=== PATIENT | female | born 1940 | race Caucasian/White ===

== ENCOUNTER 2018-03-14 10:37 | Inpatient (IN) ==
--- NOTE | 2018-03-14 13:48 | P.HPCC ---
History of Present Illness Service: Critical care medicine Primary Care Physician: UNKNOWN Chief Complaint: Severe sepsis, pneumonia, respiratory failure History of Present Illness: This 77-year-old woman was transferred from [facility] to [facility] for treatment of respiratory failure with septic shock and peripheral abscesses including recent diagnosis of epidural abscess in the lumbar region. Her respiratory status is quite compromised with diffuse infiltrates throughout both lung welsh and she is ventilator dependent. On initial presentation to the hospital impair she had complaints of back pain radiating to her left knee. Her hemoglobin was 4 source of bleeding was clear was unclear at first and Dr. Vasquez had previously performed upper and lower endoscopy without location of a source. She has had a metastatic series and MRI on March 04 which developed multilevel central canal and foraminal stenoses she has had a transesophageal echo which revealed severe mitral regurgitation her hospital course has been complicated by atrial fibrillation and hemodynamic instability. Cardioversion was unsuccessful. She has continued recent fever course in excess of 103 degrees and has been treated with broad-spectrum antibiotic coverage including meropenem and vancomycin. She is continued to deteriorate and on about March 11 required endotracheal intubation and mechanical ventilation. Recent ICU white blood cell count is 40,000 blood cultures from March 09 revealed Streptococcus species and a subsequent blood culture grew a staph organism according to the report from the referring physician. The woman is required amiodarone therapy and diltiazem with additional cardioversion to sinus rhythm on the chest x-ray continues to worsen. CT of the abdomen reveals fluid collection on the left psoas muscle, possibly abscess. The contralateral psoas muscle has a similar collection. Recent MRI demonstrates old spine hardware L3-S1 and an irregular soft tissue density around the thecal sac at L1-L2 extending to T12-L1 she is required vasopressor support for hypotension and obvious sepsis overnight. The one constant throughout her early hospital course was severe lower back pain radiating down her legs. Inpatient Certification: I certify that the inpatient services were ordered in accordance with Medicare regulations governing the order. This includes certification that hospital inpatient services are reasonable and necessary and in the case of services not specified as inpatient-only under 42 CFR 419.22(n), that they are appropriately provided as inpatient services in accordance to with the 2-midnight benchmark under 43 CFR 412.3(e) [facility] - Medical History Medical History: Medical History (Last Reviewed 03/14/18 @ 18:43 by Gisella Murillo MD) Anemia Atrial fibrillation Fusion of lumbar spine Metal bone fixation hardware in place Pneumonia Sepsis associated hypotension Tricuspid regurgitation - Family History Family History: Family History (Last Updated 03/14/18 @ 18:44 by Gisella Murillo MD) Other Family history unobtainable Medications and Allergies Allergies Allergy/AdvReac Type Severity Reaction Status Date / Time Penicillins Allergy Swelling Verified 03/14/18 13:53 of Lip/Tongue/Throat Sulfa (Sulfonamide Allergy Diarrhea Verified 03/14/18 13:53 Antibiotics) shellfish AdvReac Swelling Uncoded 03/14/18 13:53 of Lip/Tongue/Throat Results - Labs CBC & Chem 7: 03/17/18 04:30 03/17/18 04:30 Exam Vital signs: Vital Signs 03/14/18 12:00 03/14/18 12:05 Temperature 98.5 F Pulse Rate 94 H Respiratory Rate 25 H 26 H Blood Pressure 135/60 Pulse Oximetry 97 Intake & Output 03/13/18 03/14/18 03/14/18 18:59 06:59 18:59 Other: Date of Last Bowel Movement 03/14/18 Narrative: Physical exam: General: Ill-appearing, elderly woman on mechanical ventilation Head: Atraumatic, normal. Oral tracheal intubation. Neck: Stiff consistent with age but otherwise supple. Lungs: Bilateral sonorous rhonchi with mobile secretions. Good bilateral air entry Heart: Irregular rate and rhythm, 2/6 systolic murmur Abdomen: Moderately distended, bowel sounds few, no guarding Extremities: Warm, well-perfused Neurologic: Heavily sedated on arrival with Ativan. Breathes spontaneously over ventilator rate. Pupils reactive. Caprini VTE Risk Assessment Caprini VTE Risk Assessment: Moderate/High Risk (score >= 2) Caprini Risk Assessment Model: Point Value = 1 Point Value = 2 Point Value = 3 Point Value = 5 Age 41-60 Minor surgery BMI > 25 kg/m2 Swollen legs Varicose veins or History of unexplained or recurrent spontaneous Oral contraceptives or hormone replacement Sepsis (< 1 month) Serious lung disease, including pneumonia (< 1 month) Abnormal pulmonary function Acute myocardial infarction Congestive heart failure (< 1 month) History of inflammatory bowel disease Medical patient at bed rest Age 61-74 Arthroscopic surgery Major open surgery (> 45 min) Laparoscopic surgery (> 45 min) Malignancy Confined to bed (> 72 hours) Immobilizing plaster cast Central venous access Age >= 75 History of VTE Family history of VTE Factor V Leiden Prothrombin [id number] Lupus anticoagulant Anticardiolipin antibodies Elevated serum homocysteine Heparin-induced thrombocytopenia Other congenital or acquired thrombophilia Stroke (< 1 month) Elective arthroplasty Hip, pelvis, or leg fracture Acute spinal cord injury (< 1 month) Prophylaxis Regimen: Total Risk Factor Score Risk Level Prophylaxis Regimen 0-1 Low Early ambulation 2 Moderate Order ONE of the following: *Sequential Compression Device (SCD) *Heparin 5000 units SQ BID 3-4 Higher Order ONE of the following medications: *Heparin 5000 units SQ TID *Enoxaparin/Lovenox 40 mg SQ daily (WT < 150 kg, CrCl > 30 mL/min) *Enoxaparin/Lovenox 30 mg SQ daily (WT < 150 kg, CrCl > 10-29 mL/min) *Enoxaparin/Lovenox 30 mg SQ BID (WT < 150 kg, CrCl > 30 mL/min) AND/OR *Sequential Compression Device (SCD) 5 or more Highest Order ONE of the following medications: *Heparin 5000 units SQ TID (Preferred with Epidurals) *Enoxaparin/Lovenox 40 mg SQ daily (WT < 150 kg, CrCl > 30 mL/min) *Enoxaparin/Lovenox 30 mg SQ daily (WT < 150 kg, CrCl > 10-29 mL/min) *Enoxaparin/Lovenox 30 mg SQ BID (WT < 150 kg, CrCl > 30 mL/min) AND *Sequential Compression Device (SCD) Assessment and Plan - Assessment and Plan Plan: Assessment: 1. Septic shock 2. Bacteremia staph and strep organisms 3. Acute hypoxemic respiratory failure 4. Bilateral pneumonia 5. Chronic anemia 6. Ileus 7. Paroxysmal atrial fibrillation 8. Metabolic acidosis 9. Acute kidney injury 10. Psoas abscess 11. Possible epidural abscess 12. Heart failure with severe mitral regurgitation Plan: Neuro -sedation with propofol and fentanyl -Neurosurgery evaluation for lumbar problem Cardiovascular -Khalif-Synephrine for supportive arterial blood pressure -Amiodarone drip for conversion of atrial fibrillation -Electrolyte replacement protocol Respiratory -PRBC ventilatory mode -Blood gas now and in a.m. -Sputum culture -PEEP 10 GI -Nasogastric tube to low intermittent suction -Start tube feedings -History of antral ulcers -Olivas to closed bag drainage -Urinalysis Hematology -Serial white cell count -Follow anemia with hemoglobin -Hold bone marrow biopsy for now ID -Continue outpatient antibiotics, meropenem and vancomycin pending local ID consult -Organisms cultured at outside hospital are streptococcal and staph species -Hold Flagyl for now Prophylaxis -Hold chemical DVT prophylaxis due to high risk of bleeding, and recurrent anemia -SCDs -Continue aspirin Overall impression: This woman is critically ill and hemodynamically unstable with septic shock and supra ventricular tachyarrhythmia. Both lungs are obvious nidus of infection but the unexplained fluid collections in the lumbar region and by both psoas muscles may well be infected as well. An MRI from an outside hospital is interpreted as compression of the cord at the L1-2 region. We have asked neurosurgery to advise us as to best treatment. Right now the patient is way too unstable to tolerate a operative procedure of any kind. Critical care time 90 minutes aside from invasive procedures.
[2018-03-14] MEDS ORDERED: Bisacodyl 10 MG Supp RECTAL PRN (13:53)
[2018-03-14] MEDS ORDERED: Acetaminophen 325 MG Tablet PO PRN (13:53)
[2018-03-14] MEDS ORDERED: Morphine Inj 4 MG/ML Vial IV.PUSH PRN (14:05)
[2018-03-14] MEDS ORDERED: Vancomycin Consult Pharmacy OTHER PRN (14:39)
[2018-03-14] MEDS: Heparin - SQ 10,000 UNITS/ML Vial SQ SCH ×2 (15:00→22:47)
--- NOTE | 2018-03-14 15:11 | XR ---
EXAM DATE: 03/14/2018 12:00 AM EDT AGE/SEX: 77 years / Female INDICATIONS: Pneumonia. CLINICAL DATA: This is the patient's initial encounter. Patient reports that signs and symptoms have been present for 1 day and indicates a pain score of Nonresponsive. MEDICAL/SURGICAL HISTORY: Non-responsive. Non-responsive. COMPARISON: No prior exams available for comparison. FINDINGS: ETT at the level the clavicles. NGT in the proximal stomach. Right-sided PICC line with tip in the mi d SVC. Diffuse patchy airspace disease throughout the left lung and in the right mid to lower lung zo uziel. Cardiac silhouette is within normal limits. There is prominence of the AP window. Bony thorax is intact. CONCLUSION: 1. Tubes and lines, as above. 2. Diffuse airspace disease throughout the left lung and in the right mid to lower lung zones consis tent with atypical/multilobar pneumonia versus developing ARDS. 3. Prominence of the AP window may reflect adenopathy. Electronically signed by: Paxton Coats MD 03/14/2018 3:10 PM EDT
[2018-03-14] MEDS: Propofol 1000 mg/100 ml Inj 1,000 MG/100 ML BOTTLE IV.CONT PRN (15:27)
[2018-03-14] MEDS: Phenylephrine Inj 80 MG in Sodium Chlor 0.9% Inj 492 ML IV.CONT PRN (15:48)
[2018-03-14 16:03] LABS: Hematocrit 24.8 % (35.0-46.0); Mean Corpuscular HGB Conc 32.1 % (32.0-36.0); Mean Corpuscular Hemoglobin 30.2 pg (27.0-34.0); Mean Corpuscular Volume 93.9 fL (80.0-100.0); Mean Platelet Volume 11.5 fL (7.0-11.0); Platelet Count 270 th/mm3 (150-450); Red Blood Count 2.64 mil/mm3 (4.00-5.30); Red Cell Distribution Width 21.5 % (11.6-17.2); White Blood Count 21.7 th/mm3 (4.0-11.0)
[2018-03-14 16:27] LABS: Calcium 7.9 mg/dL (8.5-10.1); Carbon Dioxide 27.3 meq/L (21.0-32.0); Potassium 3.1 meq/L (3.5-5.1)
[2018-03-14 16:34] LABS: Lymphocytes 2 % (9-44); Metamyelocytes 2 % (0-1); Monocytes 4 % (0-8); Myelocytes 2 % (0-0)
[2018-03-14 16:35] LABS: Platelet Estimate Normal (Normal)
[2018-03-14] MEDS: Oral Hygiene Kit OROPHARYNG SCH (16:36)
[2018-03-14 17:21] LABS: ABG Base Excess 0.4 mmol/L (-2-2); ABG PCO2 40 mmHg (38-42); ABG PO2 79 mmHg (61-120)
--- NOTE | 2018-03-14 17:53 | P.CONNS ---
History of Present Illness Service: Neurosurgery Consult date: 03/14/18 Requesting Physician: Ervin Montenegro (Eeg Tech) Reason for Consult: Possible thoracolumbar spinal epidural abscess Primary Care Provider: UNKNOWN Chief Complaint: Severe sepsis, pneumonia, respiratory failure History of Present Illness: 77-year-old female transferred from [facility] to [facility] for treatment of respiratory failure with septic shock and peripheral abscesses with concern for epidural abscess in the upper lumbar region. She also has staph bacteremia and her respiratory status is quite compromised with diffuse infiltrates throughout both lung welsh and she is ventilator dependent. She complained of back pain with radiation into the legs during her initial presentation and was also severely anemic with a hemoglobin around 4. She had atrial fibrillation with the hemodynamic instability and severe mitral regurgitation on transesophageal echocardiogram. She had septic shock and respiratory failure and required intubation with ventilator support for the past 3 days. She also underwent cardioversion for atrial fibrillation which was not successful. CT of the abdomen revealed bilateral psoas fluid collection consistent with abscess and she also has a history of L3-S1 fusion with pedicle screw fixation by neurosurgeon in [place] Dr. Tran several years ago. MRI scan of the thoracic and lumbar spine was obtained and suggested the possibility of a T12-L1 dorsal epidural fluid possibly abscess although no contrast was administered to see if this enhances. There is a moderate compression of the thecal sac. She also has L2-3 spinal stenosis from facet hypertrophy and degenerative changes with L3-S1 instrumentation. She is transferred to [facility] for critical care management and is currently on vasopressor support and ventilator dependent. Review of Systems unobtainable due to endotracheal tube PMFSH - Medical History Medical History: Medical History (Last Updated 03/14/18 @ 17:52 by Fernando Taylor MD) Anemia Atrial fibrillation Fusion of lumbar spine Metal bone fixation hardware in place Pneumonia Sepsis associated hypotension Tricuspid regurgitation - Tobacco History Smoking Status: Unknown if ever smoked - Alcohol History How Often Do You Have a Drink Containing Alcohol: Unable to Obtain Medications and Allergies Active Medications: Active Medications Acetaminophen (Tylenol) 650 mg PO Q6H PRN PRN Reason: PAIN 1-10 AND/OR FEVER >101F Al Hydroxide/Mg Hydroxide (Milk Of Magnesia Liq) 30 ml PO Q12H PRN PRN Reason: Mild Constipation Albuterol (Duoneb Neb (Prn)) 1 ampul NEB Q2HR NEB PRN PRN Reason: WHEEZING Bisacodyl (Dulcolax Supp) 10 mg RECTAL DAILY PRN PRN Reason: SEVERE CONSITIPATION Chlorhexidine Gluconate (Peridex 0.12% Oral Kit) 15 ml OROPHARYNG BID@0800, 2000 [facility] Chlorhexidine Gluconate (Chlorhexidine 2% Cloth) 3 pack TOPICAL DAILY@0400 [facility] Stop: 03/20/18 03:59 Chlorhexidine Gluconate (Chlorhexidine 2% Cloth) 3 pack TOPICAL DAILY@0400 PRN PRN Reason: Extra cloth needed Stop: 03/20/18 03:59 Famotidine (Pepcid Pf Inj) 20 mg IV.PUSH Q12HR [facility] Fentanyl (Duragesic 100 Mcg Patch.72hr) 1 patch T-DERMAL Q3D [facility] Last Admin: 03/14/18 15:00 Dose: 1 patch Heparin Sodium (Porcine) (Heparin Inj) 5,000 units SQ Q8H [facility] Last Admin: 03/14/18 15:00 Dose: 5,000 units Amiodarone HCl 450 mg/ (Dextrose) 250 mls @ 33.33 mls/hr IV.CONT TITRATE PRN; Protocol PRN Reason: Per Protocol Last Admin: 03/14/18 15:19 Dose: 1 mg/min, 33.33 mls/hr Meropenem 1,000 mg/ Sodium (Chloride) 100 mls @ 200 mls/hr IV.SIG Q8H [facility] Last Infusion: 03/14/18 16:18 Dose: Infused Fentanyl (Fentanyl 10 Mcg/Ml Premix Drip) 2,500 mcg in 250 mls @ 5 mls/hr IV.SIG TITRATE PRN; Protocol PRN Reason: Per Protocol Propofol (Diprivan 1000 Mg/100 Ml Inj) 1,000 mg in 100 mls @ 2.292 mls/hr IV.CONT TITRATE PRN; Protocol PRN Reason: Per Protocol Last Titration: 03/14/18 16:00 Dose: 25 mcg/kg/min, 11.46 mls/hr Phenylephrine HCl 80 mg/ (Sodium Chloride) 500 mls @ 15 mls/hr IV.CONT TITRATE PRN; Protocol PRN Reason: See protocol Last Titration: 03/14/18 16:00 Dose: 0 mcg/min, 0 mls/hr Lactulose (Lactulose Liq) 30 ml PO DAILY PRN PRN Reason: SEVERE CONSITIPATION Levothyroxine Sodium (Synthroid) 112 mcg PO DAILY@0600 [facility] Miscellaneous Medication () 1 each OROPHARYNG 0000,0400,1200,1600 [facility] Last Admin: 03/14/18 16:36 Dose: 1 each Morphine Sulfate (Morphine Inj) 4 mg IV.PUSH Q2H PRN PRN Reason: any pain Ondansetron HCl (Zofran Inj) 4 mg IV.PUSH Q6H PRN PRN Reason: NAUSEA OR VOMITING Patch Removal (Remove Old Patch) 1 each T-DERMAL Q3D [facility] Pharmacy Profile Note (Vancomycin Consult Pharmacy) 1 each OTHER UNSCH PRN PRN Reason: Pharmacy to dose Senna/Docusate Sodium (Mimi-Colace) 1 tab PO BID [facility] Sennosides (Senokot) 17.2 mg PO Q12H PRN PRN Reason: Moderate Constipation Sodium Chloride (Ns Flush) 2 ml IV.FLUSH BID [facility] Sodium Chloride (Ns Flush) 2 ml IV.FLUSH UNSCH PRN PRN Reason: FLUSH AFTER USING IV ACCESS Terbutaline Sulfate (Brethine Inj) 1 mg SQ UNSCH PRN PRN Reason: For Extravasation Allergies Allergy/AdvReac Type Severity Reaction Status Date / Time Penicillins Allergy Swelling Verified 03/14/18 13:53 of Lip/Tongue/Throat Sulfa (Sulfonamide Allergy Diarrhea Verified 03/14/18 13:53 Antibiotics) shellfish AdvReac Swelling Uncoded 03/14/18 13:53 of Lip/Tongue/Throat Exam Vital signs: Vital Signs 03/14/18 12:00 03/14/18 12:05 03/14/18 14:00 Temperature 98.5 F 98.8 F Pulse Rate 94 H 94 H Respiratory Rate 25 H 26 H 28 H Blood Pressure 135/60 126/59 L Pulse Oximetry 97 98 03/14/18 15:59 03/14/18 16:00 Temperature 99.2 F Pulse Rate 160 H Respiratory Rate 29 H 29 H Blood Pressure 96/55 L Pulse Oximetry 96 98 Intake & Output 03/13/18 03/14/18 03/14/18 18:59 06:59 18:59 Intake Total 100 / 100 Balance 100 / 100 Weight 76.4 kg Intake: IV 100 / 100 Merrem Inj 1,000 MG In NS Inj 100 / 100 100 ML @ 200 mls/hr IV.SIG Q8H [facility] Rx#:[id number] Other: Date of Last Bowel Movement 03/14/18 Weight On Admission 76.4 kg - Constitutional obese - Routine HEENT Exam Head: Present: normocephalic, atraumatic Eye: Present: PERRL ENT: Present: mucous membranes moist, nares patent, external ear normal - Routine Neck Exam Present: supple, full ROM - Routine Respiratory Exam Present: patient mechanically ventilated, rhonchi, crackles - Routine Cardiovascular Exam Present: murmur, irregular rhythm - Routine Abdominal Exam Present: soft, normoactive bowel sounds - Routine Extremities Exam Present: edema - Routine Skin Exam Present: intact - Detailed Neurological Exam: Coma Scale Eye Opening: None Verbal Response: None Motor Response: Localizing (She was on Ativan drip which was held and currently on propofol drip which limits her neurologic examination; she does withdraw upper and lower extremities to stimulation) [place] Coma Scale Total: 7 Results - Laboratory Findings CBC and BMP: 03/14/18 15:36 03/14/18 15:36 Abnormal lab findings: Abnormal Labs 03/14/18 03/14/18 03/14/18 15:36 15:36 15:38 WBC 21.7 H RBC 2.64 L Hgb 8.0 L Hct 24.8 L RDW 21.5 H MPV 11.5 H Band Neuts % (Manual) 21 H Lymphocytes % (Manual) 2 L Metamyelocytes % (Man) 2 H Myelocytes % (Man) 2 H Abs Neuts (Manual) 20.4 H Platelet Morphology Enlarged H Hemoglobin 10.1 L Potassium 3.1 L BUN 50 H Creatinine 1.10 H Estimated GFR 48 L Random Glucose 259 H Calcium 7.9 L - Diagnostic Findings Additional findings: Impressions Chest X-Ray 03/14/18 00:00 CONCLUSION: 1. Tubes and lines, as above. 2. Diffuse airspace disease throughout the left lung and in the right mid to lower lung zones consistent with atypical/multilobar pneumonia versus developing ARDS. 3. Prominence of the AP window may reflect adenopathy. Assessment and Plan - Assessment (1) Spinal stenosis of thoracolumbar region Code(s): M48.05 - Spinal stenosis, thoracolumbar region Status: Acute (2) Sepsis Code(s): A41.9 - Sepsis, unspecified organism Status: Acute (3) Respiratory failure Code(s): J96.90 - Respiratory failure, unspecified, unspecified whether with hypoxia or hypercapnia Status: Acute (4) Fusion of lumbar spine Code(s): M43.26 - Fusion of spine, lumbar region Status: Chronic - Plan 77-year-old lady optic shock with pneumonia and respiratory failure with the staph aureus bacteremia. Noncontrast MRI of the thoracic and lumbar spine suggest a possible dorsal T12-L1 area epidural collection along with L2-3 degenerative spinal stenosis with history of L3-S1 pedicle screw fixation with fusion by a neurosurgeon in [place] several years ago. Recommend MRI of the complete spine with contrast to evaluate for epidural abscess/enhancement once she is medically stable. Her condition is critical with a guarded prognosis. (2) Sepsis Qualifiers: Sepsis type: methicillin susceptible Staphylococcus aureus Qualified Code(s) : A41.01 - Sepsis due to Methicillin susceptible Staphylococcus aureus (3) Respiratory failure Qualifiers: Chronicity: acute
[2018-03-14] MEDS ORDERED: Magnesium Sulfate Inj 2 GM in Sodium Chlor 0.9% Inj 96 ML IV.SIG PRN (18:12)
[2018-03-14] MEDS ORDERED: Magnesium Oxide 400 MG Tablet PO PRN (18:12)
[2018-03-14] MEDS ORDERED: Potassium Phosphate Inj 30 MMOL in Sodium Chlor 0.9% Inj 250 ML IV.SIG PRN (18:12)
[2018-03-14] MEDS ORDERED: Potassium Chlor 40 mEq Premix 40 MEQ/100 ML PIGGYBACK IV.SIG PRN ×2 (18:12)
[2018-03-14] MEDS ORDERED: Magnesium Sulfate Inj 4 GM in Sodium Chlor 0.9% Inj 92 ML IV.SIG PRN (18:12)
[2018-03-14] MEDS ORDERED: Potassium Chloride 25 MEQ Effervescent Tablet PO PRN (18:12)
[2018-03-14] MEDS ORDERED: Potassium Phosphate 500 MG Soluble Tablet PO PRN ×2 (18:12)
[2018-03-14] MEDS ORDERED: Potassium Chlor 20 mEq Premix 20 MEQ/100 ML PIGGYBACK IV.SIG PRN ×2 (18:12)
[2018-03-14] MEDS ORDERED: Sodium Phosphate Inj 30 MMOL in Sodium Chlor 0.9% Inj 250 ML IV.SIG PRN (18:12)
--- NOTE | 2018-03-14 18:54 | P.CONID ---
History of Present Illness Service: ID Consult date: 03/14/18 Requesting Physician: Ervin Montenegro Reason for Consult: Transfer from outside hospital with Staph and Strep blood culture results, Primary Care Provider: UNKNOWN Chief Complaint: Severe sepsis, pneumonia, respiratory failure History of Present Illness: [facility] outside facility Unable to provide history History from chart 77-year-old female treatment of respiratory failure with septic shock She initially complained of back pain with radiation into the legs during her initial presentation and was also severely anemic with a hemoglobin around 4. Non contrassted MRI done at [facility] with concern for T12-L1 epidural abscess in the upper lumbar region. CT of the abdomen with bilateral psoas fluid collection consistent with abscess Pt has a history of L3-S1 fusion with pedicle screw fixation by neurosurgeon in [place] Dr. Tran several years ago. She also has L2-3 spinal stenosis from facet hypertrophy and degenerative changes with L3-S1 instrumentation. She also has staph and strep bacteremia She also presnetd with severe PNA that developped in the other facility resulted into acute VDRF she remains on the vent No prtessors yet, but BP is trending down On Meropenem, vancomycin She had atrial fibrillation with the hemodynamic instability and severe mitral regurgitation on transesophageal echocardiogram. She had septic shock and respiratory failure and required intubation with ventilator support for the past 3 days. She also underwent cardioversion for atrial fibrillation which failed Review of Systems unobtainable due to endotracheal tube, unobtainable due to mental status ( sedated) [facility] - Medical History Medical History: Medical History (Last Reviewed 03/14/18 @ 18:43 by Gisella Murillo MD) Anemia Atrial fibrillation Fusion of lumbar spine Metal bone fixation hardware in place Pneumonia Sepsis associated hypotension Tricuspid regurgitation - Family History Family History: Family History (Last Updated 03/14/18 @ 18:44 by Gisella Murillo MD) Other Family history unobtainable - Social History I have reviewed the patient's Social History: Yes - Tobacco History Smoking Status: Unknown if ever smoked - Alcohol History How Often Do You Have a Drink Containing Alcohol: Unable to Obtain Medications and Allergies Active Medications: Active Medications Acetaminophen (Tylenol) 650 mg PO Q6H PRN PRN Reason: PAIN 1-10 AND/OR FEVER >101F Al Hydroxide/Mg Hydroxide (Milk Of Colby Nicolas) 30 ml PO Q12H PRN PRN Reason: Mild Constipation Albuterol (Duoneb Neb (Prn)) 1 ampul NEB Q2HR NEB PRN PRN Reason: WHEEZING Bisacodyl (Dulcolax Supp) 10 mg RECTAL DAILY PRN PRN Reason: SEVERE CONSITIPATION Chlorhexidine Gluconate (Peridex 0.12% Oral Kit) 15 ml OROPHARYNG BID@0800, 2000 [facility] Chlorhexidine Gluconate (Chlorhexidine 2% Cloth) 3 pack TOPICAL DAILY@0400 [facility] Stop: 03/20/18 03:59 Chlorhexidine Gluconate (Chlorhexidine 2% Cloth) 3 pack TOPICAL DAILY@0400 PRN PRN Reason: Extra cloth needed Stop: 03/20/18 03:59 Famotidine (Pepcid Pf Inj) 20 mg IV.PUSH Q12HR [facility] Fentanyl (Duragesic 100 Mcg Patch.72hr) 1 patch T-DERMAL Q3D [facility] Last Admin: 03/14/18 15:00 Dose: 1 patch Heparin Sodium (Porcine) (Heparin Inj) 5,000 units SQ Q8H [facility] Last Admin: 03/14/18 15:00 Dose: 5,000 units Amiodarone HCl 450 mg/ (Dextrose) 250 mls @ 33.33 mls/hr IV.CONT TITRATE PRN; Protocol PRN Reason: Per Protocol Last Admin: 03/14/18 15:19 Dose: 1 mg/min, 33.33 mls/hr Meropenem 1,000 mg/ Sodium (Chloride) 100 mls @ 200 mls/hr IV.SIG Q8H [facility] Last Infusion: 03/14/18 16:18 Dose: Infused Fentanyl (Fentanyl 10 Mcg/Ml Premix Drip) 2,500 mcg in 250 mls @ 5 mls/hr IV.SIG TITRATE PRN; Protocol PRN Reason: Per Protocol Propofol (Diprivan 1000 Mg/100 Ml Inj) 1,000 mg in 100 mls @ 2.292 mls/hr IV.CONT TITRATE PRN; Protocol PRN Reason: Per Protocol Last Titration: 03/14/18 16:00 Dose: 25 mcg/kg/min, 11.46 mls/hr Phenylephrine HCl 80 mg/ (Sodium Chloride) 500 mls @ 15 mls/hr IV.CONT TITRATE PRN; Protocol PRN Reason: See protocol Last Titration: 03/14/18 16:00 Dose: 0 mcg/min, 0 mls/hr Magnesium Sulfate 4 gm/ Sodium (Chloride) 100 mls @ 50 mls/hr IV.SIG UNSCH PRN PRN Reason: For Magnesium 0.9 - 1.1 mg/dL Potassium Chloride (Kcl 40 Meq Premix Inj) 40 meq in 100 mls @ 25 mls/hr IV.SIG Q4H PRN PRN Reason: For Potassium 2.8 - 3.2 mEq/L Potassium Chloride (Kcl 20 Meq Premix Inj) 20 meq in 100 mls @ 50 mls/hr IV.SIG Q2H PRN PRN Reason: For Potassium 3.3 - 3.5 mEq/L Potassium Chloride (Kcl 40 Meq Premix Inj) 40 meq in 100 mls @ 25 mls/hr IV.SIG UNSCH PRN PRN Reason: For Potassium 3.3 - 3.5 mEq/L Last Admin: 03/14/18 18:32 Dose: 25 mls/hr Potassium Chloride (Kcl 20 Meq Premix Inj) 20 meq in 100 mls @ 50 mls/hr IV.SIG Q2H PRN PRN Reason: For Potassium 2.8 - 3.2 mEq/L Potassium Phosphate 30 mmol/ (Sodium Chloride) 260 mls @ 42 mls/hr IV.SIG UNSCH PRN PRN Reason: SEE LABEL COMMENTS Sodium Phosphate 30 mmol/ (Sodium Chloride) 260 mls @ 42 mls/hr IV.SIG UNSCH PRN PRN Reason: For Phosphorus < 2.5 mg/dL Magnesium Sulfate 2 gm/ Sodium (Chloride) 100 mls @ 50 mls/hr IV.SIG UNSCH PRN PRN Reason: For Magnesium 1.2 - 1.6 mg/dL Lactulose (Lactulose Liq) 30 ml PO DAILY PRN PRN Reason: SEVERE CONSITIPATION Levothyroxine Sodium (Synthroid) 112 mcg PO DAILY@0600 [facility] Magnesium Oxide (Mag-Ox) 800 mg PO UNSCH PRN PRN Reason: For Magnesium 1.2 - 1.6 mg/dL Miscellaneous Medication () 1 each OROPHARYNG 0000,0400,1200,1600 [facility] Last Admin: 03/14/18 16:36 Dose: 1 each Morphine Sulfate (Morphine Inj) 4 mg IV.PUSH Q2H PRN PRN Reason: any pain Ondansetron HCl (Zofran Inj) 4 mg IV.PUSH Q6H PRN PRN Reason: NAUSEA OR VOMITING Patch Removal (Remove Old Patch) 1 each T-DERMAL Q3D [facility] Pharmacy Profile Note (Vancomycin Consult Pharmacy) 1 each OTHER UNSCH PRN PRN Reason: Pharmacy to dose Potassium Bicarb/Potassium Chloride (K-Lyte Cl Eff) 50 meq PO UNSCH PRN PRN Reason: For Potassium 3.3 - 3.5 mEq/L Last Admin: 03/14/18 18:32 Dose: 50 meq Potassium Phosphate (K-Phos Original) 2,000 mg PO Q4H PRN PRN Reason: Phosphorus Less Than 2.5 mg/dL Potassium Phosphate (K-Phos Original) 2,000 mg PO UNSCH PRN PRN Reason: SEE LABEL COMMENTS Senna/Docusate Sodium (Mimi-Colace) 1 tab PO BID [facility] Sennosides (Senokot) 17.2 mg PO Q12H PRN PRN Reason: Moderate Constipation Sodium Chloride (Ns Flush) 2 ml IV.FLUSH BID [facility] Sodium Chloride (Ns Flush) 2 ml IV.FLUSH UNSCH PRN PRN Reason: FLUSH AFTER USING IV ACCESS Terbutaline Sulfate (Brethine Inj) 1 mg SQ UNSCH PRN PRN Reason: For Extravasation Allergies Allergy/AdvReac Type Severity Reaction Status Date / Time Penicillins Allergy Swelling Verified 03/14/18 13:53 of Lip/Tongue/Throat Sulfa (Sulfonamide Allergy Diarrhea Verified 03/14/18 13:53 Antibiotics) shellfish AdvReac Swelling Uncoded 03/14/18 13:53 of Lip/Tongue/Throat Exam Vital signs: Vital Signs 03/14/18 12:00 03/14/18 12:05 03/14/18 14:00 Temperature 98.5 F 98.8 F Pulse Rate 94 H 94 H Respiratory Rate 25 H 26 H 28 H Blood Pressure 135/60 126/59 L Pulse Oximetry 97 98 03/14/18 15:59 03/14/18 16:00 03/14/18 18:00 Temperature 99.2 F 100 F H Pulse Rate 160 H 93 H Respiratory Rate 29 H 29 H 21 Blood Pressure 96/55 L 100/50 L Pulse Oximetry 96 98 99 Intake & Output 03/13/18 03/14/18 03/14/18 18:59 06:59 18:59 Intake Total 100 / 100 Balance 100 / 100 Weight 76.4 kg Intake: IV 100 / 100 Merrem Inj 1,000 MG In NS Inj 100 / 100 100 ML @ 200 mls/hr IV.SIG Q8H [facility] Rx#:[id number] Other: Date of Last Bowel Movement 03/14/18 Weight On Admission 76.4 kg - Constitutional obese Comments: sedated int'd on vent - Routine HEENT Exam Head: Present: normocephalic, atraumatic Eye: Present: EOMI, PERRL ENT: Present: mucous membranes moist, oropharynx clear Comments: orally int'd - Routine Neck Exam Present: supple. Absent: JVD - Routine Respiratory Exam Present: patient mechanically ventilated, CTA bilaterally. Absent: accessory muscle use - Routine Cardiovascular Exam Present: RRR, S1, S2. Absent: murmur, gallop, rubs - Routine Abdominal Exam Present: soft. Absent: tenderness, distended, organomegaly, mass - Routine Extremities Exam Present: edema (trace ). Absent: cyanosis, clubbing - Routine Skin Exam Present: dry, warm. Absent: rash - Routine Neurological Exam pt is heavily sedated with propofol - Routine Psychiatric Exam Present: unable to assess Results - Labs CBC & Chem 7: 03/14/18 15:36 03/14/18 15:36 Labs: Laboratory Results - last 24 hr 03/14/18 03/14/18 03/14/18 13:38 15:36 15:36 WBC 21.7 H RBC 2.64 L Hgb 8.0 L Hct 24.8 L MCV 93.9 MCH 30.2 MCHC 32.1 RDW 21.5 H Plt Count 270 MPV 11.5 H Prelim Diff (Auto) Slide review pending WBC Differential Manual diff final Seg Neuts % (Manual) 69 Band Neuts % (Manual) 21 H Lymphocytes % (Manual) 2 L Monocytes % (Manual) 4 Metamyelocytes % (Man) 2 H Myelocytes % (Man) 2 H Abs Neuts (Manual) 20.4 H Differential Comment . Platelet Estimate Normal Platelet Morphology Enlarged H Puncture Site Patient Temperature O2 Saturation ABG pH ABG pCO2 ABG pO2 ABG HCO3 ABG O2 Content ABG Base Excess ABG Methemoglobin Faizan Test Hemoglobin Carboxyhemoglobin O2 Delivery Device Vent Setting Inspired O2 Critical Value Sodium 142 Potassium 3.1 L Chloride 105 Carbon Dioxide 27.3 Anion Gap 10 BUN 50 H Creatinine 1.10 H Estimated GFR 48 L Random Glucose 259 H Calcium 7.9 L Nasal Screen MRSA (PCR) Not detected 03/14/18 15:38 WBC RBC Hgb Hct MCV MCH MCHC RDW Plt Count MPV Prelim Diff (Auto) WBC Differential Seg Neuts % (Manual) Band Neuts % (Manual) Lymphocytes % (Manual) Monocytes % (Manual) Metamyelocytes % (Man) Myelocytes % (Man) Abs Neuts (Manual) Differential Comment Platelet Estimate Platelet Morphology Puncture Site Left radial Patient Temperature 98.6 O2 Saturation 95 ABG pH 7.40 ABG pCO2 40 ABG pO2 79 ABG HCO3 25 ABG O2 Content 13.5 ABG Base Excess 0.4 ABG Methemoglobin 1.3 Faizan Test Present Hemoglobin 10.1 L Carboxyhemoglobin 1.2 O2 Delivery Device Ventilator Vent Setting Inspired O2 85 Critical Value No Sodium Potassium Chloride Carbon Dioxide Anion Gap BUN Creatinine Estimated GFR Random Glucose Calcium Nasal Screen MRSA (PCR) - Imaging Impressions Chest X-Ray 03/14/18 00:00 CONCLUSION: 1. Tubes and lines, as above. 2. Diffuse airspace disease throughout the left lung and in the right mid to lower lung zones consistent with atypical/multilobar pneumonia versus developing ARDS. 3. Prominence of the AP window may reflect adenopathy. Assessment and Plan - Plan Critical and unstable pt PNA, HCAP /aspiration Lower T / L spine epidiratl abscess - pt was seen by Dr Monster Taylor who is planning to repeat MR w/wo c when stable enough Sepsis Acute VDRF ARF agree with curretn abx choice fu blood clx fu sputum clx will follow MR results jesenia ba RN @ b/s
[2018-03-14] MEDS: Chlorhexidine 0.12% Oral Kit 15 ML UDC OROPHARYNG SCH (20:50)
[2018-03-14] MEDS: Famotidine PF Inj 20 MG/2 ML Vial IV.PUSH SCH (20:50)
[2018-03-14] MEDS: Senna/Docusate Sodium 8.6/50 MG Tablet PO SCH (20:51)
[2018-03-15] MEDS: Propofol 1000 mg/100 ml Inj 1,000 MG/100 ML BOTTLE IV.CONT PRN ×3 (00:33→17:13)
[2018-03-15] MEDS: Oral Hygiene Kit OROPHARYNG SCH ×5 (00:34→23:40)
[2018-03-15] MEDS ORDERED: Chlorhexidine Gluconate 2% 1 Pack (2 Cloths) TOPICAL SCH (04:00)
[2018-03-15] MEDS ORDERED: Chlorhexidine Gluconate 2% 1 Pack (2 Cloths) TOPICAL PRN ×2 (04:00)
[2018-03-15] MEDS: Chlorhexidine Gluconate 2% 1 Pack (2 Cloths) TOPICAL SCH (04:17)
[2018-03-15 05:06] LABS: Hematocrit 24.7 % (35.0-46.0); Hemoglobin 8.3 gm/dL (11.6-15.3); Mean Corpuscular HGB Conc 33.6 % (32.0-36.0); Mean Corpuscular Hemoglobin 31.4 pg (27.0-34.0); Mean Corpuscular Volume 93.4 fL (80.0-100.0); Mean Platelet Volume 11.7 fL (7.0-11.0); Platelet Count 281 th/mm3 (150-450); Red Blood Count 2.64 mil/mm3 (4.00-5.30); Red Cell Distribution Width 21.3 % (11.6-17.2)
[2018-03-15 05:08] LABS: INR 1.5 Ratio; Prothrombin Time 14.9 sec (9.8-11.6)
[2018-03-15] MEDS: Levothyroxine 112 MCG Tablet PO SCH (05:42)
[2018-03-15 05:43] LABS: Alanine Aminotransferase 19 U/L (10-53); Albumin 1.4 g/dL (3.4-5.0); Alkaline Phosphatase 169 U/L (45-117); Anion Gap 7 meq/L (5-15); Aspartate Aminotransferase 43 U/L (15-37); Blood Urea Nitrogen 53 mg/dL (7-18); Carbon Dioxide 28.5 meq/L (21.0-32.0); Chloride 110 meq/L (98-107); Glomerular Filtration Rate 53 mL/min (>89); Glucose,Random 129 mg/dL (74-106); Potassium 3.8 meq/L (3.5-5.1); Sodium 145 meq/L (136-145); Total Protein 5.9 g/dL (6.4-8.2)
[2018-03-15 08:08] LABS: Metamyelocytes 2 % (0-1); Tallied Nucleated RBC 3 (0-0)
[2018-03-15 08:10] LABS: Lymphocytes 3 % (9-44); Monocytes 11 % (0-8); Myelocytes 9 % (0-0); Platelet Estimate Normal (Normal); Platelet Morphology Clumped (Normal); Promyelocyte 13 % (0-0)
[2018-03-15] MEDS: Heparin - SQ 10,000 UNITS/ML Vial SQ SCH ×3 (09:08→23:39)
[2018-03-15] MEDS: Famotidine PF Inj 20 MG/2 ML Vial IV.PUSH SCH ×2 (09:10→20:17)
[2018-03-15] MEDS: Chlorhexidine 0.12% Oral Kit 15 ML UDC OROPHARYNG SCH ×2 (09:10→20:19)
[2018-03-15] MEDS: Senna/Docusate Sodium 8.6/50 MG Tablet PO SCH ×2 (09:12→20:18)
[2018-03-15] MEDS: Vancomycin Inj 1,250 MG in Sodium Chlor 0.9% Inj 250 ML IV.SIG SCH (10:11)
--- NOTE | 2018-03-15 10:29 | P.PNCC ---
Subjective Subjective Remarks/Hospital Course: This 77-year-old woman was transferred from [facility] to [facility] for treatment of respiratory failure with septic shock and peripheral abscesses including recent diagnosis of epidural abscess in the lumbar region. Her respiratory status is quite compromised with diffuse infiltrates throughout both lung welsh and she is ventilator dependent. On initial presentation to the hospital impair she had complaints of back pain radiating to her left knee. Her hemoglobin was 4 source of bleeding was clear was unclear at first and Dr. Vasquez had previously performed upper and lower endoscopy without location of a source. She has had a metastatic series and MRI on March 04 which developed multilevel central canal and foraminal stenoses she has had a transesophageal echo which revealed severe mitral regurgitation her hospital course has been complicated by atrial fibrillation and hemodynamic instability. Cardioversion was unsuccessful. She has continued recent fever course in excess of 103 degrees and has been treated with broad-spectrum antibiotic coverage including meropenem and vancomycin. She is continued to deteriorate and on about March 11 required endotracheal intubation and mechanical ventilation. Recent ICU white blood cell count is 40,000 blood cultures from March 09 revealed Streptococcus species and a subsequent blood culture grew a staph organism according to the report from the referring physician. The woman is required amiodarone therapy and diltiazem with additional cardioversion to sinus rhythm on the chest x-ray continues to worsen. CT of the abdomen reveals fluid collection on the left psoas muscle, possibly abscess. The contralateral psoas muscle has a similar collection. Recent MRI demonstrates old spine hardware L3-S1 and an irregular soft tissue density around the thecal sac at L1-L2 extending to T12-L1 she is required vasopressor support for hypotension and obvious sepsis overnight. The one constant throughout her early hospital course was severe lower back pain radiating down her legs. 03/15: Temperature max 101. Leukocytosis persists to 30,000. Back in normal sinus rhythm now with pulse rate controlled. Her respiratory status is unstable and she still requiring elevated ventilator pressures and elevated oxygen concentration. We will attempt to get an MRI of the entire spine with and without contrast today pending her hemodynamic suitability. At present her pulmonary status makes operative procedure a prohibitive risk. Objective Vital Signs / I&O: Vital Signs 03/14/18 12:00 03/14/18 12:05 03/14/18 14:00 Temperature 98.5 F 98.8 F Pulse Rate 94 H 94 H Respiratory Rate 25 H 26 H 28 H Blood Pressure 135/60 126/59 L Pulse Oximetry 97 98 03/14/18 15:59 03/14/18 16:00 03/14/18 18:00 Temperature 99.2 F 100 F H Pulse Rate 160 H 93 H Respiratory Rate 29 H 29 H 21 Blood Pressure 96/55 L 100/50 L Pulse Oximetry 96 98 99 03/14/18 20:00 03/14/18 20:22 03/15/18 00:00 Temperature 98.6 F 100.0 F H Pulse Rate 90 86 Respiratory Rate 28 H 26 H 20 Blood Pressure 110/57 L 116/53 L Pulse Oximetry 100 100 03/15/18 00:48 03/15/18 03:44 03/15/18 08:00 Temperature Pulse Rate Respiratory Rate 21 26 H 22 Blood Pressure Pulse Oximetry 100 98 99 Intake & Output 03/14/18 03/15/18 03/15/18 18:59 06:59 18:59 Intake Total 100 / 100 650 / 650 100 / 100 Balance 100 / 100 650 / 650 100 / 100 Weight 76.4 kg Intake: IV 100 / 100 650 / 650 100 / 100 Cordarone Inj 450 MG In D5W Inj 250 / 250 241 ML @ 1 MG/MIN 33.33 mls/hr IV.CONT TITRATE PRN Rx#: [id number] Diprivan 1000 mg/100 ml Inj 1, 100 / 100 0 / 0 000 mg In 100 ml @ 5 MCG/KG/MIN 2.292 mls/hr IV.CONT TITRATE PRN Rx#:[id number] Merrem Inj 1,000 MG In NS Inj 100 / 100 100 / 100 100 ML @ 200 mls/hr IV.SIG Q8H [facility] Rx#:[id number] KCl 40 mEq Premix Inj 40 meq In 100 / 100 100 ml @ 25 mls/hr IV.SIG UNSCH PRN Rx#:[id number] Flagyl 500 MG Inj 100 ML @ 100 200 / 200 mls/hr IV.SIG Q6H [facility] Rx#: [id number] Other: Date of Last Bowel Movement 03/14/18 03/14/18 Weight On Admission 76.4 kg Result Diagrams: 03/15/18 04:30 03/15/18 04:30 Objective Remarks: Narrative: Physical exam: General: Ill-appearing, elderly woman on mechanical ventilation Head: Atraumatic, normal. Oral tracheal intubation. Neck: Stiff consistent with age but otherwise supple. Lungs: Bilateral sonorous rhonchi with mobile secretions. Good bilateral air entry Heart: Regular rate and rhythm at 80/min, 2/6 systolic murmur, no JVD Abdomen: Moderately distended, bowel sounds few, no guarding Extremities: Warm, well-perfused. Trace edema at ankles. Neurologic: Converted to propofol and fentanyl for pain relief and vent synchrony. Breathes spontaneously over ventilator rate. Pupils reactive. Assessment and Plan - Assessment and Plan Plan: Assessment: 1. Septic shock 2. Bacteremia staph and strep organisms 3. Acute hypoxemic respiratory failure 4. Bilateral pneumonia 5. Chronic anemia 6. Ileus 7. Paroxysmal atrial fibrillation 8. Metabolic acidosis 9. Acute kidney injury 10. Psoas abscess 11. Possible epidural abscess 12. Heart failure with severe mitral regurgitation Plan: Neuro -sedation with propofol and fentanyl -Neurosurgery evaluation for lumbar problem -MRI of the entire spine with and without contrast Cardiovascular -Khalif-Synephrine for supportive arterial blood pressure -Amiodarone drip for conversion of atrial fibrillation -Electrolyte replacement protocol -Convert to p.o. amiodarone after 24-hour bolus Respiratory -PRBC ventilatory mode -Blood gas now and in a.m. -Sputum culture -PEEP 10 GI -Nasogastric tube to low intermittent suction -Start tube feedings, Glucerna 1.5 -History of antral ulcers -Olivas to closed bag drainage -Urinalysis Hematology -Serial white cell count -Follow anemia with hemoglobin -Hold bone marrow biopsy for now ID -Continue outpatient antibiotics, meropenem and vancomycin as per ID consult -Organisms cultured at outside hospital are streptococcal and staph species -Hold Flagyl for now -started last night for suspected C. difficile will defer to ID service for adjustment Prophylaxis -Hold chemical DVT prophylaxis due to high risk of bleeding, and recurrent anemia -SCDs -Continue aspirin Overall impression: This woman is critically ill and hemodynamically unstable with septic shock and paroxysmal supra ventricular tachyarrhythmia. Both lungs are obvious nidus of infection but the unexplained fluid collections in the lumbar region and by both psoas muscles may well be infected as well. An MRI from an outside hospital is interpreted as compression of the cord at the L1-2 region. We will repeat the MRI today with and without contrast if we can get the patient stable enough for transport. Right now the patient is way too unstable to tolerate a operative procedure of any kind. Critical care time 45 minutes aside from invasive procedures.
--- NOTE | 2018-03-15 10:38 | P.PNNS ---
Subjective Interval history: Pt sedated on Diprivan. Pupils 3mm bilaterally. Coarse bs with labored breathing. Pt on amiodarone drip. Mild tachycardia low 100s. <Michael Beard - Last Filed: 03/15/18 10:27> Physical Exam Vital signs: Vital Signs 03/14/18 12:00 03/14/18 12:05 03/14/18 14:00 Temperature 98.5 F 98.8 F Pulse Rate 94 H 94 H Respiratory Rate 25 H 26 H 28 H Blood Pressure 135/60 126/59 L Pulse Oximetry 97 98 03/14/18 15:59 03/14/18 16:00 03/14/18 18:00 Temperature 99.2 F 100 F H Pulse Rate 160 H 93 H Respiratory Rate 29 H 29 H 21 Blood Pressure 96/55 L 100/50 L Pulse Oximetry 96 98 99 03/14/18 20:00 03/14/18 20:22 03/15/18 00:00 Temperature 98.6 F 100.0 F H Pulse Rate 90 86 Respiratory Rate 28 H 26 H 20 Blood Pressure 110/57 L 116/53 L Pulse Oximetry 100 100 03/15/18 00:48 03/15/18 03:44 03/15/18 08:00 Temperature Pulse Rate Respiratory Rate 21 26 H 22 Blood Pressure Pulse Oximetry 100 98 99 Intake & Output 03/14/18 03/15/18 03/15/18 18:59 06:59 18:59 Intake Total 100 / 100 650 / 650 100 / 100 Balance 100 / 100 650 / 650 100 / 100 Weight 76.4 kg Intake: IV 100 / 100 650 / 650 100 / 100 Cordarone Inj 450 MG In D5W Inj 250 / 250 241 ML @ 1 MG/MIN 33.33 mls/hr IV.CONT TITRATE PRN Rx#: [id number] Diprivan 1000 mg/100 ml Inj 1, 100 / 100 0 / 0 000 mg In 100 ml @ 5 MCG/KG/MIN 2.292 mls/hr IV.CONT TITRATE PRN Rx#:[id number] Merrem Inj 1,000 MG In NS Inj 100 / 100 100 / 100 100 ML @ 200 mls/hr IV.SIG Q8H LIZETTE Rx#:[id number] KCl 40 mEq Premix Inj 40 meq In 100 / 100 100 ml @ 25 mls/hr IV.SIG UNSCH PRN Rx#:[id number] Flagyl 500 MG Inj 100 ML @ 100 200 / 200 mls/hr IV.SIG Q6H LIZETTE Rx#: [id number] Other: Date of Last Bowel Movement 03/14/18 03/14/18 Weight On Admission 76.4 kg - Constitutional Comments: Pt sedated on Diprivan for vent and control RR. - Routine HEENT Exam Head: Present: normocephalic, atraumatic Eye: Present: PERRL (Pupils 3mm bilaterally. Reactive bilaterally.). Absent: conjunctival icterus ENT: Present: oropharynx clear (ET intubated.) - Routine Neck Exam Present: trachea midline - Routine Respiratory Exam Present: patient mechanically ventilated (PRVC A/C rate 18. FiO2 60%. Peep 8.) . Absent: CTA bilaterally (Coarse bs. Labored breathing.) - Routine Cardiovascular Exam Present: S1, S2, tachycardia (Mild tachycardia. HR in low 100s.). Absent: murmur - Routine Abdominal Exam Present: soft, normoactive bowel sounds. Absent: tenderness - Routine Skin Exam Absent: cyanosis, erythema Comments: SCDs in place. - Routine Neurological Exam Present: moving all extremities (Withdraws LEs more than UEs.). Absent: alert ( Sedated on Diprivan drip.) - Routine Psychiatric Exam Present: unable to assess <Michael Beard - Last Filed: 03/15/18 10:27> Vital signs: Vital Signs 03/14/18 15:59 03/14/18 16:00 03/14/18 18:00 Temperature 99.2 F 100 F H Pulse Rate 160 H 93 H Respiratory Rate 29 H 29 H 21 Blood Pressure 96/55 L 100/50 L Pulse Oximetry 96 98 99 03/14/18 20:00 03/14/18 20:22 03/15/18 00:00 Temperature 98.6 F 100.0 F H Pulse Rate 90 86 Respiratory Rate 28 H 26 H 20 Blood Pressure 110/57 L 116/53 L Pulse Oximetry 100 100 03/15/18 00:48 03/15/18 03:44 03/15/18 08:00 Temperature Pulse Rate 88 Respiratory Rate 21 26 H 22 Blood Pressure Pulse Oximetry 100 98 97 03/15/18 08:50 03/15/18 11:07 03/15/18 14:18 Temperature Pulse Rate 92 H Respiratory Rate 21 21 19 Blood Pressure Pulse Oximetry 100 99 Intake & Output 03/14/18 03/15/18 03/15/18 18:59 06:59 18:59 Intake Total 100 / 100 650 / 650 562.5 / 562.5 Output Total 100 / 100 Balance 100 / 100 650 / 650 462.5 / 462.5 Weight 76.4 kg Intake: IV 100 / 100 650 / 650 562.5 / 562.5 Cordarone Inj 450 MG In D5W Inj 250 / 250 241 ML @ 1 MG/MIN 33.33 mls/hr IV.CONT TITRATE PRN Rx#: [id number] Diprivan 1000 mg/100 ml Inj 1, 100 / 100 0 / 0 000 mg In 100 ml @ 5 MCG/KG/MIN 2.292 mls/hr IV.CONT TITRATE PRN Rx#:[id number] Merrem Inj 1,000 MG In NS Inj 100 / 100 100 / 100 100 / 100 100 ML @ 200 mls/hr IV.SIG Q8H LIZETTE Rx#:[id number] KCl 40 mEq Premix Inj 40 meq In 100 / 100 100 ml @ 25 mls/hr IV.SIG UNSCH PRN Rx#:[id number] Vancomycin Inj 1,250 MG In NS 262.5 / 262.5 Inj 250 ML @ 250 mls/hr IV.SIG Q24H LIZETTE Rx#:[id number] Flagyl 500 MG Inj 100 ML @ 100 200 / 200 100 / 100 mls/hr IV.SIG Q6H LIZETTE Rx#: [id number] Output: Urine Amount (Catheter) 100 / 100 Indwelling 100 / 100 Other: Date of Last Bowel Movement 03/14/18 03/14/18 03/14/18 # Bowel Movements 1 Weight On Admission 76.4 kg <Fernando Taylor - Last Filed: 03/15/18 15:18> Assessment and Plan - Plan 77-year-old lady optic shock with pneumonia and respiratory failure with the staph aureus bacteremia. Noncontrast MRI of the thoracic and lumbar spine suggest a possible dorsal T12-L1 area epidural collection along with L2-3 degenerative spinal stenosis with history of L3-S1 pedicle screw fixation with fusion by a neurosurgeon in [place] several years ago. MRI of the complete spine with contrast to evaluate for epidural abscess/ enhancement once she is medically stable. Her condition is critical with a guarded prognosis. Continue with current care/critical care Continue with antibiotics. Continue with Neuro checks. DVT prophylaxis Continue with GI prophylaxis. Discussed with RN. <Michael Beard - Last Filed: 03/15/18 10:27> - Assessment (1) Spinal stenosis of thoracolumbar region Code(s): M48.05 - Spinal stenosis, thoracolumbar region Status: Acute (2) Sepsis Code(s): A41.9 - Sepsis, unspecified organism Status: Acute Qualifiers: Sepsis type: methicillin susceptible Staphylococcus aureus Qualified Code(s ): A41.01 - Sepsis due to Methicillin susceptible Staphylococcus aureus (3) Respiratory failure Code(s): J96.90 - Respiratory failure, unspecified, unspecified whether with hypoxia or hypercapnia Status: Acute Qualifiers: Chronicity: acute (4) Fusion of lumbar spine Code(s): M43.26 - Fusion of spine, lumbar region Status: Chronic - Attending Attestation The exam, history, and the medical decision-making described in the above note were completed with the assistance of the mid-level provider. I reviewed and agree with the findings presented. I attest that I had a [id number] encounter with the patient on the same day, and personally performed and documented my assessment and findings in the medical record. <Fernando Taylor - Last Filed: 03/15/18 15:18>
[2018-03-15] MEDS: Beneprotein Powder Packet G-TUBE SCH ×2 (13:27→19:03)
--- NOTE | 2018-03-15 13:34 | P.DIET ---
Nutritional Evaluation Type of nutrition evaluation: initial Nutrition consult regarding: Tube Feeding Objective - Diagnosis Septic Shock - Objective Body Mass Index: 28.0 % IBW: 134 (IBW =125) Body Weight Used for Calculations: Upper end of IBW (62.5 kg) Energy Needs - Lower Range (kCal/kg): 25 Energy Needs - Upper Range (kCal/kg): 30 Lower Limit kCal/kg (kCals): 1,563 Upper Limit kCal/kg (kCals): 1,875 Lower Limit Protein Factor (Grams per Kg): 1.0 Upper Limit Protein Factor (Grams per Kg): 1.5 Lower Protein Needs (Protein): 63 Upper Protein Needs (Protein): 94 Dietitian Reviewed in Medical Record: Curent medications, Intake & Output, Labs , Medical history, Tube feeding Diet Order: NPO Objective Comments: glu 259, 129 Meds include synthroid Assessment Assessment: Pt is at high nutrition risk 2' to dx and the need for TFing. Current order is for Glucerna 1.5 with a goal rate of 50 mls/hr. TF will run for 22 hours d/t synthroid: TF must be held one hour before and after this med is given. Glucerna 1.5 @ 50 mls/hr x 22 hours provides 1650 kcals, 91 gms protein and 835 mls of free water. Some additional kcals will be provided by propofol (1.1 kcal/ ml). Recommendations: Glucerna 1.5 @ 50 mls/hr x 22 hours Dietitian to Monitor: Lab values, Intake & Output, Tube feeding tolerance, Weight change, Medical course
--- NOTE | 2018-03-15 13:35 | P.PNID ---
Subjective Remarks: + low grade fever up to 100 F pt developped diarrhea - C.diff + / tox neg remains on vent, FiO2 60% PEEP 10 MRI w/wo contrastr is ordered Antibiotics: meropenem vanco started on flagyl iv Allergies/Adverse Reactions: Allergies Penicillins Allergy (Verified 03/14/18 13:53) Swelling of Lip/Tongue/Throat Sulfa (Sulfonamide Antibiotics) Allergy (Verified 03/14/18 13:53) Diarrhea shellfish Adverse Reaction (Uncoded 03/14/18 13:53) Swelling of Lip/Tongue/Throat Objective Vital Signs 03/14/18 14:00 03/14/18 15:59 03/14/18 16:00 Temperature 98.8 F 99.2 F Pulse Rate 94 H 160 H Respiratory Rate 28 H 29 H 29 H Blood Pressure 126/59 L 96/55 L Pulse Oximetry 98 96 98 03/14/18 18:00 03/14/18 20:00 03/14/18 20:22 Temperature 100 F H 98.6 F Pulse Rate 93 H 90 Respiratory Rate 21 28 H 26 H Blood Pressure 100/50 L 110/57 L Pulse Oximetry 99 100 03/15/18 00:00 03/15/18 00:48 03/15/18 03:44 Temperature 100.0 F H Pulse Rate 86 Respiratory Rate 20 21 26 H Blood Pressure 116/53 L Pulse Oximetry 100 100 98 03/15/18 08:00 03/15/18 08:50 03/15/18 11:07 Temperature Pulse Rate 88 92 H Respiratory Rate 22 21 21 Blood Pressure Pulse Oximetry 97 100 Intake & Output 03/14/18 03/15/18 03/15/18 18:59 06:59 18:59 Intake Total 100 / 100 650 / 650 362.5 / 362.5 Output Total 100 / 100 Balance 100 / 100 650 / 650 262.5 / 262.5 Weight 76.4 kg Intake: IV 100 / 100 650 / 650 362.5 / 362.5 Cordarone Inj 450 MG In D5W Inj 250 / 250 241 ML @ 1 MG/MIN 33.33 mls/hr IV.CONT TITRATE PRN Rx#: [id number] Diprivan 1000 mg/100 ml Inj 1, 100 / 100 0 / 0 000 mg In 100 ml @ 5 MCG/KG/MIN 2.292 mls/hr IV.CONT TITRATE PRN Rx#:[id number] Merrem Inj 1,000 MG In NS Inj 100 / 100 100 / 100 100 ML @ 200 mls/hr IV.SIG Q8H LIZETTE Rx#:[id number] KCl 40 mEq Premix Inj 40 meq In 100 / 100 100 ml @ 25 mls/hr IV.SIG UNSCH PRN Rx#:[id number] Vancomycin Inj 1,250 MG In NS 262.5 / 262.5 Inj 250 ML @ 250 mls/hr IV.SIG Q24H LIZETTE Rx#:[id number] Flagyl 500 MG Inj 100 ML @ 100 200 / 200 mls/hr IV.SIG Q6H LIZETTE Rx#: [id number] Output: Urine Amount (Catheter) 100 / 100 Indwelling 100 / 100 Other: Date of Last Bowel Movement 03/14/18 03/14/18 03/14/18 # Bowel Movements 1 Weight On Admission 76.4 kg 03/14/18 15:38 Catheterized Urine Urine Culture - Preliminary No growth in 24 hours 03/14/18 16:20 Stool Clostridium difficile GDH Antigen - Final Positive - C. difficile Antigen detected. 03/14/18 16:20 Stool Clostridium difficile Toxin Assay - Final Negative - No C. difficile Toxin A or B detected. 03/14/18 15:42 Sputum - Endotracheal Gram Stain - Final 03/14/18 15:42 Sputum - Endotracheal Sputum Culture - Pending Lab - Hematology Results 03/14/18 03/15/18 15:36 04:30 WBC 21.7 H 31.0 H RBC 2.64 L 2.64 L Hgb 8.0 L 8.3 L Hct 24.8 L 24.7 L MCV 93.9 93.4 MCH 30.2 31.4 MCHC 32.1 33.6 RDW 21.5 H 21.3 H Plt Count 270 281 MPV 11.5 H 11.7 H Prelim Diff (Auto) Slide review pending Manual diff required WBC Differential Manual diff final Manual diff final Seg Neuts % (Manual) 69 49 Band Neuts % (Manual) 21 H 13 H Lymphocytes % (Manual) 2 L 3 L Monocytes % (Manual) 4 11 H Metamyelocytes % (Man) 2 H 2 H Myelocytes % (Man) 2 H 9 H Promyelocytes % (Man) 13 H Abs Neuts (Manual) 20.4 H 26.7 H Nucleated RBCs/100 WBC 3 H Differential Comment . . Platelet Estimate Normal Normal Platelet Morphology Enlarged H Clumped H Lab - Chemistry Results 03/14/18 03/15/18 03/15/18 15:36 04:30 04:30 Sodium 142 145 Potassium 3.1 L 3.8 Chloride 105 110 H Carbon Dioxide 27.3 28.5 Anion Gap 10 7 BUN 50 H 53 H Creatinine 1.10 H 1.01 H Estimated GFR 48 L 53 L Random Glucose 259 H 129 H D Lactic Acid 1.4 Calcium 7.9 L 8.0 L Total Bilirubin 0.9 AST 43 H ALT 19 Alkaline Phosphatase 169 H Total Protein 5.9 L Albumin 1.4 L Imaging: ITS Impressions Chest X-Ray 03/14/18 00:00 CONCLUSION: 1. Tubes and lines, as above. 2. Diffuse airspace disease throughout the left lung and in the right mid to lower lung zones consistent with atypical/multilobar pneumonia versus developing ARDS. 3. Prominence of the AP window may reflect adenopathy. Physical Exam: GENERAL: NAD sedated, on vent SKIN: Warm and dry. No rash HEAD: Atraumatic. Normocephalic. EYES: Pupils equal and round. No scleral icterus. No injection or drainage. ENT: No nasal bleeding or discharge. Mucous membranes pink and moist. NECK: Trachea midline. No JVD. CARDIOVASCULAR: Regular rate and rhythm. RESPIRATORY: No accessory muscle use. Clear to auscultation. Breath sounds equal bilaterally. GASTROINTESTINAL: Abdomen soft, no reaction to palpation, + moderately distended. Hepatic and splenic margins not palpable. MUSCULOSKELETAL: Extremities without clubbing, cyanosis, 1-2+ edema. No obvious deformities. NEUROLOGICAL: sedated; not following commands PSYCHIATRIC: unable to assess Assessment and Plan - Plan Critical and unstable pt PNA, HCAP /aspiration Lower T / L spine epidural abscess - pt was seen by Dr Monster Taylor who is planning to repeat MR w/wo c when stable enough Sepsis Acute VDRF ARF C.diff: diarrhea, WBC 30K and + PCR even with neg toxin likely c.diff cont iv flagyl add po vancomycin cont iv vanco cont meropnem fu blood clx fu sputum clx will follow MR results records reviewed jesenia Fiore from [facility] jesenia ba RN @ b/s
[2018-03-15] MEDS ORDERED: Gadobutrol PF 7.5 MMOL/7.5 ML Vial (for RAD) IV.SIG ONE (18:41)
--- NOTE | 2018-03-15 20:43 | MR ---
EXAM DATE: 03/15/2018 5:03 PM EDT AGE/SEX: 77 years / Female INDICATIONS: . Epidural abscess. CLINICAL DATA: This is the patient's initial encounter. Patient reports that signs and symptoms have been present for 1 day and indicates a pain score of 0/10. MEDICAL/SURGICAL HISTORY: Carcinoma, lung. Atrial fibrillation. Fusion, lumbar. Bilateral hip replacement. COMPARISON: No prior exams available for comparison. TECHNIQUE: Multiplanar, multisequence MRI examination of the cervical spine was performed without an d with 7.5 ml Gadavist (gadobutrol) contrast as a cumulative dose for multiple exams. FINDINGS: There is mild anterolisthesis of C4 with respect to C5. Marked narrowing of the interspaces at C5-T1 with prominent anterior posterior osteophytes and signal change at the endplates characteristic of ad vanced degenerative changes. There are no abnormal areas of enhancement within the marrow cervical ve rtebral bodies, dura, or within the cervical cord. The visualized posterior fossa structures are deyvi sly intact.. There is thickening of the prespinal soft tissues from the nasopharynx down to the C5 level with thic kening characterized by T2 prolongation and T1 prolongation suggesting fluid related to oral tubes. C2-C3: The thecal sac has a normal configuration. There is no evidence of disc herniation or spinal canal stenosis. The neural foramina are patent bilaterally. C3-C4: Minimal bulging of the disc flattens the ventral margin of the thecal sac. Moderate right-giselle ed bony neural foraminal stenosis due to uncovertebral joint hypertrophy. C4-C5: Loss of CSF about the cervical cord without evidence of cord compression. The narrowing is du e to a combination of broad-based protrusion of the disc and anterolisthesis. Mild bilateral bony canelo ral foraminal stenosis. C5-C6: No evidence of disc bulge. Severe right-sided bony neural foraminal stenosis and moderate lef t-sided neural foraminal stenosis. C6-C7: Broad-based protrusion of the disc causes loss of CSF about the cervical cord. No lateral ext ension. There is moderate severity bilateral bony neural foraminal stenosis. C7-T1: No epidural impressions seen. CONCLUSION: 1. No abnormal areas of enhancement in the dural space or vertebral bodies. 2. Spinal stenosis due to disc bulging at multiple levels and anterolisthesis at C4-5. There is also multilevel bony neural foraminal stenosis. Electronically signed by: Mayur Jensen MD 03/15/2018 8:42 PM EDT
--- NOTE | 2018-03-15 21:05 | MR ---
EXAM DATE: 03/15/2018 5:04 PM EDT AGE/SEX: 77 years / Female INDICATIONS: . Epidural abscess. CLINICAL DATA: This is the patient's initial encounter. Patient reports that signs and symptoms have been present for 1 day and indicates a pain score of 0/10. MEDICAL/SURGICAL HISTORY: Carcinoma, lung. Atrial fibrillation. Fusion, lumbar. Bilateral hip replacement. COMPARISON: No prior exams available for comparison. TECHNIQUE: Multiplanar, multisequence MRI examination of the lumbar spine was performed without and with 7.5 ml Gadavist (gadobutrol) contrast as a cumulative dose for multiple exams. FINDINGS: 4 level posterior spinal instrumentation from L3 to S1. There is anterolisthesis at L4-5 and L5-S1, v ertebral body height is maintained. There is narrowing of the interspaces L3-L4. On the postcontrast images, there is enhancement in the posterior soft tissues from the L1-L3 level extending into the po sterior epidural space posterior to L1 and L2 causing flattening of the posterior margin of the theca l sac. The thecal sac is narrowed at the L1 and L2 levels.. T12-L1: The thecal sac has a normal diameter. No evidence of disc bulge or protrusion. The neural foramina are patent bilaterally. L1-L2: Broad-based bulging of the disc without significant deformity of the thecal sac. Disc bulge extends into the neural foramina bilaterally without evidence of neural impingement. L2-L3: The thecal sac has a normal diameter. No evidence of disc bulge or protrusion. The neural foramina are patent bilaterally. L3-L4: The thecal sac has a normal diameter. No evidence of disc bulge or protrusion. The neural foramina are patent bilaterally. L4-L5: Broad-based bulging of the disc flattens the ventral margin of thecal sac and extends into t he neural foramen bilaterally. No evidence of neural impingement. L5-S1: The thecal sac has a normal diameter. No evidence of disc bulge or protrusion. The neural foramina are patent bilaterally. CONCLUSION: 1. Enhancing soft tissue extending from the subcutaneous region down to the thecal sac at the L1 and L2 level characteristic of postsurgical findings with a rounded area of fluid with some minimal juliet pheral enhancement dorsal to the thecal sac flattening the posterior margin at L1 and L2. Since there is some minimal peripheral enhancement, and epidural abscess is a differential possibility. Electronically signed by: Mayur Jensen MD 03/15/2018 9:03 PM EDT
--- NOTE | 2018-03-15 21:07 | MR ---
EXAM DATE: 03/15/2018 5:03 PM EDT AGE/SEX: 77 years / Female INDICATIONS: . Epidural abscess. CLINICAL DATA: This is the patient's initial encounter. Patient reports that signs and symptoms have been present for 1 day and indicates a pain score of 0/10. MEDICAL/SURGICAL HISTORY: Carcinoma, lung. Atrial fibrillation. Fusion, lumbar. Bilateral hip replacement. COMPARISON: No prior exams available for comparison. TECHNIQUE: Multiplanar, multisequence MRI of the thoracic spine was performed without and with 7.5 m l Gadavist (gadobutrol) contrast as a cumulative dose for multiple exams. FINDINGS: Vertebrae: Normal vertebral body height. Homogeneous marrow signal. Posterior osteophytes are prese nt in all levels in the thoracic spine causing mild impression upon the thecal sac. Alignment: Normal. Cord: Normal position and configuration. Post Contrast: No abnormal areas of enhancement are seen in the cord, dural or paraspinal regions. Other: Moderate size left pleural effusion. T1-T2: The thecal sac has a normal diameter. No evidence of disc bulge or protrusion. T2-T3: The thecal sac has a normal diameter. No evidence of disc bulge or protrusion. T3-T4: The thecal sac has a normal diameter. No evidence of disc bulge or protrusion. T4-T5: The thecal sac has a normal diameter. No evidence of disc bulge or protrusion. T5-T6: The thecal sac has a normal diameter. No evidence of disc bulge or protrusion. T6-T7: The thecal sac has a normal diameter. No evidence of disc bulge or protrusion. T7-T8: The thecal sac has a normal diameter. No evidence of disc bulge or protrusion. T8-T9: The thecal sac has a normal diameter. No evidence of disc bulge or protrusion. T9-T10: The thecal sac has a normal diameter. No evidence of disc bulge or protrusion. T10-T11: The thecal sac has a normal diameter. No evidence of disc bulge or protrusion. T11-T12: The thecal sac has a normal diameter. No evidence of disc bulge or protrusion. T12-L1: The thecal sac has a normal diameter. No evidence of disc bulge or protrusion. CONCLUSION: 1. No abnormal areas of enhancement in the vertebral bodies or epidural space in the thoracic region . 2. Posterior osteophytes at all levels in the thoracic spine causing mild impression upon the thecal sac. No evidence of disc protrusions over. 3. Moderate size left pleural effusion. Electronically signed by: Mayur Jensen MD 03/15/2018 9:05 PM EDT
[2018-03-16] MEDS: Propofol 1000 mg/100 ml Inj 1,000 MG/100 ML BOTTLE IV.CONT PRN ×3 (00:40→18:38)
[2018-03-16] MEDS: Oral Hygiene Kit OROPHARYNG SCH ×4 (03:28→23:24)
[2018-03-16] MEDS: Chlorhexidine Gluconate 2% 1 Pack (2 Cloths) TOPICAL SCH (03:28)
[2018-03-16 03:34] LABS: Hematocrit 24.1 % (35.0-46.0); Hemoglobin 7.9 gm/dL (11.6-15.3); Mean Corpuscular HGB Conc 32.7 % (32.0-36.0); Mean Corpuscular Volume 94.7 fL (80.0-100.0); Mean Platelet Volume 11.8 fL (7.0-11.0); Platelet Count 257 th/mm3 (150-450); Red Blood Count 2.54 mil/mm3 (4.00-5.30); Red Cell Distribution Width 20.9 % (11.6-17.2)
[2018-03-16 03:55] LABS: Alanine Aminotransferase 14 U/L (10-53); Albumin 1.3 g/dL (3.4-5.0); Anion Gap 6 meq/L (5-15); Aspartate Aminotransferase 39 U/L (15-37); Blood Urea Nitrogen 46 mg/dL (7-18); Calcium 7.6 mg/dL (8.5-10.1); Carbon Dioxide 28.3 meq/L (21.0-32.0); Chloride 114 meq/L (98-107); Glomerular Filtration Rate 58 mL/min (>89); Glucose,Random 141 mg/dL (74-106); Sodium 148 meq/L (136-145)
[2018-03-16 03:57] LABS: Alkaline Phosphatase 166 U/L (45-117); Total Protein 5.7 g/dL (6.4-8.2)
[2018-03-16] MEDS: Levothyroxine 112 MCG Tablet PO SCH (05:00)
[2018-03-16 05:15] LABS: Blast Cells 1 % (0-0); Eosinophils 2 % (0-4); Lymphocytes 4 % (9-44); Metamyelocytes 4 % (0-1); Monocytes 7 % (0-8); Myelocytes 17 % (0-0); Promyelocyte 12 % (0-0)
[2018-03-16 05:23] LABS: Platelet Estimate Normal (Normal)
[2018-03-16 05:25] LABS: Spherocytes Occ
[2018-03-16 05:27] LABS: Dohle Bodies Present
[2018-03-16] MEDS: Heparin - SQ 10,000 UNITS/ML Vial SQ SCH ×3 (06:06→22:35)
--- NOTE | 2018-03-16 06:27 | P.PNCC ---
Subjective Subjective Remarks/Hospital Course: This 77-year-old woman was transferred from [facility] to [facility] for treatment of respiratory failure with septic shock and peripheral abscesses including recent diagnosis of epidural abscess in the lumbar region. Her respiratory status is quite compromised with diffuse infiltrates throughout both lung welsh and she is ventilator dependent. On initial presentation to the hospital impair she had complaints of back pain radiating to her left knee. Her hemoglobin was 4 source of bleeding was clear was unclear at first and Dr. Vasquez had previously performed upper and lower endoscopy without location of a source. She has had a metastatic series and MRI on March 04 which developed multilevel central canal and foraminal stenoses she has had a transesophageal echo which revealed severe mitral regurgitation her hospital course has been complicated by atrial fibrillation and hemodynamic instability. Cardioversion was unsuccessful. She has continued recent fever course in excess of 103 degrees and has been treated with broad-spectrum antibiotic coverage including meropenem and vancomycin. She is continued to deteriorate and on about March 11 required endotracheal intubation and mechanical ventilation. Recent ICU white blood cell count is 40,000 blood cultures from March 09 revealed Streptococcus species and a subsequent blood culture grew a staph organism according to the report from the referring physician. The woman is required amiodarone therapy and diltiazem with additional cardioversion to sinus rhythm on the chest x-ray continues to worsen. CT of the abdomen reveals fluid collection on the left psoas muscle, possibly abscess. The contralateral psoas muscle has a similar collection. Recent MRI demonstrates old spine hardware L3-S1 and an irregular soft tissue density around the thecal sac at L1-L2 extending to T12-L1 she is required vasopressor support for hypotension and obvious sepsis overnight. The one constant throughout her early hospital course was severe lower back pain radiating down her legs. 03/15: Temperature max 101. Leukocytosis persists to 30,000. Back in normal sinus rhythm now with pulse rate controlled. Her respiratory status is unstable and she still requiring elevated ventilator pressures and elevated oxygen concentration. We will attempt to get an MRI of the entire spine with and without contrast today pending her hemodynamic suitability. At present her pulmonary status makes operative procedure a prohibitive risk. 03/16: T-max 100. Leukocytosis to 30,000 persists. Remains in sinus rhythm. MRI of the spine reviewed. Patient remains clinically critically ill. Azotemia slightly improved. Continue hydration. Start trickle tube feeding with added protein. Objective Vital Signs / I&O: Vital Signs 03/15/18 08:00 03/15/18 08:50 03/15/18 11:07 Temperature Pulse Rate 88 92 H Respiratory Rate 22 21 21 Blood Pressure Pulse Oximetry 97 100 03/15/18 12:00 03/15/18 14:18 03/15/18 16:28 Temperature 99.3 F Pulse Rate 88 Respiratory Rate 18 19 20 Blood Pressure 114/55 L Pulse Oximetry 97 99 95 03/15/18 19:07 03/15/18 20:00 03/15/18 20:26 Temperature 99.7 F H Pulse Rate 85 Respiratory Rate 20 19 Blood Pressure 85/49 L Pulse Oximetry 100 96 100 03/15/18 23:34 03/16/18 00:00 03/16/18 03:23 Temperature 98.8 F Pulse Rate 82 Respiratory Rate 18 28 H 23 Blood Pressure 155/67 H Pulse Oximetry 98 03/16/18 04:00 Temperature 99.1 F Pulse Rate 89 Respiratory Rate 22 Blood Pressure 128/58 L Pulse Oximetry Intake & Output 03/15/18 03/15/18 03/16/18 06:59 18:59 06:59 Intake Total 650 / 650 1562.5 / 1562.5 400 / 400 Output Total 600 / 600 630 / 630 Balance 650 / 650 962.5 / 962.5 -230 / -230 Weight 75.7 kg Intake: IV 650 / 650 1112.5 / 1112.5 400 / 400 Cordarone Inj 450 MG In D5W Inj 250 / 250 250 / 250 241 ML @ 1 MG/MIN 33.33 mls/hr IV.CONT TITRATE PRN Rx#: [id number] Diprivan 1000 mg/100 ml Inj 1, 100 / 100 100 / 100 100 / 100 000 mg In 100 ml @ 5 MCG/KG/MIN 2.292 mls/hr IV.CONT TITRATE PRN Rx#:[id number] Merrem Inj 1,000 MG In NS Inj 100 / 100 200 / 200 100 / 100 100 ML @ 200 mls/hr IV.SIG Q8H [facility] Rx#:[id number] KCl 40 mEq Premix Inj 40 meq In 100 / 100 100 ml @ 25 mls/hr IV.SIG UNSCH PRN Rx#:[id number] Vancomycin Inj 1,250 MG In NS 262.5 / 262.5 Inj 250 ML @ 250 mls/hr IV.SIG Q24H [facility] Rx#:[id number] Flagyl 500 MG Inj 100 ML @ 100 200 / 200 200 / 200 200 / 200 mls/hr IV.SIG Q6H [facility] Rx#: [id number] Oral 450 / 450 Output: Stool 30 / 30 Urine Amount (Catheter) 600 / 600 600 / 600 Indwelling 600 / 600 600 / 600 Other: Date of Last Bowel Movement 03/14/18 03/15/18 # Bowel Movements 1 Result Diagrams: 03/16/18 03:20 03/16/18 03:20 Objective Remarks: Narrative: Physical exam: General: Ill-appearing, elderly woman on mechanical ventilation Head: Atraumatic, normal. Oral tracheal intubation. Neck: Stiff consistent with age but otherwise supple. Lungs: Bilateral sonorous rhonchi with mobile secretions. Good bilateral air entry Heart: Regular rate and rhythm at 80/min, 2/6 systolic murmur, no JVD Abdomen: Moderately distended, bowel sounds few, no guarding Extremities: Warm, well-perfused. Trace edema at ankles. Neurologic: Converted to propofol and fentanyl for pain relief and vent synchrony. Breathes spontaneously over ventilator rate. Pupils reactive. Assessment and Plan - Assessment and Plan Plan: Assessment: 1. Septic shock 2. Bacteremia staph and strep organisms 3. Acute hypoxemic respiratory failure 4. Bilateral pneumonia 5. Chronic anemia 6. Ileus 7. Paroxysmal atrial fibrillation 8. Metabolic acidosis 9. Acute kidney injury 10. Psoas abscess 11. Possible epidural abscess 12. Heart failure with severe mitral regurgitation Plan: Neuro -sedation with propofol and fentanyl -Neurosurgery evaluation for lumbar problem -MRI of the entire spine with and without contrast -> done Cardiovascular -Khalif-Synephrine for supportive arterial blood pressure -Amiodarone drip for conversion of atrial fibrillation -Electrolyte replacement protocol -Converted to p.o. amiodarone after 24-hour bolus Respiratory -PRBC ventilatory mode -Blood gas now and in a.m. -Sputum culture -PEEP 10 GI -Nasogastric tube to low intermittent suction -Start tube feedings, Glucerna 1.5 -History of antral ulcers -Olivas to closed bag drainage -Urinalysis Hematology -Serial white cell count -Follow anemia with hemoglobin -Hold bone marrow biopsy for now ID -Continue outpatient antibiotics, meropenem and vancomycin as per ID consult -Organisms cultured at outside hospital are streptococcal and staph species -Hold Flagyl for now -started last night for suspected C. difficile will defer to ID service for adjustment Prophylaxis -Hold chemical DVT prophylaxis due to high risk of bleeding, and recurrent anemia -SCDs -Continue aspirin Overall impression: This woman remains critically ill and hemodynamically unstable with septic shock and paroxysmal supra ventricular tachyarrhythmia. Both lungs are obvious nidus of infection but the unexplained fluid collections in the lumbar region and by both psoas muscles requires further investigation. Right now the patient is unstable and clearly septic was severely compromised pulmonary function. Critical care time 42 minutes aside from invasive procedures.
[2018-03-16] MEDS: Chlorhexidine 0.12% Oral Kit 15 ML UDC OROPHARYNG SCH ×2 (08:19→20:38)
[2018-03-16] MEDS: Famotidine PF Inj 20 MG/2 ML Vial IV.PUSH SCH ×2 (08:19→20:38)
[2018-03-16] MEDS: Senna/Docusate Sodium 8.6/50 MG Tablet PO SCH ×2 (08:20→20:39)
[2018-03-16] MEDS: Beneprotein Powder Packet G-TUBE SCH ×3 (08:22→17:31)
[2018-03-16] MEDS ORDERED: Pharmacy Ordered Lab Info OTHER ONE (08:45)
[2018-03-16] MEDS: Vancomycin Inj 1,250 MG in Sodium Chlor 0.9% Inj 250 ML IV.SIG SCH (09:11)
--- NOTE | 2018-03-16 13:18 | P.PNCC ---
Subjective Subjective Remarks/Hospital Course: This 77-year-old woman was transferred from [facility] to [facility] for treatment of respiratory failure with septic shock and peripheral abscesses including recent diagnosis of epidural abscess in the lumbar region. Her respiratory status is quite compromised with diffuse infiltrates throughout both lung welsh and she is ventilator dependent. On initial presentation to the hospital impair she had complaints of back pain radiating to her left knee. Her hemoglobin was 4 source of bleeding was clear was unclear at first and Dr. Vasquez had previously performed upper and lower endoscopy without location of a source. She has had a metastatic series and MRI on March 04 which developed multilevel central canal and foraminal stenoses she has had a transesophageal echo which revealed severe mitral regurgitation her hospital course has been complicated by atrial fibrillation and hemodynamic instability. Cardioversion was unsuccessful. She has continued recent fever course in excess of 103 degrees and has been treated with broad-spectrum antibiotic coverage including meropenem and vancomycin. She is continued to deteriorate and on about March 11 required endotracheal intubation and mechanical ventilation. Recent ICU white blood cell count is 40,000 blood cultures from March 09 revealed Streptococcus species and a subsequent blood culture grew a staph organism according to the report from the referring physician. The woman is required amiodarone therapy and diltiazem with additional cardioversion to sinus rhythm on the chest x-ray continues to worsen. CT of the abdomen reveals fluid collection on the left psoas muscle, possibly abscess. The contralateral psoas muscle has a similar collection. Recent MRI demonstrates old spine hardware L3-S1 and an irregular soft tissue density around the thecal sac at L1-L2 extending to T12-L1 she is required vasopressor support for hypotension and obvious sepsis overnight. The one constant throughout her early hospital course was severe lower back pain radiating down her legs. 03/15: Temperature max 101. Leukocytosis persists to 30,000. Back in normal sinus rhythm now with pulse rate controlled. Her respiratory status is unstable and she still requiring elevated ventilator pressures and elevated oxygen concentration. We will attempt to get an MRI of the entire spine with and without contrast today pending her hemodynamic suitability. At present her pulmonary status makes operative procedure a prohibitive risk. 03/16: T-max 100. Leukocytosis to 30,000 persists. Remains in sinus rhythm. MRI of the spine reviewed. Patient remains clinically critically ill. Azotemia slightly improved. Continue hydration. Start trickle tube feeding with added protein. 03/16: Continued septic course with low-grade fever and white count 33,000. Chest x-ray appearance alone could explain sepsis. Doing need to culture the fluid collections in the back to rule out another possible nidus? Objective Vital Signs / I&O: Vital Signs 03/15/18 14:18 03/15/18 16:28 03/15/18 19:07 Temperature Pulse Rate Respiratory Rate 19 20 Blood Pressure Pulse Oximetry 99 95 100 03/15/18 20:00 03/15/18 20:26 03/15/18 23:34 Temperature 99.7 F H Pulse Rate 85 Respiratory Rate 20 19 18 Blood Pressure 85/49 L Pulse Oximetry 96 100 03/16/18 00:00 03/16/18 03:23 03/16/18 04:00 Temperature 98.8 F 99.1 F Pulse Rate 82 89 Respiratory Rate 28 H 23 22 Blood Pressure 155/67 H 128/58 L Pulse Oximetry 98 03/16/18 07:50 03/16/18 08:00 03/16/18 12:00 Temperature 100.0 F H 99.7 F H Pulse Rate 86 91 H Respiratory Rate 22 18 20 Blood Pressure 106/53 L 160/72 H Pulse Oximetry 99 98 03/16/18 12:35 Temperature Pulse Rate Respiratory Rate 26 H Blood Pressure Pulse Oximetry 92 L Intake & Output 03/15/18 03/16/18 03/16/18 18:59 06:59 18:59 Intake Total 1562.5 / 1562.5 400 / 400 1812.5 / 1812.5 Output Total 600 / 600 630 / 630 Balance 962.5 / 962.5 -230 / -230 1812.5 / 1812.5 Weight 75.7 kg Intake: IV 1112.5 / 1112.5 400 / 400 1812.5 / 1812.5 Cordarone Inj 450 MG In D5W Inj 250 / 250 250 / 250 241 ML @ 1 MG/MIN 33.33 mls/hr IV.CONT TITRATE PRN Rx#: [id number] NS + KCl 20 mEq Inj 1,000 ML @ 1000 / 1000 45 mls/hr IV.CONT .[id number] [facility] Rx#:[id number] Diprivan 1000 mg/100 ml Inj 1, 100 / 100 100 / 100 100 / 100 000 mg In 100 ml @ 5 MCG/KG/MIN 2.292 mls/hr IV.CONT TITRATE PRN Rx#:[id number] Merrem Inj 1,000 MG In NS Inj 200 / 200 100 / 100 100 / 100 100 ML @ 200 mls/hr IV.SIG Q8H [facility] Rx#:[id number] KCl 40 mEq Premix Inj 40 meq In 100 / 100 100 ml @ 25 mls/hr IV.SIG UNSCH PRN Rx#:[id number] Vancomycin Inj 1,250 MG In NS 262.5 / 262.5 262.5 / 262.5 Inj 250 ML @ 250 mls/hr IV.SIG Q24H [facility] Rx#:[id number] Flagyl 500 MG Inj 100 ML @ 100 200 / 200 200 / 200 100 / 100 mls/hr IV.SIG Q6H [facility] Rx#: [id number] Oral 450 / 450 Output: Stool 30 / 30 Urine Amount (Catheter) 600 / 600 600 / 600 Indwelling 600 / 600 600 / 600 Other: Date of Last Bowel Movement 03/15/18 # Bowel Movements 1 Result Diagrams: 03/16/18 03:20 03/16/18 03:20 Objective Remarks: Narrative: Physical exam: General: Ill-appearing, elderly woman on mechanical ventilation Head: Atraumatic, normal. Oral tracheal intubation. Neck: Stiff consistent with age but otherwise supple. Lungs: Bilateral sonorous rhonchi with mobile secretions. Good bilateral air entry Heart: Regular rate and rhythm at 80/min, 2/6 systolic murmur, no JVD Abdomen: Moderately distended, bowel sounds few, no guarding. No peritoneal irritation. Extremities: Warm, well-perfused. Trace edema at ankles. Neurologic: Converted to propofol and fentanyl for pain relief and vent synchrony. Breathes spontaneously over ventilator rate. Pupils reactive. Assessment and Plan - Assessment and Plan Plan: Assessment: 1. Septic shock 2. Bacteremia staph and strep organisms 3. Acute hypoxemic respiratory failure 4. Bilateral pneumonia 5. Chronic anemia 6. Ileus 7. Paroxysmal atrial fibrillation 8. Metabolic acidosis 9. Acute kidney injury 10. Psoas abscess 11. Possible epidural abscess 12. Heart failure with severe mitral regurgitation Plan: Neuro -sedation with propofol and fentanyl -Neurosurgery evaluation for lumbar problem -MRI of the entire spine with and without contrast -> done Cardiovascular -Khalif-Synephrine for supportive arterial blood pressure -Amiodarone drip for conversion of atrial fibrillation -Electrolyte replacement protocol -Converted to p.o. amiodarone after 24-hour bolus Respiratory -PRBC ventilatory mode -Blood gas now and in a.m. -Sputum culture -PEEP 10 GI -Nasogastric tube to low intermittent suction -Start tube feedings, Glucerna 1.5 -History of antral ulcers -Olivas to closed bag drainage -Urinalysis Hematology -Serial white cell count -Follow anemia with hemoglobin -Hold bone marrow biopsy for now ID -Continue outpatient antibiotics, meropenem and vancomycin as per ID consult -Organisms cultured at outside hospital are streptococcal and staph species -Hold Flagyl for now -started last night for suspected C. difficile will defer to ID service for adjustment Prophylaxis -Hold chemical DVT prophylaxis due to high risk of bleeding, and recurrent anemia -SCDs -Continue aspirin Overall impression: This woman remains critically ill and hemodynamically unstable with septic shock and paroxysmal supra ventricular tachyarrhythmia. Both lungs are obvious nidus of infection but the unexplained fluid collections in the lumbar region and by both psoas muscles requires further investigation. Right now the patient is unstable and clearly septic with severely compromised pulmonary function. We may have to needle culture the fluid collections in the back muscles. Critical care time 45 minutes aside from invasive procedures.
--- NOTE | 2018-03-16 13:58 | P.PNNS ---
Subjective Interval history: Pt sedated on Diprivan. Pupils 3mm bilaterally reactive bilaterally. She is intubated. Not following commands. W/D LEs. No reaction to pain in UEs. <Michael Beard - Last Filed: 03/16/18 13:34> Physical Exam Vital signs: Vital Signs 03/15/18 14:18 03/15/18 16:28 03/15/18 19:07 Temperature Pulse Rate Respiratory Rate 19 20 Blood Pressure Pulse Oximetry 99 95 100 03/15/18 20:00 03/15/18 20:26 03/15/18 23:34 Temperature 99.7 F H Pulse Rate 85 Respiratory Rate 20 19 18 Blood Pressure 85/49 L Pulse Oximetry 96 100 03/16/18 00:00 03/16/18 03:23 03/16/18 04:00 Temperature 98.8 F 99.1 F Pulse Rate 82 89 Respiratory Rate 28 H 23 22 Blood Pressure 155/67 H 128/58 L Pulse Oximetry 98 03/16/18 07:50 03/16/18 08:00 03/16/18 12:00 Temperature 100.0 F H 99.7 F H Pulse Rate 86 91 H Respiratory Rate 22 18 20 Blood Pressure 106/53 L 160/72 H Pulse Oximetry 99 98 03/16/18 12:35 Temperature Pulse Rate Respiratory Rate 26 H Blood Pressure Pulse Oximetry 92 L Intake & Output 03/15/18 03/16/18 03/16/18 18:59 06:59 18:59 Intake Total 1562.5 / 1562.5 400 / 400 1812.5 / 1812.5 Output Total 600 / 600 630 / 630 Balance 962.5 / 962.5 -230 / -230 1812.5 / 1812.5 Weight 75.7 kg Intake: IV 1112.5 / 1112.5 400 / 400 1812.5 / 1812.5 Cordarone Inj 450 MG In D5W Inj 250 / 250 250 / 250 241 ML @ 1 MG/MIN 33.33 mls/hr IV.CONT TITRATE PRN Rx#: [id number] NS + KCl 20 mEq Inj 1,000 ML @ 1000 / 1000 45 mls/hr IV.CONT .[id number] [facility] Rx#:[id number] Diprivan 1000 mg/100 ml Inj 1, 100 / 100 100 / 100 100 / 100 000 mg In 100 ml @ 5 MCG/KG/MIN 2.292 mls/hr IV.CONT TITRATE PRN Rx#:[id number] Merrem Inj 1,000 MG In NS Inj 200 / 200 100 / 100 100 / 100 100 ML @ 200 mls/hr IV.SIG Q8H [facility] Rx#:[id number] KCl 40 mEq Premix Inj 40 meq In 100 / 100 100 ml @ 25 mls/hr IV.SIG UNSCH PRN Rx#:[id number] Vancomycin Inj 1,250 MG In NS 262.5 / 262.5 262.5 / 262.5 Inj 250 ML @ 250 mls/hr IV.SIG Q24H [facility] Rx#:[id number] Flagyl 500 MG Inj 100 ML @ 100 200 / 200 200 / 200 100 / 100 mls/hr IV.SIG Q6H [facility] Rx#: [id number] Oral 450 / 450 Output: Stool 30 / 30 Urine Amount (Catheter) 600 / 600 600 / 600 Indwelling 600 / 600 600 / 600 Other: Date of Last Bowel Movement 03/15/18 # Bowel Movements 1 - Constitutional Comments: Pt sedated and intubated and remains ill. - Routine HEENT Exam Head: Present: normocephalic, atraumatic Eye: Present: PERRL. Absent: conjunctival icterus ENT: Absent: oropharynx clear (ET intubated.) - Routine Neck Exam Present: trachea midline - Routine Respiratory Exam Present: patient mechanically ventilated (PRVC A/C rate 18. Peep 10. FiO2 60%) , rhonchi (coarse bs bilaterally.). Absent: CTA bilaterally, respiratory distress, wheezes - Routine Cardiovascular Exam Present: RRR (Pt on amiodarone drip.), S1, S2. Absent: murmur - Routine Abdominal Exam Present: soft, normoactive bowel sounds - Routine Skin Exam Absent: cyanosis, erythema - Routine Neurological Exam Absent: alert, moving all extremities (withdraws LEs to pain more than UEs. Pt requiring sedation and vent given her pulmonary condition.) - Routine Psychiatric Exam Present: unable to assess - Urinary Catheter Management Indwelling Cath placed during this visit: no <Michael Beard - Last Filed: 03/16/18 13:34> Vital signs: Vital Signs 03/15/18 16:28 03/15/18 19:07 03/15/18 20:00 Temperature 99.7 F H Pulse Rate 85 Respiratory Rate 20 20 Blood Pressure 85/49 L Pulse Oximetry 95 100 96 03/15/18 20:26 03/15/18 23:34 03/16/18 00:00 Temperature 98.8 F Pulse Rate 82 Respiratory Rate 19 18 28 H Blood Pressure 155/67 H Pulse Oximetry 100 03/16/18 03:23 03/16/18 04:00 03/16/18 07:50 Temperature 99.1 F Pulse Rate 89 Respiratory Rate 23 22 22 Blood Pressure 128/58 L Pulse Oximetry 98 99 03/16/18 08:00 03/16/18 12:00 03/16/18 12:35 Temperature 100.0 F H 99.7 F H Pulse Rate 86 91 H Respiratory Rate 18 20 26 H Blood Pressure 106/53 L 160/72 H Pulse Oximetry 98 92 L Intake & Output 03/15/18 03/16/18 03/16/18 18:59 06:59 18:59 Intake Total 1562.5 / 1562.5 400 / 400 1812.5 / 1812.5 Output Total 600 / 600 630 / 630 Balance 962.5 / 962.5 -230 / -230 1812.5 / 1812.5 Weight 75.7 kg Intake: IV 1112.5 / 1112.5 400 / 400 1812.5 / 1812.5 Cordarone Inj 450 MG In D5W Inj 250 / 250 250 / 250 241 ML @ 1 MG/MIN 33.33 mls/hr IV.CONT TITRATE PRN Rx#: [id number] NS + KCl 20 mEq Inj 1,000 ML @ 1000 / 1000 45 mls/hr IV.CONT .[id number] [facility] Rx#:[id number] Diprivan 1000 mg/100 ml Inj 1, 100 / 100 100 / 100 100 / 100 000 mg In 100 ml @ 5 MCG/KG/MIN 2.292 mls/hr IV.CONT TITRATE PRN Rx#:[id number] Merrem Inj 1,000 MG In NS Inj 200 / 200 100 / 100 100 / 100 100 ML @ 200 mls/hr IV.SIG Q8H [facility] Rx#:[id number] KCl 40 mEq Premix Inj 40 meq In 100 / 100 100 ml @ 25 mls/hr IV.SIG UNSCH PRN Rx#:[id number] Vancomycin Inj 1,250 MG In NS 262.5 / 262.5 262.5 / 262.5 Inj 250 ML @ 250 mls/hr IV.SIG Q24H [facility] Rx#:[id number] Flagyl 500 MG Inj 100 ML @ 100 200 / 200 200 / 200 100 / 100 mls/hr IV.SIG Q6H [facility] Rx#: [id number] Oral 450 / 450 Output: Stool 30 / 30 Urine Amount (Catheter) 600 / 600 600 / 600 Indwelling 600 / 600 600 / 600 Other: Date of Last Bowel Movement 03/15/18 # Bowel Movements 1 - Urinary Catheter Management Indwelling Cath placed during this visit: no <Fernando Taylor - Last Filed: 03/16/18 15:20> Assessment and Plan - Assessment (1) Spinal stenosis of thoracolumbar region Code(s): M48.05 - Spinal stenosis, thoracolumbar region Status: Acute (2) Sepsis Code(s): A41.9 - Sepsis, unspecified organism Status: Acute Qualifiers: Sepsis type: methicillin susceptible Staphylococcus aureus Qualified Code(s ): A41.01 - Sepsis due to Methicillin susceptible Staphylococcus aureus (3) Respiratory failure Code(s): J96.90 - Respiratory failure, unspecified, unspecified whether with hypoxia or hypercapnia Status: Acute Qualifiers: Chronicity: acute (4) Fusion of lumbar spine Code(s): M43.26 - Fusion of spine, lumbar region Status: Chronic - Plan 77-year-old lady optic shock with pneumonia and respiratory failure with the staph aureus bacteremia. Noncontrast MRI of the thoracic and lumbar spine suggest a possible dorsal T12-L1 area epidural collection along with L2-3 degenerative spinal stenosis with history of L3-S1 pedicle screw fixation with fusion by a neurosurgeon in [place] several years ago. P: Continue with current care/critical care Continue with antibiotics. Continue with Neuro checks. DVT prophylaxis Continue with GI prophylaxis. Discussed with RN. <Michael Beard - Last Filed: 03/16/18 13:34> - Assessment (1) Spinal stenosis of thoracolumbar region Code(s): M48.05 - Spinal stenosis, thoracolumbar region Status: Acute (2) Sepsis Code(s): A41.9 - Sepsis, unspecified organism Status: Acute Qualifiers: Sepsis type: methicillin susceptible Staphylococcus aureus Qualified Code(s ): A41.01 - Sepsis due to Methicillin susceptible Staphylococcus aureus (3) Respiratory failure Code(s): J96.90 - Respiratory failure, unspecified, unspecified whether with hypoxia or hypercapnia Status: Acute Qualifiers: Chronicity: acute (4) Fusion of lumbar spine Code(s): M43.26 - Fusion of spine, lumbar region Status: Chronic - Attending Attestation The exam, history, and the medical decision-making described in the above note were completed with the assistance of the mid-level provider. I reviewed and agree with the findings presented. I attest that I had a [id number] encounter with the patient on the same day, and personally performed and documented my assessment and findings in the medical record. MRI scan of the complete spine reviewed and she has spinal stenosis chronic related degenerative changes. There is possible small dorsal thoracolumbar area epidural abscess not significant enough to recommend surgical intervention and she is also not stable for any surgical intervention per the poultry tender. Consider CT-guided aspiration of the psoas abscesses. <Fernando Taylor - Last Filed: 03/16/18 15:20>
--- NOTE | 2018-03-16 17:30 | P.PNID ---
Subjective Remarks: + low grade fever up to 100 F pt cont to have diarrhea - C.diff + / tox neg, toleartes tube feeds @ 30 cc/hr off pressors remains on vent, FiO2 60% PEEP 10 MRI w/wo showed epidural abscess Antibiotics: meropenem vanco po vanco flagyl iv Allergies/Adverse Reactions: Allergies Penicillins Allergy (Verified 03/14/18 13:53) Swelling of Lip/Tongue/Throat Sulfa (Sulfonamide Antibiotics) Allergy (Verified 03/14/18 13:53) Diarrhea shellfish Adverse Reaction (Uncoded 03/14/18 13:53) Swelling of Lip/Tongue/Throat Objective Vital Signs 03/15/18 19:07 03/15/18 20:00 03/15/18 20:26 Temperature 99.7 F H Pulse Rate 85 Respiratory Rate 20 19 Blood Pressure 85/49 L Pulse Oximetry 100 96 100 03/15/18 23:34 03/16/18 00:00 03/16/18 03:23 Temperature 98.8 F Pulse Rate 82 Respiratory Rate 18 28 H 23 Blood Pressure 155/67 H Pulse Oximetry 98 03/16/18 04:00 03/16/18 07:50 03/16/18 08:00 Temperature 99.1 F 100.0 F H Pulse Rate 89 86 Respiratory Rate 22 22 18 Blood Pressure 128/58 L 106/53 L Pulse Oximetry 99 98 03/16/18 12:00 03/16/18 12:35 03/16/18 16:00 Temperature 99.7 F H 99.0 F Pulse Rate 91 H 93 H Respiratory Rate 20 26 H 22 Blood Pressure 160/72 H 149/65 H Pulse Oximetry 92 L 03/16/18 16:43 Temperature Pulse Rate Respiratory Rate 22 Blood Pressure Pulse Oximetry 92 L Intake & Output 03/15/18 03/16/18 03/16/18 18:59 06:59 18:59 Intake Total 1562.5 / 1562.5 400 / 400 Output Total 600 / 600 630 / 630 Balance 962.5 / 962.5 -230 / -230 Weight 75.7 kg Intake: IV 1112.5 / 1112.5 400 / 400 Cordarone Inj 450 MG In D5W Inj 250 / 250 250 / 250 241 ML @ 1 MG/MIN 33.33 mls/hr IV.CONT TITRATE PRN Rx#: [id number] NS + KCl 20 mEq Inj 1,000 ML @ 1000 / 1000 45 mls/hr IV.CONT .[id number] [facility] Rx#:[id number] Diprivan 1000 mg/100 ml Inj 1, 100 / 100 100 / 100 100 / 100 000 mg In 100 ml @ 5 MCG/KG/MIN 2.292 mls/hr IV.CONT TITRATE PRN Rx#:[id number] Merrem Inj 1,000 MG In NS Inj 200 / 200 100 / 100 200 / 200 100 ML @ 200 mls/hr IV.SIG Q8H [facility] Rx#:[id number] KCl 40 mEq Premix Inj 40 meq In 100 / 100 100 ml @ 25 mls/hr IV.SIG U[facility]CH PRN Rx#:[id number] Vancomycin Inj 1,250 MG In NS 262.5 / 262.5 262.5 / 262.5 Inj 250 ML @ 250 mls/hr IV.SIG Q24H [facility] Rx#:[id number] Flagyl 500 MG Inj 100 ML @ 100 200 / 200 200 / 200 200 / 200 mls/hr IV.SIG Q6H [facility] Rx#: [id number] Oral 450 / 450 Output: Stool 30 / 30 Urine Amount (Catheter) 600 / 600 600 / 600 Indwelling 600 / 600 600 / 600 Other: Date of Last Bowel Movement 03/15/18 # Bowel Movements 1 03/14/18 15:42 Sputum - Endotracheal Gram Stain - Final 03/14/18 15:42 Sputum - Endotracheal Sputum Culture - Final Rare growth normal respiratory shonda 03/14/18 15:38 Catheterized Urine Urine Culture - Final No growth in 48 hours 03/14/18 16:20 Stool Clostridium difficile GDH Antigen - Final Positive - C. difficile Antigen detected. 03/14/18 16:20 Stool Clostridium difficile Toxin Assay - Final Negative - No C. difficile Toxin A or B detected. Lab - Hematology Results 03/15/18 03/16/18 04:30 03:20 WBC 31.0 H 33.0 H RBC 2.64 L 2.54 L Hgb 8.3 L 7.9 L Hct 24.7 L 24.1 L MCV 93.4 94.7 MCH 31.4 31.0 MCHC 33.6 32.7 RDW 21.3 H 20.9 H Plt Count 281 257 MPV 11.7 H 11.8 H Prelim Diff (Auto) Manual diff required Manual diff required WBC Differential Manual diff final Manual diff final Seg Neuts % (Manual) 49 45 Band Neuts % (Manual) 13 H 8 H Lymphocytes % (Manual) 3 L 4 L Monocytes % (Manual) 11 H 7 Eosinophils % (Manual) 2 Metamyelocytes % (Man) 2 H 4 H Myelocytes % (Man) 9 H 17 H Promyelocytes % (Man) 13 H 12 H Blast Cells % (Manual) 1 H Abs Neuts (Manual) 26.7 H 28.4 H Nucleated RBCs/100 WBC 3 H Differential Comment . . Dohle Bodies Present H Platelet Estimate Normal Normal Platelet Morphology Clumped H Enlarged H Spherocytes Occ H Keratocytes Occ H Lab - Chemistry Results 03/15/18 03/15/18 03/16/18 04:30 04:30 03:20 Sodium 145 148 H Potassium 3.8 4.0 Chloride 110 H 114 H Carbon Dioxide 28.5 28.3 Anion Gap 7 6 BUN 53 H 46 H Creatinine 1.01 H 0.93 Estimated GFR 53 L 58 L Random Glucose 129 H D 141 H Lactic Acid 1.4 Calcium 8.0 L 7.6 L Total Bilirubin 0.9 0.8 AST 43 H 39 H ALT 19 14 Alkaline Phosphatase 169 H 166 H Total Protein 5.9 L 5.7 L Albumin 1.4 L 1.3 L Imaging: ITS Impressions Chest X-Ray 03/14/18 00:00 CONCLUSION: 1. Tubes and lines, as above. 2. Diffuse airspace disease throughout the left lung and in the right mid to lower lung zones consistent with atypical/multilobar pneumonia versus developing ARDS. 3. Prominence of the AP window may reflect adenopathy. Cervical Spine MRI 03/15/18 00:00 CONCLUSION: 1. No abnormal areas of enhancement in the dural space or vertebral bodies. 2. Spinal stenosis due to disc bulging at multiple levels and anterolisthesis at C4-5. There is also multilevel bony neural foraminal stenosis. Lumbar Spine MRI 03/15/18 00:00 CONCLUSION: 1. Enhancing soft tissue extending from the subcutaneous region down to the thecal sac at the L1 and L2 level characteristic of postsurgical findings with a rounded area of fluid with some minimal peripheral enhancement dorsal to the thecal sac flattening the posterior margin at L1 and L2. Since there is some minimal peripheral enhancement, and epidural abscess is a differential possibility. Thoracic Spine MRI 03/15/18 00:00 CONCLUSION: 1. No abnormal areas of enhancement in the vertebral bodies or epidural space in the thoracic region. 2. Posterior osteophytes at all levels in the thoracic spine causing mild impression upon the thecal sac. No evidence of disc protrusions over. 3. Moderate size left pleural effusion. Physical Exam: GENERAL: NAD sedated, on vent SKIN: Warm and dry. No rash HEAD: Atraumatic. Normocephalic. EYES: Pupils equal and round. No scleral icterus. No injection or drainage. ENT: No nasal bleeding or discharge. Mucous membranes pink and moist. NECK: Trachea midline. No JVD. CARDIOVASCULAR: Regular rate and rhythm. RESPIRATORY: No accessory muscle use. Clear to auscultation. Breath sounds equal bilaterally. GASTROINTESTINAL: Abdomen soft, no reaction to palpation, + moderately distended. Hepatic and splenic margins not palpable. MUSCULOSKELETAL: Extremities without clubbing, cyanosis, 1-2+ edema. No obvious deformities. NEUROLOGICAL: sedated; not following commands PSYCHIATRIC: unable to assess Assessment and Plan - Plan Critical, stable PNA, HCAP /aspiration vs ARDS - NGTD from sputum Lower T / L spine epidural abscess - pt was seen by Dr Monster Taylor who is planning to repeat MR w/wo c when stable enough Sepsis Acute VDRF - improving ARF C.diff: diarrhea, WBC 30Ks and + PCR even with neg toxin likely c.diff cont iv flagyl cont po vancomycin cont iv vanco cont meropenem for now, will dc if blood clx remain negative fu blood clx fu sputum clx untill final IR aspiration for culture: dw Dr Montenegro
--- NOTE | 2018-03-17 04:03 | XR ---
EXAM DATE: 03/17/2018 4:00 AM EDT AGE/SEX: 77 years / Female INDICATIONS: ARDS. Hypoxemia. CLINICAL DATA: This is the patient's subsequent encounter. Patient reports that signs and symptoms h ave been present for 3 days and indicates a pain score of Nonresponsive. MEDICAL/SURGICAL HISTORY: . Carcinoma, lung. Atrial fibrillation. . Fusion, lumbar. Bilateral hip replacement. COMPARISON: [facility], CHEST 1V SINGLE AP, 03/14/2018. . FINDINGS: The ET tube and NG tube are well placed. There is a right-sided PICC line in place with the tip overl troy the SVC region. The heart size is normal. There is diffuse consolidation seen throughout the lef t lung and in the right mid and lower lung. There is sparing of the right upper lung. There is linear density seen at the medial right lung region. This could be related to lung latrice in the appropria te clinical history. There is prominence of the AP window region. CONCLUSION: Diffuse consolidation seen throughout the left lung and to a lesser degree the right mid and lower rose mary ng. This appears unchanged. This could be inflammatory or related to ARDS. Tubes and lines in good position. Electronically signed by: Michael oDss MD 03/17/2018 4:02 AM EDT
[2018-03-17] MEDS: Chlorhexidine Gluconate 2% 1 Pack (2 Cloths) TOPICAL SCH (04:08)
[2018-03-17] MEDS: Propofol 1000 mg/100 ml Inj 1,000 MG/100 ML BOTTLE IV.CONT PRN ×3 (04:09→21:10)
[2018-03-17] MEDS: Oral Hygiene Kit OROPHARYNG SCH ×4 (04:11→23:44)
[2018-03-17 05:04] LABS: Hematocrit 21.4 % (35.0-46.0); Mean Corpuscular HGB Conc 31.9 % (32.0-36.0); Mean Corpuscular Hemoglobin 30.4 pg (27.0-34.0); Mean Corpuscular Volume 95.4 fL (80.0-100.0); Mean Platelet Volume 11.6 fL (7.0-11.0); Platelet Count 206 th/mm3 (150-450); Red Blood Count 2.24 mil/mm3 (4.00-5.30); Red Cell Distribution Width 21.2 % (11.6-17.2); White Blood Count 34.6 th/mm3 (4.0-11.0)
[2018-03-17 05:14] LABS: Hemoglobin 6.8 gm/dL (11.6-15.3)
[2018-03-17 05:15] LABS: Albumin 1.1 g/dL (3.4-5.0); Calcium 6.9 mg/dL (8.5-10.1); Carbon Dioxide 30.4 meq/L (21.0-32.0); Potassium 4.1 meq/L (3.5-5.1); Total Protein 5.2 g/dL (6.4-8.2)
[2018-03-17] MEDS ORDERED: Sodium Chlor 0.9% Inj 250 ML IV.SIG SCH (06:00)
[2018-03-17] MEDS: Heparin - SQ 10,000 UNITS/ML Vial SQ SCH ×3 (06:19→23:44)
[2018-03-17] MEDS: Levothyroxine 112 MCG Tablet PO SCH (06:20)
[2018-03-17 08:07] LABS: Eosinophils 3 % (0-4); Lymphocytes 1 % (9-44); Metamyelocytes 11 % (0-1); Monocytes 12 % (0-8); Myelocytes 20 % (0-0); Promyelocyte 7 % (0-0)
[2018-03-17 08:09] LABS: Platelet Estimate Normal (Normal)
[2018-03-17] MEDS: Senna/Docusate Sodium 8.6/50 MG Tablet PO SCH ×2 (08:15→21:09)
[2018-03-17] MEDS: Chlorhexidine 0.12% Oral Kit 15 ML UDC OROPHARYNG SCH ×2 (08:15→21:08)
[2018-03-17] MEDS: Beneprotein Powder Packet G-TUBE SCH ×3 (09:00→20:11)
--- NOTE | 2018-03-17 09:01 | P.PNCC ---
Subjective Subjective Remarks/Hospital Course: This 77-year-old woman was transferred from [facility] to [facility] for treatment of respiratory failure with septic shock and peripheral abscesses including recent diagnosis of epidural abscess in the lumbar region. Her respiratory status is quite compromised with diffuse infiltrates throughout both lung welsh and she is ventilator dependent. On initial presentation to the hospital impair she had complaints of back pain radiating to her left knee. Her hemoglobin was 4 source of bleeding was clear was unclear at first and Dr. Vasquez had previously performed upper and lower endoscopy without location of a source. She has had a metastatic series and MRI on March 04 which developed multilevel central canal and foraminal stenoses she has had a transesophageal echo which revealed severe mitral regurgitation her hospital course has been complicated by atrial fibrillation and hemodynamic instability. Cardioversion was unsuccessful. She has continued recent fever course in excess of 103 degrees and has been treated with broad-spectrum antibiotic coverage including meropenem and vancomycin. She is continued to deteriorate and on about March 11 required endotracheal intubation and mechanical ventilation. Recent ICU white blood cell count is 40,000 blood cultures from March 09 revealed Streptococcus species and a subsequent blood culture grew a staph organism according to the report from the referring physician. The woman is required amiodarone therapy and diltiazem with additional cardioversion to sinus rhythm on the chest x-ray continues to worsen. CT of the abdomen reveals fluid collection on the left psoas muscle, possibly abscess. The contralateral psoas muscle has a similar collection. Recent MRI demonstrates old spine hardware L3-S1 and an irregular soft tissue density around the thecal sac at L1-L2 extending to T12-L1 she is required vasopressor support for hypotension and obvious sepsis overnight. The one constant throughout her early hospital course was severe lower back pain radiating down her legs. 03/15: Temperature max 101. Leukocytosis persists to 30,000. Back in normal sinus rhythm now with pulse rate controlled. Her respiratory status is unstable and she still requiring elevated ventilator pressures and elevated oxygen concentration. We will attempt to get an MRI of the entire spine with and without contrast today pending her hemodynamic suitability. At present her pulmonary status makes operative procedure a prohibitive risk. 03/16: T-max 100. Leukocytosis to 30,000 persists. Remains in sinus rhythm. MRI of the spine reviewed. Patient remains clinically critically ill. Azotemia slightly improved. Continue hydration. Start trickle tube feeding with added protein. 03/16: Continued septic course with low-grade fever and white count 33,000. Chest x-ray appearance alone could explain sepsis. Doing need to culture the fluid collections in the back to rule out another possible nidus? 03/17: Worsening respiratory function requiring us to convert to airway pressure release ventilation mode. Way too ill to allow us to transfer and mobilize for psoas muscle fluid aspiration. Elevated white count persists. Renal function slightly improved. Still requiring aggressive fluid resuscitation. White blood cell count 34,000 tomorrow, consistent with colitis. Objective Vital Signs / I&O: Vital Signs 03/16/18 12:00 03/16/18 12:35 03/16/18 16:00 Temperature 99.7 F H 99.0 F Pulse Rate 91 H 93 H Respiratory Rate 20 26 H 22 Blood Pressure 160/72 H 149/65 H Pulse Oximetry 92 L 03/16/18 16:43 03/16/18 20:00 03/16/18 20:29 Temperature 98.1 F Pulse Rate 84 Respiratory Rate 22 20 22 Blood Pressure 119/58 L Pulse Oximetry 92 L 97 96 03/17/18 00:00 03/17/18 00:55 03/17/18 04:00 Temperature 99.0 F 99.5 F Pulse Rate 85 73 Respiratory Rate 19 21 18 Blood Pressure 138/67 108/55 L Pulse Oximetry 94 L 03/17/18 04:22 03/17/18 08:10 Temperature Pulse Rate Respiratory Rate 18 31 H Blood Pressure Pulse Oximetry 95 97 Intake & Output 03/16/18 03/17/18 03/17/18 18:59 06:59 18:59 Intake Total 2112.5 / 2112.5 1448 / 1448 Output Total 610 / 610 800 / 800 Balance 1502.5 / 1502.5 648 / 648 Weight 78.9 kg Intake: IV 2112.5 / 2112.5 650 / 650 Cordarone Inj 450 MG In D5W Inj 250 / 250 250 / 250 241 ML @ 1 MG/MIN 33.33 mls/hr IV.CONT TITRATE PRN Rx#: [id number] NS + KCl 20 mEq Inj 1,000 ML @ 1000 / 1000 45 mls/hr IV.CONT .[id number] [facility] Rx#:[id number] Diprivan 1000 mg/100 ml Inj 1, 200 / 200 100 / 100 000 mg In 100 ml @ 5 MCG/KG/MIN 2.292 mls/hr IV.CONT TITRATE PRN Rx#:[id number] Merrem Inj 1,000 MG In NS Inj 200 / 200 100 / 100 100 ML @ 200 mls/hr IV.SIG Q8H [facility] Rx#:[id number] Vancomycin Inj 1,250 MG In NS 262.5 / 262.5 Inj 250 ML @ 250 mls/hr IV.SIG Q24H [facility] Rx#:[id number] Flagyl 500 MG Inj 100 ML @ 100 200 / 200 200 / 200 mls/hr IV.SIG Q6H [facility] Rx#: [id number] Tube Feeding 798 / 798 Output: Stool 10 / 10 Urine Amount (Catheter) 600 / 600 800 / 800 Indwelling 600 / 600 800 / 800 Other: Date of Last Bowel Movement 03/16/18 03/17/18 Result Diagrams: 03/17/18 04:30 03/17/18 04:30 Objective Remarks: Narrative: Physical exam: General: Ill-appearing, elderly woman on mechanical ventilation Head: Atraumatic, normal. Oral tracheal intubation. Neck: Stiff consistent with age but otherwise supple. Lungs: Bilateral sonorous rhonchi with mobile secretions. Good bilateral air entry Heart: Regular rate and rhythm at 74/min, 2/6 systolic murmur, no JVD Abdomen: Moderately distended, bowel sounds few, no guarding. No peritoneal irritation. Extremities: Warm, well-perfused. Trace edema at ankles. Neurologic: Converted to propofol and fentanyl for pain relief and vent synchrony. Breathes spontaneously over ventilator rate. Pupils reactive. Assessment and Plan - Assessment and Plan Plan: Assessment: 1. Septic shock 2. Bacteremia staph and strep organisms 3. Acute hypoxemic respiratory failure 4. Bilateral pneumonia 5. Chronic anemia 6. Ileus 7. Paroxysmal atrial fibrillation 8. Metabolic acidosis 9. Acute kidney injury 10. Psoas abscess 11. Possible epidural abscess 12. Heart failure with severe mitral regurgitation Plan: Neuro -sedation with propofol and fentanyl -Neurosurgery evaluation for lumbar problem -MRI of the entire spine with and without contrast -> done Cardiovascular -Khalif-Synephrine for supportive arterial blood pressure -Amiodarone drip for conversion of atrial fibrillation -Electrolyte replacement protocol -Converted to p.o. amiodarone after 24-hour bolus -Discontinue IV amiodarone. -Start low-dose beta-hemalatha if blood pressure will tolerate, presently will not. Respiratory -PRBC ventilatory mode -Blood gas now and in a.m. -Sputum culture -PEEP 10 -Converted to airway pressure release ventilation 03/17 GI -Nasogastric tube to low intermittent suction -Start tube feedings, Glucerna 1.5 -History of antral ulcers -Olivas to closed bag drainage -Urinalysis Hematology -Serial white cell count -Follow anemia with hemoglobin -Hold bone marrow biopsy for now -Dilutional anemia during aggressive resuscitation with fluid, no evidence of bleeding. ID -Continue outpatient antibiotics, meropenem and vancomycin as per ID consult -Organisms cultured at outside hospital are streptococcal and staph species -Infectious disease service has restarted Flagyl for suspected C. difficile, felt false-negative toxin resolved. Prophylaxis -Hold chemical DVT prophylaxis due to high risk of bleeding, and recurrent anemia -SCDs -Continue aspirin Overall impression: This woman remains critically ill and hemodynamically unstable with septic shock and paroxysmal supra ventricular tachyarrhythmia. Both lungs are obvious nidus of infection but the unexplained fluid collections in the lumbar region and by both psoas muscles requires further investigation. Right now the patient is unstable and clearly septic with severely compromised pulmonary function. We may have to needle culture the fluid collections in the back muscles but at present she is far too unstable for transport and torso manipulation. Respiratory status remains unstable and critical. Critical care time 60 minutes aside from invasive procedures.
[2018-03-17] MEDS: Famotidine PF Inj 20 MG/2 ML Vial IV.PUSH SCH ×2 (09:30→21:09)
[2018-03-17 10:24] LABS: ABG PCO2 50 mmHg (38-42); ABG PO2 100 mmHg (61-120)
[2018-03-17] MEDS: Vancomycin Inj 1,250 MG in Sodium Chlor 0.9% Inj 250 ML IV.SIG SCH (10:32)
--- NOTE | 2018-03-17 13:48 | P.PNID ---
Subjective Remarks: overall worse Resp distress more prominent cont to have large volume liquid diarrea 34 K WBC Antibiotics: meropenem vanco po vanco flagyl iv Allergies/Adverse Reactions: Allergies Penicillins Allergy (Verified 03/14/18 13:53) Swelling of Lip/Tongue/Throat Sulfa (Sulfonamide Antibiotics) Allergy (Verified 03/14/18 13:53) Diarrhea shellfish Adverse Reaction (Uncoded 03/14/18 13:53) Swelling of Lip/Tongue/Throat Objective Vital Signs 03/16/18 16:00 03/16/18 16:43 03/16/18 20:00 Temperature 99.0 F 98.1 F Pulse Rate 93 H 84 Respiratory Rate 22 22 20 Blood Pressure 149/65 H 119/58 L Pulse Oximetry 92 L 97 03/16/18 20:29 03/17/18 00:00 03/17/18 00:55 Temperature 99.0 F Pulse Rate 85 Respiratory Rate 22 19 21 Blood Pressure 138/67 Pulse Oximetry 96 94 L 03/17/18 04:00 03/17/18 04:22 03/17/18 08:00 Temperature 99.5 F 99.1 F Pulse Rate 73 76 Respiratory Rate 18 18 23 Blood Pressure 108/55 L 98/53 L Pulse Oximetry 95 95 03/17/18 08:10 03/17/18 10:00 03/17/18 12:00 Temperature 99 F Pulse Rate 76 63 Respiratory Rate 31 H 34 H Blood Pressure 144/65 H Pulse Oximetry 97 99 03/17/18 12:59 Temperature Pulse Rate Respiratory Rate 30 H Blood Pressure Pulse Oximetry 93 L Intake & Output 03/16/18 03/17/18 03/17/18 18:59 06:59 18:59 Intake Total 2112.5 / 2112.5 1448 / 1448 562.5 / 562.5 Output Total 610 / 610 800 / 800 Balance 1502.5 / 1502.5 648 / 648 562.5 / 562.5 Weight 78.9 kg Intake: IV 2112.5 / 2112.5 650 / 650 562.5 / 562.5 Cordarone Inj 450 MG In D5W Inj 250 / 250 250 / 250 241 ML @ 1 MG/MIN 33.33 mls/hr IV.CONT TITRATE PRN Rx#: [id number] NS + KCl 20 mEq Inj 1,000 ML @ 1000 / 1000 45 mls/hr IV.CONT .[id number] [facility] Rx#:[id number] Diprivan 1000 mg/100 ml Inj 1, 200 / 200 100 / 100 100 / 100 000 mg In 100 ml @ 5 MCG/KG/MIN 2.292 mls/hr IV.CONT TITRATE PRN Rx#:[id number] Merrem Inj 1,000 MG In NS Inj 200 / 200 100 / 100 100 / 100 100 ML @ 200 mls/hr IV.SIG Q8H [facility] Rx#:[id number] Vancomycin Inj 1,250 MG In NS 262.5 / 262.5 262.5 / 262.5 Inj 250 ML @ 250 mls/hr IV.SIG Q24H [facility] Rx#:[id number] Flagyl 500 MG Inj 100 ML @ 100 200 / 200 200 / 200 100 / 100 mls/hr IV.SIG Q6H [facility] Rx#: [id number] Tube Feeding 798 / 798 Output: Stool 10 / 10 Urine Amount (Catheter) 600 / 600 800 / 800 Indwelling 600 / 600 800 / 800 Other: Date of Last Bowel Movement 03/16/18 03/17/18 03/17/18 03/14/18 15:42 Sputum - Endotracheal Gram Stain - Final 03/14/18 15:42 Sputum - Endotracheal Sputum Culture - Final Rare growth normal respiratory shonda 03/14/18 15:38 Catheterized Urine Urine Culture - Final No growth in 48 hours 03/14/18 16:20 Stool Clostridium difficile GDH Antigen - Final Positive - C. difficile Antigen detected. 03/14/18 16:20 Stool Clostridium difficile Toxin Assay - Final Negative - No C. difficile Toxin A or B detected. Lab - Hematology Results 03/16/18 03/17/18 03:20 04:30 WBC 33.0 H 34.6 H RBC 2.54 L 2.24 L Hgb 7.9 L 6.8 L* Hct 24.1 L 21.4 L MCV 94.7 95.4 MCH 31.0 30.4 MCHC 32.7 31.9 L RDW 20.9 H 21.2 H Plt Count 257 206 MPV 11.8 H 11.6 H Prelim Diff (Auto) Manual diff required Manual diff required WBC Differential Manual diff final Manual diff final Seg Neuts % (Manual) 45 37 Band Neuts % (Manual) 8 H 9 H Lymphocytes % (Manual) 4 L 1 L Monocytes % (Manual) 7 12 H Eosinophils % (Manual) 2 3 Metamyelocytes % (Man) 4 H 11 H Myelocytes % (Man) 17 H 20 H Promyelocytes % (Man) 12 H 7 H Blast Cells % (Manual) 1 H Abs Neuts (Manual) 28.4 H 29.1 H Differential Comment . . Dohle Bodies Present H Platelet Estimate Normal Normal Platelet Morphology Enlarged H Enlarged H Spherocytes Occ H Keratocytes Occ H Lab - Chemistry Results 03/16/18 03/17/18 03:20 04:30 Sodium 148 H 151 H Potassium 4.0 4.1 Chloride 114 H 116 H Carbon Dioxide 28.3 30.4 Anion Gap 6 5 BUN 46 H 44 H Creatinine 0.93 0.74 Estimated GFR 58 L 76 L Random Glucose 141 H 148 H Calcium 7.6 L 6.9 L* Prot Corrected Calcium 7.9 L Total Bilirubin 0.8 0.5 AST 39 H 36 ALT 14 17 Alkaline Phosphatase 166 H 136 H Total Protein 5.7 L 5.2 L Albumin 1.3 L 1.1 L Imaging: ITS Impressions Cervical Spine MRI 03/15/18 00:00 CONCLUSION: 1. No abnormal areas of enhancement in the dural space or vertebral bodies. 2. Spinal stenosis due to disc bulging at multiple levels and anterolisthesis at C4-5. There is also multilevel bony neural foraminal stenosis. Lumbar Spine MRI 03/15/18 00:00 CONCLUSION: 1. Enhancing soft tissue extending from the subcutaneous region down to the thecal sac at the L1 and L2 level characteristic of postsurgical findings with a rounded area of fluid with some minimal peripheral enhancement dorsal to the thecal sac flattening the posterior margin at L1 and L2. Since there is some minimal peripheral enhancement, and epidural abscess is a differential possibility. Thoracic Spine MRI 03/15/18 00:00 CONCLUSION: 1. No abnormal areas of enhancement in the vertebral bodies or epidural space in the thoracic region. 2. Posterior osteophytes at all levels in the thoracic spine causing mild impression upon the thecal sac. No evidence of disc protrusions over. 3. Moderate size left pleural effusion. Chest X-Ray 03/17/18 04:00 CONCLUSION: Diffuse consolidation seen throughout the left lung and to a lesser degree the right mid and lower lung. This appears unchanged. This could be inflammatory or related to ARDS. Tubes and lines in good position. Physical Exam: GENERAL: NAD sedated, on vent SKIN: Warm and dry. No rash HEAD: Atraumatic. Normocephalic. EYES: Pupils equal and round. No scleral icterus. No injection or drainage. ENT: No nasal bleeding or discharge. Mucous membranes pink and moist. NECK: Trachea midline. No JVD. CARDIOVASCULAR: Regular rate and rhythm. RESPIRATORY: No accessory muscle use. b/l rhonchi to auscultation. Breath sounds equal bilaterally. GASTROINTESTINAL: Abdomen soft, no reaction to palpation, + moderately distended. Hepatic and splenic margins not palpable. MUSCULOSKELETAL: Extremities without clubbing, cyanosis, 2+- edema. No obvious deformities. NEUROLOGICAL: sedated; not following commands PSYCHIATRIC: unable to assess Assessment and Plan - Plan Critical, stable PNA, HCAP /aspiration vs ARDS - NGTD from sputum Lower T / L spine epidural abscess - pt was seen by Dr Monster Taylor who is planning to repeat MR w/wo c when stable enough Sepsis Acute VDRF - improving ARF C.diff: diarrhea, WBC 30Ks and + PCR even with neg toxin likely c.diff cont iv flagyl cont po vancomycin cont iv vanco cont meropenem for now repeat blood clx repeat sputum clx CT A/P/C wo contrast IR aspiration for culture when feasible from resp standpoint dw radiologist jesenia Long
[2018-03-17 15:56] LABS: Amorphous Sediment,Urine Rare /hpf; Bacteria,Urine Occasional /hpf; Bilirubin,Urine Negative (Negative); Clarity,Urine Turbid (Clear); Color,Urine Yellow (Yellw/Straw); Glucose,Urine (UA) Negative (Negative); Leukocyte Esterase,Urine Trace (Negative); Mucus,Urine Few /lpf (Occasional); Nitrite,Urine Negative (Negative); Specific Gravity,Urine 1.016 (1.002-1.035); Squamous Epithelial Cell,Urine <1 /hpf (0-5)
--- NOTE | 2018-03-17 16:27 | P.PNNS ---
Subjective Interval history: Initiated on pressors this AM. Physical Exam Vital signs: Vital Signs 03/16/18 16:43 03/16/18 20:00 03/16/18 20:29 Temperature 98.1 F Pulse Rate 84 Respiratory Rate 22 20 22 Blood Pressure 119/58 L Pulse Oximetry 92 L 97 96 03/17/18 00:00 03/17/18 00:55 03/17/18 04:00 Temperature 99.0 F 99.5 F Pulse Rate 85 73 Respiratory Rate 19 21 18 Blood Pressure 138/67 108/55 L Pulse Oximetry 94 L 03/17/18 04:22 03/17/18 08:00 03/17/18 08:10 Temperature 99.1 F Pulse Rate 76 Respiratory Rate 18 23 31 H Blood Pressure 98/53 L Pulse Oximetry 95 95 97 03/17/18 10:00 03/17/18 12:00 03/17/18 12:59 Temperature 99 F Pulse Rate 76 63 Respiratory Rate 34 H 30 H Blood Pressure 144/65 H Pulse Oximetry 99 93 L 03/17/18 15:40 Temperature Pulse Rate Respiratory Rate Blood Pressure Pulse Oximetry 95 Intake & Output 03/16/18 03/17/18 03/17/18 18:59 06:59 18:59 Intake Total 2112.5 / 2112.5 1448 / 1448 562.5 / 562.5 Output Total 610 / 610 800 / 800 Balance 1502.5 / 1502.5 648 / 648 562.5 / 562.5 Weight 78.9 kg Intake: IV 2112.5 / 2112.5 650 / 650 562.5 / 562.5 Cordarone Inj 450 MG In D5W Inj 250 / 250 250 / 250 241 ML @ 1 MG/MIN 33.33 mls/hr IV.CONT TITRATE PRN Rx#: [id number] NS + KCl 20 mEq Inj 1,000 ML @ 1000 / 1000 45 mls/hr IV.CONT .[id number] [facility] Rx#:[id number] Diprivan 1000 mg/100 ml Inj 1, 200 / 200 100 / 100 100 / 100 000 mg In 100 ml @ 5 MCG/KG/MIN 2.292 mls/hr IV.CONT TITRATE PRN Rx#:[id number] Merrem Inj 1,000 MG In NS Inj 200 / 200 100 / 100 100 / 100 100 ML @ 200 mls/hr IV.SIG Q8H [facility] Rx#:[id number] Vancomycin Inj 1,250 MG In NS 262.5 / 262.5 262.5 / 262.5 Inj 250 ML @ 250 mls/hr IV.SIG Q24H [facility] Rx#:[id number] Flagyl 500 MG Inj 100 ML @ 100 200 / 200 200 / 200 100 / 100 mls/hr IV.SIG Q6H [facility] Rx#: [id number] Tube Feeding 798 / 798 Output: Stool 10 / 10 Urine Amount (Catheter) 600 / 600 800 / 800 Indwelling 600 / 600 800 / 800 Other: Date of Last Bowel Movement 03/16/18 03/17/18 03/17/18 Narrative: On sedation due to hemodynamic instability Does not open eyes PERRL Trace movement bilateral upper extremities Withdraws bilateral lower extremities weakly - Urinary Catheter Management Indwelling Cath placed during this visit: no Assessment and Plan - Assessment (1) Spinal stenosis of thoracolumbar region Code(s): M48.05 - Spinal stenosis, thoracolumbar region Status: Acute (2) Sepsis Code(s): A41.9 - Sepsis, unspecified organism Status: Acute Qualifiers: Sepsis type: methicillin susceptible Staphylococcus aureus Qualified Code(s ): A41.01 - Sepsis due to Methicillin susceptible Staphylococcus aureus (3) Respiratory failure Code(s): J96.90 - Respiratory failure, unspecified, unspecified whether with hypoxia or hypercapnia Status: Acute Qualifiers: Chronicity: acute (4) Fusion of lumbar spine Code(s): M43.26 - Fusion of spine, lumbar region Status: Chronic - Plan 77-year-old lady optic shock with pneumonia and respiratory failure with the staph aureus bacteremia. MRI of the thoracolumbar spine with evidence of T12/ L1 epidural abscess with moderate stenosis at this level. History of L3-S1 instrumentation by outside surgeon in [place] several years ago. Plan: Neurologically stable from yesterday. Reportedly too unstable from respiratory perspective to pause sedation. Continue with current care/critical care Continue with antibiotics. Continue with Neuro checks. DVT prophylaxis
--- NOTE | 2018-03-17 17:07 | CT ---
EXAM DATE: 03/17/2018 3:36 PM EDT AGE/SEX: 77 years / Female INDICATIONS: Short of breath. CLINICAL DATA: This is the patient's initial encounter. Patient reports that signs and symptoms have been present for 1 day and indicates a pain score of Nonresponsive. MEDICAL/SURGICAL HISTORY: . Sepsis. Pneumonia. . Lumbar fusion. Spinal stenosis. Bilateral hip re placements. RADIATION DOSE: 5.71 CTDI (mGy) ; Combined studies COMPARISON: No prior exams available for comparison. TECHNIQUE: Multiple contiguous axial images were obtained through the chest without contrast. Image s were obtained in suspended respiration using multiple row detector helical technique. Using automa deejay exposure control and adjustment of the mA and/or kV according to patient size, radiation dose was kept as low as reasonably achievable to obtain optimal diagnostic quality images. DICOM format imag e data is available electronically for review and comparison. FINDINGS: Imaging through the pulmonary parenchyma demonstrates diffuse interstitial infiltrate. There is some degree of sparing of the right upper lobe. This would suggest possible ARDS or asymmetric edema. There is minimal effusion on the left. There is a tiny effusion on the right. No mass lesion is seen within the pulmonary parenchyma. The heart is normal in size. No pericardial effusion is present. No hilar or mediastinal adenopathy i s identified. No axillary adenopathy is seen. Note is made of a right subclavian central line in satisfactory position. The ET tube and NG tube are in satisfactory position. Note is made of diffuse anasarca. CONCLUSION: 1. Extensive interstitial prominence with some sparing of the right upper lobe suggesting ARDS. 2. Minimal effusion on the left with a tiny effusion on the right. 3. Degenerative changes in the thoracic spine. Electronically signed by: Rafael Cardoza MD 03/17/2018 3:54 PM EDT
--- NOTE | 2018-03-17 17:07 | CT ---
EXAM DATE: 03/17/2018 3:36 PM EDT AGE/SEX: 77 years / Female INDICATIONS: Colitis. Abdominal discomfort. CLINICAL DATA: This is the patient's initial encounter. Patient reports that signs and symptoms have been present for 1 day and indicates a pain score of Nonresponsive. MEDICAL/SURGICAL HISTORY: . Pneumonia. Sepsis. . Lumbar fusion. Bilateral hip replacements. RADIATION DOSE: 5.71 CTDI (mGy) ; Combined studies COMPARISON: . TECHNIQUE: Multiple contiguous axial images were obtained through the abdomen. Images were obtained using multiple row detector helical technique. Using automated exposure control and adjustment of the mA and/or kV according to patient size, radiation dose was kept as low as reasonably achievable to o btain optimal diagnostic quality images. DICOM format image data is available electronically for rev iew and comparison. FINDINGS: The exam demonstrates diffuse interstitial infiltrate in the lung bases with a small left basilar eff usion. The appearance of the liver, spleen, pancreas, adrenal glands and right kidney is within normal limit s. Note is made of a 2.8 cm simple cyst arising from the left kidney. There is no free intraperitoneal air. There is minimal free fluid the upper abdomen. There is minimal thickening of the colonic wall. There is free fluid within the pelvis. The loops of small large bowel within the pelvis are unremarka ble. No free air is seen. No iliac or inguinal adenopathy is seen. Note is made of anasarca. There are degenerative and postsurgical changes within the spine. CONCLUSION: 1. Diffuse interstitial infiltrate in the lung bases and anasarca suggesting edema. 2. Minimal thickening of the colon. 3. Minimal left basilar effusion. 4. Small amount of free fluid within the abdomen and pelvis. 5. No free air identified. No findings to indicate a bowel obstruction. Electronically signed by: Rafael Cardoza MD 03/17/2018 3:52 PM EDT
[2018-03-18] MEDS: Chlorhexidine Gluconate 2% 1 Pack (2 Cloths) TOPICAL SCH (04:20)
[2018-03-18] MEDS: Oral Hygiene Kit OROPHARYNG SCH ×3 (04:20→16:55)
[2018-03-18] MEDS: Propofol 1000 mg/100 ml Inj 1,000 MG/100 ML BOTTLE IV.CONT PRN ×4 (04:24→23:16)
[2018-03-18] MEDS: Phenylephrine Inj 80 MG in Sodium Chlor 0.9% Inj 492 ML IV.CONT PRN ×2 (05:34→21:45)
[2018-03-18] MEDS: Levothyroxine 112 MCG Tablet PO SCH (05:43)
[2018-03-18] MEDS: Heparin - SQ 10,000 UNITS/ML Vial SQ SCH ×3 (07:38→23:35)
--- NOTE | 2018-03-18 08:35 | P.PNCC ---
Subjective Subjective Remarks/Hospital Course: This 77-year-old woman was transferred from [facility] to [facility] for treatment of respiratory failure with septic shock and peripheral abscesses including recent diagnosis of epidural abscess in the lumbar region. Her respiratory status is quite compromised with diffuse infiltrates throughout both lung welsh and she is ventilator dependent. On initial presentation to the hospital impair she had complaints of back pain radiating to her left knee. Her hemoglobin was 4 source of bleeding was clear was unclear at first and Dr. Vasquez had previously performed upper and lower endoscopy without location of a source. She has had a metastatic series and MRI on March 04 which developed multilevel central canal and foraminal stenoses she has had a transesophageal echo which revealed severe mitral regurgitation her hospital course has been complicated by atrial fibrillation and hemodynamic instability. Cardioversion was unsuccessful. She has continued recent fever course in excess of 103 degrees and has been treated with broad-spectrum antibiotic coverage including meropenem and vancomycin. She is continued to deteriorate and on about March 11 required endotracheal intubation and mechanical ventilation. Recent ICU white blood cell count is 40,000 blood cultures from March 09 revealed Streptococcus species and a subsequent blood culture grew a staph organism according to the report from the referring physician. The woman is required amiodarone therapy and diltiazem with additional cardioversion to sinus rhythm on the chest x-ray continues to worsen. CT of the abdomen reveals fluid collection on the left psoas muscle, possibly abscess. The contralateral psoas muscle has a similar collection. Recent MRI demonstrates old spine hardware L3-S1 and an irregular soft tissue density around the thecal sac at L1-L2 extending to T12-L1 she is required vasopressor support for hypotension and obvious sepsis overnight. The one constant throughout her early hospital course was severe lower back pain radiating down her legs. 03/15: Temperature max 101. Leukocytosis persists to 30,000. Back in normal sinus rhythm now with pulse rate controlled. Her respiratory status is unstable and she still requiring elevated ventilator pressures and elevated oxygen concentration. We will attempt to get an MRI of the entire spine with and without contrast today pending her hemodynamic suitability. At present her pulmonary status makes operative procedure a prohibitive risk. 03/16: T-max 100. Leukocytosis to 30,000 persists. Remains in sinus rhythm. MRI of the spine reviewed. Patient remains clinically critically ill. Azotemia slightly improved. Continue hydration. Start trickle tube feeding with added protein. 03/16: Continued septic course with low-grade fever and white count 33,000. Chest x-ray appearance alone could explain sepsis. Doing need to culture the fluid collections in the back to rule out another possible nidus? 03/17: Worsening respiratory function requiring us to convert to airway pressure release ventilation mode. Way too ill to allow us to transfer and mobilize for psoas muscle fluid aspiration. Elevated white count persists. Renal function slightly improved. Still requiring aggressive fluid resuscitation. White blood cell count 34,000 tomorrow, consistent with colitis. 03/18: Patient remains quite unstable requiring elevated inspiratory fraction of oxygen and markedly elevated mean airway pressures. CAT scan yesterday confirms dense fibrotic pattern left lung consistent with fibroproliferative phase of ARDS. Right lung has a more spotty architectural pattern due to large areas of emphysema. Due to unique antibodies transfusion has been delayed but should proceed today. Elevated white count to 45,000 with a preponderance of immature forms including myelocytes raises concerns for a bone marrow disorder. Objective Vital Signs / I&O: Vital Signs 03/17/18 10:00 03/17/18 12:00 03/17/18 12:59 Temperature 99 F Pulse Rate 76 63 Respiratory Rate 34 H 30 H Blood Pressure 144/65 H Pulse Oximetry 99 93 L 03/17/18 14:00 03/17/18 15:40 03/17/18 16:00 Temperature 98.1 F Pulse Rate 63 82 Respiratory Rate 29 H Blood Pressure 149/62 H Pulse Oximetry 95 91 L 03/17/18 18:00 03/17/18 18:19 03/17/18 20:00 Temperature 98.6 F Pulse Rate 69 77 Respiratory Rate 23 30 H Blood Pressure 106/54 L Pulse Oximetry 96 93 L 03/17/18 20:09 03/17/18 20:10 03/17/18 20:14 Temperature Pulse Rate 67 Respiratory Rate 27 H Blood Pressure Pulse Oximetry 93 L 98 03/17/18 23:32 03/18/18 00:00 03/18/18 03:45 Temperature 99.1 F Pulse Rate 72 Respiratory Rate 27 H 21 31 H Blood Pressure 103/54 L Pulse Oximetry 93 L 92 L 93 L 03/18/18 04:00 Temperature 98.1 F Pulse Rate 68 Respiratory Rate 18 Blood Pressure 112/56 L Pulse Oximetry 94 L Intake & Output 03/17/18 03/18/18 03/18/18 18:59 06:59 18:59 Intake Total 1447.5 / 1447.5 2473 / 2473 100 / 100 Output Total 1635 / 1635 750 / 750 Balance -187.5 / -187.5 1723 / 1723 100 / 100 Weight 80.2 kg Intake: IV 762.5 / 762.5 1915 / 1915 100 / 100 Neosynephrine Inj 80 MG In NS 500 / 500 Inj 492 ML @ 40 MCG/MIN 15 mls/ hr IV.CONT TITRATE PRN Rx#: [id number] KCl Inj 30 MEQ In LR 1000 mL 1015 / 1015 Inj 1,000 ML @ 84 mls/hr IV. CONT .Q12H5M [facility] Rx#:[id number] Diprivan 1000 mg/100 ml Inj 1, 100 / 100 200 / 200 000 mg In 100 ml @ 5 MCG/KG/MIN 2.292 mls/hr IV.CONT TITRATE PRN Rx#:[id number] Merrem Inj 1,000 MG In NS Inj 200 / 200 100 / 100 100 ML @ 200 mls/hr IV.SIG Q8H [facility] Rx#:[id number] Vancomycin Inj 1,250 MG In NS 262.5 / 262.5 Inj 250 ML @ 250 mls/hr IV.SIG Q24H [facility] Rx#:[id number] Flagyl 500 MG Inj 100 ML @ 100 200 / 200 100 / 100 100 / 100 mls/hr IV.SIG Q6H [facility] Rx#: [id number] Tube Feeding 505 / 505 558 / 558 Water Bolus Amount 180 / 180 Output: Stool 800 / 800 Urine Amount (Catheter) 775 / 775 750 / 750 Indwelling 775 / 775 750 / 750 Gastric Drainage 60 / 60 Orogastric Tube 60 / 60 Other: Date of Last Bowel Movement 03/17/18 03/18/18 Result Diagrams: 03/18/18 09:25 03/18/18 09:25 Objective Remarks: Narrative: Physical exam: General: Ill-appearing, elderly woman on mechanical ventilation Head: Atraumatic, normal. Oral tracheal intubation. Neck: Stiff consistent with age but otherwise supple. Lungs: Bilateral sonorous rhonchi with mobile secretions. Good bilateral air entry Heart: Regular rate and rhythm at 74/min, 2/6 systolic murmur, no JVD Abdomen: Moderately distended, bowel sounds few, no guarding. No peritoneal irritation. Extremities: Warm, well-perfused. Trace edema at ankles. Neurologic: Converted to propofol and fentanyl for pain relief and vent synchrony. Breathes spontaneously over ventilator rate. Pupils reactive. Assessment and Plan - Assessment and Plan Plan: Assessment: 1. Septic shock 2. Bacteremia staph and strep organisms 3. Acute hypoxemic respiratory failure 4. Bilateral pneumonia 5. Chronic anemia 6. Ileus 7. Paroxysmal atrial fibrillation 8. Metabolic acidosis 9. Acute kidney injury 10. Psoas abscess 11. Possible epidural abscess 12. Heart failure with severe mitral regurgitation Plan: Neuro -sedation with propofol and fentanyl -Neurosurgery evaluation for lumbar problem Cardiovascular -Khalif-Synephrine for supportive arterial blood pressure -Amiodarone drip for conversion of atrial fibrillation -Electrolyte replacement protocol Respiratory -PRBC ventilatory mode -Blood gas now -Sputum culture no growth -Airway pressure release ventilatory mode now GI -Nasogastric tube to low intermittent suction -Start tube feedings -History of antral ulcers -Olivas to closed bag drainage -Urinalysis Hematology -Serial white cell count -Follow anemia with hemoglobin -Hold bone marrow biopsy for now ID -Continue outpatient antibiotics, meropenem and vancomycin, adjust per ID consult -Organisms cultured at outside hospital are streptococcal and staph species -Continue Flagyl for now Prophylaxis -Hold chemical DVT prophylaxis due to high risk of bleeding, and recurrent anemia -SCDs -Continue aspirin Overall impression: This woman is critically ill and hemodynamically unstable with septic shock and supra ventricular tachyarrhythmia. Both lungs are obvious nidus of infection but the unexplained fluid collections in the lumbar region and by both psoas muscles may well be infected as well. An MRI from an outside hospital is interpreted as compression of the cord at the L1-2 region. We have asked neurosurgery to advise us as to best treatment. White blood cell pattern is particularly worrisome. She was scheduled for a bone marrow biopsy in [place] before this illness ensued and I suspect they were concerned about leukemia. I have discussed her case in detail each day with several family members. Today for family members were here, 3 of which are daughters, and I have explained in detail that she is not responding to our therapy appropriately. They understand that she remains critically ill and has a high likelihood of dying from this disease process. Critical care 42 minutes aside from procedures
[2018-03-18] MEDS ORDERED: Pharmacy Ordered Lab Info OTHER ONE (08:45)
[2018-03-18] MEDS: Vancomycin Inj 1,250 MG in Sodium Chlor 0.9% Inj 250 ML IV.SIG SCH (09:04)
[2018-03-18] MEDS: Famotidine PF Inj 20 MG/2 ML Vial IV.PUSH SCH ×2 (09:04→23:33)
[2018-03-18 09:48] LABS: Hematocrit 21.9 % (35.0-46.0); Hemoglobin 7.2 gm/dL (11.6-15.3); Mean Corpuscular HGB Conc 32.7 % (32.0-36.0); Mean Corpuscular Hemoglobin 31.4 pg (27.0-34.0); Platelet Count 224 th/mm3 (150-450); Red Blood Count 2.28 mil/mm3 (4.00-5.30); Red Cell Distribution Width 21.5 % (11.6-17.2); White Blood Count 45.2 th/mm3 (4.0-11.0)
[2018-03-18 10:16] LABS: Anion Gap 5 meq/L (5-15); Blood Urea Nitrogen 46 mg/dL (7-18); Calcium 7.5 mg/dL (8.5-10.1); Carbon Dioxide 29.5 meq/L (21.0-32.0); Chloride 119 meq/L (98-107); Glomerular Filtration Rate 66 mL/min (>89); Glucose,Random 140 mg/dL (74-106); Potassium 5.1 meq/L (3.5-5.1); Sodium 153 meq/L (136-145)
[2018-03-18 10:37] LABS: Eosinophils 2 % (0-4); Lymphocytes 2 % (9-44); Metamyelocytes 13 % (0-1); Monocytes 9 % (0-8); Myelocytes 38 % (0-0); Promyelocyte 6 % (0-0)
[2018-03-18 10:38] LABS: Platelet Estimate Normal (Normal)
[2018-03-18 10:39] LABS: Dimorphic RBC Present
[2018-03-18 10:40] LABS: Alanine Aminotransferase 12 U/L (10-53); Aspartate Aminotransferase 36 U/L (15-37)
[2018-03-18 10:43] LABS: Alkaline Phosphatase 140 U/L (45-117); Total Protein 5.7 g/dL (6.4-8.2)
--- NOTE | 2018-03-18 11:00 | P.PNNS ---
Subjective Interval history: No acute events overnight. Physical Exam Vital signs: Vital Signs 03/17/18 12:00 03/17/18 12:59 03/17/18 14:00 Temperature 99 F Pulse Rate 63 63 Respiratory Rate 34 H 30 H Blood Pressure 144/65 H Pulse Oximetry 99 93 L 03/17/18 15:40 03/17/18 16:00 03/17/18 18:00 Temperature 98.1 F Pulse Rate 82 69 Respiratory Rate 29 H Blood Pressure 149/62 H Pulse Oximetry 95 91 L 03/17/18 18:19 03/17/18 20:00 03/17/18 20:09 Temperature 98.6 F Pulse Rate 77 67 Respiratory Rate 23 30 H Blood Pressure 106/54 L Pulse Oximetry 96 93 L 03/17/18 20:10 03/17/18 20:14 03/17/18 23:32 Temperature Pulse Rate Respiratory Rate 27 H 27 H Blood Pressure Pulse Oximetry 93 L 98 93 L 03/18/18 00:00 03/18/18 03:45 03/18/18 04:00 Temperature 99.1 F 98.1 F Pulse Rate 72 68 Respiratory Rate 21 31 H 18 Blood Pressure 103/54 L 112/56 L Pulse Oximetry 92 L 93 L 94 L 03/18/18 08:35 03/18/18 09:06 Temperature 98.3 F Pulse Rate 71 Respiratory Rate 32 H 20 Blood Pressure 115/56 L Pulse Oximetry 97 95 Intake & Output 03/17/18 03/18/18 03/18/18 18:59 06:59 18:59 Intake Total 1447.5 / 1447.5 2473 / 2473 200 / 200 Output Total 1635 / 1635 750 / 750 Balance -187.5 / -187.5 1723 / 1723 200 / 200 Weight 80.2 kg Intake: IV 762.5 / 762.5 1915 / 1915 200 / 200 Neosynephrine Inj 80 MG In NS 500 / 500 Inj 492 ML @ 40 MCG/MIN 15 mls/ hr IV.CONT TITRATE PRN Rx#: [id number] KCl Inj 30 MEQ In LR 1000 mL 1015 / 1015 Inj 1,000 ML @ 84 mls/hr IV. CONT .Q12H5M [facility] Rx#:[id number] Diprivan 1000 mg/100 ml Inj 1, 100 / 100 200 / 200 100 / 100 000 mg In 100 ml @ 5 MCG/KG/MIN 2.292 mls/hr IV.CONT TITRATE PRN Rx#:[id number] Merrem Inj 1,000 MG In NS Inj 200 / 200 100 / 100 100 ML @ 200 mls/hr IV.SIG Q8H [facility] Rx#:[id number] Vancomycin Inj 1,250 MG In NS 262.5 / 262.5 Inj 250 ML @ 250 mls/hr IV.SIG Q24H [facility] Rx#:[id number] Flagyl 500 MG Inj 100 ML @ 100 200 / 200 100 / 100 100 / 100 mls/hr IV.SIG Q6H [facility] Rx#: [id number] Tube Feeding 505 / 505 558 / 558 Water Bolus Amount 180 / 180 Intake (Blood Product) Amt 0 / 0 Rbc As-3 Leukoreduced Unit 0 / 0 [id number] Output: Stool 800 / 800 Urine Amount (Catheter) 775 / 775 750 / 750 Indwelling 775 / 775 750 / 750 Gastric Drainage 60 / 60 Orogastric Tube 60 / 60 Other: Date of Last Bowel Movement 03/17/18 03/18/18 Narrative: On sedation due to respiratory instability Does not open eyes PERRL Trace movement bilateral upper extremities Withdraws bilateral lower extremities weakly - Urinary Catheter Management Indwelling Cath placed during this visit: no Assessment and Plan - Assessment (1) Spinal stenosis of thoracolumbar region Code(s): M48.05 - Spinal stenosis, thoracolumbar region Status: Acute (2) Sepsis Code(s): A41.9 - Sepsis, unspecified organism Status: Acute Qualifiers: Sepsis type: methicillin susceptible Staphylococcus aureus Qualified Code(s ): A41.01 - Sepsis due to Methicillin susceptible Staphylococcus aureus (3) Respiratory failure Code(s): J96.90 - Respiratory failure, unspecified, unspecified whether with hypoxia or hypercapnia Status: Acute Qualifiers: Chronicity: acute (4) Fusion of lumbar spine Code(s): M43.26 - Fusion of spine, lumbar region Status: Chronic - Plan 77-year-old lady optic shock with pneumonia and respiratory failure with the staph aureus bacteremia. MRI of the thoracolumbar spine with evidence of T12/ L1 epidural abscess with moderate stenosis at this level. History of L3-S1 instrumentation by outside surgeon in [place] several years ago. Plan: Neurologically stable from yesterday. Too unstable from respiratory perspective to pause sedation. Continue with current care/critical care Continue with antibiotics. Continue with Neuro checks. DVT prophylaxis
[2018-03-18] MEDS: Chlorhexidine 0.12% Oral Kit 15 ML UDC OROPHARYNG SCH ×2 (11:08→23:12)
[2018-03-18] MEDS: Beneprotein Powder Packet G-TUBE SCH ×3 (11:08→18:39)
[2018-03-18] MEDS: Senna/Docusate Sodium 8.6/50 MG Tablet PO SCH ×2 (11:08→22:49)
--- NOTE | 2018-03-18 14:16 | P.PNID ---
Subjective Remarks: ID weekend coverage Patient is sedated and on the ventilator. Discussed with RN. No distress. Has diarrhea. White blood cell count remain elevated. Antibiotics: meropenem vanco po vanco flagyl iv Allergies/Adverse Reactions: Allergies Penicillins Allergy (Verified 03/14/18 13:53) Swelling of Lip/Tongue/Throat Sulfa (Sulfonamide Antibiotics) Allergy (Verified 03/14/18 13:53) Diarrhea shellfish Adverse Reaction (Uncoded 03/14/18 13:53) Swelling of Lip/Tongue/Throat Objective Vital Signs 03/17/18 15:40 03/17/18 16:00 03/17/18 18:00 Temperature 98.1 F Pulse Rate 82 69 Respiratory Rate 29 H Blood Pressure 149/62 H Pulse Oximetry 95 91 L 03/17/18 18:19 03/17/18 20:00 03/17/18 20:09 Temperature 98.6 F Pulse Rate 77 67 Respiratory Rate 23 30 H Blood Pressure 106/54 L Pulse Oximetry 96 93 L 03/17/18 20:10 03/17/18 20:14 03/17/18 23:32 Temperature Pulse Rate Respiratory Rate 27 H 27 H Blood Pressure Pulse Oximetry 93 L 98 93 L 03/18/18 00:00 03/18/18 03:45 03/18/18 04:00 Temperature 99.1 F 98.1 F Pulse Rate 72 68 Respiratory Rate 21 31 H 18 Blood Pressure 103/54 L 112/56 L Pulse Oximetry 92 L 93 L 94 L 03/18/18 08:00 03/18/18 08:35 03/18/18 09:06 Temperature 98.3 F 98.3 F Pulse Rate 74 71 Respiratory Rate 27 H 32 H 20 Blood Pressure 117/57 L 115/56 L Pulse Oximetry 95 97 95 03/18/18 11:19 03/18/18 12:00 Temperature 99.1 F Pulse Rate 74 73 Respiratory Rate 31 H 20 Blood Pressure 112/56 L 124/59 L Pulse Oximetry 98 96 Intake & Output 03/17/18 03/18/18 03/18/18 18:59 06:59 18:59 Intake Total 1447.5 / 1447.5 2473 / 2473 2077.5 / 2077.5 Output Total 1635 / 1635 750 / 750 Balance -187.5 / -187.5 1723 / 1723 2077.5 / 2077.5 Weight 80.2 kg Intake: IV 762.5 / 762.5 1915 / 1915 1577.5 / 1577.5 Neosynephrine Inj 80 MG In NS 500 / 500 Inj 492 ML @ 40 MCG/MIN 15 mls/ hr IV.CONT TITRATE PRN Rx#: [id number] KCl Inj 30 MEQ In LR 1000 mL 1015 / 1015 1015 / 1015 Inj 1,000 ML @ 84 mls/hr IV. CONT .Q12H5M [facility] Rx#:[id number] Diprivan 1000 mg/100 ml Inj 1, 100 / 100 200 / 200 100 / 100 000 mg In 100 ml @ 5 MCG/KG/MIN 2.292 mls/hr IV.CONT TITRATE PRN Rx#:[id number] Merrem Inj 1,000 MG In NS Inj 200 / 200 100 / 100 100 ML @ 200 mls/hr IV.SIG Q8H [facility] Rx#:[id number] Vancomycin Inj 1,250 MG In NS 262.5 / 262.5 262.5 / 262.5 Inj 250 ML @ 250 mls/hr IV.SIG Q24H [facility] Rx#:[id number] Flagyl 500 MG Inj 100 ML @ 100 200 / 200 100 / 100 200 / 200 mls/hr IV.SIG Q6H [facility] Rx#: [id number] Tube Feeding 505 / 505 558 / 558 Water Bolus Amount 180 / 180 Other 100 / 100 Rbc As-3 Leukoreduced Unit 50 / 50 [id number] Rbc As-3 Leukoreduced Unit 50 / 50 [id number] Intake (Blood Product) Amt 400 / 400 Rbc As-3 Leukoreduced Unit 400 / 400 [id number] Rbc As-3 Leukoreduced Unit 0 / 0 [id number] Output: Stool 800 / 800 Urine Amount (Catheter) 775 / 775 750 / 750 Indwelling 775 / 775 750 / 750 Gastric Drainage 60 / 60 Orogastric Tube 60 / 60 Other: Date of Last Bowel Movement 03/17/18 03/18/18 03/18/18 03/17/18 14:59 Sputum - Endotracheal Gram Stain - Final 03/17/18 14:59 Sputum - Endotracheal Sputum Culture - Preliminary No growth in 24 hours 03/17/18 15:00 Catheterized Urine Urine Culture - Preliminary No growth in 24 hours 03/14/18 15:42 Sputum - Endotracheal Gram Stain - Final 03/14/18 15:42 Sputum - Endotracheal Sputum Culture - Final Rare growth normal respiratory shonda 03/14/18 15:38 Catheterized Urine Urine Culture - Final No growth in 48 hours 03/14/18 16:20 Stool Clostridium difficile GDH Antigen - Final Positive - C. difficile Antigen detected. 03/14/18 16:20 Stool Clostridium difficile Toxin Assay - Final Negative - No C. difficile Toxin A or B detected. Lab - Hematology Results 03/17/18 03/18/18 03/18/18 04:30 04:30 09:25 WBC 34.6 H 45.2 H RBC 2.24 L 2.28 L Hgb 6.8 L* 7.2 L Hct 21.4 L 21.9 L MCV 95.4 96.0 MCH 30.4 31.4 MCHC 31.9 L 32.7 RDW 21.2 H 21.5 H Plt Count 206 224 MPV 11.6 H 12.0 H Prelim Diff (Auto) Manual diff required Manual diff required Neut % (Auto) Lymph % (Auto) [place] % (Auto) Eos % (Auto) Baso % (Auto) Neut # (Auto) Lymph # (Auto) [place] # (Auto) Eos # (Auto) Baso # (Auto) WBC Differential Manual diff final . Manual diff final Diff Scan De Icer Seg Neuts % (Manual) 37 24 Band Neuts % (Manual) 9 H 6 Lymphocytes % (Manual) 1 L 2 L Monocytes % (Manual) 12 H 9 H Eosinophils % (Manual) 3 2 Metamyelocytes % (Man) 11 H 13 H Myelocytes % (Man) 20 H 38 H Promyelocytes % (Man) 7 H 6 H Abs Neuts (Manual) 29.1 H 39.3 H Differential Comment . . . Platelet Estimate Normal Normal Platelet Morphology Enlarged H Enlarged H Dimorphic RBCs Present H Lab - Chemistry Results 03/17/18 03/17/18 03/18/18 04:30 14:45 04:30 Sodium 151 H Potassium 4.1 Chloride 116 H Carbon Dioxide 30.4 Anion Gap 5 BUN 44 H Creatinine 0.74 Estimated GFR 76 L Random Glucose 148 H Lactic Acid 2.2 H Calcium 6.9 L* Prot Corrected Calcium 7.9 L Total Bilirubin 0.5 AST 36 ALT 17 Alkaline Phosphatase 136 H Total Protein 5.2 L Albumin 1.1 L Prealbumin 03/18/18 03/18/18 04:30 09:25 Sodium 153 H Potassium 5.1 D Chloride 119 H Carbon Dioxide 29.5 Anion Gap 5 BUN 46 H Creatinine 0.83 Estimated GFR 66 L Random Glucose 140 H Lactic Acid Calcium 7.5 L Prot Corrected Calcium Total Bilirubin 0.3 AST 36 ALT 12 Alkaline Phosphatase 140 H Total Protein 5.7 L Albumin 1.0 L Prealbumin 14 L Imaging: ITS Impressions Cervical Spine MRI 03/15/18 00:00 CONCLUSION: 1. No abnormal areas of enhancement in the dural space or vertebral bodies. 2. Spinal stenosis due to disc bulging at multiple levels and anterolisthesis at C4-5. There is also multilevel bony neural foraminal stenosis. Lumbar Spine MRI 03/15/18 00:00 CONCLUSION: 1. Enhancing soft tissue extending from the subcutaneous region down to the thecal sac at the L1 and L2 level characteristic of postsurgical findings with a rounded area of fluid with some minimal peripheral enhancement dorsal to the thecal sac flattening the posterior margin at L1 and L2. Since there is some minimal peripheral enhancement, and epidural abscess is a differential possibility. Thoracic Spine MRI 03/15/18 00:00 CONCLUSION: 1. No abnormal areas of enhancement in the vertebral bodies or epidural space in the thoracic region. 2. Posterior osteophytes at all levels in the thoracic spine causing mild impression upon the thecal sac. No evidence of disc protrusions over. 3. Moderate size left pleural effusion. Abdomen/Pelvis CT 03/17/18 00:00 CONCLUSION: 1. Diffuse interstitial infiltrate in the lung bases and anasarca suggesting edema. 2. Minimal thickening of the colon. 3. Minimal left basilar effusion. 4. Small amount of free fluid within the abdomen and pelvis. 5. No free air identified. No findings to indicate a bowel obstruction. Chest X-Ray 03/17/18 04:00 CONCLUSION: Diffuse consolidation seen throughout the left lung and to a lesser degree the right mid and lower lung. This appears unchanged. This could be inflammatory or related to ARDS. Tubes and lines in good position. Chest CT 03/17/18 13:48 CONCLUSION: 1. Extensive interstitial prominence with some sparing of the right upper lobe suggesting ARDS. 2. Minimal effusion on the left with a tiny effusion on the right. 3. Degenerative changes in the thoracic spine. Physical Exam: GENERAL: Patient is unresponsive on the ventilator. HEENT: Unable to fully assess. No icterus. NECK: No adenopathy. No swelling. LUNGS: Clear to auscultation. HEART: Regular S1 and S2. ABDOMEN: Decreased bowel sounds. Soft. No grimacing on palpation. EXTREMITIES: Trace edema. SKIN: No rash. NEUROLOGIC: Unable to assess. PSYCH: Unable to assess. Assessment and Plan - Plan Critical, stable PNA, HCAP /aspiration vs ARDS - NGTD from sputum Lower T / L spine epidural abscess - pt was seen by Dr Monster Taylor who is planning to repeat MR w/wo c when stable enough Sepsis Acute VDRF - improving ARF C.diff: diarrhea. cont iv flagyl cont po vancomycin cont iv vanco cont meropenem for now Follow urine culture repeat sputum clx IR aspiration for culture when feasible from resp standpoint
[2018-03-18] MEDS: Dextrose 5%/NaCl 0.45% Inj 1,000 ML IV.CONT SCH (23:17)
[2018-03-19] MEDS: Oral Hygiene Kit OROPHARYNG SCH ×4 (01:05→17:46)
[2018-03-19] MEDS: Chlorhexidine Gluconate 2% 1 Pack (2 Cloths) TOPICAL SCH (04:00)
[2018-03-19] MEDS: Propofol 1000 mg/100 ml Inj 1,000 MG/100 ML BOTTLE IV.CONT PRN ×4 (04:02→20:30)
[2018-03-19 04:59] LABS: Hematocrit 28.8 % (35.0-46.0); Hemoglobin 9.2 gm/dL (11.6-15.3); Mean Corpuscular HGB Conc 31.9 % (32.0-36.0); Mean Corpuscular Hemoglobin 28.6 pg (27.0-34.0); Mean Corpuscular Volume 89.9 fL (80.0-100.0); Platelet Count 196 th/mm3 (150-450); Red Blood Count 3.21 mil/mm3 (4.00-5.30); Red Cell Distribution Width 27.1 % (11.6-17.2); White Blood Count 38.3 th/mm3 (4.0-11.0)
[2018-03-19 05:30] LABS: Albumin 1.2 g/dL (3.4-5.0); Anion Gap 6 meq/L (5-15); Aspartate Aminotransferase 34 U/L (15-37); Blood Urea Nitrogen 47 mg/dL (7-18); Calcium 7.5 mg/dL (8.5-10.1); Carbon Dioxide 30.3 meq/L (21.0-32.0); Chloride 119 meq/L (98-107); Glomerular Filtration Rate 61 mL/min (>89); Glucose,Random 143 mg/dL (74-106); Potassium 5.1 meq/L (3.5-5.1); Sodium 155 meq/L (136-145)
[2018-03-19 05:34] LABS: Alanine Aminotransferase 12 U/L (10-53); Alkaline Phosphatase 147 U/L (45-117); Total Protein 5.9 g/dL (6.4-8.2)
[2018-03-19] MEDS: Levothyroxine 112 MCG Tablet PO SCH (05:58)
[2018-03-19] MEDS: Heparin - SQ 10,000 UNITS/ML Vial SQ SCH ×3 (06:03→22:21)
[2018-03-19 06:46] LABS: Eosinophils 1 % (0-4); Lymphocytes 6 % (9-44); Metamyelocytes 4 % (0-1); Monocytes 10 % (0-8); Myelocytes 36 % (0-0)
[2018-03-19 06:47] LABS: Platelet Estimate Normal (Normal)
[2018-03-19 06:48] LABS: Dimorphic RBC Present
[2018-03-19] MEDS: Chlorhexidine 0.12% Oral Kit 15 ML UDC OROPHARYNG SCH ×2 (08:45→20:58)
[2018-03-19] MEDS: Famotidine PF Inj 20 MG/2 ML Vial IV.PUSH SCH ×2 (08:45→20:45)
[2018-03-19] MEDS: Senna/Docusate Sodium 8.6/50 MG Tablet PO SCH ×2 (08:45→21:08)
--- NOTE | 2018-03-19 10:47 | P.PNNS ---
Subjective Interval history: No major changes Physical Exam Vital signs: Vital Signs 03/18/18 11:19 03/18/18 12:00 03/18/18 16:00 Temperature 99.1 F 99.3 F Pulse Rate 74 73 74 Respiratory Rate 31 H 20 28 H Blood Pressure 112/56 L 124/59 L 150/70 H Pulse Oximetry 98 96 95 03/18/18 17:21 03/18/18 19:53 03/18/18 20:00 Temperature 99.8 F H Pulse Rate 74 Respiratory Rate 28 H 12 22 Blood Pressure 104/56 L Pulse Oximetry 96 92 L 92 L 03/18/18 23:13 03/19/18 00:00 03/19/18 04:00 Temperature 100.1 F H 99.0 F Pulse Rate 94 H Respiratory Rate 12 23 12 Blood Pressure 161/73 H 121/60 Pulse Oximetry 96 95 96 03/19/18 07:23 03/19/18 08:00 Temperature 98.3 F Pulse Rate 75 Respiratory Rate 12 13 Blood Pressure 118/56 L Pulse Oximetry 97 96 Intake & Output 03/18/18 03/19/18 03/19/18 18:59 06:59 18:59 Intake Total 2861.5 / 2861.5 2426 / 2426 100 / 100 Output Total 1600 / 1600 1325 / 1325 Balance 1261.5 / 1261.5 1101 / 1101 100 / 100 Weight 80.1 kg Intake: IV 1777.5 / 1777.5 1940 / 1940 100 / 100 Neosynephrine Inj 80 MG In NS 500 / 500 Inj 492 ML @ 40 MCG/MIN 15 mls/ hr IV.CONT TITRATE PRN Rx#: [id number] KCl Inj 30 MEQ In LR 1000 mL 1015 / 1015 950 / 950 Inj 1,000 ML @ 84 mls/hr IV. CONT .Q12H5M [facility] Rx#:[id number] Diprivan 1000 mg/100 ml Inj 1, 200 / 200 190 / 190 100 / 100 000 mg In 100 ml @ 5 MCG/KG/MIN 2.292 mls/hr IV.CONT TITRATE PRN Rx#:[id number] Merrem Inj 1,000 MG In NS Inj 100 / 100 100 ML @ 200 mls/hr IV.SIG Q12H [facility] Rx#:[id number] Vancomycin Inj 1,250 MG In NS 262.5 / 262.5 Inj 250 ML @ 250 mls/hr IV.SIG Q24H [facility] Rx#:[id number] Flagyl 500 MG Inj 100 ML @ 100 300 / 300 200 / 200 mls/hr IV.SIG Q6H [facility] Rx#: [id number] Tube Feeding 584 / 584 426 / 426 Tube Irrigant 60 / 60 Other 100 / 100 Rbc As-3 Leukoreduced Unit 50 / 50 [id number] Rbc As-3 Leukoreduced Unit 50 / 50 [id number] Intake (Blood Product) Amt 400 / 400 Rbc As-3 Leukoreduced Unit 400 / 400 [id number] Rbc As-3 Leukoreduced Unit 0 / 0 [id number] Output: Stool 600 / 600 350 / 350 Urine Amount (Catheter) 1000 / 1000 975 / 975 Indwelling 1000 / 1000 975 / 975 Other: Date of Last Bowel Movement 03/18/18 03/19/18 03/19/18 Narrative: On sedation due to respiratory instability Does not open eyes PERRL Trace movement bilateral upper extremities Withdraws bilateral lower extremities weakly - Urinary Catheter Management Indwelling Cath placed during this visit: no Assessment and Plan - Assessment (1) Spinal stenosis of thoracolumbar region Code(s): M48.05 - Status: Acute (2) Sepsis Code(s): A41.9 - Status: Acute Qualifiers: Sepsis type: methicillin susceptible Staphylococcus aureus Qualified Code(s ): A41.01 - Sepsis due to Methicillin susceptible Staphylococcus aureus (3) Respiratory failure Code(s): J96.90 - Status: Acute Qualifiers: Chronicity: acute (4) Fusion of lumbar spine Code(s): M43.26 - Status: Chronic - Plan 77-year-old lady optic shock with pneumonia and respiratory failure with the staph aureus bacteremia. MRI of the thoracolumbar spine with evidence of T12/ L1 epidural abscess with moderate stenosis at this level. History of L3-S1 instrumentation by outside surgeon in [place] several years ago. Plan: Neurologically stable from yesterday. Too unstable from respiratory perspective to pause sedation. Continue with current care/critical care Continue with antibiotics. Continue with Neuro checks. DVT prophylaxis
--- NOTE | 2018-03-19 11:23 | P.PNCC ---
Subjective Subjective Remarks/Hospital Course: This 77-year-old woman was transferred from [facility] to [facility] for treatment of respiratory failure with septic shock and peripheral abscesses including recent diagnosis of epidural abscess in the lumbar region. Her respiratory status is quite compromised with diffuse infiltrates throughout both lung welsh and she is ventilator dependent. On initial presentation to the hospital impair she had complaints of back pain radiating to her left knee. Her hemoglobin was 4 source of bleeding was clear was unclear at first and Dr. Vasquez had previously performed upper and lower endoscopy without location of a source. She has had a metastatic series and MRI on March 04 which developed multilevel central canal and foraminal stenoses she has had a transesophageal echo which revealed severe mitral regurgitation her hospital course has been complicated by atrial fibrillation and hemodynamic instability. Cardioversion was unsuccessful. She has continued recent fever course in excess of 103 degrees and has been treated with broad-spectrum antibiotic coverage including meropenem and vancomycin. She is continued to deteriorate and on about March 11 required endotracheal intubation and mechanical ventilation. Recent ICU white blood cell count is 40,000 blood cultures from March 09 revealed Streptococcus species and a subsequent blood culture grew a staph organism according to the report from the referring physician. The woman is required amiodarone therapy and diltiazem with additional cardioversion to sinus rhythm on the chest x-ray continues to worsen. CT of the abdomen reveals fluid collection on the left psoas muscle, possibly abscess. The contralateral psoas muscle has a similar collection. Recent MRI demonstrates old spine hardware L3-S1 and an irregular soft tissue density around the thecal sac at L1-L2 extending to T12-L1 she is required vasopressor support for hypotension and obvious sepsis overnight. The one constant throughout her early hospital course was severe lower back pain radiating down her legs. 03/15: Temperature max 101. Leukocytosis persists to 30,000. Back in normal sinus rhythm now with pulse rate controlled. Her respiratory status is unstable and she still requiring elevated ventilator pressures and elevated oxygen concentration. We will attempt to get an MRI of the entire spine with and without contrast today pending her hemodynamic suitability. At present her pulmonary status makes operative procedure a prohibitive risk. 03/16: T-max 100. Leukocytosis to 30,000 persists. Remains in sinus rhythm. MRI of the spine reviewed. Patient remains clinically critically ill. Azotemia slightly improved. Continue hydration. Start trickle tube feeding with added protein. 03/16: Continued septic course with low-grade fever and white count 33,000. Chest x-ray appearance alone could explain sepsis. Doing need to culture the fluid collections in the back to rule out another possible nidus? 03/17: Worsening respiratory function requiring us to convert to airway pressure release ventilation mode. Way too ill to allow us to transfer and mobilize for psoas muscle fluid aspiration. Elevated white count persists. Renal function slightly improved. Still requiring aggressive fluid resuscitation. White blood cell count 34,000 tomorrow, consistent with colitis. 03/18: Patient remains quite unstable requiring elevated inspiratory fraction of oxygen and markedly elevated mean airway pressures. CAT scan yesterday confirms dense fibrotic pattern left lung consistent with fibroproliferative phase of ARDS. Right lung has a more spotty architectural pattern due to large areas of emphysema. Due to unique antibodies transfusion has been delayed but should proceed today. Elevated white count to 45,000 with a preponderance of immature forms including myelocytes raises concerns for a bone marrow disorder. 03/19: T-max 100.1, pronounced leukocytosis with persistent elevated myelocytes. We appear to have control of the infection despite the lack of clarity involving the various retroperitoneal fluid collections. Hemodynamically she does not act like florid sepsis. CAT scan of the abdomen does not reveal an obvious source of this leukocytosis. CAT scan of the chest reveals a fibroproliferative stage of large but does not necessarily explain the markedly elevated white count. I will ask the hematology service to evaluate. Objective Vital Signs / I&O: Vital Signs 03/18/18 11:19 03/18/18 12:00 03/18/18 16:00 Temperature 99.1 F 99.3 F Pulse Rate 74 73 74 Respiratory Rate 31 H 20 28 H Blood Pressure 112/56 L 124/59 L 150/70 H Pulse Oximetry 98 96 95 03/18/18 17:21 03/18/18 19:53 03/18/18 20:00 Temperature 99.8 F H Pulse Rate 74 Respiratory Rate 28 H 12 22 Blood Pressure 104/56 L Pulse Oximetry 96 92 L 92 L 03/18/18 23:13 03/19/18 00:00 03/19/18 04:00 Temperature 100.1 F H 99.0 F Pulse Rate 94 H Respiratory Rate 12 23 12 Blood Pressure 161/73 H 121/60 Pulse Oximetry 96 95 96 03/19/18 07:23 03/19/18 08:00 03/19/18 11:06 Temperature 98.3 F Pulse Rate 75 Respiratory Rate 12 13 15 Blood Pressure 118/56 L Pulse Oximetry 97 96 95 Intake & Output 03/18/18 03/19/18 03/19/18 18:59 06:59 18:59 Intake Total 2861.5 / 2861.5 2426 / 2426 100 / 100 Output Total 1600 / 1600 1325 / 1325 Balance 1261.5 / 1261.5 1101 / 1101 100 / 100 Weight 80.1 kg Intake: IV 1777.5 / 1777.5 1940 / 1940 100 / 100 Neosynephrine Inj 80 MG In NS 500 / 500 Inj 492 ML @ 40 MCG/MIN 15 mls/ hr IV.CONT TITRATE PRN Rx#: [id number] KCl Inj 30 MEQ In LR 1000 mL 1015 / 1015 950 / 950 Inj 1,000 ML @ 84 mls/hr IV. CONT .Q12H5M [facility] Rx#:[id number] Diprivan 1000 mg/100 ml Inj 1, 200 / 200 190 / 190 100 / 100 000 mg In 100 ml @ 5 MCG/KG/MIN 2.292 mls/hr IV.CONT TITRATE PRN Rx#:[id number] Merrem Inj 1,000 MG In NS Inj 100 / 100 100 ML @ 200 mls/hr IV.SIG Q12H [facility] Rx#:[id number] Vancomycin Inj 1,250 MG In NS 262.5 / 262.5 Inj 250 ML @ 250 mls/hr IV.SIG Q24H [facility] Rx#:[id number] Flagyl 500 MG Inj 100 ML @ 100 300 / 300 200 / 200 mls/hr IV.SIG Q6H [facility] Rx#: [id number] Tube Feeding 584 / 584 426 / 426 Tube Irrigant 60 / 60 Other 100 / 100 Rbc As-3 Leukoreduced Unit 50 / 50 [id number] Rbc As-3 Leukoreduced Unit 50 / 50 [id number] Intake (Blood Product) Amt 400 / 400 Rbc As-3 Leukoreduced Unit 400 / 400 [id number] Rbc As-3 Leukoreduced Unit 0 / 0 [id number] Output: Stool 600 / 600 350 / 350 Urine Amount (Catheter) 1000 / 1000 975 / 975 Indwelling 1000 / 1000 975 / 975 Other: Date of Last Bowel Movement 03/18/18 03/19/18 03/19/18 Result Diagrams: 03/19/18 04:35 03/19/18 04:35 Objective Remarks: Narrative: Physical exam: General: Ill-appearing, pale, elderly woman on mechanical ventilation Head: Atraumatic, normal. Oral tracheal intubation. Neck: Stiff consistent with age but otherwise supple. Lungs: Bilateral sonorous rhonchi with mobile secretions. Good bilateral air entry Heart: Regular rate and rhythm, 2/6 systolic murmur, no JVD Abdomen: Moderately distended, bowel sounds few, no guarding. No peritoneal irritation. Extremities: Warm, well-perfused. Trace edema persists at ankles. Neurologic: Converted to propofol and fentanyl for pain relief and vent synchrony. Breathes spontaneously over ventilator rate. Pupils reactive. Assessment and Plan - Assessment and Plan Plan: Assessment: 1. Septic shock 2. Bacteremia staph and strep organisms 3. Acute hypoxemic respiratory failure 4. Bilateral pneumonia, ARDS 5. Chronic anemia 6. Ileus 7. Paroxysmal atrial fibrillation 8. Metabolic acidosis 9. Acute kidney injury 10. Psoas abscess 11. Possible lumbar region epidural abscess 12. Heart failure with severe mitral regurgitation 13. Leukemia versus severe sepsis Plan: Neuro -sedation with propofol and fentanyl -Neurosurgery evaluation for lumbar problem Cardiovascular -Khalif-Synephrine for supportive arterial blood pressure -Amiodarone drip for conversion of atrial fibrillation -Electrolyte replacement protocol Respiratory -PRBC ventilatory mode -Blood gas now -Sputum culture no growth -Airway pressure release ventilatory mode now GI -Nasogastric tube to low intermittent suction -Start tube feedings -History of antral ulcers -Olivas to closed bag drainage -Urinalysis Hematology -Serial white cell count -Follow anemia with hemoglobin -Hold bone marrow biopsy for now, probably need to pursue at this point -Hematology consult ID -Continue outpatient antibiotics, meropenem and vancomycin, adjust per ID consult -Organisms cultured at outside hospital are streptococcal and staph species -Continue Flagyl for now Prophylaxis -Hold chemical DVT prophylaxis due to high risk of bleeding, and recurrent anemia -SCDs -Continue aspirin Overall impression: This woman is critically ill and hemodynamically unstable with septic shock and supra ventricular tachyarrhythmia. Both lungs are obvious nidus of infection but the unexplained fluid collections in the lumbar region and by both psoas muscles may well be infected as well. An MRI from an outside hospital is interpreted as compression of the cord at the L1-2 region. We have asked neurosurgery to advise us as to best treatment. White blood cell pattern is particularly worrisome. She was scheduled for a bone marrow biopsy in [place] before this illness ensued and I suspect they were concerned about leukemia. We will probably have to pursue that workup now. I have discussed her case in detail each day with several family members. Today for family members were here, 3 of which are daughters, and I have explained in detail that she is not responding to our therapy appropriately. They understand that she remains critically ill and has a high likelihood of dying from this disease process. Critical care 46 minutes aside from procedures
[2018-03-19] MEDS: Beneprotein Powder Packet G-TUBE SCH ×3 (11:41→17:46)
--- NOTE | 2018-03-19 11:59 | US ---
EXAM DATE: 03/19/2018 12:00 AM EDT AGE/SEX: 77 years / Female INDICATIONS: Fluid collection seen on MR. CLINICAL DATA: This is the patient's initial encounter. Patient reports that signs and symptoms have been present for 2 days and indicates a pain score of Nonresponsive. MEDICAL/SURGICAL HISTORY: Anemia. Sepsis. Atrial fibrillation. Tricuspid regurgitation. Pneu monia. Fusion, lumbar. COMPARISON: No prior exams available for comparison. FINDINGS: Small 1 cm x 0.5 similar fluid collection subcutaneous soft tissues surgical site nonspecific. CONCLUSION: 1. Fluid as above. Electronically signed by: Junior Cardoza MD 03/19/2018 11:57 AM EDT
[2018-03-19] MEDS: Dextrose 5%/NaCl 0.45% Inj 1,000 ML IV.CONT SCH ×2 (13:51→23:00)
[2018-03-19] MEDS: Phenylephrine Inj 80 MG in Sodium Chlor 0.9% Inj 492 ML IV.CONT PRN (13:52)
--- NOTE | 2018-03-19 14:32 | P.PNID ---
Subjective Remarks: cont to struggle from resp standpoint no fever WBC 45 K yday, now down slightly to 39 K NO secretions new sputum showed light NRF\ CT chest with interstitial lung changes Non contrasted CT A/P with colitis Antibiotics: meropenem vanco po vanco flagyl iv Allergies/Adverse Reactions: Allergies Penicillins Allergy (Verified 03/14/18 13:53) Swelling of Lip/Tongue/Throat Sulfa (Sulfonamide Antibiotics) Allergy (Verified 03/14/18 13:53) Diarrhea shellfish Adverse Reaction (Uncoded 03/14/18 13:53) Swelling of Lip/Tongue/Throat Objective Vital Signs 03/18/18 16:00 03/18/18 17:21 03/18/18 19:53 Temperature 99.3 F Pulse Rate 74 Respiratory Rate 28 H 28 H 12 Blood Pressure 150/70 H Pulse Oximetry 95 96 92 L 03/18/18 20:00 03/18/18 23:13 03/19/18 00:00 Temperature 99.8 F H 100.1 F H Pulse Rate 74 94 H Respiratory Rate 22 12 23 Blood Pressure 104/56 L 161/73 H Pulse Oximetry 92 L 96 95 03/19/18 04:00 03/19/18 07:23 03/19/18 08:00 Temperature 99.0 F 98.3 F Pulse Rate 75 Respiratory Rate 12 12 13 Blood Pressure 121/60 118/56 L Pulse Oximetry 96 97 96 03/19/18 11:06 03/19/18 12:00 Temperature 99 F Pulse Rate 80 Respiratory Rate 15 19 Blood Pressure 112/58 L Pulse Oximetry 95 95 Intake & Output 03/18/18 03/19/18 03/19/18 18:59 06:59 18:59 Intake Total 2861.5 / 2861.5 2426 / 2426 1800 / 1800 Output Total 1600 / 1600 1325 / 1325 Balance 1261.5 / 1261.5 1101 / 1101 1800 / 1800 Weight 80.1 kg Intake: IV 1777.5 / 1777.5 1940 / 1940 1800 / 1800 D5W/1/2 NS Inj 1,000 ML @ 84 1000 / 1000 mls/hr IV.CONT .Q12W75Q [facility] Rx# :[id number] Neosynephrine Inj 80 MG In NS 500 / 500 500 / 500 Inj 492 ML @ 40 MCG/MIN 15 mls/ hr IV.CONT TITRATE PRN Rx#: [id number] KCl Inj 30 MEQ In LR 1000 mL 1015 / 1015 950 / 950 Inj 1,000 ML @ 84 mls/hr IV. CONT .Q12H5M [facility] Rx#:[id number] Diprivan 1000 mg/100 ml Inj 1, 200 / 200 190 / 190 100 / 100 000 mg In 100 ml @ 5 MCG/KG/MIN 2.292 mls/hr IV.CONT TITRATE PRN Rx#:[id number] Merrem Inj 1,000 MG In NS Inj 100 / 100 100 / 100 100 ML @ 200 mls/hr IV.SIG Q12H [facility] Rx#:[id number] Vancomycin Inj 1,250 MG In NS 262.5 / 262.5 Inj 250 ML @ 250 mls/hr IV.SIG Q24H [facility] Rx#:[id number] Flagyl 500 MG Inj 100 ML @ 100 300 / 300 200 / 200 100 / 100 mls/hr IV.SIG Q6H [facility] Rx#: [id number] Tube Feeding 584 / 584 426 / 426 Tube Irrigant 60 / 60 Other 100 / 100 Rbc As-3 Leukoreduced Unit 50 / 50 [id number] Rbc As-3 Leukoreduced Unit 50 / 50 [id number] Intake (Blood Product) Amt 400 / 400 Rbc As-3 Leukoreduced Unit 400 / 400 [id number] Rbc As-3 Leukoreduced Unit 0 / 0 [id number] Output: Stool 600 / 600 350 / 350 Urine Amount (Catheter) 1000 / 1000 975 / 975 Indwelling 1000 / 1000 975 / 975 Other: Date of Last Bowel Movement 03/18/18 03/19/18 03/19/18 03/17/18 15:03 Stool Clostridium difficile GDH Antigen - Final Positive - C. difficile Antigen detected. 03/17/18 15:03 Stool Clostridium difficile Toxin Assay - Final Negative - No C. difficile Toxin A or B detected. 03/17/18 15:00 Catheterized Urine Urine Culture - Final No growth in 48 hours 03/17/18 14:59 Sputum - Endotracheal Gram Stain - Final 03/17/18 14:59 Sputum - Endotracheal Sputum Culture - Preliminary No growth in 24 hours 03/14/18 15:42 Sputum - Endotracheal Gram Stain - Final 03/14/18 15:42 Sputum - Endotracheal Sputum Culture - Final Rare growth normal respiratory [facility] - Hematology Results 03/18/18 03/18/18 03/19/18 04:30 09:25 04:35 WBC 45.2 H 38.3 H RBC 2.28 L 3.21 L Hgb 7.2 L 9.2 L D Hct 21.9 L 28.8 L MCV 96.0 89.9 D MCH 31.4 28.6 MCHC 32.7 31.9 L RDW 21.5 H 27.1 H D Plt Count 224 196 MPV 12.0 H 11.0 Prelim Diff (Auto) Manual diff required Manual diff required Neut % (Auto) Lymph % (Auto) [place] % (Auto) Eos % (Auto) Baso % (Auto) Neut # (Auto) Lymph # (Auto) [place] # (Auto) Eos # (Auto) Baso # (Auto) WBC Differential . Manual diff final Manual diff final Diff Scan Dehydrogenation Operator Head Seg Neuts % (Manual) 24 35 Band Neuts % (Manual) 6 7 H Lymphocytes % (Manual) 2 L 6 L Monocytes % (Manual) 9 H 10 H Eosinophils % (Manual) 2 1 Basophils % (Manual) 1 Metamyelocytes % (Man) 13 H 4 H Myelocytes % (Man) 38 H 36 H Promyelocytes % (Man) 6 H Abs Neuts (Manual) 39.3 H 31.4 H Differential Comment . . . Platelet Estimate Normal Normal Platelet Morphology Enlarged H Enlarged H Dimorphic RBCs Present H Present H Lab - Chemistry Results 03/17/18 03/18/18 03/18/18 14:45 04:30 04:30 Sodium Potassium Chloride Carbon Dioxide Anion Gap BUN Creatinine Estimated GFR Random Glucose Lactic Acid 2.2 H Calcium Prot Corrected Calcium Total Bilirubin AST ALT Alkaline Phosphatase Total Protein Albumin Prealbumin 14 L 03/18/18 03/19/18 09:25 04:35 Sodium 153 H 155 H Potassium 5.1 D 5.1 Chloride 119 H 119 H Carbon Dioxide 29.5 30.3 Anion Gap 5 6 BUN 46 H 47 H Creatinine 0.83 0.89 Estimated GFR 66 L 61 L Random Glucose 140 H 143 H Lactic Acid Calcium 7.5 L 7.5 L Prot Corrected Calcium Total Bilirubin 0.3 0.4 AST 36 34 ALT 12 12 Alkaline Phosphatase 140 H 147 H Total Protein 5.7 L 5.9 L Albumin 1.0 L 1.2 L Prealbumin Imaging: ITS Impressions Cervical Spine MRI 03/15/18 00:00 CONCLUSION: 1. No abnormal areas of enhancement in the dural space or vertebral bodies. 2. Spinal stenosis due to disc bulging at multiple levels and anterolisthesis at C4-5. There is also multilevel bony neural foraminal stenosis. Lumbar Spine MRI 03/15/18 00:00 CONCLUSION: 1. Enhancing soft tissue extending from the subcutaneous region down to the thecal sac at the L1 and L2 level characteristic of postsurgical findings with a rounded area of fluid with some minimal peripheral enhancement dorsal to the thecal sac flattening the posterior margin at L1 and L2. Since there is some minimal peripheral enhancement, and epidural abscess is a differential possibility. Thoracic Spine MRI 03/15/18 00:00 CONCLUSION: 1. No abnormal areas of enhancement in the vertebral bodies or epidural space in the thoracic region. 2. Posterior osteophytes at all levels in the thoracic spine causing mild impression upon the thecal sac. No evidence of disc protrusions over. 3. Moderate size left pleural effusion. Abdomen/Pelvis CT 03/17/18 00:00 CONCLUSION: 1. Diffuse interstitial infiltrate in the lung bases and anasarca suggesting edema. 2. Minimal thickening of the colon. 3. Minimal left basilar effusion. 4. Small amount of free fluid within the abdomen and pelvis. 5. No free air identified. No findings to indicate a bowel obstruction. Chest X-Ray 03/17/18 04:00 CONCLUSION: Diffuse consolidation seen throughout the left lung and to a lesser degree the right mid and lower lung. This appears unchanged. This could be inflammatory or related to ARDS. Tubes and lines in good position. Chest CT 03/17/18 13:48 CONCLUSION: 1. Extensive interstitial prominence with some sparing of the right upper lobe suggesting ARDS. 2. Minimal effusion on the left with a tiny effusion on the right. 3. Degenerative changes in the thoracic spine. Soft Tissue Ultrasound 03/19/18 00:00 CONCLUSION: 1. Fluid as above. Physical Exam: GENERAL: NAD sedated, on vent SKIN: Warm and dry. No rash HEAD: Atraumatic. Normocephalic. EYES: Pupils equal and round. No scleral icterus. No injection or drainage. ENT: No nasal bleeding or discharge. Mucous membranes pink and moist. NECK: Trachea midline. No JVD. CARDIOVASCULAR: Regular rate and rhythm. RESPIRATORY: No accessory muscle use. b/l rhonchi to auscultation. Breath sounds equal bilaterally. GASTROINTESTINAL: Abdomen soft, no reaction to palpation, + moderately distended. Hepatic and splenic margins not palpable. MUSCULOSKELETAL: Extremities without clubbing, cyanosis, 2+-3+ edema. No obvious deformities. NEUROLOGICAL: sedated; not following commands PSYCHIATRIC: unable to assess Assessment and Plan - Plan Critical, stable PNA, HCAP /aspiration vs ARDS - NGTD from sputum Lower T / L spine epidural abscess - pt was seen by Dr Monster Taylor who is planning to repeat MR w/wo c when stable enough Sepsis: staph reported by other facility provider Acute VDR 2/2 ARDS ARF C.diff colitis. Perssitent cont iv flagyl cont po vancomycin cont iv vanco dc meropenem add dificid Follow urine culture repeat sputum clx IR aspiration for culture when feasible from resp standpoint
--- NOTE | 2018-03-19 16:45 | XR ---
EXAM DATE: 03/19/2018 12:00 AM EDT AGE/SEX: 77 years / Female INDICATIONS: Abdominal distention. CLINICAL DATA: This is the patient's initial encounter. Patient reports that signs and symptoms have been present for 1 day and indicates a pain score of Nonresponsive. MEDICAL/SURGICAL HISTORY: None. None. COMPARISON: No prior exams available for comparison. FINDINGS: The abdominal bowel gas pattern is normal. No abnormal masses, calcifications, or organomegaly is s een. Lower lumbar spine fusion hardware and bilateral total hip arthroplasties are noted. Degenerati ve changes and scoliosis of the thoracolumbar spine are noted. CONCLUSION: 1. No bowel obstruction, ileus or perforation. 2. Degenerative changes and scoliosis of the thoracolumbar spine. Electronically signed by: Jm Kay MD 03/19/2018 4:43 PM EDT
[2018-03-19] MEDS: Vancomycin Inj 1,250 MG in Sodium Chlor 0.9% Inj 250 ML IV.SIG SCH (20:45)
--- NOTE | 2018-03-20 01:29 | MB ---
cc: Quinn Campbell MD DATE: 03/19/2018 REASON FOR CONSULTATION: Consult requested by pond sawyer for evaluation of leukocytosis with immature cells in the peripheral blood and severe anemia. HISTORY OF PRESENT ILLNESS: This is a 77-year-old female. She is on the ventilator. Unable to give any history. History is obtained through review of her records in the EMR. The patient initially presented to [facility] in [place] complaining of severe back pain radiating to her back. Her admission blood test showed severe anemia with a hemoglobin of 4. I do not have her white cells or the platelet count results available at this time. The patient was given blood transfusion. Records indicates that she did have upper endoscopy and colonoscopy recently and was reported to be negative. The patient had a CT scan of the abdomen and pelvis, which showed an epidural abscess and abdominal abscesses. She was treated with antibiotics. Subsequently, the patient developed pneumonia and went into respiratory failure. She was intubated. She was transferred to [facility] on 03/14/2018 for further evaluation. The patient has been managed by pond sawyer. Infectious disease has been consulted. The patient is on multiple antibiotics. She also has C. difficile colitis. The patient's CBC on 03/14/2018 shows white count of 21.7, hemoglobin 8, platelet count 270. The differential count is significant for 21% bands, 2% metamyelocytes, 2% myelocytes. In spite of the antibiotics, her white count continues to rise. Yesterday, the white count was 45.2. Today, the white count 38.3. Hemoglobin was 6.8 two days ago, yesterday 7.2. She had a blood transfusion and hemoglobin improved today to 9.2. The platelet count remains normal. The differential count showed 7% bands, 10% monocytes, 4% metamyelocytes, and 36% myelocytes and few days ago, she had 1% blast. Because of the worsening leukocytosis and peripheral immature cells, I have been asked to see her. REVIEW OF SYSTEMS: Not possible as the patient is on a ventilator and sedated. PAST MEDICAL HISTORY: Per records indicates atrial fibrillation, anemia, pneumonia, tricuspid regurgitation. PAST SURGICAL HISTORY: Back surgery with hardware in place. ALLERGIES: SULFA, SHELLFISH, PENICILLIN. MEDICATIONS: Please see EMR. FAMILY HISTORY: Unable to obtain. SOCIAL HISTORY: Unable to obtain. PHYSICAL EXAMINATION: GENERAL: This is an ill-appearing white female, who is sedated on the ventilator. VITAL SIGNS: Temperature 100.1, heart rate is 88, blood pressure is 103/53. HEENT: PERRLA. EOMI. ET tube noted. NECK: No lymphadenopathy noted. LUNGS: Decreased breath sounds on both sides. HEART: Irregularly irregular. ABDOMEN: Nondistended. EXTREMITIES: No pedal edema. NEUROLOGIC: The patient is sedated on the ventilator. ASSESSMENT: History of severe anemia with a hemoglobin of 4, worsening leukocytosis with peripheral immature cells. The differential is stressed bone marrow from severe sepsis/infection causing leukemoid reaction versus underlying primary bone marrow pathology such as myeloproliferative disorder or leukemia. PLAN: I have reviewed her available records. The patient was reported to have severe anemia with a hemoglobin of 4 at [facility]. I do not have her full CBC report available at the present time. The white count is rising in spite of multiple antibiotics. She now has C. difficile colitis and is on Dificid. My recommendation is to check blood flow cytometry for evaluation of acute leukemia, which I doubt it. Also, will check the JAK2 mutation and BCR-ABL by FISH for evaluation of myeloproliferative disorder including chronic myeloid leukemia. These tests will be drawn tomorrow morning and will be sent out to [facility] lab. If the above test comes back normal, then most likely these changes are due to stress bone marrow from severe sepsis and infection. I have discussed the case with the patient's nurse. Further recommendations based on her hospital stay. Thank you for asking my opinion. MD YG De Oliveira/georgette , 11:36 PM , 11:53 PM SOFIA
[2018-03-20] MEDS: Propofol 1000 mg/100 ml Inj 1,000 MG/100 ML BOTTLE IV.CONT PRN ×4 (02:44→18:18)
[2018-03-20] MEDS: Oral Hygiene Kit OROPHARYNG SCH ×4 (03:27→15:35)
--- NOTE | 2018-03-20 05:37 | XR ---
EXAM DATE: 03/20/2018 4:00 AM EDT AGE/SEX: 77 years / Female INDICATIONS: Hypoxemia, ARDS. CLINICAL DATA: This is the patient's subsequent encounter. Patient reports that signs and symptoms h ave been present for 4 - 6 days and indicates a pain score of Nonresponsive. MEDICAL/SURGICAL HISTORY: Anemia. Atrial fibrillation. Tricuspid regurgitation. Fusion, lumb ar. COMPARISON: [facility], CHEST 1V SINGLE AP, 03/17/2018. . FINDINGS: Stable ETT and NGT. Diffuse interstitial and airspace opacities throughout the left lung with improve d aeration in the right lower lung zone. Cardiomediastinal contours are within normal limits. Bony th orax is intact. CONCLUSION: 1. Persistent diffuse interstitial and airspace consolidation throughout the left lung. 2. Improved aeration in the right mid to lower lung zone. Electronically signed by: Paxton Coats MD 03/20/2018 5:35 AM EDT
[2018-03-20 06:08] LABS: Hematocrit 27.3 % (35.0-46.0); Hemoglobin 8.8 gm/dL (11.6-15.3); Mean Corpuscular HGB Conc 32.1 % (32.0-36.0); Mean Corpuscular Hemoglobin 28.8 pg (27.0-34.0); Mean Corpuscular Volume 89.7 fL (80.0-100.0); Mean Platelet Volume 11.3 fL (7.0-11.0); Platelet Count 174 th/mm3 (150-450); Red Blood Count 3.05 mil/mm3 (4.00-5.30); Red Cell Distribution Width 26.6 % (11.6-17.2); White Blood Count 36.3 th/mm3 (4.0-11.0)
[2018-03-20] MEDS: Heparin - SQ 10,000 UNITS/ML Vial SQ SCH ×3 (06:24→22:07)
[2018-03-20] MEDS: Levothyroxine 112 MCG Tablet PO SCH (06:32)
[2018-03-20 06:34] LABS: Albumin 1.1 g/dL (3.4-5.0); Calcium 6.9 mg/dL (8.5-10.1); Carbon Dioxide 29.8 meq/L (21.0-32.0); Potassium 5.1 meq/L (3.5-5.1); Total Protein 5.9 g/dL (6.4-8.2)
--- NOTE | 2018-03-20 07:18 | P.PNCC ---
Subjective Subjective Remarks/Hospital Course: This 77-year-old woman was transferred from [facility] to [facility] for treatment of respiratory failure with septic shock and peripheral abscesses including recent diagnosis of epidural abscess in the lumbar region. Her respiratory status is quite compromised with diffuse infiltrates throughout both lung welsh and she is ventilator dependent. On initial presentation to the hospital impair she had complaints of back pain radiating to her left knee. Her hemoglobin was 4 source of bleeding was clear was unclear at first and Dr. Vasquez had previously performed upper and lower endoscopy without location of a source. She has had a metastatic series and MRI on March 04 which developed multilevel central canal and foraminal stenoses she has had a transesophageal echo which revealed severe mitral regurgitation her hospital course has been complicated by atrial fibrillation and hemodynamic instability. Cardioversion was unsuccessful. She has continued recent fever course in excess of 103 degrees and has been treated with broad-spectrum antibiotic coverage including meropenem and vancomycin. She is continued to deteriorate and on about March 11 required endotracheal intubation and mechanical ventilation. Recent ICU white blood cell count is 40,000 blood cultures from March 09 revealed Streptococcus species and a subsequent blood culture grew a staph organism according to the report from the referring physician. The woman is required amiodarone therapy and diltiazem with additional cardioversion to sinus rhythm on the chest x-ray continues to worsen. CT of the abdomen reveals fluid collection on the left psoas muscle, possibly abscess. The contralateral psoas muscle has a similar collection. Recent MRI demonstrates old spine hardware L3-S1 and an irregular soft tissue density around the thecal sac at L1-L2 extending to T12-L1 she is required vasopressor support for hypotension and obvious sepsis overnight. The one constant throughout her early hospital course was severe lower back pain radiating down her legs. 03/15: Temperature max 101. Leukocytosis persists to 30,000. Back in normal sinus rhythm now with pulse rate controlled. Her respiratory status is unstable and she still requiring elevated ventilator pressures and elevated oxygen concentration. We will attempt to get an MRI of the entire spine with and without contrast today pending her hemodynamic suitability. At present her pulmonary status makes operative procedure a prohibitive risk. 03/16: T-max 100. Leukocytosis to 30,000 persists. Remains in sinus rhythm. MRI of the spine reviewed. Patient remains clinically critically ill. Azotemia slightly improved. Continue hydration. Start trickle tube feeding with added protein. 03/16: Continued septic course with low-grade fever and white count 33,000. Chest x-ray appearance alone could explain sepsis. Doing need to culture the fluid collections in the back to rule out another possible nidus? 03/17: Worsening respiratory function requiring us to convert to airway pressure release ventilation mode. Way too ill to allow us to transfer and mobilize for psoas muscle fluid aspiration. Elevated white count persists. Renal function slightly improved. Still requiring aggressive fluid resuscitation. White blood cell count 34,000 tomorrow, consistent with colitis. 03/18: Patient remains quite unstable requiring elevated inspiratory fraction of oxygen and markedly elevated mean airway pressures. CAT scan yesterday confirms dense fibrotic pattern left lung consistent with fibroproliferative phase of ARDS. Right lung has a more spotty architectural pattern due to large areas of emphysema. Due to unique antibodies transfusion has been delayed but should proceed today. Elevated white count to 45,000 with a preponderance of immature forms including myelocytes raises concerns for a bone marrow disorder. 03/19: T-max 100.1, pronounced leukocytosis with persistent elevated myelocytes. We appear to have control of the infection despite the lack of clarity involving the various retroperitoneal fluid collections. Hemodynamically she does not act like florid sepsis. CAT scan of the abdomen does not reveal an obvious source of this leukocytosis. CAT scan of the chest reveals a fibroproliferative stage of ARDS but does not necessarily explain the markedly elevated white count. I will ask the hematology service to evaluate. 03/20: I appreciate input from the hematology service. We are treating presumptive C. difficile colitis and antimicrobial coverage for that is adequate. Progress with the improvement of her ARDS is slow and she still requires elevated fractional inspired oxygen concentration and markedly elevated mean airway pressure. Despite progressively lowered tonicity of fluid administered she continues to concentrate sodium. Now at 157 we are forced to resort to simple D5 water. Objective Vital Signs / I&O: Vital Signs 03/19/18 07:23 03/19/18 08:00 03/19/18 11:06 Temperature 98.3 F Pulse Rate 75 Respiratory Rate 12 13 15 Blood Pressure 118/56 L Pulse Oximetry 97 96 95 03/19/18 12:00 03/19/18 15:47 03/19/18 18:00 Temperature 99 F 99.3 F Pulse Rate 80 87 Respiratory Rate 19 19 22 Blood Pressure 112/58 L 149/72 H Pulse Oximetry 95 96 95 03/19/18 20:00 03/19/18 20:11 03/20/18 00:00 Temperature 100.1 F H 98.3 F Pulse Rate 88 78 Respiratory Rate 20 22 24 Blood Pressure 103/53 L 108/59 L Pulse Oximetry 93 L 94 L 96 03/20/18 00:12 03/20/18 04:00 03/20/18 04:18 Temperature 98.7 F Pulse Rate 84 Respiratory Rate 18 21 20 Blood Pressure 132/56 L Pulse Oximetry 100 96 97 Intake & Output 03/19/18 03/20/18 03/20/18 18:59 06:59 18:59 Intake Total 2802 / 2802 1502.5 / 1502.5 Output Total 1700 / 1700 1650 / 1650 Balance 1102 / 1102 -147.5 / -147.5 Weight 82.4 kg Intake: IV 1999 / 1999 862.5 / 862.5 D5W/1/2 NS Inj 1,000 ML @ 84 1000 / 1000 200 / 200 mls/hr IV.CONT .[id number] [facility] Rx# :[id number] Neosynephrine Inj 80 MG In NS 500 / 500 Inj 492 ML @ 40 MCG/MIN 15 mls/ hr IV.CONT TITRATE PRN Rx#: [id number] Diprivan 1000 mg/100 ml Inj 1, 200 / 200 200 / 200 000 mg In 100 ml @ 5 MCG/KG/MIN 2.292 mls/hr IV.CONT TITRATE PRN Rx#:[id number] Merrem Inj 1,000 MG In NS Inj 100 / 100 100 ML @ 200 mls/hr IV.SIG Q12H [facility] Rx#:[id number] Vancomycin Inj 1,250 MG In NS 262.5 / 262.5 Inj 250 ML @ 250 mls/hr IV.SIG Q36H [facility] Rx#:[id number] Flagyl 500 MG Inj 100 ML @ 100 200 / 200 200 / 200 mls/hr IV.SIG Q6H [facility] Rx#: [id number] Tube Feeding 682 / 682 490 / 490 Tube Irrigant 120 / 120 150 / 150 Output: Stool 500 / 500 550 / 550 Urine Amount (Catheter) 1200 / 1200 1100 / 1100 Indwelling 1200 / 1200 1100 / 1100 Other: Date of Last Bowel Movement 03/19/18 03/20/18 Result Diagrams: 03/20/18 05:25 03/20/18 05:23 Objective Remarks: Narrative: Physical exam: General: Ill-appearing, pale, elderly woman on mechanical ventilation, good vent synchrony. Head: Atraumatic, normal. Oral tracheal intubation. Neck: Stiff consistent with age but otherwise supple. Lungs: Continued bilateral scattered sonorous rhonchi. Very few secretions. Good bilateral air entry Heart: Regular rate and rhythm, 2/6 systolic murmur, no JVD Abdomen: Moderately distended, bowel sounds active, no guarding. No peritoneal irritation. Extremities: Warm, well-perfused. Neurologic: Converted to propofol and fentanyl for pain relief and vent synchrony. Breathes spontaneously over ventilator rate. Pupils reactive. Will start to lighten sedation for better neuro exam. Assessment and Plan - Assessment and Plan Plan: Assessment: 1. Septic shock 2. Bacteremia staph and strep organisms 3. Acute hypoxemic respiratory failure 4. Bilateral pneumonia, ARDS 5. Chronic anemia 6. Ileus 7. Paroxysmal atrial fibrillation 8. Metabolic acidosis 9. Acute kidney injury 10. Psoas abscess 11. Possible lumbar region epidural abscess 12. Heart failure with severe mitral regurgitation 13. Leukemia versus severe sepsis Plan: Neuro -sedation with propofol and fentanyl -Neurosurgery evaluation for lumbar problem Cardiovascular -Khalif-Synephrine for supportive arterial blood pressure -Amiodarone drip for conversion of atrial fibrillation -Electrolyte replacement protocol Respiratory -PRBC ventilatory mode -Blood gas now -Sputum culture no growth -Airway pressure release ventilatory mode now GI -Nasogastric tube to low intermittent suction -Start tube feedings -History of antral ulcers -Olivas to closed bag drainage -Urinalysis Hematology -Serial white cell count -Follow anemia with hemoglobin -Hold bone marrow biopsy for now, probably need to pursue at this point -Hematology consult ID -Meropenem and vancomycin, adjust per ID consult -> IV and p.o. vancomycin, IV Flagyl, fidaxomicin added. -Blood organisms cultured at outside hospital are streptococcal and staph species Prophylaxis -Hold chemical DVT prophylaxis due to high risk of bleeding, and recurrent anemia -SCDs -Continue aspirin Overall impression: This woman is critically ill and hemodynamically unstable with septic shock and supra ventricular tachyarrhythmia. Both lungs are obvious nidus of infection but the unexplained fluid collections in the lumbar region and by both psoas muscles may well be infected as well. An MRI from an outside hospital is interpreted as compression of the cord at the L1-2 region. We have asked neurosurgery to advise us as to best treatment. White blood cell pattern is particularly worrisome. She was scheduled for a bone marrow biopsy in [place] before this illness ensued and I suspect they were concerned about leukemia. We have to pursue that workup now and Dr. Huntley from Hematology is evaluating. I have discussed her case in detail each day with several family members. Today for family members were here, 3 of which are daughters, and I have explained in detail that she is not responding to our therapy appropriately. They understand that she remains critically ill and has a high likelihood of dying from this disease process. Critical care 50 minutes aside from procedures
[2018-03-20] MEDS: Dextrose 5% in Water Inj 1,000 ML IV.CONT SCH ×2 (07:24→19:10)
[2018-03-20 08:04] LABS: Dimorphic RBC Present; Eosinophils 3 % (0-4); Lymphocytes 7 % (9-44); Metamyelocytes 4 % (0-1); Monocytes 12 % (0-8); Myelocytes 25 % (0-0); Platelet Estimate Normal (Normal); Platelet Morphology Normal (Normal); Promyelocyte 3 % (0-0); Tallied Nucleated RBC 1 (0-0)
[2018-03-20] MEDS: Famotidine PF Inj 20 MG/2 ML Vial IV.PUSH SCH ×2 (08:34→20:22)
[2018-03-20] MEDS: Beneprotein Powder Packet G-TUBE SCH ×3 (08:35→19:00)
[2018-03-20] MEDS: Phenylephrine Inj 80 MG in Sodium Chlor 0.9% Inj 492 ML IV.CONT PRN (08:35)
[2018-03-20] MEDS: Senna/Docusate Sodium 8.6/50 MG Tablet PO SCH ×2 (08:35→20:21)
[2018-03-20] MEDS: Chlorhexidine 0.12% Oral Kit 15 ML UDC OROPHARYNG SCH ×2 (08:35→20:18)
--- NOTE | 2018-03-20 09:25 | P.PNNS ---
Subjective Interval history: Still critically ill, ventilated Physical Exam Vital signs: Vital Signs 03/19/18 11:06 03/19/18 12:00 03/19/18 15:47 Temperature 99 F Pulse Rate 80 Respiratory Rate 15 19 19 Blood Pressure 112/58 L Pulse Oximetry 95 95 96 03/19/18 18:00 03/19/18 20:00 03/19/18 20:11 Temperature 99.3 F 100.1 F H Pulse Rate 87 88 Respiratory Rate 22 20 22 Blood Pressure 149/72 H 103/53 L Pulse Oximetry 95 93 L 94 L 03/20/18 00:00 03/20/18 00:12 03/20/18 04:00 Temperature 98.3 F 98.7 F Pulse Rate 78 84 Respiratory Rate 24 18 21 Blood Pressure 108/59 L 132/56 L Pulse Oximetry 96 100 96 03/20/18 04:18 03/20/18 07:17 03/20/18 08:00 Temperature 99.2 F Pulse Rate 69 Respiratory Rate 20 12 12 Blood Pressure 101/53 L Pulse Oximetry 97 95 97 Intake & Output 03/19/18 03/20/18 03/20/18 18:59 06:59 18:59 Intake Total 2802 / 2802 1502.5 / 1502.5 600 / 600 Output Total 1700 / 1700 1650 / 1650 Balance 1102 / 1102 -147.5 / -147.5 600 / 600 Weight 82.4 kg Intake: IV 1999 862.5 / 862.5 600 / 600 D5W/1/2 NS Inj 1,000 ML @ 84 1000 / 1000 200 / 200 mls/hr IV.CONT .[id number] [facility] Rx# :[id number] Neosynephrine Inj 80 MG In NS 500 / 500 500 / 500 Inj 492 ML @ 40 MCG/MIN 15 mls/ hr IV.CONT TITRATE PRN Rx#: [id number] Diprivan 1000 mg/100 ml Inj 1, 200 / 200 200 / 200 100 / 100 000 mg In 100 ml @ 5 MCG/KG/MIN 2.292 mls/hr IV.CONT TITRATE PRN Rx#:[id number] Merrem Inj 1,000 MG In NS Inj 100 / 100 100 ML @ 200 mls/hr IV.SIG Q12H [facility] Rx#:[id number] Vancomycin Inj 1,250 MG In NS 262.5 / 262.5 Inj 250 ML @ 250 mls/hr IV.SIG Q36H [facility] Rx#:[id number] Flagyl 500 MG Inj 100 ML @ 100 200 / 200 200 / 200 mls/hr IV.SIG Q6H [facility] Rx#: [id number] Tube Feeding 682 / 682 490 / 490 Tube Irrigant 120 / 120 150 / 150 Output: Stool 500 / 500 550 / 550 Urine Amount (Catheter) 1200 / 1200 1100 / 1100 Indwelling 1200 / 1200 1100 / 1100 Other: Date of Last Bowel Movement 03/19/18 03/20/18 03/20/18 Narrative: On sedation due to respiratory instability Does not open eyes PERRL Trace movement bilateral upper extremities Withdraws bilateral lower extremities weakly - Urinary Catheter Management Indwelling Cath placed during this visit: no Assessment and Plan - Assessment (1) Spinal stenosis of thoracolumbar region Code(s): M48.05 - Spinal stenosis, thoracolumbar region Status: Acute (2) Sepsis Code(s): A41.9 - Sepsis, unspecified organism Status: Acute Qualifiers: Sepsis type: methicillin susceptible Staphylococcus aureus Qualified Code(s ): A41.01 - Sepsis due to Methicillin susceptible Staphylococcus aureus (3) Respiratory failure Code(s): J96.90 - Respiratory failure, unspecified, unspecified whether with hypoxia or hypercapnia Status: Acute Qualifiers: Chronicity: acute (4) Fusion of lumbar spine Code(s): 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 MRI of the thoracolumbar spine with evidence of T12/L1 epidural abscess with moderate stenosis at this level. History of L3-S1 instrumentation by outside surgeon in [place] several years ago. Plan: Neurologically stable from yesterday. Too unstable from respiratory perspective to pause sedation. Continue with current care/critical care Continue with antibiotics. Continue with Neuro checks. DVT prophylaxis
--- NOTE | 2018-03-20 15:32 | P.PNONC ---
Subjective Interval history: Afebrile. Patient remains ventilated and sedated. Objective Vital Signs/Intake & Output: Vital Signs 03/19/18 15:47 03/19/18 18:00 03/19/18 20:00 Temperature 99.3 F 100.1 F H Pulse Rate 87 88 Respiratory Rate 19 22 20 Blood Pressure 149/72 H 103/53 L Pulse Oximetry 96 95 93 L 03/19/18 20:11 03/20/18 00:00 03/20/18 00:12 Temperature 98.3 F Pulse Rate 78 Respiratory Rate 22 24 18 Blood Pressure 108/59 L Pulse Oximetry 94 L 96 100 03/20/18 04:00 03/20/18 04:18 03/20/18 07:17 Temperature 98.7 F Pulse Rate 84 Respiratory Rate 21 20 12 Blood Pressure 132/56 L Pulse Oximetry 96 97 95 03/20/18 08:00 03/20/18 10:00 03/20/18 11:18 Temperature 99.2 F Pulse Rate 69 88 Respiratory Rate 12 30 H Blood Pressure 101/53 L Pulse Oximetry 97 94 L 03/20/18 12:00 03/20/18 15:08 Temperature 98 F Pulse Rate 77 Respiratory Rate 17 27 H Blood Pressure 89/50 L Pulse Oximetry 96 95 Intake & Output 03/19/18 03/20/18 03/20/18 18:59 06:59 18:59 Intake Total 2802 / 2802 1502.5 / 1502.5 1500 / 1500 Output Total 1700 / 1700 1650 / 1650 Balance 1102 / 1102 -147.5 / -147.5 1500 / 1500 Weight 82.4 kg Intake: IV 1999 / 1999 862.5 / 862.5 1500 / 1500 D5W/1/2 NS Inj 1,000 ML @ 84 1000 / 1000 200 / 200 700 / 700 mls/hr IV.CONT .[id number] [facility] Rx# :[id number] Neosynephrine Inj 80 MG In NS 500 / 500 500 / 500 Inj 492 ML @ 40 MCG/MIN 15 mls/ hr IV.CONT TITRATE PRN Rx#: [id number] Diprivan 1000 mg/100 ml Inj 1, 200 / 200 200 / 200 200 / 200 000 mg In 100 ml @ 5 MCG/KG/MIN 2.292 mls/hr IV.CONT TITRATE PRN Rx#:[id number] Merrem Inj 1,000 MG In NS Inj 100 / 100 100 ML @ 200 mls/hr IV.SIG Q12H [facility] Rx#:[id number] Vancomycin Inj 1,250 MG In NS 262.5 / 262.5 Inj 250 ML @ 250 mls/hr IV.SIG Q36H [facility] Rx#:[id number] Flagyl 500 MG Inj 100 ML @ 100 200 / 200 200 / 200 100 / 100 mls/hr IV.SIG Q6H [facility] Rx#: [id number] Tube Feeding 682 / 682 490 / 490 Tube Irrigant 120 / 120 150 / 150 Output: Stool 500 / 500 550 / 550 Urine Amount (Catheter) 1200 / 1200 1100 / 1100 Indwelling 1200 / 1200 1100 / 1100 Other: Date of Last Bowel Movement 03/19/18 03/20/18 03/20/18 Result Diagrams: 03/20/18 05:25 03/20/18 05:23 Laboratory Results: Laboratory Results - last 24 hr 03/17/18 03/20/18 03/20/18 10:30 05:23 05:25 WBC 36.3 H RBC 3.05 L Hgb 8.8 L Hct 27.3 L MCV 89.7 MCH 28.8 MCHC 32.1 RDW 26.6 H Plt Count 174 MPV 11.3 H Prelim Diff (Auto) Manual diff required WBC Differential Manual diff final Seg Neuts % (Manual) 36 Band Neuts % (Manual) 10 H Lymphocytes % (Manual) 7 L Monocytes % (Manual) 12 H Eosinophils % (Manual) 3 Metamyelocytes % (Man) 4 H Myelocytes % (Man) 25 H Promyelocytes % (Man) 3 H Abs Neuts (Manual) 28.3 H Nucleated RBCs/100 WBC 1 H Differential Comment . Platelet Estimate Normal Platelet Morphology Normal Dimorphic RBCs Present H Sodium 157 H* Potassium 5.1 Chloride 120 H Carbon Dioxide 29.8 Anion Gap 7 BUN 44 H Creatinine 0.92 Estimated GFR 59 L Random Glucose 118 H Calcium 6.9 L* Prot Corrected Calcium 7.5 L Total Bilirubin 0.3 AST 30 ALT 12 Alkaline Phosphatase 135 H Total Protein 5.9 L Albumin 1.1 L Nasal Screen MRSA (PCR) Blood Bank Comment Cancelled Reference Lab Result Cancelled 03/20/18 05:30 WBC RBC Hgb Hct MCV MCH MCHC RDW Plt Count MPV Prelim Diff (Auto) WBC Differential Seg Neuts % (Manual) Band Neuts % (Manual) Lymphocytes % (Manual) Monocytes % (Manual) Eosinophils % (Manual) Metamyelocytes % (Man) Myelocytes % (Man) Promyelocytes % (Man) Abs Neuts (Manual) Nucleated RBCs/100 WBC Differential Comment Platelet Estimate Platelet Morphology Dimorphic RBCs Sodium Potassium Chloride Carbon Dioxide Anion Gap BUN Creatinine Estimated GFR Random Glucose Calcium Prot Corrected Calcium Total Bilirubin AST ALT Alkaline Phosphatase Total Protein Albumin Nasal Screen MRSA (PCR) Not detected Blood Bank Comment Reference Lab Result Culture Results: Microbiology 03/17/18 14:59 Gram Stain - Final Sputum - Endotracheal Sputum Culture - Final Light growth normal respiratory shonda 03/17/18 15:03 Clostridium difficile GDH Antigen - Final Stool Positive - C. difficile Antigen detected. Clostridium difficile Toxin Assay - Final Negative - No C. difficile Toxin A or B detected. 03/17/18 15:00 Urine Culture - Final Catheterized Urine No growth in 48 hours Imaging Studies: Impressions Abdomen X-Ray 03/19/18 00:00 CONCLUSION: 1. No bowel obstruction, ileus or perforation. 2. Degenerative changes and scoliosis of the thoracolumbar spine. Chest X-Ray 03/20/18 04:00 CONCLUSION: 1. Persistent diffuse interstitial and airspace consolidation throughout the left lung. 2. Improved aeration in the right mid to lower lung zone. Medications: Active Medications Generic Name Dose Route Start Last Admin Trade Name Freq PRN Reason Stop Dose Admin Acetaminophen 650 mg 03/14/18 13:53 03/15/18 19:17 Tylenol PO 650 mg Q6H PRN Administration PAIN 1-10 AND/OR FEVER >101F Albuterol 1 ampul 03/14/18 13:53 03/15/18 08:44 Duoneb Neb (Prn) NEB 1 ampul Q2HR NEB PRN Administration WHEEZING Chlorhexidine Gluconate 15 ml 03/14/18 20:00 03/20/18 08:35 Peridex 0.12% Oral Kit OROPHARYNG 15 ml BID@0800,2000 [facility] Administration Famotidine 20 mg 03/14/18 21:00 03/20/18 08:34 Pepcid Pf Inj IV.PUSH 20 mg Q12HR [facility] Administration Fentanyl 1 patch 03/14/18 15:00 03/20/18 15:03 Duragesic 100 Mcg Patch.72hr T-DERMAL 1 patch Q3D [facility] Administration Fidaxomicin 200 mg 03/19/18 21:00 03/20/18 08:34 Dificid PO 03/29/18 20:59 200 mg BID [facility] Administration Heparin Sodium (Porcine) 5,000 units 03/14/18 15:00 03/20/18 15:04 Heparin Inj SQ 5,000 units Q8H [facility] Administration Propofol 1,000 mg in 100 mls @ 2.292 mls/hr 03/14/18 15:00 03/20/18 13:06 Diprivan 1000 Mg/100 Ml Inj IV.CONT 40 mcg/kg/min TITRATE PRN 18.34 mls/hr Per Protocol Administration Protocol 5 MCG/KG/MIN Phenylephrine HCl 80 mg/ 500 mls @ 15 mls/hr 03/14/18 16:00 03/20/18 14:05 Sodium Chloride IV.CONT 50 mcg/min TITRATE PRN 18.75 mls/hr See protocol Titration Protocol 40 MCG/MIN Potassium Chloride 40 meq in 100 mls @ 25 mls/hr 03/14/18 18:12 03/15/18 08: 58 Kcl 40 Meq Premix Inj IV.SIG Infused UNSCH PRN Infusion For Potassium 3.3 - 3.5 mEq/L Metronidazole/Sodium Chloride 100 mls @ 100 mls/hr 03/14/18 22:00 03/20/18 10 :48 Flagyl 500 Mg Inj IV.SIG Infused Q6H [facility] Infusion Vancomycin HCl 1,250 mg/ 262.5 mls @ 250 mls/hr 03/19/18 21:00 03/19/18 21:50 Sodium Chloride IV.SIG Infused Q36H [facility] Infusion Dextrose 1,000 mls @ 100 mls/hr 03/20/18 07:15 03/20/18 07:24 D5w Inj IV.CONT 100 mls/hr .Q10H [facility] Administration Levothyroxine Sodium 112 mcg 03/15/18 06:00 03/20/18 06:32 Synthroid PO 112 mcg DAILY@0600 [facility] Administration Miscellaneous Medication 1 each 03/14/18 16:00 03/20/18 12:00 OROPHARYNG 1 each 0000,0400,1200,1600 [facility] Administration Patch Removal 1 each 03/17/18 15:00 03/20/18 15:03 Remove Old Patch T-DERMAL 1 each Q3D [facility] Administration Potassium Bicarb/Potassium Chloride 50 meq 03/14/18 18:12 03/14/18 18:32 K-Lyte Cl Eff PO 50 meq UNSCH PRN Administration For Potassium 3.3 - 3.5 mEq/L Senna/Docusate Sodium 1 tab 03/14/18 21:00 03/20/18 08:35 Mimi-Colace PO Not Given BID [facility] Sodium Chloride 2 ml 03/14/18 21:00 03/20/18 08:35 Ns Flush IV.FLUSH Not Given BID [facility] Vancomycin HCl 500 mg 03/15/18 18:00 03/20/18 13:06 Vancomycin Po PO 500 mg QID [facility] Administration Whey 1 packet 03/15/18 13:00 03/20/18 13:00 Beneprotein Powder G-TUBE 1 packet TID [facility] Administration Objective Remarks: GENERAL: Ill-appearing female patient, ventilated and sedated. SKIN: Warm and dry. HEAD: Normocephalic. EYES: No scleral icterus. No injection or drainage. NECK: Supple, trachea midline. CARDIOVASCULAR: Regular rate and rhythm. RESPIRATORY: Breath sounds equal bilaterally. No accessory muscle use. Ventilated FiO2 55. GASTROINTESTINAL: Abdomen large, distended. Rectal tube draining dark stool. EXTREMITIES: No cyanosis. +anasarca. Scab to left 2nd toe. NEUROLOGICAL: +sedated and ventilated. Assessment/Plan - Plan Ms. Arevalo is a 77 year-old female patient, transferred to [place] on 03/14/2018 from [facility]. According to the records, she was originally seen with severe back pain, CT scan of the abdomen and pelvis showed an epidural abscess and abdominal abscesses. She was treated with antibiotics. She then developed pneumonia and went into respiratory failure. At which time she was intubated. She is currently being treated for C. difficile I will colitis. Hematology was consulted for evaluation of leukocytosis with immature cells in the peripheral blood and severe anemia. Plan: 1. Leukocytosis, likely secondary to severe sepsis and infection, however evaluation for acute leukemia and myeloproliferative disorder are pending. Flow cytometry, Jak2 mutation and BCR-ABL by FISH are pending. 2. Anemia. Hemoglobin today stable at 8.8. We will continue to monitor. 3. Severe sepsis, management per operations intelligence and infectious disease. 4. We will continue to follow. - Attending Statement The exam, history, and the medical decision-making described in the above note were completed with the assistance of the mid-level provider. I reviewed and agree with the findings presented. I attest that I had a [id number] encounter with the patient on the same day, and personally performed and documented my assessment and findings in the medical record. rEMAINS ON VENT sedated. Records from [facility] reviewed Flow, FISH and [place]- 2 pending. get consent from daughter for BM bx. d/w EMRE
--- NOTE | 2018-03-20 16:12 | P.PNID ---
Subjective Remarks: remains on vent + fever low grade up to 100 WBC 36 K today NO secretions large volume liquid diarrhea 1000 cc+ tolerates tube feedings sputum showed light NRF CT chest with interstitial lung changes Non contrasted CT A/P with colitis Antibiotics: dificid vanco po vanco flagyl iv Allergies/Adverse Reactions: Allergies Penicillins Allergy (Verified 03/14/18 13:53) Swelling of Lip/Tongue/Throat Sulfa (Sulfonamide Antibiotics) Allergy (Verified 03/14/18 13:53) Diarrhea shellfish Adverse Reaction (Uncoded 03/14/18 13:53) Swelling of Lip/Tongue/Throat Objective Vital Signs 03/19/18 18:00 03/19/18 20:00 03/19/18 20:11 Temperature 99.3 F 100.1 F H Pulse Rate 87 88 Respiratory Rate 22 20 22 Blood Pressure 149/72 H 103/53 L Pulse Oximetry 95 93 L 94 L 03/20/18 00:00 03/20/18 00:12 03/20/18 04:00 Temperature 98.3 F 98.7 F Pulse Rate 78 84 Respiratory Rate 24 18 21 Blood Pressure 108/59 L 132/56 L Pulse Oximetry 96 100 96 03/20/18 04:18 03/20/18 07:17 03/20/18 08:00 Temperature 99.2 F Pulse Rate 69 Respiratory Rate 20 12 12 Blood Pressure 101/53 L Pulse Oximetry 97 95 97 03/20/18 10:00 03/20/18 11:18 03/20/18 12:00 Temperature 98 F Pulse Rate 88 77 Respiratory Rate 30 H 17 Blood Pressure 89/50 L Pulse Oximetry 94 L 96 03/20/18 15:08 Temperature Pulse Rate Respiratory Rate 27 H Blood Pressure Pulse Oximetry 95 Intake & Output 03/19/18 03/20/18 03/20/18 18:59 06:59 18:59 Intake Total 2802 / 2802 1502.5 / 1502.5 1500 / 1500 Output Total 1700 / 1700 1650 / 1650 Balance 1102 / 1102 -147.5 / -147.5 1500 / 1500 Weight 82.4 kg Intake: IV 1999 / 1999 862.5 / 862.5 1500 / 1500 D5W/1/2 NS Inj 1,000 ML @ 84 1000 / 1000 200 / 200 700 / 700 mls/hr IV.CONT .[id number] [facility] Rx# :[id number] Neosynephrine Inj 80 MG In NS 500 / 500 500 / 500 Inj 492 ML @ 40 MCG/MIN 15 mls/ hr IV.CONT TITRATE PRN Rx#: [id number] Diprivan 1000 mg/100 ml Inj 1, 200 / 200 200 / 200 200 / 200 000 mg In 100 ml @ 5 MCG/KG/MIN 2.292 mls/hr IV.CONT TITRATE PRN Rx#:[id number] Merrem Inj 1,000 MG In NS Inj 100 / 100 100 ML @ 200 mls/hr IV.SIG Q12H [facility] Rx#:[id number] Vancomycin Inj 1,250 MG In NS 262.5 / 262.5 Inj 250 ML @ 250 mls/hr IV.SIG Q36H [facility] Rx#:[id number] Flagyl 500 MG Inj 100 ML @ 100 200 / 200 200 / 200 100 / 100 mls/hr IV.SIG Q6H [facility] Rx#: [id number] Tube Feeding 682 / 682 490 / 490 Tube Irrigant 120 / 120 150 / 150 Output: Stool 500 / 500 550 / 550 Urine Amount (Catheter) 1200 / 1200 1100 / 1100 Indwelling 1200 / 1200 1100 / 1100 Other: Date of Last Bowel Movement 03/19/18 03/20/18 03/20/18 03/17/18 14:59 Sputum - Endotracheal Gram Stain - Final 03/17/18 14:59 Sputum - Endotracheal Sputum Culture - Final Light growth normal respiratory shonda 03/17/18 15:03 Stool Clostridium difficile GDH Antigen - Final Positive - C. difficile Antigen detected. 03/17/18 15:03 Stool Clostridium difficile Toxin Assay - Final Negative - No C. difficile Toxin A or B detected. 03/17/18 15:00 Catheterized Urine Urine Culture - Final No growth in 48 hours Lab - Hematology Results 03/19/18 03/20/18 04:35 05:25 WBC 38.3 H 36.3 H RBC 3.21 L 3.05 L Hgb 9.2 L D 8.8 L Hct 28.8 L 27.3 L MCV 89.9 D 89.7 MCH 28.6 28.8 MCHC 31.9 L 32.1 RDW 27.1 H D 26.6 H Plt Count 196 174 MPV 11.0 11.3 H Prelim Diff (Auto) Manual diff required Manual diff required WBC Differential Manual diff final Manual diff final Seg Neuts % (Manual) 35 36 Band Neuts % (Manual) 7 H 10 H Lymphocytes % (Manual) 6 L 7 L Monocytes % (Manual) 10 H 12 H Eosinophils % (Manual) 1 3 Basophils % (Manual) 1 Metamyelocytes % (Man) 4 H 4 H Myelocytes % (Man) 36 H 25 H Promyelocytes % (Man) 3 H Abs Neuts (Manual) 31.4 H 28.3 H Nucleated RBCs/100 WBC 1 H Differential Comment . . Platelet Estimate Normal Normal Platelet Morphology Enlarged H Normal Dimorphic RBCs Present H Present H Lab - Chemistry Results 03/19/18 03/20/18 04:35 05:23 Sodium 155 H 157 H* Potassium 5.1 5.1 Chloride 119 H 120 H Carbon Dioxide 30.3 29.8 Anion Gap 6 7 BUN 47 H 44 H Creatinine 0.89 0.92 Estimated GFR 61 L 59 L Random Glucose 143 H 118 H Calcium 7.5 L 6.9 L* Prot Corrected Calcium 7.5 L Total Bilirubin 0.4 0.3 AST 34 30 ALT 12 12 Alkaline Phosphatase 147 H 135 H Total Protein 5.9 L 5.9 L Albumin 1.2 L 1.1 L Imaging: ITS Impressions Cervical Spine MRI 03/15/18 00:00 CONCLUSION: 1. No abnormal areas of enhancement in the dural space or vertebral bodies. 2. Spinal stenosis due to disc bulging at multiple levels and anterolisthesis at C4-5. There is also multilevel bony neural foraminal stenosis. Lumbar Spine MRI 03/15/18 00:00 CONCLUSION: 1. Enhancing soft tissue extending from the subcutaneous region down to the thecal sac at the L1 and L2 level characteristic of postsurgical findings with a rounded area of fluid with some minimal peripheral enhancement dorsal to the thecal sac flattening the posterior margin at L1 and L2. Since there is some minimal peripheral enhancement, and epidural abscess is a differential possibility. Thoracic Spine MRI 03/15/18 00:00 CONCLUSION: 1. No abnormal areas of enhancement in the vertebral bodies or epidural space in the thoracic region. 2. Posterior osteophytes at all levels in the thoracic spine causing mild impression upon the thecal sac. No evidence of disc protrusions over. 3. Moderate size left pleural effusion. Abdomen/Pelvis CT 03/17/18 00:00 CONCLUSION: 1. Diffuse interstitial infiltrate in the lung bases and anasarca suggesting edema. 2. Minimal thickening of the colon. 3. Minimal left basilar effusion. 4. Small amount of free fluid within the abdomen and pelvis. 5. No free air identified. No findings to indicate a bowel obstruction. Chest CT 03/17/18 13:48 CONCLUSION: 1. Extensive interstitial prominence with some sparing of the right upper lobe suggesting ARDS. 2. Minimal effusion on the left with a tiny effusion on the right. 3. Degenerative changes in the thoracic spine. Abdomen X-Ray 03/19/18 00:00 CONCLUSION: 1. No bowel obstruction, ileus or perforation. 2. Degenerative changes and scoliosis of the thoracolumbar spine. Soft Tissue Ultrasound 03/19/18 00:00 CONCLUSION: 1. Fluid as above. Chest X-Ray 03/20/18 04:00 CONCLUSION: 1. Persistent diffuse interstitial and airspace consolidation throughout the left lung. 2. Improved aeration in the right mid to lower lung zone. Physical Exam: GENERAL: NAD sedated, on vent SKIN: Warm and dry. No rash HEAD: Atraumatic. Normocephalic. EYES: Pupils equal and round. No scleral icterus. No injection or drainage. ENT: No nasal bleeding or discharge. Mucous membranes pink and moist. NECK: Trachea midline. No JVD. CARDIOVASCULAR: Regular rate and rhythm. RESPIRATORY: No accessory muscle use. b/l rhonchi to auscultation. Breath sounds equal bilaterally. GASTROINTESTINAL: Abdomen soft, no reaction to palpation, + moderately distended. Hepatic and splenic margins not palpable. MUSCULOSKELETAL: Extremities without clubbing, cyanosis, 2+-3+ edema. No obvious deformities. NEUROLOGICAL: sedated; not following commands PSYCHIATRIC: unable to assess Assessment and Plan - Plan Critical, stable PNA, HCAP /aspiration vs ARDS - NGTD from sputum Lower T / L spine epidural abscess - pt was seen by Dr Monster Taylor who is planning to repeat MR w/wo c when stable enough - dw Dr Jasiel Wiley: small amoutn of fluid present Sepsis: staph reported by other facility provider Acute VDR 2/2 ARDS ARF C.diff colitis. Perssitent cont iv flagyl cont po vancomycin cont iv vanco cont dificid Follow urine culture repeat sputum clx IR aspiration for culture when feasible from resp standpoint jesenia Pham (rad), Ethan
[2018-03-21] MEDS: Propofol 1000 mg/100 ml Inj 1,000 MG/100 ML BOTTLE IV.CONT PRN ×5 (00:24→22:50)
[2018-03-21] MEDS: Oral Hygiene Kit OROPHARYNG SCH ×5 (00:25→23:45)
[2018-03-21] MEDS: Dextrose 5% in Water Inj 1,000 ML IV.CONT SCH ×5 (05:00→23:45)
[2018-03-21 05:39] LABS: Hematocrit 23.2 % (35.0-46.0); Hemoglobin 7.6 gm/dL (11.6-15.3); Mean Corpuscular HGB Conc 32.7 % (32.0-36.0); Mean Corpuscular Hemoglobin 29.3 pg (27.0-34.0); Mean Corpuscular Volume 89.6 fL (80.0-100.0); Mean Platelet Volume 12.3 fL (7.0-11.0); Platelet Count 138 th/mm3 (150-450); Red Blood Count 2.59 mil/mm3 (4.00-5.30); Red Cell Distribution Width 25.5 % (11.6-17.2); White Blood Count 23.3 th/mm3 (4.0-11.0)
[2018-03-21 05:58] LABS: Albumin 1.1 g/dL (3.4-5.0); Calcium 7.3 mg/dL (8.5-10.1); Carbon Dioxide 31.5 meq/L (21.0-32.0); Potassium 4.9 meq/L (3.5-5.1); Total Protein 5.6 g/dL (6.4-8.2)
[2018-03-21] MEDS: Levothyroxine 112 MCG Tablet PO SCH (06:07)
[2018-03-21] MEDS: Heparin - SQ 10,000 UNITS/ML Vial SQ SCH ×3 (06:16→23:45)
[2018-03-21] MEDS: Chlorhexidine 0.12% Oral Kit 15 ML UDC OROPHARYNG SCH ×2 (07:47→21:12)
[2018-03-21 07:50] LABS: Blast Cells 1 % (0-0); Eosinophils 2 % (0-4); Lymphocytes 11 % (9-44); Monocytes 5 % (0-8); Myelocytes 12 % (0-0)
[2018-03-21 07:53] LABS: Platelet Estimate Normal (Normal); Platelet Morphology Normal (Normal)
[2018-03-21 07:54] LABS: Dimorphic RBC Present; Stomatocytes 1+
[2018-03-21] MEDS: Vancomycin Inj 1,250 MG in Sodium Chlor 0.9% Inj 250 ML IV.SIG SCH (08:52)
[2018-03-21] MEDS: Senna/Docusate Sodium 8.6/50 MG Tablet PO SCH (08:52)
[2018-03-21] MEDS: Famotidine PF Inj 20 MG/2 ML Vial IV.PUSH SCH (08:52)
[2018-03-21] MEDS: Beneprotein Powder Packet G-TUBE SCH ×3 (08:53→18:02)
--- NOTE | 2018-03-21 11:55 | P.PNNS ---
Subjective Interval history: Pt intubated and sedated on Diprivan and Fentanyl patch. Sedation continued for vent and respiratory condition. Pt being treated for ARDS. She is not following commands. Physical Exam Vital signs: Vital Signs 03/20/18 12:00 03/20/18 14:00 03/20/18 15:08 Temperature 98 F Pulse Rate 77 76 Respiratory Rate 17 27 H Blood Pressure 89/50 L Pulse Oximetry 96 95 03/20/18 16:00 03/20/18 18:00 03/20/18 20:00 Temperature 98.9 F 98.6 F Pulse Rate 87 86 84 Respiratory Rate 27 H 22 Blood Pressure 126/59 L 119/53 L Pulse Oximetry 94 L 97 03/20/18 20:07 03/20/18 22:16 03/21/18 00:00 Temperature 98.2 F Pulse Rate 82 Respiratory Rate 12 27 H 20 Blood Pressure 99/52 L Pulse Oximetry 98 98 97 03/21/18 04:00 03/21/18 05:10 03/21/18 07:52 Temperature 98.5 F Pulse Rate 83 Respiratory Rate 22 21 20 Blood Pressure 100/53 L Pulse Oximetry 95 97 96 03/21/18 08:00 03/21/18 11:35 Temperature 98.6 F Pulse Rate 76 Respiratory Rate 16 26 H Blood Pressure 87/52 L Pulse Oximetry 95 95 Intake & Output 03/20/18 03/21/18 03/21/18 18:59 06:59 18:59 Intake Total 2581 / 2581 3100 / 3100 100 / 100 Output Total 1700 / 1700 1400 / 1400 Balance 881 / 881 1700 / 1700 100 / 100 Weight 84.1 kg Intake: IV 1700 / 1700 2400 / 2400 100 / 100 D5W Inj 1,000 ML @ 100 mls/hr 1999 / 1999 IV.CONT .Q10H [facility] Rx#:[id number] D5W/1/2 NS Inj 1,000 ML @ 84 700 / 700 mls/hr IV.CONT .[id number] [facility] Rx# :[id number] Neosynephrine Inj 80 MG In NS 500 / 500 Inj 492 ML @ 40 MCG/MIN 15 mls/ hr IV.CONT TITRATE PRN Rx#: [id number] Diprivan 1000 mg/100 ml Inj 1, 300 / 300 200 / 200 100 / 100 000 mg In 100 ml @ 5 MCG/KG/MIN 2.292 mls/hr IV.CONT TITRATE PRN Rx#:[id number] Flagyl 500 MG Inj 100 ML @ 100 200 / 200 200 / 200 mls/hr IV.SIG Q6H [facility] Rx#: [id number] Tube Feeding 501 / 501 550 / 550 Water Bolus Amount 380 / 380 150 / 150 Output: Stool 400 / 400 400 / 400 Urine Amount (Catheter) 1300 / 1300 1000 / 1000 Indwelling 1300 / 1300 1000 / 1000 Other: Date of Last Bowel Movement 03/20/18 03/21/18 03/21/18 - Constitutional Comments: Pt sedated and intubated for ARDS. - Routine HEENT Exam Head: Present: normocephalic, atraumatic Eye: Present: PERRL. Absent: conjunctival icterus ENT: Absent: oropharynx clear (ET intubated.) - Routine Neck Exam Present: trachea midline - Routine Respiratory Exam Present: patient mechanically ventilated (APRV/Biphasic. FiO2 60%), rhonchi. Absent: CTA bilaterally (Coarse bs bilaterally.), respiratory distress, wheezes - Routine Cardiovascular Exam Present: RRR, S1, S2. Absent: murmur - Routine Abdominal Exam Present: normoactive bowel sounds, distended (Distended with positive bs.). Absent: soft - Routine Extremities Exam Comments: SCDs LEs. - Routine Skin Exam Absent: cyanosis, erythema - Routine Neurological Exam Present: moving all extremities (Withdraws LEs. NFC for muscle testing. Sedated for vent.). Absent: alert (Sedated on Diprivan drip and Fentanyl patch. ) - Routine Psychiatric Exam Present: unable to assess - Urinary Catheter Management Indwelling Cath placed during this visit: no Assessment and Plan - Assessment (1) Spinal stenosis of thoracolumbar region Code(s): M48.05 - Spinal stenosis, thoracolumbar region Status: Acute (2) Sepsis Code(s): A41.9 - Sepsis, unspecified organism Status: Acute Qualifiers: Sepsis type: methicillin susceptible Staphylococcus aureus Qualified Code(s ): A41.01 - Sepsis due to Methicillin susceptible Staphylococcus aureus (3) Respiratory failure Code(s): J96.90 - Respiratory failure, unspecified, unspecified whether with hypoxia or hypercapnia Status: Acute Qualifiers: Chronicity: acute (4) Fusion of lumbar spine Code(s): 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 MRI of the thoracolumbar spine with evidence of T12/L1 epidural abscess with moderate stenosis at this level. History of L3-S1 instrumentation by outside surgeon in [place] several years ago. Plan: Continue with current care/critical care Continue with antibiotics. Continue with Neuro checks. DVT prophylaxis with SCDs
--- NOTE | 2018-03-21 12:18 | P.PNCC ---
Subjective Subjective Remarks/Hospital Course: This 77-year-old woman was transferred from [facility] to [facility] for treatment of respiratory failure with septic shock and peripheral abscesses including recent diagnosis of epidural abscess in the lumbar region. Her respiratory status is quite compromised with diffuse infiltrates throughout both lung welsh and she is ventilator dependent. On initial presentation to the hospital impair she had complaints of back pain radiating to her left knee. Her hemoglobin was 4 source of bleeding was clear was unclear at first and Dr. Vasquez had previously performed upper and lower endoscopy without location of a source. She has had a metastatic series and MRI on March 04 which developed multilevel central canal and foraminal stenoses she has had a transesophageal echo which revealed severe mitral regurgitation her hospital course has been complicated by atrial fibrillation and hemodynamic instability. Cardioversion was unsuccessful. She has continued recent fever course in excess of 103 degrees and has been treated with broad-spectrum antibiotic coverage including meropenem and vancomycin. She is continued to deteriorate and on about March 11 required endotracheal intubation and mechanical ventilation. Recent ICU white blood cell count is 40,000 blood cultures from March 09 revealed Streptococcus species and a subsequent blood culture grew a staph organism according to the report from the referring physician. The woman is required amiodarone therapy and diltiazem with additional cardioversion to sinus rhythm on the chest x-ray continues to worsen. CT of the abdomen reveals fluid collection on the left psoas muscle, possibly abscess. The contralateral psoas muscle has a similar collection. Recent MRI demonstrates old spine hardware L3-S1 and an irregular soft tissue density around the thecal sac at L1-L2 extending to T12-L1 she is required vasopressor support for hypotension and obvious sepsis overnight. The one constant throughout her early hospital course was severe lower back pain radiating down her legs. 03/15: Temperature max 101. Leukocytosis persists to 30,000. Back in normal sinus rhythm now with pulse rate controlled. Her respiratory status is unstable and she still requiring elevated ventilator pressures and elevated oxygen concentration. We will attempt to get an MRI of the entire spine with and without contrast today pending her hemodynamic suitability. At present her pulmonary status makes operative procedure a prohibitive risk. 03/16: T-max 100. Leukocytosis to 30,000 persists. Remains in sinus rhythm. MRI of the spine reviewed. Patient remains clinically critically ill. Azotemia slightly improved. Continue hydration. Start trickle tube feeding with added protein. 03/16: Continued septic course with low-grade fever and white count 33,000. Chest x-ray appearance alone could explain sepsis. Doing need to culture the fluid collections in the back to rule out another possible nidus? 03/17: Worsening respiratory function requiring us to convert to airway pressure release ventilation mode. Way too ill to allow us to transfer and mobilize for psoas muscle fluid aspiration. Elevated white count persists. Renal function slightly improved. Still requiring aggressive fluid resuscitation. White blood cell count 34,000 tomorrow, consistent with colitis. 03/18: Patient remains quite unstable requiring elevated inspiratory fraction of oxygen and markedly elevated mean airway pressures. CAT scan yesterday confirms dense fibrotic pattern left lung consistent with fibroproliferative phase of ARDS. Right lung has a more spotty architectural pattern due to large areas of emphysema. Due to unique antibodies transfusion has been delayed but should proceed today. Elevated white count to 45,000 with a preponderance of immature forms including myelocytes raises concerns for a bone marrow disorder. 03/19: T-max 100.1, pronounced leukocytosis with persistent elevated myelocytes. We appear to have control of the infection despite the lack of clarity involving the various retroperitoneal fluid collections. Hemodynamically she does not act like florid sepsis. CAT scan of the abdomen does not reveal an obvious source of this leukocytosis. CAT scan of the chest reveals a fibroproliferative stage of ARDS but does not necessarily explain the markedly elevated white count. I will ask the hematology service to evaluate. 03/20: I appreciate input from the hematology service. We are treating presumptive C. difficile colitis and antimicrobial coverage for that is adequate. Progress with the improvement of her ARDS is slow and she still requires elevated fractional inspired oxygen concentration and markedly elevated mean airway pressure. Despite progressively lowered tonicity of fluid administered she continues to concentrate sodium. Now at 157 we are forced to resort to simple D5 water. SUBJECTIVE: 03/21: Afebrile. Remains on APRV ventilation. Sodium currently 152. Not stable for IR at the present time. Will attempt to wean APRV today with drop and stretch and see if she tolerates. 2 feeds currently at goal. Objective Vital Signs / I&O: Vital Signs 03/20/18 14:00 03/20/18 15:08 03/20/18 16:00 Temperature 98.9 F Pulse Rate 76 87 Respiratory Rate 27 H 27 H Blood Pressure 126/59 L Pulse Oximetry 95 94 L 03/20/18 18:00 03/20/18 20:00 03/20/18 20:07 Temperature 98.6 F Pulse Rate 86 84 Respiratory Rate 22 12 Blood Pressure 119/53 L Pulse Oximetry 97 98 03/20/18 22:16 03/21/18 00:00 03/21/18 04:00 Temperature 98.2 F 98.5 F Pulse Rate 82 83 Respiratory Rate 27 H 20 22 Blood Pressure 99/52 L 100/53 L Pulse Oximetry 98 97 95 03/21/18 05:10 03/21/18 07:52 03/21/18 08:00 Temperature 98.6 F Pulse Rate 76 Respiratory Rate 21 20 16 Blood Pressure 87/52 L Pulse Oximetry 97 96 95 03/21/18 11:35 Temperature Pulse Rate Respiratory Rate 26 H Blood Pressure Pulse Oximetry 95 Intake & Output 03/20/18 03/21/18 03/21/18 18:59 06:59 18:59 Intake Total 2581 / 2581 3100 / 3100 100 / 100 Output Total 1700 / 1700 1400 / 1400 Balance 881 / 881 1700 / 1700 100 / 100 Weight 84.1 kg Intake: IV 1700 / 1700 2400 / 2400 100 / 100 D5W Inj 1,000 ML @ 100 mls/hr 1999 / 1999 IV.CONT .Q10H LIZETTE Rx#:[id number] D5W/1/2 NS Inj 1,000 ML @ 84 700 / 700 mls/hr IV.CONT .[id number] LIZETTE Rx# :[id number] Neosynephrine Inj 80 MG In NS 500 / 500 Inj 492 ML @ 40 MCG/MIN 15 mls/ hr IV.CONT TITRATE PRN Rx#: [id number] Diprivan 1000 mg/100 ml Inj 1, 300 / 300 200 / 200 100 / 100 000 mg In 100 ml @ 5 MCG/KG/MIN 2.292 mls/hr IV.CONT TITRATE PRN Rx#:[id number] Flagyl 500 MG Inj 100 ML @ 100 200 / 200 200 / 200 mls/hr IV.SIG Q6H LIZETTE Rx#: [id number] Tube Feeding 501 / 501 550 / 550 Water Bolus Amount 380 / 380 150 / 150 Output: Stool 400 / 400 400 / 400 Urine Amount (Catheter) 1300 / 1300 1000 / 1000 Indwelling 1300 / 1300 1000 / 1000 Other: Date of Last Bowel Movement 03/20/18 03/21/18 03/21/18 Result Diagrams: 03/21/18 05:15 03/21/18 05:15 Other Results: Microbiology 03/17/18 14:59 Sputum - Endotracheal Gram Stain - Final 03/17/18 14:59 Sputum - Endotracheal Sputum Culture - Final Light growth normal respiratory shonda 03/17/18 15:03 Stool Clostridium difficile GDH Antigen - Final Positive - C. difficile Antigen detected. 03/17/18 15:03 Stool Clostridium difficile Toxin Assay - Final Negative - No C. difficile Toxin A or B detected. 03/17/18 15:00 Catheterized Urine Urine Culture - Final No growth in 48 hours 03/14/18 15:42 Sputum - Endotracheal Gram Stain - Final 03/14/18 15:42 Sputum - Endotracheal Sputum Culture - Final Rare growth normal respiratory shonda 03/14/18 15:38 Catheterized Urine Urine Culture - Final No growth in 48 hours 03/14/18 16:20 Stool Clostridium difficile GDH Antigen - Final Positive - C. difficile Antigen detected. 03/14/18 16:20 Stool Clostridium difficile Toxin Assay - Final Negative - No C. difficile Toxin A or B detected. Imaging: Chest X-Ray 03/14/18 00:00 CONCLUSION: 1. Tubes and lines, as above. 2. Diffuse airspace disease throughout the left lung and in the right mid to lower lung zones consistent with atypical/multilobar pneumonia versus developing ARDS. 3. Prominence of the AP window may reflect adenopathy. Cervical Spine MRI 03/15/18 00:00 CONCLUSION: 1. No abnormal areas of enhancement in the dural space or vertebral bodies. 2. Spinal stenosis due to disc bulging at multiple levels and anterolisthesis at C4-5. There is also multilevel bony neural foraminal stenosis. Lumbar Spine MRI 03/15/18 00:00 CONCLUSION: 1. Enhancing soft tissue extending from the subcutaneous region down to the thecal sac at the L1 and L2 level characteristic of postsurgical findings with a rounded area of fluid with some minimal peripheral enhancement dorsal to the thecal sac flattening the posterior margin at L1 and L2. Since there is some minimal peripheral enhancement, and epidural abscess is a differential possibility. Thoracic Spine MRI 03/15/18 00:00 CONCLUSION: 1. No abnormal areas of enhancement in the vertebral bodies or epidural space in the thoracic region. 2. Posterior osteophytes at all levels in the thoracic spine causing mild impression upon the thecal sac. No evidence of disc protrusions over. 3. Moderate size left pleural effusion. Abdomen/Pelvis CT 03/17/18 00:00 CONCLUSION: 1. Diffuse interstitial infiltrate in the lung bases and anasarca suggesting edema. 2. Minimal thickening of the colon. 3. Minimal left basilar effusion. 4. Small amount of free fluid within the abdomen and pelvis. 5. No free air identified. No findings to indicate a bowel obstruction. Chest X-Ray 03/17/18 04:00 CONCLUSION: Diffuse consolidation seen throughout the left lung and to a lesser degree the right mid and lower lung. This appears unchanged. This could be inflammatory or related to ARDS. Tubes and lines in good position. Chest CT 03/17/18 13:48 CONCLUSION: 1. Extensive interstitial prominence with some sparing of the right upper lobe suggesting ARDS. 2. Minimal effusion on the left with a tiny effusion on the right. 3. Degenerative changes in the thoracic spine. Abdomen X-Ray 03/19/18 00:00 CONCLUSION: 1. No bowel obstruction, ileus or perforation. 2. Degenerative changes and scoliosis of the thoracolumbar spine. Soft Tissue Ultrasound 03/19/18 00:00 CONCLUSION: 1. Fluid as above. Chest X-Ray 03/20/18 04:00 CONCLUSION: 1. Persistent diffuse interstitial and airspace consolidation throughout the left lung. 2. Improved aeration in the right mid to lower lung zone. Objective Remarks: Physical exam: General: Ill-appearing, pale, elderly woman on mechanical ventilation with APRV Head: Atraumatic, normal. Oral tracheal intubation. Neck: Stiff consistent with age but otherwise supple. Lungs: Continued bilateral scattered sonorous rhonchi. Very few secretions. Good bilateral air entry Heart: Regular rate and rhythm, S1, S2 no S4. 2/6 systolic murmur, no JVD Abdomen: Moderately distended, bowel sounds active, no guarding. No peritoneal irritation. Extremities: Warm, well-perfused. Neurologic: Propofol drip makes evaluation difficult. Cranial nerves II through XII grossly intact with positive cough and gag frequently flexors withdraws to pain bilateral upper and lower extremities. Assessment and Plan - Assessment and Plan Plan: Neuro/Psych Depression/anxiety Acute metabolic encephalopathy secondary to severe sepsis Currently a propofol drip at 40 mcg/kg/min for sedation while intubated. As needed fentanyl drip ordered. Remove fentanyl patch today. As needed morphine 4 mg IV every 2 hours as needed pain management Goal of RASS -2 Daily sedation vacation when appropriate Bupropion hydrochloride 150 mg daily currently being held. Resume clinically indicated Cardiovascular Severe septic shock History of SVT History of essential hypertension Hyperlipidemia Severe mitral regurgitation/tricuspid regurgitation -Khalif-Synephrine for supportive arterial blood pressure -Amiodarone drip for conversion of atrial fibrillation -Patient is on simvastatin 20 mill grams daily at home Respiratory Bilateral pneumonia with severe ARDS History of COPD/fibroproliferative changes APRV T high 4-second. T low 1 second. Pressure high 30 cm H2O. Pressure low 0 cmH2O. PSV 5. 55% FiO2 Ventilator bundle Albuterol/ipratropium aerosols every 6 hours with albuterol aerosols every 2 hours as needed for dyspnea Methylprednisolone succinate 40 mg IV every 12 hours Follow-up chest x-ray in a.m. 03/22 with ABG GI C. difficile colitis Hypoalbuminemia with acute severe potentially malnutrition History of Crohn's disease Gastroesophageal reflux disease History of recent ileus Started on tube feeding with Glucerna 1.5 goal 50 cc an hour per nutrition recommendations Famotidine for GI prophylaxis. On pantoprazole 40 mg daily at home. Holding docusate sodium/senna 1 tablet twice daily with current C. difficile -History of antral ulcers Renal/FEN/ Hypernatremia Hypocalcemia -Olivas to closed bag drainage -Monitor urine output -Accurate I's and O's Only on D5 water at 100 cc an hour. Free water 200 cc every 6 hours. Downward trend and sodium Hematology Leukocytosis -rule out leukemia Normocytic anemia Thrombocytopenia IgM kappa monoclonal gammopathy unknown significance History of lung cancer diagnosed 2012 -Serial white cell count with flow cytometry,Jak2 mutation and BCR ABL pending -Follow anemia with hemoglobin -Bone marrow biopsy at bedside per hematology -Hematology consult Transfuse 2 PRBCs during this hospitalization. Antibody positive. ID C. difficile Staph/strep bacteremia from outside hospital -Meropenem and vancomycin, adjust per ID consult -> IV and p.o. vancomycin, IV metronidazole, fidaxomicin added. -Blood organisms cultured at outside hospital are streptococcal and staph species. Sputum and UA 03/14 and 9/29 at this facility negative. Endo: Hypothyroidism Sliding scale insulin with aspart insulin medium protocol with Accu-Cheks to maintain euglycemia every 6 hours Continue levothyroxine 112 mcg daily. Check TSH MSK/Rheum: Psoas abscess Likely L1/L2 epidural abscess History of rheumatoid arthritis -Neurosurgery evaluation for lumbar fluid collection appreciated. IR to drain when clinically stable Prophylaxis -GI -famotidine -DVT -SCDs/heparin subcu Critical care time 35 minutes
[2018-03-21] MEDS ORDERED: Dextrose 50% in Water 50 ML Vial IV.PUSH PRN (12:27)
--- NOTE | 2018-03-21 13:29 | P.PCN ---
Date of procedure: 03/21/18 Pre-op diagnosis: Acute hypoxemic respiratory failure Post-op diagnosis: same Procedure: DATE: 03/21/2018 PROCEDURE: Left femoral arterial catheter placement INDICATION: Hemodynamic instability, on APRV. Need for frequent ABGs DETAILS OF PROCEDURE The patient was placed in supine position. The skin was cleansed with Chloraprep. Additional barrier precautions included large sterile drape, sterile gloves, sterile gown, face mask, and hat. 1% lidocaine was used for local anesthesia. Under direct ultrasound guidance and on the initial attempt, the artery was accessed with an introducer needle. The guide wire was advanced. Using Seldinger technique 20 gauge arterial catheter was placed. The guide wire was removed. The catheter was connected to a transducer line and flushed with saline. The video monitor displayed normal arterial wave forms. The catheter was secured with 2-0 silk. A sterile dressing with antibiotic disc was applied. Please note initially attempted left radial artery. Under direct ultrasound guidance and on 2 times, the artery was accessed with an introducer needle. The guidewire was advanced but curled. On both times, pressure was held for 5 minutes. Patient continued to have warm extremities and on ultrasound radial artery without obvious complication ESTIMATED BLOOD LOSS: minimal COMPLICATIONS: None
--- NOTE | 2018-03-21 15:09 | ECHRPT ---
Indication: CVA/TIA CONCLUSIONS The left ventricular systolic function is mildly reduced with an estimated ejection fraction in the range of 45- 50%. Normal left ventricular size. Mild concentric left ventricular hypertrophy. No regional wall motion abnormalities are present. The interatrial septum bowed from right to left, consistent with increased right atrial pressure. Mild thickening of the mitral valve leaflets. [id number] mitral valve regurgitation. Diffuse calcification of the aortic valve. Trace aortic valve regurgitation. There is moderate tricuspid regurgitation. The estimated pulmonary arterial pressure is 70.5 mmHg. BP: / HR: Rhythm: Sinus MEASUREMENTS (Male / Female) Normal Values Technical Quality:Fair 2D ECHO LV Diastolic Diameter PLAX 3.8 cm 4.2 - 5.9 / 3.9 - 5.3 cm LV Systolic Diameter PLAX 3.1 cm IVS Diastolic Thickness 1.4 cm 0.6 - 1.0 / 0.6 - 0.9 cm LVPW Diastolic Thickness 1.4 cm 0.6 - 1.0 / 0.6 - 0.9 cm LV Relative Wall Thickness 0.7 LV Ejection Fraction MOD 4C 44.8 % LV Ejection Fraction 4C AL 43.0 % DOPPLER TR Peak Velocity 389.0 cm/s TR Peak Gradient 60.5 mmHg Right Atrial Pressure 10.0 mmHg Pulmonary Artery Systolic Pressu 70.5 mmHg Right Ventricular Systolic Press 70.5 mmHg FINDINGS LEFT VENTRICLE The left ventricular systolic function is mildly reduced with an estimated ejection fraction in the range of 45- 50%. Normal left ventricular size. Mild concentric left ventricular hypertrophy. No regional wall motion abnormalities are present. RIGHT VENTRICLE Normal right ventricular size and systolic function. LEFT ATRIUM The left atrial size is normal. RIGHT ATRIUM The right atrial size is normal. ATRIAL SEPTUM The interatrial septum bowed from right to left, consistent with increased right atrial pressure. AORTA The aortic root and proximal ascending aorta are normal in size on limited imaging. MITRAL VALVE Mild thickening of the mitral valve leaflets. [id number] mitral valve regurgitation. AORTIC VALVE Trileaflet aortic valve. Diffuse calcification of the aortic valve. Trace aortic valve regurgitation. TRICUSPID VALVE Structurally normal tricuspid valve. There is moderate tricuspid regurgitation. The estimated pulmonary arterial pressure is 70.5 mmHg. PULMONARY VALVE No pulmonary valve regurgitation or stenosis. VESSELS The inferior vena cava is normal in size. PERICARDIUM No pericardial effusion. Igor Murillo MD, FACC, [facility] [place] (Electronically Signed) Final Date:21 March 2018 15:08
[2018-03-21 15:42] LABS: ABG Base Excess 1.6 mmol/L (-2-2); ABG PCO2 52 mmHg (38-42); ABG PO2 117 mmHg (61-120)
--- NOTE | 2018-03-21 15:47 | P.PNONC ---
Subjective Interval history: Afebrile. Remains ventilated and sedated. Objective Vital Signs/Intake & Output: Vital Signs 03/20/18 16:00 03/20/18 18:00 03/20/18 20:00 Temperature 98.9 F 98.6 F Pulse Rate 87 86 84 Respiratory Rate 27 H 22 Blood Pressure 126/59 L 119/53 L Pulse Oximetry 94 L 97 03/20/18 20:07 03/20/18 22:16 03/21/18 00:00 Temperature 98.2 F Pulse Rate 82 Respiratory Rate 12 27 H 20 Blood Pressure 99/52 L Pulse Oximetry 98 98 97 03/21/18 04:00 03/21/18 05:10 03/21/18 07:52 Temperature 98.5 F Pulse Rate 83 Respiratory Rate 22 21 20 Blood Pressure 100/53 L Pulse Oximetry 95 97 96 03/21/18 08:00 03/21/18 10:00 03/21/18 11:35 Temperature 98.6 F Pulse Rate 76 76 Respiratory Rate 16 26 H Blood Pressure 87/52 L Pulse Oximetry 95 95 03/21/18 12:05 03/21/18 14:00 Temperature 99 F Pulse Rate 85 86 Respiratory Rate 22 Blood Pressure 108/55 L Pulse Oximetry 94 L Intake & Output 03/20/18 03/21/18 03/21/18 18:59 06:59 18:59 Intake Total 2581 / 2581 3100 / 3100 462.5 / 462.5 Output Total 1700 / 1700 1400 / 1400 Balance 881 / 881 1700 / 1700 462.5 / 462.5 Weight 84.1 kg Intake: IV 1700 / 1700 2400 / 2400 462.5 / 462.5 D5W Inj 1,000 ML @ 100 mls/hr 1999 / 1999 IV.CONT .Q10H [facility] Rx#:[id number] D5W/1/2 NS Inj 1,000 ML @ 84 700 / 700 mls/hr IV.CONT .[id number] [facility] Rx# :[id number] Neosynephrine Inj 80 MG In NS 500 / 500 Inj 492 ML @ 40 MCG/MIN 15 mls/ hr IV.CONT TITRATE PRN Rx#: [id number] Diprivan 1000 mg/100 ml Inj 1, 300 / 300 200 / 200 100 / 100 000 mg In 100 ml @ 5 MCG/KG/MIN 2.292 mls/hr IV.CONT TITRATE PRN Rx#:[id number] Vancomycin Inj 1,250 MG In NS 262.5 / 262.5 Inj 250 ML @ 250 mls/hr IV.SIG Q36H [facility] Rx#:[id number] Flagyl 500 MG Inj 100 ML @ 100 200 / 200 200 / 200 100 / 100 mls/hr IV.SIG Q6H [facility] Rx#: [id number] Tube Feeding 501 / 501 550 / 550 Water Bolus Amount 380 / 380 150 / 150 Output: Stool 400 / 400 400 / 400 Urine Amount (Catheter) 1300 / 1300 1000 / 1000 Indwelling 1300 / 1300 1000 / 1000 Other: Date of Last Bowel Movement 03/20/18 03/21/18 03/21/18 Result Diagrams: 03/21/18 05:15 03/21/18 05:15 Laboratory Results: Laboratory Results - last 24 hr 03/17/18 03/20/18 03/21/18 05:30 05:25 05:15 WBC RBC Hgb Hct MCV MCH MCHC RDW Plt Count MPV Prelim Diff (Auto) WBC Differential Seg Neuts % (Manual) Band Neuts % (Manual) Lymphocytes % (Manual) Monocytes % (Manual) Eosinophils % (Manual) Myelocytes % (Man) Blast Cells % (Manual) Abs Neuts (Manual) Differential Comment Platelet Estimate Platelet Morphology Dimorphic RBCs Stomatocytes Sodium 152 H Potassium 4.9 Chloride 115 H Carbon Dioxide 31.5 Anion Gap 6 BUN 45 H Creatinine 0.96 Estimated GFR 56 L Random Glucose 126 H Calcium 7.3 L* Prot Corrected Calcium 8.1 L Total Bilirubin 0.3 AST 24 ALT 11 Alkaline Phosphatase 112 Total Protein 5.6 L Albumin 1.1 L TSH Immunophenotypic Anal Rout Panel Path Interp 03/21/18 03/21/18 05:15 05:15 WBC 23.3 H RBC 2.59 L Hgb 7.6 L Hct 23.2 L MCV 89.6 MCH 29.3 MCHC 32.7 RDW 25.5 H Plt Count 138 L MPV 12.3 H Prelim Diff (Auto) Manual diff required WBC Differential Manual diff final Seg Neuts % (Manual) 27 Band Neuts % (Manual) 42 H Lymphocytes % (Manual) 11 Monocytes % (Manual) 5 Eosinophils % (Manual) 2 Myelocytes % (Man) 12 H Blast Cells % (Manual) 1 H Abs Neuts (Manual) 18.9 H Differential Comment . Platelet Estimate Normal Platelet Morphology Normal Dimorphic RBCs Present H Stomatocytes 1+ H Sodium Potassium Chloride Carbon Dioxide Anion Gap BUN Creatinine Estimated GFR Random Glucose Calcium Prot Corrected Calcium Total Bilirubin AST ALT Alkaline Phosphatase Total Protein Albumin TSH 8.240 H Immunophenotypic Anal Rout Panel Path Interp Culture Results: Microbiology 03/17/18 14:59 Gram Stain - Final Sputum - Endotracheal Sputum Culture - Final Light growth normal respiratory shonda 03/17/18 15:03 Clostridium difficile GDH Antigen - Final Stool Positive - C. difficile Antigen detected. Clostridium difficile Toxin Assay - Final Negative - No C. difficile Toxin A or B detected. 03/17/18 15:00 Urine Culture - Final Catheterized Urine No growth in 48 hours Medications: Active Medications Generic Name Dose Route Start Last Admin Trade Name Freq PRN Reason Stop Dose Admin Chlorhexidine Gluconate 15 ml 03/14/18 20:00 03/21/18 07:47 Peridex 0.12% Oral Kit OROPHARYNG 15 ml BID@0800,2000 [facility] Administration Fidaxomicin 200 mg 03/19/18 21:00 03/21/18 08:52 Dificid PO 03/29/18 20:59 200 mg BID [facility] Administration Heparin Sodium (Porcine) 5,000 units 03/14/18 15:00 03/21/18 06:16 Heparin Inj SQ Not Given Q8H [facility] Propofol 1,000 mg in 100 mls @ 2.292 mls/hr 03/14/18 15:00 03/21/18 10:46 Diprivan 1000 Mg/100 Ml Inj IV.CONT 40 mcg/kg/min TITRATE PRN 18.34 mls/hr Per Protocol Administration Protocol 5 MCG/KG/MIN Phenylephrine HCl 80 mg/ 500 mls @ 15 mls/hr 03/14/18 16:00 03/21/18 09:00 Sodium Chloride IV.CONT 0 mcg/min TITRATE PRN 0 mls/hr See protocol Titration Protocol 40 MCG/MIN Potassium Chloride 40 meq in 100 mls @ 25 mls/hr 03/14/18 18:12 03/15/18 08: 58 Kcl 40 Meq Premix Inj IV.SIG Infused UNSCH PRN Infusion For Potassium 3.3 - 3.5 mEq/L Metronidazole/Sodium Chloride 100 mls @ 100 mls/hr 03/14/18 22:00 03/21/18 15 :30 Flagyl 500 Mg Inj IV.SIG 100 mls/hr Q6H [facility] Administration Vancomycin HCl 1,250 mg/ 262.5 mls @ 250 mls/hr 03/19/18 21:00 03/21/18 09:55 Sodium Chloride IV.SIG Infused Q36H [facility] Infusion Dextrose 1,000 mls @ 100 mls/hr 03/20/18 07:15 03/21/18 07:47 D5w Inj IV.CONT 03/23/18 08:00 100 mls/hr .Q10H [facility] Administration Levothyroxine Sodium 112 mcg 03/15/18 06:00 03/21/18 06:07 Synthroid PO 112 mcg DAILY@0600 [facility] Administration Miscellaneous Medication 1 each 03/14/18 16:00 03/21/18 12:00 OROPHARYNG 1 each 0000,0400,1200,1600 [facility] Administration Potassium Bicarb/Potassium Chloride 50 meq 03/14/18 18:12 03/14/18 18:32 K-Lyte Cl Eff PO 50 meq UNSCH PRN Administration For Potassium 3.3 - 3.5 mEq/L Senna/Docusate Sodium 1 tab 03/14/18 21:00 03/21/18 08:52 Mimi-Colace PO Not Given BID [facility] Sodium Chloride 2 ml 03/14/18 21:00 03/21/18 08:53 Ns Flush IV.FLUSH Not Given BID [facility] Vancomycin HCl 500 mg 03/15/18 18:00 03/21/18 13:51 Vancomycin Po PO 500 mg QID [facility] Administration Whey 1 packet 03/15/18 13:00 03/21/18 13:50 Beneprotein Powder G-TUBE 1 packet TID [facility] Administration Objective Remarks: GENERAL: Ill-appearing female patient, ventilated and sedated. SKIN: Warm and dry. HEAD: Normocephalic. EYES: No scleral icterus. No injection or drainage. NECK: Supple, trachea midline. CARDIOVASCULAR: Regular rate and rhythm. RESPIRATORY: Breath sounds equal bilaterally. No accessory muscle use. Ventilated FiO2 55. GASTROINTESTINAL: Abdomen large, distended. Rectal tube draining dark stool. EXTREMITIES: No cyanosis. +anasarca. Scab to left 2nd toe. NEUROLOGICAL: +sedated and ventilated. Assessment/Plan - Plan Ms. Arevalo is a 77 year-old female patient, transferred to [place] on 03/14/2018 from [facility]. According to the records, she was originally seen with severe back pain, CT scan of the abdomen and pelvis showed an epidural abscess and abdominal abscesses. She was treated with antibiotics. She then developed pneumonia and went into respiratory failure. At which time she was intubated. She is currently being treated for C. difficile I will colitis. Hematology was consulted for evaluation of leukocytosis with immature cells in the peripheral blood and severe anemia. Plan: 1. Leukocytosis, in the setting of severe sepsis and infection, acute leukemia and myeloproliferative disorder are differentials as well. 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 Jak2 mutation and BCR-ABL by FISH are pending. Per RN, daughter has consented for bone marrow biopsy. Per gas station manager patient is not stable to go to IR. Bone marrow biopsy will have to be done at the bedside or wait until patient is stable. 2. Anemia. Hemoglobin decreased to 7.6 today, possibly dilutional as all lines have decreased. No evidence of bleeding. Will repeat CBC in a.m. 3. Severe sepsis, management per gas station manager and infectious disease. 4. We will continue to follow. - Attending Statement The exam, history, and the medical decision-making described in the above note were completed with the assistance of the mid-level provider. I reviewed and agree with the findings presented. I attest that I had a [id number] encounter with the patient on the same day, and personally performed and documented my assessment and findings in the medical record. on vent, sedated. 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 BCR -ABL is negative and flow does not show leukemia or lymphoma. consent obtain from daughter (POA) for BM bx. BM bx today. monitor cbc. PROCEDURE NOTE: Performed by: DR Campbell Kineseologist: Marj Alvares (Pt RN) After obtaining consent from daughter, right post iliac BM asp and bx performed under sterile condition.Pt remains sedated on vent. No obvious complications. Hemostasis obtained.Dressing applied. Specimen dropped off at heme lab for - flow cyto - Cytogenetics - Morphology
[2018-03-21] MEDS ORDERED: Lidocaine 1% Inj 50 ML Vial ONE (17:17)
[2018-03-21] MEDS ORDERED: Labetalol HCl Inj 100 MG/20 ML Vial IV.PUSH PRN (17:44)
[2018-03-21] MEDS ORDERED: niCARdipine Inj 25 MG in Sodium Chlor 0.9% Inj 240 ML IV.CONT PRN (17:47)
[2018-03-21] MEDS: Insulin NovoLOG Aspart Correctional Sugar Inj SQ SCH (18:00)
--- NOTE | 2018-03-21 18:48 | P.PNID ---
Subjective Remarks: remains on vent, no weaning , 65 % FiO2 + cont to have fever low grade up to 100 WBC down to 23 K today, bandemia seen by hem/onc: jesenia Campbell - myeloproliferative d/o sp BM today NO secretions cont to have large volume liquid tool close to 1 L /day tolerates tube feedings @ goal sputum showed light NRF CT chest with interstitial lung changes Non contrasted CT A/P with colitis Antibiotics: dificid vanco po vanco flagyl iv Allergies/Adverse Reactions: Allergies Penicillins Allergy (Verified 03/14/18 13:53) Swelling of Lip/Tongue/Throat Sulfa (Sulfonamide Antibiotics) Allergy (Verified 03/14/18 13:53) Diarrhea shellfish Adverse Reaction (Uncoded 03/14/18 13:53) Swelling of Lip/Tongue/Throat Objective Vital Signs 03/20/18 20:00 03/20/18 20:07 03/20/18 22:16 Temperature 98.6 F Pulse Rate 84 Respiratory Rate 22 12 27 H Blood Pressure 119/53 L Pulse Oximetry 97 98 98 03/21/18 00:00 03/21/18 04:00 03/21/18 05:10 Temperature 98.2 F 98.5 F Pulse Rate 82 83 Respiratory Rate 20 22 21 Blood Pressure 99/52 L 100/53 L Pulse Oximetry 97 95 97 03/21/18 07:52 03/21/18 08:00 03/21/18 10:00 Temperature 98.6 F Pulse Rate 76 76 Respiratory Rate 20 16 Blood Pressure 87/52 L Pulse Oximetry 96 95 03/21/18 11:35 03/21/18 12:05 03/21/18 14:00 Temperature 99 F Pulse Rate 85 86 Respiratory Rate 26 H 22 Blood Pressure 108/55 L Pulse Oximetry 95 94 L 03/21/18 15:52 03/21/18 15:55 03/21/18 16:00 Temperature 98 F Pulse Rate 89 91 H Respiratory Rate 32 H 28 H 29 H Blood Pressure 141/65 H Pulse Oximetry 95 93 L 03/21/18 18:00 Temperature Pulse Rate 98 H Respiratory Rate Blood Pressure Pulse Oximetry Intake & Output 03/20/18 03/21/18 03/21/18 18:59 06:59 18:59 Intake Total 2581 / 2581 3100 / 3100 1717.5 / 1717.5 Output Total 1700 / 1700 1400 / 1400 1650 / 1650 Balance 881 / 881 1700 / 1700 67.5 / 67.5 Weight 84.1 kg Intake: IV 1700 / 1700 2400 / 2400 662.5 / 662.5 D5W Inj 1,000 ML @ 100 mls/hr 1999 / 1999 IV.CONT .Q10H [facility] Rx#:[id number] D5W/1/2 NS Inj 1,000 ML @ 84 700 / 700 mls/hr IV.CONT .[id number] [facility] Rx# :[id number] Neosynephrine Inj 80 MG In NS 500 / 500 Inj 492 ML @ 40 MCG/MIN 15 mls/ hr IV.CONT TITRATE PRN Rx#: [id number] Diprivan 1000 mg/100 ml Inj 1, 300 / 300 200 / 200 200 / 200 000 mg In 100 ml @ 5 MCG/KG/MIN 2.292 mls/hr IV.CONT TITRATE PRN Rx#:[id number] Vancomycin Inj 1,250 MG In NS 262.5 / 262.5 Inj 250 ML @ 250 mls/hr IV.SIG Q36H [facility] Rx#:[id number] Flagyl 500 MG Inj 100 ML @ 100 200 / 200 200 / 200 200 / 200 mls/hr IV.SIG Q6H [facility] Rx#: [id number] Tube Feeding 501 / 501 550 / 550 565 / 565 Water Bolus Amount 380 / 380 150 / 150 490 / 490 Output: Stool 400 / 400 400 / 400 500 / 500 Urine Amount (Catheter) 1300 / 1300 1000 / 1000 1150 / 1150 Indwelling 1300 / 1300 1000 / 1000 1150 / 1150 Other: Date of Last Bowel Movement 03/20/18 03/21/18 03/21/18 03/17/18 14:59 Sputum - Endotracheal Gram Stain - Final 03/17/18 14:59 Sputum - Endotracheal Sputum Culture - Final Light growth normal respiratory shonda 03/17/18 15:03 Stool Clostridium difficile GDH Antigen - Final Positive - C. difficile Antigen detected. 03/17/18 15:03 Stool Clostridium difficile Toxin Assay - Final Negative - No C. difficile Toxin A or B detected. 03/17/18 15:00 Catheterized Urine Urine Culture - Final No growth in 48 hours Lab - Hematology Results 03/20/18 03/21/18 05:25 05:15 WBC 36.3 H 23.3 H RBC 3.05 L 2.59 L Hgb 8.8 L 7.6 L Hct 27.3 L 23.2 L MCV 89.7 89.6 MCH 28.8 29.3 MCHC 32.1 32.7 RDW 26.6 H 25.5 H Plt Count 174 138 L MPV 11.3 H 12.3 H Prelim Diff (Auto) Manual diff required Manual diff required WBC Differential Manual diff final Manual diff final Seg Neuts % (Manual) 36 27 Band Neuts % (Manual) 10 H 42 H Lymphocytes % (Manual) 7 L 11 Monocytes % (Manual) 12 H 5 Eosinophils % (Manual) 3 2 Metamyelocytes % (Man) 4 H Myelocytes % (Man) 25 H 12 H Promyelocytes % (Man) 3 H Blast Cells % (Manual) 1 H Abs Neuts (Manual) 28.3 H 18.9 H Nucleated RBCs/100 WBC 1 H Differential Comment . . Platelet Estimate Normal Normal Platelet Morphology Normal Normal Dimorphic RBCs Present H Present H Stomatocytes 1+ H Lab - Chemistry Results 03/20/18 03/21/18 03/21/18 05:23 05:15 05:15 Sodium 157 H* 152 H Potassium 5.1 4.9 Chloride 120 H 115 H Carbon Dioxide 29.8 31.5 Anion Gap 7 6 BUN 44 H 45 H Creatinine 0.92 0.96 Estimated GFR 59 L 56 L POC Glucose Random Glucose 118 H 126 H Calcium 6.9 L* 7.3 L* Prot Corrected Calcium 7.5 L 8.1 L Total Bilirubin 0.3 0.3 AST 30 24 ALT 12 11 Alkaline Phosphatase 135 H 112 Total Protein 5.9 L 5.6 L Albumin 1.1 L 1.1 L TSH 8.240 H 03/21/18 18:00 Sodium Potassium Chloride Carbon Dioxide Anion Gap BUN Creatinine Estimated GFR POC Glucose 149 H Random Glucose Calcium Prot Corrected Calcium Total Bilirubin AST ALT Alkaline Phosphatase Total Protein Albumin TSH Imaging: ITS Impressions Cervical Spine MRI 03/15/18 00:00 CONCLUSION: 1. No abnormal areas of enhancement in the dural space or vertebral bodies. 2. Spinal stenosis due to disc bulging at multiple levels and anterolisthesis at C4-5. There is also multilevel bony neural foraminal stenosis. Lumbar Spine MRI 03/15/18 00:00 CONCLUSION: 1. Enhancing soft tissue extending from the subcutaneous region down to the thecal sac at the L1 and L2 level characteristic of postsurgical findings with a rounded area of fluid with some minimal peripheral enhancement dorsal to the thecal sac flattening the posterior margin at L1 and L2. Since there is some minimal peripheral enhancement, and epidural abscess is a differential possibility. Thoracic Spine MRI 03/15/18 00:00 CONCLUSION: 1. No abnormal areas of enhancement in the vertebral bodies or epidural space in the thoracic region. 2. Posterior osteophytes at all levels in the thoracic spine causing mild impression upon the thecal sac. No evidence of disc protrusions over. 3. Moderate size left pleural effusion. Abdomen/Pelvis CT 03/17/18 00:00 CONCLUSION: 1. Diffuse interstitial infiltrate in the lung bases and anasarca suggesting edema. 2. Minimal thickening of the colon. 3. Minimal left basilar effusion. 4. Small amount of free fluid within the abdomen and pelvis. 5. No free air identified. No findings to indicate a bowel obstruction. Chest CT 03/17/18 13:48 CONCLUSION: 1. Extensive interstitial prominence with some sparing of the right upper lobe suggesting ARDS. 2. Minimal effusion on the left with a tiny effusion on the right. 3. Degenerative changes in the thoracic spine. Abdomen X-Ray 03/19/18 00:00 CONCLUSION: 1. No bowel obstruction, ileus or perforation. 2. Degenerative changes and scoliosis of the thoracolumbar spine. Soft Tissue Ultrasound 03/19/18 00:00 CONCLUSION: 1. Fluid as above. Chest X-Ray 03/20/18 04:00 CONCLUSION: 1. Persistent diffuse interstitial and airspace consolidation throughout the left lung. 2. Improved aeration in the right mid to lower lung zone. Physical Exam: GENERAL: NAD sedated, on vent SKIN: Warm and dry. No rash HEAD: Atraumatic. Normocephalic. EYES: Pupils equal and round. No scleral icterus. No injection or drainage. ENT: No nasal bleeding or discharge. Mucous membranes pink and moist. NECK: Trachea midline. No JVD. CARDIOVASCULAR: Regular rate and rhythm. RESPIRATORY: No accessory muscle use. b/l rhonchi to auscultation. Breath sounds equal bilaterally. GASTROINTESTINAL: Abdomen soft, no reaction to palpation, + markedlyly distended. Hepatic and splenic margins not palpable. MUSCULOSKELETAL: Extremities without clubbing, cyanosis, severe tight pitting 3-4 + edema. No obvious deformities. NEUROLOGICAL: sedated; not following commands PSYCHIATRIC: unable to assess Assessment and Plan - Plan Critical, stable PNA, HCAP /aspiration vs ARDS - NGTD from sputum Lower T / L spine epidural abscess - pt was seen by Dr Monster Taylor who is planning to repeat MR w/wo c when stable enough - jesenia Wiley: small amount of fluid present Sepsis: staph reported by other facility provider Acute VDR 2/2 ARDS ARF C.diff colitis. Perssitent Severe leukocytosis, leukemoid reaction. Likely combined myeloproliferaticve d/ o and infection cont iv flagyl cont po vancomycin cont iv vanco cont dificid IR aspiration for culture when feasible from resp standpoint jesenia ba RN
[2018-03-21 18:57] LABS: Iron Stain Bone Marrow Done
[2018-03-21] MEDS: Carboxymethylcellulose 0.5% Opth Drops 15 ML Bottle EACH EYE SCH (21:11)
[2018-03-21] MEDS: Famotidine 20 MG Tablet PO SCH (21:12)
[2018-03-22] MEDS: Insulin NovoLOG Aspart Correctional Sugar Inj SQ SCH ×4 (00:44→18:01)
[2018-03-22] MEDS: Propofol 1000 mg/100 ml Inj 1,000 MG/100 ML BOTTLE IV.CONT PRN ×5 (02:28→21:42)
--- NOTE | 2018-03-22 04:43 | XR ---
EXAM DATE: 03/22/2018 6:00 AM EDT AGE/SEX: 77 years / Female INDICATIONS: Shortness of breath. CLINICAL DATA: This is the patient's subsequent encounter. Patient reports that signs and symptoms h ave been present for 1 week and indicates a pain score of Nonresponsive. MEDICAL/SURGICAL HISTORY: . Anemia. Atrial fibrillation. Tricuspid regurgitation. . Fusion, rose mary mbar. COMPARISON: [facility], CHEST 1V SINGLE AP, 03/20/2018. . FINDINGS: Stable ETT and NGT. Redemonstration of diffuse interstitial and alveolar opacities throughout the lef t lung. Persistent patchy interstitial and alveolar opacities in the right lower lung zone. Cardiomed iastinal contours are stable. Remainder of the exam is unchanged. CONCLUSION: 1. No significant interval change. 2. Stable ETT and NGT. 3. Stable diffuse interstitial and airspace opacities throughout the left lung. 4. Stable interstitial and alveolar opacities in the right lower lung zone. Electronically signed by: Paxton Coats MD 03/22/2018 4:41 AM EDT
[2018-03-22] MEDS: Oral Hygiene Kit OROPHARYNG SCH ×3 (04:51→16:49)
[2018-03-22] MEDS: Levothyroxine 112 MCG Tablet PO SCH (05:19)
[2018-03-22 05:23] LABS: Hematocrit 27.4 % (35.0-46.0); Hemoglobin 8.8 gm/dL (11.6-15.3); Mean Corpuscular HGB Conc 32.1 % (32.0-36.0); Mean Corpuscular Volume 90.2 fL (80.0-100.0); Mean Platelet Volume 12.6 fL (7.0-11.0); Platelet Count 141 th/mm3 (150-450); Red Blood Count 3.04 mil/mm3 (4.00-5.30); Red Cell Distribution Width 23.1 % (11.6-17.2); White Blood Count 26.2 th/mm3 (4.0-11.0)
[2018-03-22 05:35] LABS: Activated Partial Thrombo Time 29.7 sec (24.3-30.1); INR 1.1 Ratio; Prothrombin Time 11.1 sec (9.8-11.6)
[2018-03-22 05:58] LABS: Albumin 1.1 g/dL (3.4-5.0); Calcium 7.1 mg/dL (8.5-10.1); Carbon Dioxide 28.9 meq/L (21.0-32.0); Magnesium 2.1 mg/dL (1.5-2.5); Phosphorus 3.7 mg/dL (2.5-4.9); Thyroid Stimulating Hormone 11.8 uIU/mL (0.358-3.740); Total Protein 5.7 g/dL (6.4-8.2)
[2018-03-22 06:11] LABS: ABG Base Excess 3.1 mmol/L (-2-2); ABG PCO2 46 mmHg (38-42); ABG PO2 63 mmHg (61-120)
[2018-03-22] MEDS: Heparin - SQ 10,000 UNITS/ML Vial SQ SCH ×3 (06:20→22:49)
[2018-03-22] MEDS ORDERED: Calcium Chloride Inj 1 GM in Dextrose 5% in Water Inj 100 ML IV.SIG ONE ×2 (07:00)
[2018-03-22 07:14] LABS: Eosinophils 1 % (0-4); Lymphocytes 4 % (9-44); Metamyelocytes 11 % (0-1); Monocytes 13 % (0-8); Myelocytes 2 % (0-0); Promyelocyte 1 % (0-0); Tallied Nucleated RBC 1 (0-0)
[2018-03-22 07:15] LABS: Platelet Estimate Normal (Normal)
[2018-03-22 07:16] LABS: Ovalocytes 1+
--- NOTE | 2018-03-22 07:19 | P.PNCC ---
Subjective Subjective Remarks/Hospital Course: This 77-year-old woman was transferred from [facility] to [facility] for treatment of respiratory failure with septic shock and peripheral abscesses including recent diagnosis of epidural abscess in the lumbar region. Her respiratory status is quite compromised with diffuse infiltrates throughout both lung welsh and she is ventilator dependent. On initial presentation to the hospital impair she had complaints of back pain radiating to her left knee. Her hemoglobin was 4 source of bleeding was clear was unclear at first and Dr. Vasquez had previously performed upper and lower endoscopy without location of a source. She has had a metastatic series and MRI on March 04 which developed multilevel central canal and foraminal stenoses she has had a transesophageal echo which revealed severe mitral regurgitation her hospital course has been complicated by atrial fibrillation and hemodynamic instability. Cardioversion was unsuccessful. She has continued recent fever course in excess of 103 degrees and has been treated with broad-spectrum antibiotic coverage including meropenem and vancomycin. She is continued to deteriorate and on about March 11 required endotracheal intubation and mechanical ventilation. Recent ICU white blood cell count is 40,000 blood cultures from March 09 revealed Streptococcus species and a subsequent blood culture grew a staph organism according to the report from the referring physician. The woman is required amiodarone therapy and diltiazem with additional cardioversion to sinus rhythm on the chest x-ray continues to worsen. CT of the abdomen reveals fluid collection on the left psoas muscle, possibly abscess. The contralateral psoas muscle has a similar collection. Recent MRI demonstrates old spine hardware L3-S1 and an irregular soft tissue density around the thecal sac at L1-L2 extending to T12-L1 she is required vasopressor support for hypotension and obvious sepsis overnight. The one constant throughout her early hospital course was severe lower back pain radiating down her legs. 03/15: Temperature max 101. Leukocytosis persists to 30,000. Back in normal sinus rhythm now with pulse rate controlled. Her respiratory status is unstable and she still requiring elevated ventilator pressures and elevated oxygen concentration. We will attempt to get an MRI of the entire spine with and without contrast today pending her hemodynamic suitability. At present her pulmonary status makes operative procedure a prohibitive risk. 03/16: T-max 100. Leukocytosis to 30,000 persists. Remains in sinus rhythm. MRI of the spine reviewed. Patient remains clinically critically ill. Azotemia slightly improved. Continue hydration. Start trickle tube feeding with added protein. 03/16: Continued septic course with low-grade fever and white count 33,000. Chest x-ray appearance alone could explain sepsis. Doing need to culture the fluid collections in the back to rule out another possible nidus? 03/17: Worsening respiratory function requiring us to convert to airway pressure release ventilation mode. Way too ill to allow us to transfer and mobilize for psoas muscle fluid aspiration. Elevated white count persists. Renal function slightly improved. Still requiring aggressive fluid resuscitation. White blood cell count 34,000 tomorrow, consistent with colitis. 03/18: Patient remains quite unstable requiring elevated inspiratory fraction of oxygen and markedly elevated mean airway pressures. CAT scan yesterday confirms dense fibrotic pattern left lung consistent with fibroproliferative phase of ARDS. Right lung has a more spotty architectural pattern due to large areas of emphysema. Due to unique antibodies transfusion has been delayed but should proceed today. Elevated white count to 45,000 with a preponderance of immature forms including myelocytes raises concerns for a bone marrow disorder. 03/19: T-max 100.1, pronounced leukocytosis with persistent elevated myelocytes. We appear to have control of the infection despite the lack of clarity involving the various retroperitoneal fluid collections. Hemodynamically she does not act like florid sepsis. CAT scan of the abdomen does not reveal an obvious source of this leukocytosis. CAT scan of the chest reveals a fibroproliferative stage of ARDS but does not necessarily explain the markedly elevated white count. I will ask the hematology service to evaluate. 03/20: I appreciate input from the hematology service. We are treating presumptive C. difficile colitis and antimicrobial coverage for that is adequate. Progress with the improvement of her ARDS is slow and she still requires elevated fractional inspired oxygen concentration and markedly elevated mean airway pressure. Despite progressively lowered tonicity of fluid administered she continues to concentrate sodium. Now at 157 we are forced to resort to simple D5 water. 03/21: Afebrile. Remains on APRV ventilation. Sodium currently 152. Not stable for IR at the present time. Will attempt to wean APRV today with drop and stretch and see if she tolerates. Tube feeds currently at goal. SUBJECTIVE: 03/22: Afebrile. FiO2 - 75%. Chest x-ray essentially stable. Status post bone marrow biopsy yesterday. To physical. 500 cc stool past 24 hours. Objective Vital Signs / I&O: Vital Signs 03/21/18 07:52 03/21/18 08:00 03/21/18 10:00 Temperature 98.6 F Pulse Rate 76 76 Respiratory Rate 20 16 Blood Pressure 87/52 L Pulse Oximetry 96 95 03/21/18 11:35 03/21/18 12:05 03/21/18 14:00 Temperature 99 F Pulse Rate 85 86 Respiratory Rate 26 H 22 Blood Pressure 108/55 L Pulse Oximetry 95 94 L 03/21/18 15:52 03/21/18 15:55 03/21/18 16:00 Temperature 98 F Pulse Rate 89 91 H Respiratory Rate 32 H 28 H 29 H Blood Pressure 141/65 H Pulse Oximetry 95 93 L 03/21/18 18:00 03/21/18 19:15 03/21/18 19:18 Temperature 98.2 F Pulse Rate 98 H 83 Respiratory Rate 28 H 25 H Blood Pressure 122/53 L Pulse Oximetry 98 98 03/21/18 20:00 03/21/18 20:12 03/21/18 21:29 Temperature 98.7 F 98.7 F Pulse Rate 82 84 86 Respiratory Rate 28 H 35 H 28 H Blood Pressure 142/60 H 120/55 L Pulse Oximetry 99 95 95 03/21/18 23:09 03/22/18 00:00 03/22/18 03:57 Temperature 98.9 F Pulse Rate 94 H 87 Respiratory Rate 26 H 28 H 30 H Blood Pressure 156/65 H Pulse Oximetry 95 92 L 95 03/22/18 04:00 Temperature 99.4 F Pulse Rate 88 Respiratory Rate 30 H Blood Pressure 166/68 H Pulse Oximetry 97 Intake & Output 03/21/18 03/22/18 03/22/18 18:59 06:59 18:59 Intake Total 2717.5 / 2717.5 1891 / 1891 Output Total 1650 / 1650 1500 / 1500 Balance 1067.5 / 1067.5 391 / 391 Weight 86.2 kg Intake: IV 1662.5 / 1662.5 500 / 500 D5W Inj 1,000 ML @ 100 mls/hr 1000 / 1000 IV.CONT .Q10H [facility] Rx#:[id number] Diprivan 1000 mg/100 ml Inj 1, 200 / 200 300 / 300 000 mg In 100 ml @ 5 MCG/KG/MIN 2.292 mls/hr IV.CONT TITRATE PRN Rx#:[id number] Vancomycin Inj 1,250 MG In NS 262.5 / 262.5 Inj 250 ML @ 250 mls/hr IV.SIG Q36H [facility] Rx#:[id number] Flagyl 500 MG Inj 100 ML @ 100 200 / 200 200 / 200 mls/hr IV.SIG Q6H [facility] Rx#: [id number] Tube Feeding 565 / 565 591 / 591 Water Bolus Amount 490 / 490 400 / 400 Intake (Blood Product) Amt 400 / 400 Rbc As-3 Leukoreduced Unit 400 / 400 [id number] Output: Stool 500 / 500 100 / 100 Urine Amount (Catheter) 1150 / 1150 1400 / 1400 Indwelling 1150 / 1150 1400 / 1400 Other: Date of Last Bowel Movement 03/21/18 Result Diagrams: 03/22/18 04:45 03/22/18 04:45 Other Results: Microbiology 03/17/18 14:59 Sputum - Endotracheal Gram Stain - Final 03/17/18 14:59 Sputum - Endotracheal Sputum Culture - Final Light growth normal respiratory shonda 03/17/18 15:03 Stool Clostridium difficile GDH Antigen - Final Positive - C. difficile Antigen detected. 03/17/18 15:03 Stool Clostridium difficile Toxin Assay - Final Negative - No C. difficile Toxin A or B detected. 03/17/18 15:00 Catheterized Urine Urine Culture - Final No growth in 48 hours 03/14/18 15:42 Sputum - Endotracheal Gram Stain - Final 03/14/18 15:42 Sputum - Endotracheal Sputum Culture - Final Rare growth normal respiratory shonda 03/14/18 15:38 Catheterized Urine Urine Culture - Final No growth in 48 hours 03/14/18 16:20 Stool Clostridium difficile GDH Antigen - Final Positive - C. difficile Antigen detected. 03/14/18 16:20 Stool Clostridium difficile Toxin Assay - Final Negative - No C. difficile Toxin A or B detected. Imaging: Chest X-Ray 03/14/18 00:00 CONCLUSION: 1. Tubes and lines, as above. 2. Diffuse airspace disease throughout the left lung and in the right mid to lower lung zones consistent with atypical/multilobar pneumonia versus developing ARDS. 3. Prominence of the AP window may reflect adenopathy. Cervical Spine MRI 03/15/18 00:00 CONCLUSION: 1. No abnormal areas of enhancement in the dural space or vertebral bodies. 2. Spinal stenosis due to disc bulging at multiple levels and anterolisthesis at C4-5. There is also multilevel bony neural foraminal stenosis. Lumbar Spine MRI 03/15/18 00:00 CONCLUSION: 1. Enhancing soft tissue extending from the subcutaneous region down to the thecal sac at the L1 and L2 level characteristic of postsurgical findings with a rounded area of fluid with some minimal peripheral enhancement dorsal to the thecal sac flattening the posterior margin at L1 and L2. Since there is some minimal peripheral enhancement, and epidural abscess is a differential possibility. Thoracic Spine MRI 03/15/18 00:00 CONCLUSION: 1. No abnormal areas of enhancement in the vertebral bodies or epidural space in the thoracic region. 2. Posterior osteophytes at all levels in the thoracic spine causing mild impression upon the thecal sac. No evidence of disc protrusions over. 3. Moderate size left pleural effusion. Abdomen/Pelvis CT 03/17/18 00:00 CONCLUSION: 1. Diffuse interstitial infiltrate in the lung bases and anasarca suggesting edema. 2. Minimal thickening of the colon. 3. Minimal left basilar effusion. 4. Small amount of free fluid within the abdomen and pelvis. 5. No free air identified. No findings to indicate a bowel obstruction. Chest X-Ray 03/17/18 04:00 CONCLUSION: Diffuse consolidation seen throughout the left lung and to a lesser degree the right mid and lower lung. This appears unchanged. This could be inflammatory or related to ARDS. Tubes and lines in good position. Chest CT 03/17/18 13:48 CONCLUSION: 1. Extensive interstitial prominence with some sparing of the right upper lobe suggesting ARDS. 2. Minimal effusion on the left with a tiny effusion on the right. 3. Degenerative changes in the thoracic spine. Abdomen X-Ray 03/19/18 00:00 CONCLUSION: 1. No bowel obstruction, ileus or perforation. 2. Degenerative changes and scoliosis of the thoracolumbar spine. Soft Tissue Ultrasound 03/19/18 00:00 CONCLUSION: 1. Fluid as above. Chest X-Ray 03/20/18 04:00 CONCLUSION: 1. Persistent diffuse interstitial and airspace consolidation throughout the left lung. 2. Improved aeration in the right mid to lower lung zone. Chest X-Ray 03/22/18 06:00 CONCLUSION: 1. No significant interval change. 2. Stable ETT and NGT. 3. Stable diffuse interstitial and airspace opacities throughout the left lung. 4. Stable interstitial and alveolar opacities in the right lower lung zone. Objective Remarks: General: Ill-appearing, pale, elderly woman on mechanical ventilation with APRV Head: Atraumatic, normal. Oral tracheal intubation. Neck: Stiff consistent with age but otherwise supple. Lungs: Continued bilateral scattered rhonchi anteriorly and posteriorly. Few greenish/yellow thick secretions. Good bilateral air entry Heart: Regular rate and rhythm, S1, S2 no S4. 2/6 systolic murmur, no JVD Abdomen: Moderately distended, bowel sounds active, no guarding. No peritoneal irritation. Extremities: Warm, well-perfused. Neurologic: Propofol drip makes evaluation difficult. Cranial nerves II through XII grossly intact with positive cough and gag frequently flexors withdraws to pain bilateral upper and lower extremities. Assessment and Plan - Assessment and Plan Plan: Neuro/Psych Depression/anxiety Acute metabolic encephalopathy secondary to severe sepsis Currently a propofol drip at 40 mcg/kg/min for sedation while intubated. As needed fentanyl drip ordered. As needed morphine 4 mg IV every 2 hours as needed pain management Goal of RASS -2 Daily sedation vacation when appropriate Bupropion hydrochloride 150 mg daily currently being held. Resume clinically indicated Cardiovascular Severe septic shock History of SVT History of essential hypertension Hyperlipidemia Moderate TR/MR 2D echocardiogram - LVSF 45- 50%. Mild LVH. [id number] mitral valve regurgitation. Diffuse calcification of the aortic valve. There is moderate tricuspid regurgitation. PAP 70.5 mmHg -Phenylephrine drip as needed for supportive arterial blood pressure -Patient is on simvastatin 20 mill grams daily at home for hyperlipidemia. Respiratory Bilateral pneumonia with severe ARDS History of COPD/fibroproliferative changes APRV T high 4-second. T low 0.7 second. Pressure high 32 cm H2O. Pressure low 0 cmH2O. PSV 5. 75% FiO2 Ventilator bundle Albuterol/ipratropium aerosols every 4 hours with albuterol aerosols every 2 hours as needed for dyspnea Methylprednisolone succinate 40 mg IV every 12 hours Follow-up chest x-ray in a.m. 03/23 with ABG GI C. difficile colitis Hypoalbuminemia with acute severe potentially malnutrition History of Crohn's disease Gastroesophageal reflux disease History of recent ileus Started on tube feeding with Glucerna 1.5 goal 50 cc an hour per nutrition recommendations Famotidine for GI prophylaxis. On pantoprazole 40 mg daily at home. Holding docusate sodium/senna 1 tablet twice daily with current C. difficile -History of antral ulcers Renal/FEN/ Hypocalcemia -Olivas to closed bag drainage -Monitor urine output -Accurate I's and O's Only on D5 water at 100 cc an hour. Discontinued today 03/22 free water 100 cc every 6 hours. Downward trend and sodium Hematology Leukocytosis -rule out leukemia Normocytic anemia Thrombocytopenia IgM kappa monoclonal gammopathy unknown significance History of lung cancer diagnosed 2012 -Serial white cell count with flow cytometry - CMML preliminary,Jak2 mutation pending and BCR ABL negative -Follow anemia with hemoglobin -Bone marrow biopsy at bedside per hematology -Hematology consult Transfuse 3 PRBCs during this hospitalization. Antibody positive. ID C. difficile Staph/strep bacteremia from outside hospital -Meropenem and vancomycin, adjust per ID consult -> IV and p.o. vancomycin, IV metronidazole, fidaxomicin added. -Blood organisms cultured at outside hospital are streptococcal and staph species. Sputum and UA 03/14 and 03/17 at this facility negative. Endo: Hypothyroidism Sliding scale insulin with aspart insulin medium protocol with Accu-Cheks to maintain euglycemia every 6 hours Continue levothyroxine but increase to 125 g daily. TSH was 11.1 today MSK/Rheum: Psoas abscess Likely L1/L2 epidural abscess History of rheumatoid arthritis -Neurosurgery evaluation for lumbar fluid collection appreciated. IR to drain when clinically stable Prophylaxis -GI -famotidine -DVT -SCDs/heparin subcu Critical care time 35 minutes Code Status: Full code
[2018-03-22] MEDS: Chlorhexidine 0.12% Oral Kit 15 ML UDC OROPHARYNG SCH ×2 (09:19→19:39)
[2018-03-22] MEDS: Carboxymethylcellulose 0.5% Opth Drops 15 ML Bottle EACH EYE SCH ×2 (09:20→21:42)
[2018-03-22] MEDS: Famotidine 20 MG Tablet PO SCH ×2 (09:20→21:41)
--- NOTE | 2018-03-22 09:51 | P.PNNS ---
Subjective Interval history: No acute events overnight Physical Exam Vital signs: Vital Signs 03/21/18 10:00 03/21/18 11:35 03/21/18 12:05 Temperature 99 F Pulse Rate 76 85 Respiratory Rate 26 H 22 Blood Pressure 108/55 L Pulse Oximetry 95 94 L 03/21/18 14:00 03/21/18 15:52 03/21/18 15:55 Temperature Pulse Rate 86 89 Respiratory Rate 32 H 28 H Blood Pressure Pulse Oximetry 95 03/21/18 16:00 03/21/18 18:00 03/21/18 19:15 Temperature 98 F Pulse Rate 91 H 98 H Respiratory Rate 29 H 28 H Blood Pressure 141/65 H 122/53 L Pulse Oximetry 93 L 98 03/21/18 19:18 03/21/18 20:00 03/21/18 20:12 Temperature 98.2 F 98.7 F Pulse Rate 83 82 84 Respiratory Rate 25 H 28 H 35 H Blood Pressure 142/60 H Pulse Oximetry 98 99 95 03/21/18 21:29 03/21/18 23:09 03/22/18 00:00 Temperature 98.7 F 98.9 F Pulse Rate 86 94 H Respiratory Rate 28 H 26 H 28 H Blood Pressure 120/55 L 156/65 H Pulse Oximetry 95 95 92 L 03/22/18 03:57 03/22/18 04:00 03/22/18 08:02 Temperature 99.4 F Pulse Rate 87 88 95 H Respiratory Rate 30 H 30 H 32 H Blood Pressure 166/68 H Pulse Oximetry 95 97 93 L Intake & Output 03/21/18 03/22/18 03/22/18 18:59 06:59 18:59 Intake Total 2717.5 / 2717.5 1891 / 1891 Output Total 1650 / 1650 1500 / 1500 Balance 1067.5 / 1067.5 391 / 391 Weight 86.2 kg Intake: IV 1662.5 / 1662.5 500 / 500 D5W Inj 1,000 ML @ 100 mls/hr 1000 / 1000 IV.CONT .Q10H [facility] Rx#:[id number] Diprivan 1000 mg/100 ml Inj 1, 200 / 200 300 / 300 000 mg In 100 ml @ 5 MCG/KG/MIN 2.292 mls/hr IV.CONT TITRATE PRN Rx#:[id number] Vancomycin Inj 1,250 MG In NS 262.5 / 262.5 Inj 250 ML @ 250 mls/hr IV.SIG Q36H [facility] Rx#:[id number] Flagyl 500 MG Inj 100 ML @ 100 200 / 200 200 / 200 mls/hr IV.SIG Q6H [facility] Rx#: [id number] Tube Feeding 565 / 565 591 / 591 Water Bolus Amount 490 / 490 400 / 400 Intake (Blood Product) Amt 400 / 400 Rbc As-3 Leukoreduced Unit 400 / 400 [id number] Output: Stool 500 / 500 100 / 100 Urine Amount (Catheter) 1150 / 1150 1400 / 1400 Indwelling 1150 / 1150 1400 / 1400 Other: Date of Last Bowel Movement 03/21/18 Narrative: On sedation due to respiratory instability Does not open eyes PERRL Trace movement bilateral upper extremities Trace withdrawal bilateral lower extremities - Urinary Catheter Management Indwelling Cath placed during this visit: no Assessment and Plan - Assessment (1) Spinal stenosis of thoracolumbar region Code(s): M48.05 - Spinal stenosis, thoracolumbar region Status: Acute (2) Sepsis Code(s): A41.9 - Sepsis, unspecified organism Status: Acute Qualifiers: Sepsis type: methicillin susceptible Staphylococcus aureus Qualified Code(s ): A41.01 - Sepsis due to Methicillin susceptible Staphylococcus aureus (3) Respiratory failure Code(s): J96.90 - Respiratory failure, unspecified, unspecified whether with hypoxia or hypercapnia Status: Acute Qualifiers: Chronicity: acute (4) Fusion of lumbar spine Code(s): 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 MRI of the thoracolumbar spine with evidence of T12/L1 epidural abscess with moderate stenosis at this level. History of L3-S1 instrumentation by outside surgeon in [place] several years ago. Unable to pause sedation due to cardiopulmonary instability. Plan: Continue with critical care Continue with antibiotics. Continue with Neuro checks.
[2018-03-22 11:15] LABS: ABG Base Excess 3.1 mmol/L (-2-2); ABG PCO2 49 mmHg (38-42); ABG PO2 79 mmHg (61-120)
--- NOTE | 2018-03-22 12:58 | XR ---
EXAM DATE: 03/22/2018 12:13 PM EDT AGE/SEX: 77 years / Female INDICATIONS: Left central line placement. CLINICAL DATA: This is the patient's subsequent encounter. Patient reports that signs and symptoms h ave been present for 4 - 6 days and indicates a pain score of Nonresponsive. MEDICAL/SURGICAL HISTORY: . Anemia. Atrial fibrillation. Tricuspid regurgitation. Fusion, lum bar. COMPARISON: C, CHEST 1V SINGLE AP, 03/22/2018. . FINDINGS: A left internal jugular central line has its tip directed superiorly into the right subclavian region . No pneumothorax is noted. Extensive diffuse alveolar consolidations are noted bilaterally and are w orse on the left than the right consistent with probable diffuse pneumonia. Right-sided PICC line has its tip in superior vena cava. The endotracheal tube is in good position 3 cm above the varun. A na sogastric tube has tip below diaphragm. CONCLUSION: 1. A left internal jugular central line has its tip directed superiorly into the right subclavian re gion. No pneumothorax is noted. 2. Since of diffuse alveolar consolidations bilaterally which are worse on the left than the right c onsistent with diffuse pneumonia. Electronically signed by: Jm Kay MD 03/22/2018 12:56 PM EDT
--- NOTE | 2018-03-22 13:32 | P.PCN ---
Date of procedure: 03/22/18 Pre-op diagnosis: Acute respiratory failure Post-op diagnosis: same Procedure: DATE: 03/22/2018 CENTRAL LINE PLACEMENT: Left internal jugular vein. Ultrasound-guided INDICATION: Central venous access CONSENT Informed consent for procedure was obtained. DESCRIPTION OF THE PROCEDURE The patient was placed in supine position. The skin was cleansed with Chloraprep. Additional barrier precautions included large sterile drape, sterile gloves, sterile gown, face mask, and hat. 1 % lidocaine was used for local anesthesia. Under direct ultrasound guidance and on 2nd attempt, the vein was accessed with an introducer needle. The guide wire was advanced and the tract was dilated. Using Seldinger technique a 7 Occitan 20 cm antimicrobial coated triple-lumen catheter was advanced to a depth of 20 centimeters. The guide wire was removed. All ports had good return of dark venous blood and flushed easily with saline. The central line was secured with StatLock. A sterile dressing with antibiotic disc was applied. ESTIMATED BLOOD LOSS: Minimal COMPLICATIONS: No apparent complications. STAT chest x-ray revealed central line abutting the PICC line in going upwards towards the right subclavian. Attempted to guidewires line into place however unsuccessful. Left IJ CVL was removed. Follow-up x-ray revealed no pneumothorax.
--- NOTE | 2018-03-22 13:33 | P.PCN ---
Date of procedure: 03/22/18 Pre-op diagnosis: Acute respiratory failure Post-op diagnosis: same Procedure: DATE: 03/22/2018 CENTRAL LINE PLACEMENT: Right internal jugular vein. Ultrasound-guided INDICATION: Central venous access CONSENT Informed consent for procedure was obtained. DESCRIPTION OF THE PROCEDURE The patient was placed in supine position. The skin was cleansed with Chloraprep. Additional barrier precautions included large sterile drape, sterile gloves, sterile gown, face mask, and hat. 1 % lidocaine was used for local anesthesia. Under direct ultrasound guidance and on initial attempt, the vein was accessed with an introducer needle. The guide wire was advanced and the tract was dilated. Using Seldinger technique a 7 Georgian 20 cm antimicrobial coated triple-lumen catheter was advanced to a depth of 16 centimeters. The guide wire was removed. All ports had good return of dark venous blood and flushed easily with saline. The central line was secured with StatLock. A sterile dressing with antibiotic disc was applied. ESTIMATED BLOOD LOSS: Minimal COMPLICATIONS: No apparent complications. STAT chest x-ray pending at time of dictation
--- NOTE | 2018-03-22 14:11 | XR ---
EXAM DATE: 03/22/2018 12:00 AM EDT AGE/SEX: 77 years / Female INDICATIONS: Central line placement. CLINICAL DATA: This is the patient's subsequent encounter. Patient reports that signs and symptoms h ave been present for 4 - 6 days and indicates a pain score of Nonresponsive. MEDICAL/SURGICAL HISTORY: . Anemia. Atrial fibrillation. Tricuspid regurgitation. Fusion, lumb ar. COMPARISON: C, CHEST 1V SINGLE AP, 03/22/2018. . FINDINGS: Right internal jugular central line has been placed and has its tip in superior vena cava. No pneumot horax is noted. Remainder of the tubes and lines are in good positions. Extensive bilateral infiltrat es are unchanged. CONCLUSION: 1. Right internal jugular central line has its tip in superior vena cava in good position. No pneumo thorax is noted. 2. Stable diffuse pulmonary infiltrates bilaterally worse on the left than the right. Electronically signed by: Jm Kay MD 03/22/2018 2:10 PM EDT
--- NOTE | 2018-03-22 14:32 | P.PNONC ---
Subjective Interval history: Patient remains intubated and sedated. Her nurses at the bedside. Objective Vital Signs/Intake & Output: Vital Signs 03/21/18 15:52 03/21/18 15:55 03/21/18 16:00 Temperature 98 F Pulse Rate 89 91 H Respiratory Rate 32 H 28 H 29 H Blood Pressure 141/65 H Pulse Oximetry 95 93 L 03/21/18 18:00 03/21/18 19:15 03/21/18 19:18 Temperature 98.2 F Pulse Rate 98 H 83 Respiratory Rate 28 H 25 H Blood Pressure 122/53 L Pulse Oximetry 98 98 03/21/18 20:00 03/21/18 20:12 03/21/18 21:29 Temperature 98.7 F 98.7 F Pulse Rate 82 84 86 Respiratory Rate 28 H 35 H 28 H Blood Pressure 142/60 H 120/55 L Pulse Oximetry 99 95 95 03/21/18 23:09 03/22/18 00:00 03/22/18 03:57 Temperature 98.9 F Pulse Rate 94 H 87 Respiratory Rate 26 H 28 H 30 H Blood Pressure 156/65 H Pulse Oximetry 95 92 L 95 03/22/18 04:00 03/22/18 08:02 03/22/18 11:45 Temperature 99.4 F Pulse Rate 88 95 H 89 Respiratory Rate 30 H 32 H 20 Blood Pressure 166/68 H Pulse Oximetry 97 93 L 94 L Intake & Output 03/21/18 03/22/18 03/22/18 18:59 06:59 18:59 Intake Total 2717.5 / 2717.5 1891 / 1891 100 / 100 Output Total 1650 / 1650 1500 / 1500 Balance 1067.5 / 1067.5 391 / 391 100 / 100 Weight 86.2 kg Intake: IV 1662.5 / 1662.5 500 / 500 100 / 100 D5W Inj 1,000 ML @ 100 mls/hr 1000 / 1000 IV.CONT .Q10H [facility] Rx#:[id number] Diprivan 1000 mg/100 ml Inj 1, 200 / 200 300 / 300 100 / 100 000 mg In 100 ml @ 5 MCG/KG/MIN 2.292 mls/hr IV.CONT TITRATE PRN Rx#:[id number] Vancomycin Inj 1,250 MG In NS 262.5 / 262.5 Inj 250 ML @ 250 mls/hr IV.SIG Q36H [facility] Rx#:[id number] Flagyl 500 MG Inj 100 ML @ 100 200 / 200 200 / 200 mls/hr IV.SIG Q6H [facility] Rx#: [id number] Tube Feeding 565 / 565 591 / 591 Water Bolus Amount 490 / 490 400 / 400 Intake (Blood Product) Amt 400 / 400 Rbc As-3 Leukoreduced Unit 400 / 400 [id number] Output: Stool 500 / 500 100 / 100 Urine Amount (Catheter) 1150 / 1150 1400 / 1400 Indwelling 1150 / 1150 1400 / 1400 Other: Date of Last Bowel Movement 03/21/18 Result Diagrams: 03/22/18 04:45 03/22/18 04:45 Laboratory Results: Laboratory Results - last 24 hr 03/18/18 03/20/18 03/21/18 08:41 05:25 13:29 WBC RBC Hgb Hct MCV MCH MCHC RDW Plt Count MPV Prelim Diff (Auto) WBC Differential Seg Neuts % (Manual) Band Neuts % (Manual) Lymphocytes % (Manual) Monocytes % (Manual) Eosinophils % (Manual) Metamyelocytes % (Man) Myelocytes % (Man) Promyelocytes % (Man) Abs Neuts (Manual) Nucleated RBCs/100 WBC Differential Comment Platelet Estimate Platelet Morphology Ovalocytes PT INR APTT Puncture Site Art line Patient Temperature 98.6 O2 Saturation 96 ABG pH 7.34 L ABG pCO2 52 H* ABG pO2 117 ABG HCO3 27 H ABG O2 Content 12.4 ABG Base Excess 1.6 ABG Methemoglobin 1.2 Hemoglobin 9.1 L Carboxyhemoglobin 1.3 O2 Delivery Device Ventilator Vent Setting Aprv/bilevel Inspired O2 65 Critical Value Yes Sodium Potassium Chloride Carbon Dioxide Anion Gap BUN Creatinine Estimated GFR POC Glucose Random Glucose Calcium Prot Corrected Calcium Phosphorus Magnesium Total Bilirubin AST ALT Alkaline Phosphatase Total Protein Albumin TSH Immunophenotypic Anal Blood Type Blood Type Recheck Antibody Screen Prewarmed Antibody Srcn MTS Gel Crossmatch See Detail Crossmatch Prewarmed See Detail 03/21/18 03/21/18 03/21/18 16:53 18:00 23:51 WBC RBC Hgb Hct MCV MCH MCHC RDW Plt Count MPV Prelim Diff (Auto) WBC Differential Seg Neuts % (Manual) Band Neuts % (Manual) Lymphocytes % (Manual) Monocytes % (Manual) Eosinophils % (Manual) Metamyelocytes % (Man) Myelocytes % (Man) Promyelocytes % (Man) Abs Neuts (Manual) Nucleated RBCs/100 WBC Differential Comment Platelet Estimate Platelet Morphology Ovalocytes PT INR APTT Puncture Site Patient Temperature O2 Saturation ABG pH ABG pCO2 ABG pO2 ABG HCO3 ABG O2 Content ABG Base Excess ABG Methemoglobin Hemoglobin Carboxyhemoglobin O2 Delivery Device Vent Setting Inspired O2 Critical Value Sodium Potassium Chloride Carbon Dioxide Anion Gap BUN Creatinine Estimated GFR POC Glucose 149 H 131 H Random Glucose Calcium Prot Corrected Calcium Phosphorus Magnesium Total Bilirubin AST ALT Alkaline Phosphatase Total Protein Albumin TSH Immunophenotypic Anal Blood Type A Positive Blood Type Recheck Not needed Antibody Screen Negative Prewarmed Antibody Srcn Negative MTS Gel Crossmatch Crossmatch Prewarmed See Detail 03/22/18 03/22/18 03/22/18 04:45 04:45 04:45 WBC 26.2 H RBC 3.04 L Hgb 8.8 L Hct 27.4 L MCV 90.2 MCH 29.0 MCHC 32.1 RDW 23.1 H Plt Count 141 L MPV 12.6 H Prelim Diff (Auto) Manual diff required WBC Differential Manual diff final Seg Neuts % (Manual) 44 Band Neuts % (Manual) 24 H Lymphocytes % (Manual) 4 L Monocytes % (Manual) 13 H Eosinophils % (Manual) 1 Metamyelocytes % (Man) 11 H Myelocytes % (Man) 2 H Promyelocytes % (Man) 1 H Abs Neuts (Manual) 21.5 H Nucleated RBCs/100 WBC 1 H Differential Comment . Platelet Estimate Normal Platelet Morphology Enlarged H Ovalocytes 1+ H PT 11.1 INR 1.1 APTT 29.7 Puncture Site Patient Temperature O2 Saturation ABG pH ABG pCO2 ABG pO2 ABG HCO3 ABG O2 Content ABG Base Excess ABG Methemoglobin Hemoglobin Carboxyhemoglobin O2 Delivery Device Vent Setting Inspired O2 Critical Value Sodium 140 D Potassium 5.0 Chloride 103 D Carbon Dioxide 28.9 Anion Gap 8 BUN 40 H Creatinine 0.91 Estimated GFR 60 L POC Glucose Random Glucose 245 H D Calcium 7.1 L* Prot Corrected Calcium 7.8 L Phosphorus 3.7 Magnesium 2.1 Total Bilirubin 0.4 AST 34 ALT 16 Alkaline Phosphatase 119 H Total Protein 5.7 L Albumin 1.1 L TSH 11.800 H Immunophenotypic Anal Blood Type Blood Type Recheck Antibody Screen Prewarmed Antibody Srcn MTS Gel Crossmatch Crossmatch Prewarmed 03/22/18 03/22/18 03/22/18 05:02 05:03 06:05 WBC RBC Hgb Hct MCV MCH MCHC RDW Plt Count MPV Prelim Diff (Auto) WBC Differential Seg Neuts % (Manual) Band Neuts % (Manual) Lymphocytes % (Manual) Monocytes % (Manual) Eosinophils % (Manual) Metamyelocytes % (Man) Myelocytes % (Man) Promyelocytes % (Man) Abs Neuts (Manual) Nucleated RBCs/100 WBC Differential Comment Platelet Estimate Platelet Morphology Ovalocytes PT INR APTT Puncture Site Art line Patient Temperature 98.6 O2 Saturation 90 ABG pH 7.39 ABG pCO2 46 H ABG pO2 63 ABG HCO3 28 H ABG O2 Content 10.2 L ABG Base Excess 3.1 H ABG Methemoglobin 1.1 Hemoglobin 8.0 L Carboxyhemoglobin 1.6 O2 Delivery Device Ventilator Vent Setting Aprv Inspired O2 75 Critical Value No Sodium Potassium Chloride Carbon Dioxide Anion Gap BUN Creatinine Estimated GFR POC Glucose 163 H 145 H Random Glucose Calcium Prot Corrected Calcium Phosphorus Magnesium Total Bilirubin AST ALT Alkaline Phosphatase Total Protein Albumin TSH Immunophenotypic Anal Blood Type Blood Type Recheck Antibody Screen Prewarmed Antibody Srcn MTS Gel Crossmatch Crossmatch Prewarmed 03/22/18 11:00 WBC RBC Hgb Hct MCV MCH MCHC RDW Plt Count MPV Prelim Diff (Auto) WBC Differential Seg Neuts % (Manual) Band Neuts % (Manual) Lymphocytes % (Manual) Monocytes % (Manual) Eosinophils % (Manual) Metamyelocytes % (Man) Myelocytes % (Man) Promyelocytes % (Man) Abs Neuts (Manual) Nucleated RBCs/100 WBC Differential Comment Platelet Estimate Platelet Morphology Ovalocytes PT INR APTT Puncture Site Art line Patient Temperature 98.6 O2 Saturation 93 ABG pH 7.37 L ABG pCO2 49 H ABG pO2 79 ABG HCO3 28 H ABG O2 Content 19.6 ABG Base Excess 3.1 H ABG Methemoglobin 1.1 Hemoglobin 14.9 Carboxyhemoglobin 1.2 O2 Delivery Device Ventilator Vent Setting [id number] Inspired O2 80 Critical Value No Sodium Potassium Chloride Carbon Dioxide Anion Gap BUN Creatinine Estimated GFR POC Glucose Random Glucose Calcium Prot Corrected Calcium Phosphorus Magnesium Total Bilirubin AST ALT Alkaline Phosphatase Total Protein Albumin TSH Immunophenotypic Anal Blood Type Blood Type Recheck Antibody Screen Prewarmed Antibody Srcn MTS Gel Crossmatch Crossmatch Prewarmed Culture Results: Microbiology 03/17/18 14:59 Gram Stain - Final Sputum - Endotracheal Sputum Culture - Final Light growth normal respiratory shonda 03/17/18 15:03 Clostridium difficile GDH Antigen - Final Stool Positive - C. difficile Antigen detected. Clostridium difficile Toxin Assay - Final Negative - No C. difficile Toxin A or B detected. Imaging Studies: Impressions Chest X-Ray 03/22/18 00:00 CONCLUSION: 1. Right internal jugular central line has its tip in superior vena cava in good position. No pneumothorax is noted. 2. Stable diffuse pulmonary infiltrates bilaterally worse on the left than the right. Chest X-Ray 03/22/18 06:00 CONCLUSION: 1. No significant interval change. 2. Stable ETT and NGT. 3. Stable diffuse interstitial and airspace opacities throughout the left lung. 4. Stable interstitial and alveolar opacities in the right lower lung zone. Chest X-Ray 03/22/18 12:13 CONCLUSION: 1. A left internal jugular central line has its tip directed superiorly into the right subclavian region. No pneumothorax is noted. 2. Since of diffuse alveolar consolidations bilaterally which are worse on the left than the right consistent with diffuse pneumonia. Medications: Active Medications Generic Name Dose Route Start Last Admin Trade Name Freq PRN Reason Stop Dose Admin Albuterol 1 ampul 03/22/18 08:00 03/22/18 11:45 Duoneb Neb (Nema) NEB 1 ampul Q4HR NEB [facility] Administration Artificial Tears 1 drop 03/21/18 21:00 03/22/18 09:20 Refresh Tears 0.5% Opth Drops EACH EYE 1 drop BID [facility] Administration Chlorhexidine Gluconate 15 ml 03/14/18 20:00 03/22/18 09:19 Peridex 0.12% Oral Kit OROPHARYNG 15 ml BID@0800,2000 [facility] Administration Famotidine 20 mg 03/21/18 21:00 03/22/18 09:20 Pepcid PO 20 mg BID [facility] Administration Fidaxomicin 200 mg 03/19/18 21:00 03/22/18 09:20 Dificid PO 03/29/18 20:59 200 mg BID [facility] Administration Heparin Sodium (Porcine) 5,000 units 03/14/18 15:00 03/22/18 06:20 Heparin Inj SQ 5,000 units Q8H [facility] Administration Propofol 1,000 mg in 100 mls @ 2.292 mls/hr 03/14/18 15:00 03/22/18 12:36 Diprivan 1000 Mg/100 Ml Inj IV.CONT 40 mcg/kg/min TITRATE PRN 18.34 mls/hr Per Protocol Administration Protocol 5 MCG/KG/MIN Phenylephrine HCl 80 mg/ 500 mls @ 15 mls/hr 03/14/18 16:00 03/21/18 09:00 Sodium Chloride IV.CONT 0 mcg/min TITRATE PRN 0 mls/hr See protocol Titration Protocol 40 MCG/MIN Potassium Chloride 40 meq in 100 mls @ 25 mls/hr 03/14/18 18:12 03/15/18 08: 58 Kcl 40 Meq Premix Inj IV.SIG Infused UNSCH PRN Infusion For Potassium 3.3 - 3.5 mEq/L Metronidazole/Sodium Chloride 100 mls @ 100 mls/hr 03/14/18 22:00 03/22/18 09 :20 Flagyl 500 Mg Inj IV.SIG 100 mls/hr Q6H [facility] Administration Vancomycin HCl 1,250 mg/ 262.5 mls @ 250 mls/hr 03/19/18 21:00 03/21/18 09:55 Sodium Chloride IV.SIG Infused Q36H [facility] Infusion Insulin Aspart 0 unit 03/21/18 18:00 03/22/18 05:19 Novolog Insulin Correctional Sugar Inj SQ Not Given Q6HR [facility] Protocol Miscellaneous Medication 1 each 03/14/18 16:00 03/22/18 04:51 OROPHARYNG 1 each 0000,0400,1200,1600 [facility] Administration Morphine Sulfate 4 mg 03/14/18 14:05 03/22/18 01:19 Morphine Inj IV.PUSH 4 mg Q2H PRN Administration any pain Potassium Bicarb/Potassium Chloride 50 meq 03/14/18 18:12 03/14/18 18:32 K-Lyte Cl Eff PO 50 meq UNSCH PRN Administration For Potassium 3.3 - 3.5 mEq/L Senna/Docusate Sodium 1 tab 03/14/18 21:00 03/21/18 08:52 Mimi-Colace PO Not Given BID [facility] Sodium Chloride 2 ml 03/14/18 21:00 03/22/18 09:20 Ns Flush IV.FLUSH 2 ml BID [facility] Administration Vancomycin HCl 500 mg 03/15/18 18:00 03/22/18 09:20 Vancomycin Po PO 500 mg QID [facility] Administration Whey 1 packet 03/15/18 13:00 03/21/18 18:02 Beneprotein Powder G-TUBE 1 packet TID [facility] Administration Objective Remarks: GENERAL: Ill-appearing female patient, ventilated and sedated. SKIN: Warm and dry. Right posterior biopsy site, no erythema, drainage or swelling. HEAD: Normocephalic. EYES: No scleral icterus. No injection or drainage. NECK: Supple, trachea midline. Right central line, drsg dry/intact. CARDIOVASCULAR: Regular rate and rhythm. RESPIRATORY: Breath sounds equal bilaterally. No accessory muscle use. Ventilated FiO2 70. GASTROINTESTINAL: Abdomen large, distended. Rectal tube draining dark stool. EXTREMITIES: No cyanosis. +anasarca. Scab to left 2nd toe. NEUROLOGICAL: +sedated and ventilated. Assessment/Plan - Plan Ms. Arevalo is a 77 year-old female patient, transferred to [place] on 03/14/2018 from [facility]. According to the records, she was originally seen with severe back pain, CT scan of the abdomen and pelvis showed an epidural abscess and abdominal abscesses. She was treated with antibiotics. She then developed pneumonia and went into respiratory failure. At which time she was intubated. She is currently being treated for C. difficile I will colitis. Hematology was consulted for evaluation of leukocytosis with immature cells in the peripheral blood and severe anemia. Plan: 1. Leukocytosis, in the setting of severe sepsis and infection, acute leukemia and myeloproliferative disorder are differentials as well. 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 Jak2 mutation and BCR-ABL by FISH are pending. Status post bone marrow biopsy at the bedside on 03/21/2018. Pathology pending. 2. Anemia. Hemoglobin 8.8 today. No evidence of bleeding. Continue to monitor. 3. Severe sepsis, management per sludge filtration attendant and infectious disease. 4. We will continue to follow. - Attending Statement The exam, history, and the medical decision-making described in the above note were completed with the assistance of the mid-level provider. I reviewed and agree with the findings presented. I attest that I had a [id number] encounter with the patient on the same day, and personally performed and documented my assessment and findings in the medical record. remains on vent, sedated. BM site no bleeding. Await BM bx result.
[2018-03-22] MEDS: Beneprotein Powder Packet G-TUBE SCH ×3 (15:28→18:01)
--- NOTE | 2018-03-22 16:31 | P.PNID ---
Subjective Remarks: more unstable from resp standpoint On 80% FiO2 White secretions, small to moderate no fever stool 600 cc Antibiotics: dificid vanco po vanco flagyl iv Allergies/Adverse Reactions: Allergies Penicillins Allergy (Verified 03/14/18 13:53) Swelling of Lip/Tongue/Throat Sulfa (Sulfonamide Antibiotics) Allergy (Verified 03/14/18 13:53) Diarrhea shellfish Adverse Reaction (Uncoded 03/14/18 13:53) Swelling of Lip/Tongue/Throat Objective Vital Signs 03/21/18 18:00 03/21/18 19:15 03/21/18 19:18 Temperature 98.2 F Pulse Rate 98 H 83 Respiratory Rate 28 H 25 H Blood Pressure 122/53 L Pulse Oximetry 98 98 03/21/18 20:00 03/21/18 20:12 03/21/18 21:29 Temperature 98.7 F 98.7 F Pulse Rate 82 84 86 Respiratory Rate 28 H 35 H 28 H Blood Pressure 142/60 H 120/55 L Pulse Oximetry 99 95 95 03/21/18 23:09 03/22/18 00:00 03/22/18 03:57 Temperature 98.9 F Pulse Rate 94 H 87 Respiratory Rate 26 H 28 H 30 H Blood Pressure 156/65 H Pulse Oximetry 95 92 L 95 03/22/18 04:00 03/22/18 08:02 03/22/18 11:45 Temperature 99.4 F Pulse Rate 88 95 H 89 Respiratory Rate 30 H 32 H 20 Blood Pressure 166/68 H Pulse Oximetry 97 93 L 94 L Intake & Output 03/21/18 03/22/18 03/22/18 18:59 06:59 18:59 Intake Total 2717.5 / 2717.5 1891 / 1891 200 / 200 Output Total 1650 / 1650 1500 / 1500 Balance 1067.5 / 1067.5 391 / 391 200 / 200 Weight 86.2 kg Intake: IV 1662.5 / 1662.5 500 / 500 200 / 200 D5W Inj 1,000 ML @ 100 mls/hr 1000 / 1000 IV.CONT .Q10H [facility] Rx#:[id number] Diprivan 1000 mg/100 ml Inj 1, 200 / 200 300 / 300 100 / 100 000 mg In 100 ml @ 5 MCG/KG/MIN 2.292 mls/hr IV.CONT TITRATE PRN Rx#:[id number] Vancomycin Inj 1,250 MG In NS 262.5 / 262.5 Inj 250 ML @ 250 mls/hr IV.SIG Q36H [facility] Rx#:[id number] Flagyl 500 MG Inj 100 ML @ 100 200 / 200 200 / 200 100 / 100 mls/hr IV.SIG Q6H [facility] Rx#: [id number] Tube Feeding 565 / 565 591 / 591 Water Bolus Amount 490 / 490 400 / 400 Intake (Blood Product) Amt 400 / 400 Rbc As-3 Leukoreduced Unit 400 / 400 [id number] Output: Stool 500 / 500 100 / 100 Urine Amount (Catheter) 1150 / 1150 1400 / 1400 Indwelling 1150 / 1150 1400 / 1400 Other: Date of Last Bowel Movement 03/21/18 03/17/18 14:59 Sputum - Endotracheal Gram Stain - Final 03/17/18 14:59 Sputum - Endotracheal Sputum Culture - Final Light growth normal respiratory shonda Lab - Hematology Results 03/21/18 03/22/18 05:15 04:45 WBC 23.3 H 26.2 H RBC 2.59 L 3.04 L Hgb 7.6 L 8.8 L Hct 23.2 L 27.4 L MCV 89.6 90.2 MCH 29.3 29.0 MCHC 32.7 32.1 RDW 25.5 H 23.1 H Plt Count 138 L 141 L MPV 12.3 H 12.6 H Prelim Diff (Auto) Manual diff required Manual diff required WBC Differential Manual diff final Manual diff final Seg Neuts % (Manual) 27 44 Band Neuts % (Manual) 42 H 24 H Lymphocytes % (Manual) 11 4 L Monocytes % (Manual) 5 13 H Eosinophils % (Manual) 2 1 Metamyelocytes % (Man) 11 H Myelocytes % (Man) 12 H 2 H Promyelocytes % (Man) 1 H Blast Cells % (Manual) 1 H Abs Neuts (Manual) 18.9 H 21.5 H Nucleated RBCs/100 WBC 1 H Differential Comment . . Platelet Estimate Normal Normal Platelet Morphology Normal Enlarged H Dimorphic RBCs Present H Ovalocytes 1+ H Stomatocytes 1+ H Lab - Chemistry Results 03/21/18 03/21/18 03/21/18 05:15 05:15 18:00 Sodium 152 H Potassium 4.9 Chloride 115 H Carbon Dioxide 31.5 Anion Gap 6 BUN 45 H Creatinine 0.96 Estimated GFR 56 L POC Glucose 149 H Random Glucose 126 H Calcium 7.3 L* Prot Corrected Calcium 8.1 L Phosphorus Magnesium Total Bilirubin 0.3 AST 24 ALT 11 Alkaline Phosphatase 112 Total Protein 5.6 L Albumin 1.1 L TSH 8.240 H 03/21/18 03/22/18 03/22/18 23:51 04:45 05:02 Sodium 140 D Potassium 5.0 Chloride 103 D Carbon Dioxide 28.9 Anion Gap 8 BUN 40 H Creatinine 0.91 Estimated GFR 60 L POC Glucose 131 H 163 H Random Glucose 245 H D Calcium 7.1 L* Prot Corrected Calcium 7.8 L Phosphorus 3.7 Magnesium 2.1 Total Bilirubin 0.4 AST 34 ALT 16 Alkaline Phosphatase 119 H Total Protein 5.7 L Albumin 1.1 L TSH 11.800 H 03/22/18 05:03 Sodium Potassium Chloride Carbon Dioxide Anion Gap BUN Creatinine Estimated GFR POC Glucose 145 H Random Glucose Calcium Prot Corrected Calcium Phosphorus Magnesium Total Bilirubin AST ALT Alkaline Phosphatase Total Protein Albumin TSH Imaging: ITS Impressions Cervical Spine MRI 03/15/18 00:00 CONCLUSION: 1. No abnormal areas of enhancement in the dural space or vertebral bodies. 2. Spinal stenosis due to disc bulging at multiple levels and anterolisthesis at C4-5. There is also multilevel bony neural foraminal stenosis. Lumbar Spine MRI 03/15/18 00:00 CONCLUSION: 1. Enhancing soft tissue extending from the subcutaneous region down to the thecal sac at the L1 and L2 level characteristic of postsurgical findings with a rounded area of fluid with some minimal peripheral enhancement dorsal to the thecal sac flattening the posterior margin at L1 and L2. Since there is some minimal peripheral enhancement, and epidural abscess is a differential possibility. Thoracic Spine MRI 03/15/18 00:00 CONCLUSION: 1. No abnormal areas of enhancement in the vertebral bodies or epidural space in the thoracic region. 2. Posterior osteophytes at all levels in the thoracic spine causing mild impression upon the thecal sac. No evidence of disc protrusions over. 3. Moderate size left pleural effusion. Abdomen/Pelvis CT 03/17/18 00:00 CONCLUSION: 1. Diffuse interstitial infiltrate in the lung bases and anasarca suggesting edema. 2. Minimal thickening of the colon. 3. Minimal left basilar effusion. 4. Small amount of free fluid within the abdomen and pelvis. 5. No free air identified. No findings to indicate a bowel obstruction. Chest CT 03/17/18 13:48 CONCLUSION: 1. Extensive interstitial prominence with some sparing of the right upper lobe suggesting ARDS. 2. Minimal effusion on the left with a tiny effusion on the right. 3. Degenerative changes in the thoracic spine. Abdomen X-Ray 03/19/18 00:00 CONCLUSION: 1. No bowel obstruction, ileus or perforation. 2. Degenerative changes and scoliosis of the thoracolumbar spine. Soft Tissue Ultrasound 03/19/18 00:00 CONCLUSION: 1. Fluid as above. Chest X-Ray 03/22/18 12:13 CONCLUSION: 1. A left internal jugular central line has its tip directed superiorly into the right subclavian region. No pneumothorax is noted. 2. Since of diffuse alveolar consolidations bilaterally which are worse on the left than the right consistent with diffuse pneumonia. Physical Exam: GENERAL: NAD sedated, on vent SKIN: Warm and dry. No rash HEAD: Atraumatic. Normocephalic. EYES: Pupils equal and round. No scleral icterus. No injection or drainage. ENT: No nasal bleeding or discharge. Mucous membranes pink and moist. NECK: Trachea midline. No JVD. CARDIOVASCULAR: Regular rate and rhythm. RESPIRATORY: No accessory muscle use. b/l rhonchi to auscultation. Breath sounds equal bilaterally. GASTROINTESTINAL: Abdomen soft, no reaction to palpation, + markedlyly distended. Hepatic and splenic margins not palpable. MUSCULOSKELETAL: Extremities without clubbing, cyanosis, severe tight pitting 3-4 + edema, seems more edematous. No obvious deformities. NEUROLOGICAL: heavily sedated; not following commands PSYCHIATRIC: unable to assess Assessment and Plan - Plan PNA, HCAP /aspiration vs ARDS - NGTD from sputum Lower T / L spine epidural abscess - pt was seen by Dr Monster Taylor who is planning to repeat MR w/wo c when stable enough - dw Dr Jasiel Wiley: small amount of fluid present Sepsis: staph reported by other facility provider Acute VDR 2/2 ARDS ARF C.diff colitis. Perssitent Severe leukocytosis, leukemoid reaction. 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 VAP - increased vent requirements and worsening resp status Critical, unstable from resp standpoint cont iv flagyl cont po vancomycin cont iv vanco cont dificid IR aspiration for culture when feasible from resp standpoint will rechk sputum start Meropenem jesenia RN
[2018-03-22] MEDS: Epoprostenol (30,000/mL) Neb 75 ML in Sodium Chlor 0.9% Inj 25 ML NEB SCH (16:48)
--- NOTE | 2018-03-22 16:54 | P.DIET ---
Nutritional Evaluation Type of nutrition evaluation: follow-up Nutrition consult regarding: Tube Feeding Objective - Diagnosis Septic Shock - Objective % IBW: 134 (IBW =125) Body Weight Used for Calculations: Upper end of IBW (62.5 kg) Energy Needs - Lower Range (kCal/kg): 25 Energy Needs - Upper Range (kCal/kg): 30 Lower Limit kCal/kg (kCals): 1,563 Upper Limit kCal/kg (kCals): 1,875 Lower Limit Protein Factor (Grams per Kg): 1.0 Upper Limit Protein Factor (Grams per Kg): 1.5 Lower Protein Needs (Protein): 63 Upper Protein Needs (Protein): 94 Dietitian Reviewed in Medical Record: Curent medications, Intake & Output, Labs , Medical history, Tube feeding Diet Order: NPO Objective Comments: glu 245 Meds include synthroid Assessment Assessment: Pt remains at high nutrition risk 2' to dx and the need for TFing. Currently receiving Glucerna 1.5 goal rate of 50 mls/hr. TF will run for 22 hours d/t synthroid: TF must be held one hour before and after this med is given. Glucerna 1.5 @ 50 mls/hr x 22 hours provides 1650 kcals, 91 gms protein and 835 mls of free water. Some additional kcals will be provided by propofol (1.1 kcal/ ml). Labs, wts and clinical course reviewed. CBW = 86.2 kg Recommendations: Glucerna 1.5 @ 50 mls/hr x 22 hours Dietitian to Monitor: Lab values, Intake & Output, Tube feeding tolerance, Weight change, Medical course
[2018-03-22 18:05] LABS: ABG Base Excess 4.1 mmol/L (-2-2); ABG PCO2 44 mmHg (38-42); ABG PO2 78 mmHg (61-120)
[2018-03-22] MEDS ORDERED: Pharmacy Ordered Lab Info OTHER ONE (20:45)
[2018-03-22] MEDS: Vancomycin Inj 1,250 MG in Sodium Chlor 0.9% Inj 250 ML IV.SIG SCH (21:41)
[2018-03-23] MEDS: Epoprostenol (30,000/mL) Neb 75 ML in Sodium Chlor 0.9% Inj 25 ML NEB SCH ×3 (00:01→22:21)
[2018-03-23] MEDS: Oral Hygiene Kit OROPHARYNG SCH ×4 (00:01→15:37)
[2018-03-23] MEDS: Insulin NovoLOG Aspart Correctional Sugar Inj SQ SCH ×4 (00:47→20:13)
[2018-03-23] MEDS: Propofol 1000 mg/100 ml Inj 1,000 MG/100 ML BOTTLE IV.CONT PRN ×3 (03:00→12:20)
[2018-03-23 04:23] LABS: Hematocrit 26.9 % (35.0-46.0); Hemoglobin 8.4 gm/dL (11.6-15.3); Mean Corpuscular HGB Conc 31.4 % (32.0-36.0); Mean Corpuscular Hemoglobin 28.3 pg (27.0-34.0); Mean Corpuscular Volume 90.1 fL (80.0-100.0); Mean Platelet Volume 11.9 fL (7.0-11.0); Platelet Count 156 th/mm3 (150-450); Red Blood Count 2.98 mil/mm3 (4.00-5.30); Red Cell Distribution Width 22.7 % (11.6-17.2); White Blood Count 30.7 th/mm3 (4.0-11.0)
--- NOTE | 2018-03-23 04:23 | XR ---
EXAM DATE: 03/23/2018 6:00 AM EDT AGE/SEX: 77 years / Female INDICATIONS: Respiratory failure. CLINICAL DATA: This is the patient's subsequent encounter. Patient reports that signs and symptoms h ave been present for 4 - 6 days and indicates a pain score of Nonresponsive. MEDICAL/SURGICAL HISTORY: . Anemia. Atrial fibrillation. Tricuspid regurgitation. . Fusion, l umbar. COMPARISON: C, CHEST 1V SINGLE AP, 03/22/2018. . FINDINGS: The cardiac silhouette is enlarged in transverse diameter. Support lines and tubes are in satisfactor y position. There is patchy alveolar disease bilaterally characteristic of edema or pneumonia left gr eater than right. There has been no significant change when compared to the prior exam. CONCLUSION: There is patchy alveolar disease bilaterally characteristic of edema or pneumonia. There has been no significant change when compared to the prior exam. Electronically signed by: Dakota Soriano MD 03/23/2018 4:22 AM EDT
[2018-03-23 04:52] LABS: Albumin 1.1 g/dL (3.4-5.0); Calcium 7.3 mg/dL (8.5-10.1); Carbon Dioxide 30.5 meq/L (21.0-32.0); Magnesium 2.1 mg/dL (1.5-2.5); Phosphorus 4.5 mg/dL (2.5-4.9); Potassium 4.6 meq/L (3.5-5.1); Total Protein 5.9 g/dL (6.4-8.2)
[2018-03-23] MEDS: Levothyroxine 125 MCG Tablet PO SCH (05:53)
[2018-03-23] MEDS: fentaNYL 10 mcg/mL Premix Drip 2,500 MCG/250 ML BAG IV.SIG PRN ×2 (05:53→16:16)
[2018-03-23] MEDS: Heparin - SQ 10,000 UNITS/ML Vial SQ SCH ×2 (06:36→14:38)
[2018-03-23 07:10] LABS: ABG Base Excess -0.4 mmol/L (-2-2); ABG PCO2 51 mmHg (38-42); ABG PO2 65 mmHg (61-120)
[2018-03-23 07:10] LABS: Eosinophils 2 % (0-4); Lymphocytes 2 % (9-44); Metamyelocytes 6 % (0-1); Monocytes 21 % (0-8); Myelocytes 2 % (0-0)
[2018-03-23 07:11] LABS: Platelet Estimate Normal (Normal); Platelet Morphology Normal (Normal)
[2018-03-23] MEDS ORDERED: Albumin Human 25% Inj 100 ML IV.SIG SCH (08:00)
[2018-03-23] MEDS: Chlorhexidine 0.12% Oral Kit 15 ML UDC OROPHARYNG SCH ×2 (08:36→20:14)
--- NOTE | 2018-03-23 08:40 | P.PNCC ---
Subjective Subjective Remarks/Hospital Course: This 77-year-old woman was transferred from [facility] to [facility] for treatment of respiratory failure with septic shock and peripheral abscesses including recent diagnosis of epidural abscess in the lumbar region. Her respiratory status is quite compromised with diffuse infiltrates throughout both lung welsh and she is ventilator dependent. On initial presentation to the hospital impair she had complaints of back pain radiating to her left knee. Her hemoglobin was 4 source of bleeding was clear was unclear at first and Dr. Vasquez had previously performed upper and lower endoscopy without location of a source. She has had a metastatic series and MRI on March 04 which developed multilevel central canal and foraminal stenoses she has had a transesophageal echo which revealed severe mitral regurgitation her hospital course has been complicated by atrial fibrillation and hemodynamic instability. Cardioversion was unsuccessful. She has continued recent fever course in excess of 103 degrees and has been treated with broad-spectrum antibiotic coverage including meropenem and vancomycin. She is continued to deteriorate and on about March 11 required endotracheal intubation and mechanical ventilation. Recent ICU white blood cell count is 40,000 blood cultures from March 09 revealed Streptococcus species and a subsequent blood culture grew a staph organism according to the report from the referring physician. The woman is required amiodarone therapy and diltiazem with additional cardioversion to sinus rhythm on the chest x-ray continues to worsen. CT of the abdomen reveals fluid collection on the left psoas muscle, possibly abscess. The contralateral psoas muscle has a similar collection. Recent MRI demonstrates old spine hardware L3-S1 and an irregular soft tissue density around the thecal sac at L1-L2 extending to T12-L1 she is required vasopressor support for hypotension and obvious sepsis overnight. The one constant throughout her early hospital course was severe lower back pain radiating down her legs. 03/15: Temperature max 101. Leukocytosis persists to 30,000. Back in normal sinus rhythm now with pulse rate controlled. Her respiratory status is unstable and she still requiring elevated ventilator pressures and elevated oxygen concentration. We will attempt to get an MRI of the entire spine with and without contrast today pending her hemodynamic suitability. At present her pulmonary status makes operative procedure a prohibitive risk. 03/16: T-max 100. Leukocytosis to 30,000 persists. Remains in sinus rhythm. MRI of the spine reviewed. Patient remains clinically critically ill. Azotemia slightly improved. Continue hydration. Start trickle tube feeding with added protein. 03/16: Continued septic course with low-grade fever and white count 33,000. Chest x-ray appearance alone could explain sepsis. Doing need to culture the fluid collections in the back to rule out another possible nidus? 03/17: Worsening respiratory function requiring us to convert to airway pressure release ventilation mode. Way too ill to allow us to transfer and mobilize for psoas muscle fluid aspiration. Elevated white count persists. Renal function slightly improved. Still requiring aggressive fluid resuscitation. White blood cell count 34,000 tomorrow, consistent with colitis. 03/18: Patient remains quite unstable requiring elevated inspiratory fraction of oxygen and markedly elevated mean airway pressures. CAT scan yesterday confirms dense fibrotic pattern left lung consistent with fibroproliferative phase of ARDS. Right lung has a more spotty architectural pattern due to large areas of emphysema. Due to unique antibodies transfusion has been delayed but should proceed today. Elevated white count to 45,000 with a preponderance of immature forms including myelocytes raises concerns for a bone marrow disorder. 03/19: T-max 100.1, pronounced leukocytosis with persistent elevated myelocytes. We appear to have control of the infection despite the lack of clarity involving the various retroperitoneal fluid collections. Hemodynamically she does not act like florid sepsis. CAT scan of the abdomen does not reveal an obvious source of this leukocytosis. CAT scan of the chest reveals a fibroproliferative stage of ARDS but does not necessarily explain the markedly elevated white count. I will ask the hematology service to evaluate. 03/20: I appreciate input from the hematology service. We are treating presumptive C. difficile colitis and antimicrobial coverage for that is adequate. Progress with the improvement of her ARDS is slow and she still requires elevated fractional inspired oxygen concentration and markedly elevated mean airway pressure. Despite progressively lowered tonicity of fluid administered she continues to concentrate sodium. Now at 157 we are forced to resort to simple D5 water. 03/21: Afebrile. Remains on APRV ventilation. Sodium currently 152. Not stable for IR at the present time. Will attempt to wean APRV today with drop and stretch and see if she tolerates. Tube feeds currently at goal. 03/22: Afebrile. FiO2 - 75%. Chest x-ray essentially stable. Status post bone marrow biopsy yesterday. To physical. 500 cc stool past 24 hours. SUBJECTIVE: 03/23: Afebrile. FiO2 up to 90%. Chest x-ray stable. Replace central line with right IJ 03/22. PICC line removed yesterday. 600 cc stool past 24 hours. Objective Vital Signs / I&O: Vital Signs 03/22/18 11:45 03/22/18 12:00 03/22/18 16:00 Temperature 99.0 F 99.1 F Pulse Rate 89 94 H 82 Respiratory Rate 20 20 24 Blood Pressure 113/54 L 101/52 L Pulse Oximetry 94 L 99 99 03/22/18 17:19 03/22/18 19:40 03/22/18 20:00 Temperature 99.0 F Pulse Rate 84 90 92 H Respiratory Rate 26 H 26 H 26 H Blood Pressure 192/78 H Pulse Oximetry 98 93 L 93 L 03/23/18 00:00 03/23/18 00:12 03/23/18 03:50 Temperature 98.7 F Pulse Rate 76 76 80 Respiratory Rate 20 20 22 Blood Pressure 156/60 H Pulse Oximetry 99 96 94 L 03/23/18 04:00 03/23/18 06:35 03/23/18 07:42 Temperature 99.0 F Pulse Rate 76 82 Respiratory Rate 24 20 12 Blood Pressure 132/58 L Pulse Oximetry 92 L 92 L Intake & Output 03/22/18 03/23/18 03/23/18 18:59 06:59 18:59 Intake Total 960 / 960 2205.5 / 2205.5 Output Total 2500 / 2500 700 / 700 Balance -1540 / -1540 1505.5 / 1505.5 Weight 87.6 kg Intake: IV 400 / 400 962.5 / 962.5 Diprivan 1000 mg/100 ml Inj 1, 200 / 200 200 / 200 000 mg In 100 ml @ 5 MCG/KG/MIN 2.292 mls/hr IV.CONT TITRATE PRN Rx#:[id number] Merrem Inj 1,000 MG In NS Inj 200 / 200 100 ML @ 200 mls/hr IV.SIG Q8H [facility] Rx#:[id number] Vancomycin Inj 1,250 MG In NS 262.5 / 262.5 Inj 250 ML @ 250 mls/hr IV.SIG Q36H [facility] Rx#:[id number] Flagyl 500 MG Inj 100 ML @ 100 200 / 200 200 / 200 mls/hr IV.SIG Q6H [facility] Rx#: [id number] Flolan (30,000 ng/mL) Neb 75 ML 100 / 100 In NS Inj 25 ML @ 5 mls/hr NEB Q8H REPLACED BY [facility] Rx#:[id number] Tube Feeding 460 / 460 843 / 843 Water Bolus Amount 100 / 100 400 / 400 Output: Stool 400 / 400 200 / 200 Urine Amount (Catheter) 2100 / 2100 500 / 500 Indwelling 1999 / 1999 purewick 100 / 100 500 / 500 Other: # Incontinent Voids 1 Date of Last Bowel Movement 03/22/18 Result Diagrams: 03/23/18 04:00 03/23/18 04:00 Other Results: Microbiology 03/17/18 14:59 Sputum - Endotracheal Gram Stain - Final 03/17/18 14:59 Sputum - Endotracheal Sputum Culture - Final Light growth normal respiratory shonda 03/17/18 15:03 Stool Clostridium difficile GDH Antigen - Final Positive - C. difficile Antigen detected. 03/17/18 15:03 Stool Clostridium difficile Toxin Assay - Final Negative - No C. difficile Toxin A or B detected. 03/17/18 15:00 Catheterized Urine Urine Culture - Final No growth in 48 hours 03/14/18 15:42 Sputum - Endotracheal Gram Stain - Final 03/14/18 15:42 Sputum - Endotracheal Sputum Culture - Final Rare growth normal respiratory shonda 03/14/18 15:38 Catheterized Urine Urine Culture - Final No growth in 48 hours 03/14/18 16:20 Stool Clostridium difficile GDH Antigen - Final Positive - C. difficile Antigen detected. 03/14/18 16:20 Stool Clostridium difficile Toxin Assay - Final Negative - No C. difficile Toxin A or B detected. Imaging: Chest X-Ray 03/14/18 00:00 CONCLUSION: 1. Tubes and lines, as above. 2. Diffuse airspace disease throughout the left lung and in the right mid to lower lung zones consistent with atypical/multilobar pneumonia versus developing ARDS. 3. Prominence of the AP window may reflect adenopathy. Cervical Spine MRI 03/15/18 00:00 CONCLUSION: 1. No abnormal areas of enhancement in the dural space or vertebral bodies. 2. Spinal stenosis due to disc bulging at multiple levels and anterolisthesis at C4-5. There is also multilevel bony neural foraminal stenosis. Lumbar Spine MRI 03/15/18 00:00 CONCLUSION: 1. Enhancing soft tissue extending from the subcutaneous region down to the thecal sac at the L1 and L2 level characteristic of postsurgical findings with a rounded area of fluid with some minimal peripheral enhancement dorsal to the thecal sac flattening the posterior margin at L1 and L2. Since there is some minimal peripheral enhancement, and epidural abscess is a differential possibility. Thoracic Spine MRI 03/15/18 00:00 CONCLUSION: 1. No abnormal areas of enhancement in the vertebral bodies or epidural space in the thoracic region. 2. Posterior osteophytes at all levels in the thoracic spine causing mild impression upon the thecal sac. No evidence of disc protrusions over. 3. Moderate size left pleural effusion. Abdomen/Pelvis CT 03/17/18 00:00 CONCLUSION: 1. Diffuse interstitial infiltrate in the lung bases and anasarca suggesting edema. 2. Minimal thickening of the colon. 3. Minimal left basilar effusion. 4. Small amount of free fluid within the abdomen and pelvis. 5. No free air identified. No findings to indicate a bowel obstruction. Chest X-Ray 03/17/18 04:00 CONCLUSION: Diffuse consolidation seen throughout the left lung and to a lesser degree the right mid and lower lung. This appears unchanged. This could be inflammatory or related to ARDS. Tubes and lines in good position. Chest CT 03/17/18 13:48 CONCLUSION: 1. Extensive interstitial prominence with some sparing of the right upper lobe suggesting ARDS. 2. Minimal effusion on the left with a tiny effusion on the right. 3. Degenerative changes in the thoracic spine. Abdomen X-Ray 03/19/18 00:00 CONCLUSION: 1. No bowel obstruction, ileus or perforation. 2. Degenerative changes and scoliosis of the thoracolumbar spine. Soft Tissue Ultrasound 03/19/18 00:00 CONCLUSION: 1. Fluid as above. Chest X-Ray 03/20/18 04:00 CONCLUSION: 1. Persistent diffuse interstitial and airspace consolidation throughout the left lung. 2. Improved aeration in the right mid to lower lung zone. Chest X-Ray 03/22/18 00:00 CONCLUSION: 1. Right internal jugular central line has its tip in superior vena cava in good position. No pneumothorax is noted. 2. Stable diffuse pulmonary infiltrates bilaterally worse on the left than the right. Chest X-Ray 03/22/18 06:00 CONCLUSION: 1. No significant interval change. 2. Stable ETT and NGT. 3. Stable diffuse interstitial and airspace opacities throughout the left lung. 4. Stable interstitial and alveolar opacities in the right lower lung zone. Chest X-Ray 03/22/18 12:13 CONCLUSION: 1. A left internal jugular central line has its tip directed superiorly into the right subclavian region. No pneumothorax is noted. 2. Since of diffuse alveolar consolidations bilaterally which are worse on the left than the right consistent with diffuse pneumonia. Chest X-Ray 03/23/18 06:00 CONCLUSION: There is patchy alveolar disease bilaterally characteristic of edema or pneumonia. There has been no significant change when compared to the prior exam. Objective Remarks: General: Ill-appearing, pale, elderly woman on mechanical ventilation with APRV Head: Atraumatic, normal. Oral tracheal intubation. Neck: Stiff consistent with age but otherwise supple. Lungs: Continued bilateral scattered rhonchi anteriorly and posteriorly. Few greenish/yellow thick secretions. Good bilateral air entry Heart: Regular rate and rhythm, S1, S2 no S4. 2/6 systolic murmur, no JVD Abdomen: Moderately distended, bowel sounds active, no guarding. No peritoneal irritation. Extremities: Warm, well-perfused. Neurologic: Propofol drip makes evaluation difficult. Cranial nerves II through XII grossly intact with positive cough and gag frequently flexors withdraws to pain bilateral upper and lower extremities. Assessment and Plan - Assessment and Plan Plan: Neuro/Psych Depression/anxiety Acute metabolic encephalopathy secondary to severe sepsis Currently a propofol drip at 40 mcg/kg/min for sedation while intubated. As needed fentanyl drip ordered. As needed morphine 4 mg IV every 2 hours as needed pain management Goal of RASS -2 Daily sedation vacation when appropriate Bupropion hydrochloride 150 mg daily currently being held. Resume clinically indicated Cardiovascular Severe septic shock History of SVT History of essential hypertension Hyperlipidemia Moderate TR/MR 2D echocardiogram - LVSF 45- 50%. Mild LVH. [id number] mitral valve regurgitation. Diffuse calcification of the aortic valve. There is moderate tricuspid regurgitation. PAP 70.5 mmHg -Phenylephrine drip as needed for supportive arterial blood pressure -Patient is on simvastatin 20 milligrams daily at home for hyperlipidemia. Respiratory Bilateral pneumonia with severe ARDS History of COPD/fibroproliferative changes APRV T high 4-second. T low 0.7 second. Pressure high 32 cm H2O. Pressure low 0 cmH2O. PSV 5. 75% FiO2 Ventilator bundle Albuterol/ipratropium aerosols every 4 hours with albuterol aerosols every 2 hours as needed for dyspnea Methylprednisolone succinate 40 mg IV every 12 hours Follow-up chest x-ray in a.m. 03/24 with ABG GI C. difficile colitis Hypoalbuminemia with acute severe potentially malnutrition History of Crohn's disease Gastroesophageal reflux disease History of recent ileus Started on tube feeding with Glucerna 1.5 goal 50 cc an hour per nutrition recommendations. We will hold today with distended abdomen and worsening oxygenation Famotidine for GI prophylaxis. On pantoprazole 40 mg daily at home. Holding docusate sodium/senna 1 tablet twice daily with current C. difficile -History of antral ulcers Renal/FEN/ Hypocalcemia -Olivas to closed bag drainage -Monitor urine output -Accurate I's and O's - free water 100 cc every 6 hours. Downward trend - sodium Hematology Leukocytosis -rule out leukemia Normocytic anemia Thrombocytopenia IgM kappa monoclonal gammopathy unknown significance History of lung cancer diagnosed 2012 -Serial white cell count with flow cytometry - CMML preliminary,Jak2 mutation pending and BCR ABL negative. Repeat -Follow anemia with hemoglobin -Bone marrow biopsy at bedside per hematology -Hematology consult Transfuse 3 PRBCs during this hospitalization. Antibody positive. ID C. difficile Staph/strep bacteremia from outside hospital -Meropenem and vancomycin, adjust per ID consult -> IV and p.o. vancomycin, IV metronidazole, fidaxomicin added. Restarted meropenem 03/22 -Blood organisms cultured at outside hospital are streptococcal and staph species. Sputum and UA 03/14 and 03/17 at this facility negative. Endo: Hypothyroidism Sliding scale insulin with aspart insulin medium protocol with Accu-Cheks to maintain euglycemia every 6 hours Continue levothyroxine but increase to 125 g daily. TSH was 11.1 today MSK/Rheum: Psoas abscess Likely L1/L2 epidural abscess History of rheumatoid arthritis -Neurosurgery evaluation for lumbar fluid collection appreciated. IR to drain when clinically stable Prophylaxis -GI -famotidine -DVT -SCDs/heparin subcu Critical care time 35 minutes
[2018-03-23] MEDS: Beneprotein Powder Packet G-TUBE SCH ×3 (09:06→20:38)
[2018-03-23] MEDS: Famotidine 20 MG Tablet PO SCH ×2 (09:06→20:14)
[2018-03-23] MEDS: Carboxymethylcellulose 0.5% Opth Drops 15 ML Bottle EACH EYE SCH ×2 (09:06→20:15)
--- NOTE | 2018-03-23 09:37 | XR ---
EXAM DATE: 03/23/2018 12:00 AM EDT AGE/SEX: 77 years / Female INDICATIONS: Evaluate for ileus. CLINICAL DATA: This is the patient's subsequent encounter. Patient reports that signs and symptoms h ave been present for 1 week and indicates a pain score of Nonresponsive. MEDICAL/SURGICAL HISTORY: . Anemia. Atrial fibrillation. Tricuspid regurgitation. Fusion, lum bar. COMPARISON: [facility], ABDOMEN 1V KUB, 03/19/2018. . FINDINGS: No bowel obstruction or ileus is noted. Nasogastric tube has its tip in the stomach. Degenerative ch anges and scoliosis of the thoracolumbar spine are noted. Fusion hardware is noted within the lower l umbar spine. Bilateral hip replacements are also noted. CONCLUSION: No bowel obstruction or ileus. Electronically signed by: Jm Kay MD 03/23/2018 9:36 AM EDT
--- NOTE | 2018-03-23 10:04 | P.PNNS ---
Subjective Interval history: No acute events overnight Physical Exam Vital signs: Vital Signs 03/22/18 11:45 03/22/18 12:00 03/22/18 16:00 Temperature 99.0 F 99.1 F Pulse Rate 89 94 H 82 Respiratory Rate 20 20 24 Blood Pressure 113/54 L 101/52 L Pulse Oximetry 94 L 99 99 03/22/18 17:19 03/22/18 19:40 03/22/18 20:00 Temperature 99.0 F Pulse Rate 84 90 92 H Respiratory Rate 26 H 26 H 26 H Blood Pressure 192/78 H Pulse Oximetry 98 93 L 93 L 03/23/18 00:00 03/23/18 00:12 03/23/18 03:50 Temperature 98.7 F Pulse Rate 76 76 80 Respiratory Rate 20 20 22 Blood Pressure 156/60 H Pulse Oximetry 99 96 94 L 03/23/18 04:00 03/23/18 06:35 03/23/18 07:42 Temperature 99.0 F Pulse Rate 76 82 Respiratory Rate 24 20 12 Blood Pressure 132/58 L Pulse Oximetry 92 L 92 L Intake & Output 03/22/18 03/23/18 03/23/18 18:59 06:59 18:59 Intake Total 960 / 960 2205.5 / 2205.5 Output Total 2500 / 2500 700 / 700 Balance -1540 / -1540 1505.5 / 1505.5 Weight 87.6 kg Intake: IV 400 / 400 962.5 / 962.5 Diprivan 1000 mg/100 ml Inj 1, 200 / 200 200 / 200 000 mg In 100 ml @ 5 MCG/KG/MIN 2.292 mls/hr IV.CONT TITRATE PRN Rx#:[id number] Merrem Inj 1,000 MG In NS Inj 200 / 200 100 ML @ 200 mls/hr IV.SIG Q8H [facility] Rx#:[id number] Vancomycin Inj 1,250 MG In NS 262.5 / 262.5 Inj 250 ML @ 250 mls/hr IV.SIG Q36H [facility] Rx#:[id number] Flagyl 500 MG Inj 100 ML @ 100 200 / 200 200 / 200 mls/hr IV.SIG Q6H [facility] Rx#: [id number] Flolan (30,000 ng/mL) Neb 75 ML 100 / 100 In NS Inj 25 ML @ 5 mls/hr NEB Q8H [facility] Rx#:[id number] Tube Feeding 460 / 460 843 / 843 Water Bolus Amount 100 / 100 400 / 400 Output: Stool 400 / 400 200 / 200 Urine Amount (Catheter) 2100 / 2100 500 / 500 Indwelling 1999 / 1999 purewick 100 / 100 500 / 500 Other: # Incontinent Voids 1 Date of Last Bowel Movement 03/22/18 Narrative: On sedation due to respiratory instability Does not open eyes PERRL Trace movement bilateral upper extremities Trace withdrawal bilateral lower extremities - Urinary Catheter Management Indwelling Cath placed during this visit: no purewick Cath placed during this visit: no Assessment and Plan - Assessment (1) Spinal stenosis of thoracolumbar region Code(s): M48.05 - Spinal stenosis, thoracolumbar region Status: Acute (2) Sepsis Code(s): A41.9 - Sepsis, unspecified organism Status: Acute Qualifiers: Sepsis type: methicillin susceptible Staphylococcus aureus Qualified Code(s ): A41.01 - Sepsis due to Methicillin susceptible Staphylococcus aureus (3) Respiratory failure Code(s): J96.90 - Respiratory failure, unspecified, unspecified whether with hypoxia or hypercapnia Status: Acute Qualifiers: Chronicity: acute (4) Fusion of lumbar spine Code(s): 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 MRI of the thoracolumbar spine with evidence of T12/L1 epidural abscess with moderate stenosis at this level. History of L3-S1 instrumentation by outside surgeon in [place] several years ago. Unable to pause sedation due to cardiopulmonary instability. Plan: Continue with critical care Continue with antibiotics. Continue with Neuro checks.
[2018-03-23 11:21] LABS: ABG Base Excess 1.2 mmol/L (-2-2); ABG PCO2 68 mmHg (38-42); ABG PO2 70 mmHg (61-120)
[2018-03-23] MEDS ORDERED: Bumetanide Inj 25 MG/100 ML BAG IV.CONT SCH (12:00)
[2018-03-23] MEDS ORDERED: Albumin Human 5% Inj 250 ML IV.SIG ONE (13:00)
--- NOTE | 2018-03-23 13:34 | P.PNONC ---
Subjective Interval history: Afebrile Patient remains intubated and sedated On pressors Objective Vital Signs/Intake & Output: Vital Signs 03/22/18 16:00 03/22/18 17:19 03/22/18 19:40 Temperature 99.1 F Pulse Rate 82 84 90 Respiratory Rate 24 26 H 26 H Blood Pressure 101/52 L Pulse Oximetry 99 98 93 L 03/22/18 20:00 03/23/18 00:00 03/23/18 00:12 Temperature 99.0 F 98.7 F Pulse Rate 92 H 76 76 Respiratory Rate 26 H 20 20 Blood Pressure 192/78 H 156/60 H Pulse Oximetry 93 L 99 96 03/23/18 03:50 03/23/18 04:00 03/23/18 06:35 Temperature 99.0 F Pulse Rate 80 76 Respiratory Rate 22 24 20 Blood Pressure 132/58 L Pulse Oximetry 94 L 92 L 03/23/18 07:42 03/23/18 08:00 03/23/18 11:01 Temperature 98.2 F Pulse Rate 82 77 59 L Respiratory Rate 12 16 15 Blood Pressure 100/48 L Pulse Oximetry 92 L 92 L 93 L Intake & Output 03/22/18 03/23/18 03/23/18 18:59 06:59 18:59 Intake Total 960 / 960 2205.5 / 2205.5 200 / 200 Output Total 2500 / 2500 700 / 700 Balance -1540 / -1540 1505.5 / 1505.5 200 / 200 Weight 193 lb 1.999 oz Intake: IV 400 / 400 962.5 / 962.5 200 / 200 Diprivan 1000 mg/100 ml Inj 1, 200 / 200 200 / 200 100 / 100 000 mg In 100 ml @ 5 MCG/KG/MIN 2.292 mls/hr IV.CONT TITRATE PRN Rx#:[id number] Merrem Inj 1,000 MG In NS Inj 200 / 200 100 ML @ 200 mls/hr IV.SIG Q8H [facility] Rx#:[id number] Vancomycin Inj 1,250 MG In NS 262.5 / 262.5 Inj 250 ML @ 250 mls/hr IV.SIG Q36H [facility] Rx#:[id number] Flagyl 500 MG Inj 100 ML @ 100 200 / 200 200 / 200 mls/hr IV.SIG Q6H [facility] Rx#: [id number] Flolan (30,000 ng/mL) Neb 75 ML 100 / 100 100 / 100 In NS Inj 25 ML @ 5 mls/hr NEB Q8H [facility] Rx#:[id number] Tube Feeding 460 / 460 843 / 843 Water Bolus Amount 100 / 100 400 / 400 Output: Stool 400 / 400 200 / 200 Urine Amount (Catheter) 2100 / 2100 500 / 500 Indwelling 2000 / 1999 purewick 100 / 100 500 / 500 Other: # Incontinent Voids 1 Date of Last Bowel Movement 03/22/18 Result Diagrams: 03/23/18 04:00 03/23/18 04:00 Laboratory Results: Laboratory Results - last 24 hr 03/20/18 03/21/18 03/22/18 05:25 17:40 16:40 WBC RBC Hgb Hct MCV MCH MCHC RDW Plt Count MPV Prelim Diff (Auto) WBC Differential Seg Neuts % (Manual) Band Neuts % (Manual) Lymphocytes % (Manual) Monocytes % (Manual) Eosinophils % (Manual) Metamyelocytes % (Man) Myelocytes % (Man) Abs Neuts (Manual) Differential Comment Platelet Estimate Platelet Morphology Puncture Site Art line Patient Temperature 98.6 O2 Saturation 94 ABG pH 7.43 H ABG pCO2 44 H ABG pO2 78 ABG HCO3 28 H ABG O2 Content 11.4 L ABG Base Excess 4.1 H ABG Methemoglobin 1.2 Faizan Test Hemoglobin 8.6 L Carboxyhemoglobin 1.5 O2 Delivery Device Ventilator Vent Setting Inspired O2 65 Critical Value No Sodium Potassium Chloride Carbon Dioxide Anion Gap BUN Creatinine Estimated GFR POC Glucose Random Glucose Calcium Prot Corrected Calcium Phosphorus Magnesium Total Bilirubin AST ALT Alkaline Phosphatase Total Protein Albumin Vancomycin Trough Marrow Immunophenotype JAK2 Mutation (PCR) 03/22/18 03/23/18 03/23/18 20:45 00:09 04:00 WBC 30.7 H RBC 2.98 L Hgb 8.4 L Hct 26.9 L MCV 90.1 MCH 28.3 MCHC 31.4 L RDW 22.7 H Plt Count 156 MPV 11.9 H Prelim Diff (Auto) Manual diff required WBC Differential Manual diff final Seg Neuts % (Manual) 45 Band Neuts % (Manual) 22 H Lymphocytes % (Manual) 2 L Monocytes % (Manual) 21 H Eosinophils % (Manual) 2 Metamyelocytes % (Man) 6 H Myelocytes % (Man) 2 H Abs Neuts (Manual) 23.0 H Differential Comment . Platelet Estimate Normal Platelet Morphology Normal Puncture Site Patient Temperature O2 Saturation ABG pH ABG pCO2 ABG pO2 ABG HCO3 ABG O2 Content ABG Base Excess ABG Methemoglobin Faizan Test Hemoglobin Carboxyhemoglobin O2 Delivery Device Vent Setting Inspired O2 Critical Value Sodium Potassium Chloride Carbon Dioxide Anion Gap BUN Creatinine Estimated GFR POC Glucose 136 H Random Glucose Calcium Prot Corrected Calcium Phosphorus Magnesium Total Bilirubin AST ALT Alkaline Phosphatase Total Protein Albumin Vancomycin Trough 18.1 H Marrow Immunophenotype JAK2 Mutation (PCR) 03/23/18 03/23/18 03/23/18 04:00 07:05 11:00 WBC RBC Hgb Hct MCV MCH MCHC RDW Plt Count MPV Prelim Diff (Auto) WBC Differential Seg Neuts % (Manual) Band Neuts % (Manual) Lymphocytes % (Manual) Monocytes % (Manual) Eosinophils % (Manual) Metamyelocytes % (Man) Myelocytes % (Man) Abs Neuts (Manual) Differential Comment Platelet Estimate Platelet Morphology Puncture Site Art line Art line Patient Temperature 98.6 98.6 O2 Saturation 89 L* 89 L* ABG pH 7.31 L 7.24 L* ABG pCO2 51 H* 68 H* ABG pO2 65 70 ABG HCO3 25 28 H ABG O2 Content 9.7 L 10.3 L ABG Base Excess -0.4 1.2 ABG Methemoglobin 1.3 1.4 Faizan Test Present Hemoglobin 7.7 L* 8.2 L Carboxyhemoglobin 1.7 1.5 O2 Delivery Device Ventilator Ventilator Vent Setting Bilevel Inspired O2 70 85 Critical Value Yes Yes Sodium 141 Potassium 4.6 Chloride 105 Carbon Dioxide 30.5 Anion Gap 6 BUN 39 H Creatinine 0.91 Estimated GFR 60 L POC Glucose Random Glucose 140 H D Calcium 7.3 L* Prot Corrected Calcium 7.9 L Phosphorus 4.5 Magnesium 2.1 Total Bilirubin 0.3 AST 31 ALT 14 Alkaline Phosphatase 122 H Total Protein 5.9 L Albumin 1.1 L Vancomycin Trough Marrow Immunophenotype JAK2 Mutation (PCR) 03/23/18 12:34 WBC RBC Hgb Hct MCV MCH MCHC RDW Plt Count MPV Prelim Diff (Auto) WBC Differential Seg Neuts % (Manual) Band Neuts % (Manual) Lymphocytes % (Manual) Monocytes % (Manual) Eosinophils % (Manual) Metamyelocytes % (Man) Myelocytes % (Man) Abs Neuts (Manual) Differential Comment Platelet Estimate Platelet Morphology Puncture Site Patient Temperature O2 Saturation ABG pH ABG pCO2 ABG pO2 ABG HCO3 ABG O2 Content ABG Base Excess ABG Methemoglobin Faizan Test Hemoglobin Carboxyhemoglobin O2 Delivery Device Vent Setting Inspired O2 Critical Value Sodium Potassium Chloride Carbon Dioxide Anion Gap BUN Creatinine Estimated GFR POC Glucose 123 H Random Glucose Calcium Prot Corrected Calcium Phosphorus Magnesium Total Bilirubin AST ALT Alkaline Phosphatase Total Protein Albumin Vancomycin Trough Marrow Immunophenotype JAK2 Mutation (PCR) Imaging Studies: Impressions Chest X-Ray 03/22/18 00:00 CONCLUSION: 1. Right internal jugular central line has its tip in superior vena cava in good position. No pneumothorax is noted. 2. Stable diffuse pulmonary infiltrates bilaterally worse on the left than the right. Abdomen X-Ray 03/23/18 00:00 CONCLUSION: No bowel obstruction or ileus. Chest X-Ray 03/23/18 06:00 CONCLUSION: There is patchy alveolar disease bilaterally characteristic of edema or pneumonia. There has been no significant change when compared to the prior exam. Medications: Active Medications Generic Name Dose Route Start Last Admin Trade Name Freq PRN Reason Stop Dose Admin Albuterol 1 ampul 03/22/18 08:00 03/23/18 11:00 Duoneb Neb (Enma) NEB 1 ampul Q4HR NEB [facility]MA Administration Artificial Tears 1 drop 03/21/18 21:00 03/23/18 09:06 Refresh Tears 0.5% Opth Drops EACH EYE 1 drop BID ENMA Administration Chlorhexidine Gluconate 15 ml 03/14/18 20:00 03/23/18 08:36 Peridex 0.12% Oral Kit OROPHARYNG 15 ml BID@0800,2000 ENMA Administration Famotidine 20 mg 03/21/18 21:00 03/23/18 09:06 Pepcid PO Not Given BID ENMA Fidaxomicin 200 mg 03/19/18 21:00 03/23/18 09:06 Dificid PO 03/29/18 20:59 Not Given BID ENMA Heparin Sodium (Porcine) 5,000 units 03/14/18 15:00 03/23/18 06:36 Heparin Inj SQ 5,000 units Q8H [facility] Administration Fentanyl 2,500 mcg in 250 mls @ 5 mls/hr 03/14/18 15:00 03/23/18 06:30 Fentanyl 10 Mcg/Ml Premix Drip IV.SIG 250 mcg/hr TITRATE PRN 25 mls/hr Per Protocol Titration Protocol 50 MCG/HR Propofol 1,000 mg in 100 mls @ 2.292 mls/hr 03/14/18 15:00 03/23/18 07:58 Diprivan 1000 Mg/100 Ml Inj IV.CONT 50 mcg/kg/min TITRATE PRN 22.92 mls/hr Per Protocol Administration Protocol 5 MCG/KG/MIN Phenylephrine HCl 80 mg/ 500 mls @ 15 mls/hr 03/14/18 16:00 03/23/18 12:33 Sodium Chloride IV.CONT 55 mcg/min TITRATE PRN 20.62 mls/hr See protocol Titration Protocol 40 MCG/MIN Potassium Chloride 40 meq in 100 mls @ 25 mls/hr 03/14/18 18:12 03/15/18 08: 58 Kcl 40 Meq Premix Inj IV.SIG Infused UNSCH PRN Infusion For Potassium 3.3 - 3.5 mEq/L Metronidazole/Sodium Chloride 100 mls @ 100 mls/hr 03/14/18 22:00 03/23/18 11 :01 Flagyl 500 Mg Inj IV.SIG 100 mls/hr Q6H [facility] Administration Vancomycin HCl 1,250 mg/ 262.5 mls @ 250 mls/hr 03/19/18 21:00 03/22/18 22:44 Sodium Chloride IV.SIG Infused Q36H [facility] Infusion Epoprostenol Sodium 75 ml/ 100 mls @ 5 mls/hr 03/22/18 15:00 03/23/18 11:02 Sodium Chloride NEB 9 mls/hr Q8H [facility] Administration Meropenem 1,000 mg/ Sodium 100 mls @ 200 mls/hr 03/22/18 17:00 03/23/18 08:35 Chloride IV.SIG 200 mls/hr Q8H [facility] Administration Albumin Human 100 mls @ 60 mls/hr 03/23/18 08:00 03/23/18 08:33 Flexbumin 25% Inj IV.SIG 03/23/18 21:39 60 mls/hr Q12H [facility]MA Administration Albumin Human 250 mls @ 250 mls/hr 03/23/18 13:00 03/23/18 12:57 Buminate 5% Inj IV.SIG 03/23/18 13:59 250 mls/hr ONCE ONE Administration Insulin Aspart 0 unit 03/21/18 18:00 03/23/18 06:35 Novolog Insulin Correctional Sugar Inj SQ Not Given Q6HR [facility] Protocol Labetalol HCl 10 mg 03/21/18 17:44 03/22/18 22:48 Trandate Inj IV.PUSH 10 mg Q1H PRN Administration Sbp>170, Dbp>90, Hr>65 Levothyroxine Sodium 125 mcg 03/23/18 06:00 03/23/18 05:53 Synthroid PO 125 mcg DAILY@0600 [facility] Administration Miscellaneous Medication 1 each 03/14/18 16:00 03/23/18 05:01 OROPHARYNG 1 each 0000,0400,1200,1600 [facility] Administration Morphine Sulfate 4 mg 03/14/18 14:05 03/22/18 01:19 Morphine Inj IV.PUSH 4 mg Q2H PRN Administration any pain Potassium Bicarb/Potassium Chloride 50 meq 03/14/18 18:12 03/14/18 18:32 K-Lyte Cl Eff PO 50 meq UNSCH PRN Administration For Potassium 3.3 - 3.5 mEq/L Senna/Docusate Sodium 1 tab 03/14/18 21:00 03/21/18 08:52 Mimi-Colace PO Not Given BID [facility] Sodium Chloride 2 ml 03/14/18 21:00 03/23/18 09:06 Ns Flush IV.FLUSH Not Given BID [facility] Sodium Chloride 0 ml 03/23/18 09:00 03/23/18 09:06 Ns Flush IV.FLUSH Not Given DAILY [facility] Sterile Water 100 ml 03/22/18 06:33 03/23/18 05:53 Free Water NG/OG 100 ml Q6HR [facility] Administration Vancomycin HCl 500 mg 03/15/18 18:00 03/23/18 09:07 Vancomycin Po PO Not Given QID [facility] Whey 1 packet 03/15/18 13:00 03/23/18 09:06 Beneprotein Powder G-TUBE Not Given TID [facility] Objective Remarks: GENERAL: Chronically ill-appearing female resting in bed mechanically ventilated and sedated SKIN: Warm and dry. No oozing from lines HEAD: Normocephalic. EYES: No scleral icterus. No injection or drainage. NECK: Supple, trachea midline. Right central line, drsg dry/intact. CARDIOVASCULAR: Regular rate and rhythm. RESPIRATORY: Clear anteriorly. Mechanically ventilated. Ventilated FiO2 85. GASTROINTESTINAL: Abdomen large, distended. Rectal tube draining dark stool. EXTREMITIES: No cyanosis. +anasarca. NEUROLOGICAL: Sedated Assessment/Plan - Plan Ms. Arevalo is a 77 year-old female patient, transferred to [place] on 03/14/2018 from [facility]. According to the records, she was originally seen with severe back pain, CT scan of the abdomen and pelvis showed an epidural abscess and abdominal abscesses. She was treated with antibiotics. She then developed pneumonia and went into respiratory failure. At which time she was intubated. She is currently being treated for C. difficile colitis. Hematology was consulted for evaluation of leukocytosis with immature cells in the peripheral blood and severe anemia. Plan: 1. Flow cytometry from bone marrow biopsy shows no evidence of leukemia or lymphoma. Tanmay 2 results negative for myeloproliferative neoplasm. 2. Continue sepsis management per process trainer and infectious disease. 3. Supportive care. - Attending Statement The exam, history, and the medical decision-making described in the above note were completed with the assistance of the mid-level provider. I reviewed and agree with the findings presented. I attest that I had a [id number] encounter with the patient on the same day, and personally performed and documented my assessment and findings in the medical record. Patient remains on the ventilator Bone marrow flow cytometry does not show any evidence of leukemia or lymphoma Cytogenetics are still pending Bone marrow morphology report is still pending Tanmay 2 mutation came back negative BCR ABL is still pending Leukocytosis with immature cells most likely due to severe infection/ inflammation Continue to monitor CBC.
[2018-03-23] MEDS: Midazolam 50 MG/50 ML Inj 50 MG/50 ML BAG IV.CONT PRN (14:48)
[2018-03-23 15:06] LABS: ABG Base Excess -0.4 mmol/L (-2-2); ABG PCO2 59 mmHg (38-42); ABG PO2 95 mmHg (61-120)
[2018-03-23 15:39] LABS: Mean Corpuscular HGB Conc 31.8 % (32.0-36.0); Mean Corpuscular Hemoglobin 28.4 pg (27.0-34.0); Mean Corpuscular Volume 89.3 fL (80.0-100.0); Mean Platelet Volume 12.3 fL (7.0-11.0); Platelet Count 106 th/mm3 (150-450); Red Blood Count 2.06 mil/mm3 (4.00-5.30); Red Cell Distribution Width 21.7 % (11.6-17.2); White Blood Count 22.6 th/mm3 (4.0-11.0)
[2018-03-23 15:45] LABS: Hematocrit 18.4 % (35.0-46.0); Hemoglobin 5.9 gm/dL (11.6-15.3)
[2018-03-23 16:08] LABS: Calcium 7.4 mg/dL (8.5-10.1); Carbon Dioxide 31.5 meq/L (21.0-32.0); Potassium 4.3 meq/L (3.5-5.1)
[2018-03-23 16:26] LABS: Total Protein 5.7 g/dL (6.4-8.2)
[2018-03-23 16:28] LABS: Hematocrit 22.1 % (35.0-46.0); Mean Corpuscular HGB Conc 31.8 % (32.0-36.0); Mean Corpuscular Hemoglobin 28.5 pg (27.0-34.0); Mean Corpuscular Volume 89.5 fL (80.0-100.0); Mean Platelet Volume 11.8 fL (7.0-11.0); Platelet Count 120 th/mm3 (150-450); Red Blood Count 2.47 mil/mm3 (4.00-5.30); Red Cell Distribution Width 22.8 % (11.6-17.2); White Blood Count 26.5 th/mm3 (4.0-11.0)
[2018-03-23] MEDS ORDERED: Cathflo Activase Inj 2 MG Vial I-CATHETER ONE (16:45)
[2018-03-23] MEDS ORDERED: Calcium Chloride Inj 1 GM in Sodium Chlor 0.9% Inj 100 ML IV.SIG ONE (17:00)
[2018-03-23 17:05] LABS: ABG Base Excess 1.7 mmol/L (-2-2); ABG PCO2 59 mmHg (38-42); ABG PO2 70 mmHg (61-120)
--- NOTE | 2018-03-23 19:51 | P.PNID ---
Subjective Remarks: Unstable PEEP 16, FiO2 60% she cont to have high volume diarrhea hypothermic Antibiotics: meropenem dificid vanco po vanco flagyl iv Allergies/Adverse Reactions: Allergies Penicillins Allergy (Verified 03/14/18 13:53) Swelling of Lip/Tongue/Throat Sulfa (Sulfonamide Antibiotics) Allergy (Verified 03/14/18 13:53) Diarrhea shellfish Adverse Reaction (Uncoded 03/14/18 13:53) Swelling of Lip/Tongue/Throat Objective Vital Signs 03/22/18 19:40 03/22/18 20:00 03/23/18 00:00 Temperature 99.0 F 98.7 F Pulse Rate 90 92 H 76 Respiratory Rate 26 H 26 H 20 Blood Pressure 192/78 H 156/60 H Pulse Oximetry 93 L 93 L 99 03/23/18 00:12 03/23/18 03:50 03/23/18 04:00 Temperature 99.0 F Pulse Rate 76 80 76 Respiratory Rate 20 22 24 Blood Pressure 132/58 L Pulse Oximetry 96 94 L 92 L 03/23/18 06:35 03/23/18 07:42 03/23/18 08:00 Temperature 98.2 F Pulse Rate 82 77 Respiratory Rate 20 12 16 Blood Pressure 100/48 L Pulse Oximetry 92 L 92 L 03/23/18 11:01 03/23/18 12:00 03/23/18 14:36 Temperature 98.2 F Pulse Rate 59 L 74 Respiratory Rate 15 20 Blood Pressure 95/44 L Pulse Oximetry 93 L 100 95 03/23/18 16:00 03/23/18 17:10 03/23/18 17:45 Temperature 93.9 F L Pulse Rate 60 59 L Respiratory Rate 24 16 Blood Pressure 112/49 L Pulse Oximetry 03/23/18 18:24 03/23/18 18:42 Temperature 93.9 F L 93.9 F L Pulse Rate 66 62 Respiratory Rate 14 24 Blood Pressure 138/54 L 139/53 L Pulse Oximetry Intake & Output 03/23/18 03/23/18 03/24/18 06:59 18:59 06:59 Intake Total 2205.5 / 2205.5 1050 / 1050 Output Total 700 / 700 1825 / 1825 Balance 1505.5 / 1505.5 -775 / -775 Weight 87.6 kg Intake: IV 962.5 / 962.5 950 / 950 Diprivan 1000 mg/100 ml Inj 1, 200 / 200 200 / 200 000 mg In 100 ml @ 5 MCG/KG/MIN 2.292 mls/hr IV.CONT TITRATE PRN Rx#:[id number] Flexbumin 25% Inj 100 ML @ 60 100 / 100 mls/hr IV.SIG Q12H [facility] Rx#: [id number] Merrem Inj 1,000 MG In NS Inj 200 / 200 100 / 100 100 ML @ 200 mls/hr IV.SIG Q8H [facility] Rx#:[id number] Vancomycin Inj 1,250 MG In NS 262.5 / 262.5 Inj 250 ML @ 250 mls/hr IV.SIG Q36H [facility] Rx#:[id number] fentaNYL 10 mcg/mL Premix Drip 250 / 250 2,500 mcg In 250 ml @ 50 MCG/HR 5 mls/hr IV.SIG TITRATE PRN Rx #:[id number] Flagyl 500 MG Inj 100 ML @ 100 200 / 200 200 / 200 mls/hr IV.SIG Q6H [facility] Rx#: [id number] Flolan (30,000 ng/mL) Neb 75 ML 100 / 100 100 / 100 In NS Inj 25 ML @ 5 mls/hr NEB Q8H [facility] Rx#:[id number] Tube Feeding 843 / 843 Water Bolus Amount 400 / 400 100 / 100 Intake (Blood Product) Amt 0 / 0 Rbc As-3 Leukoreduced Unit 0 / 0 [id number] Output: Stool 200 / 200 150 / 150 Urine Amount (Catheter) 500 / 500 1675 / 1675 Indwelling Urethral Catheter 1675 / 1675 purewick 500 / 500 Other: # Incontinent Voids 1 Date of Last Bowel Movement 03/23/18 Lab - Hematology Results 03/22/18 03/23/18 03/23/18 04:45 04:00 15:10 WBC 26.2 H 30.7 H 22.6 H RBC 3.04 L 2.98 L 2.06 L Hgb 8.8 L 8.4 L 5.9 L* D Hct 27.4 L 26.9 L 18.4 L* MCV 90.2 90.1 89.3 MCH 29.0 28.3 28.4 MCHC 32.1 31.4 L 31.8 L RDW 23.1 H 22.7 H 21.7 H Plt Count 141 L 156 106 L D MPV 12.6 H 11.9 H 12.3 H Prelim Diff (Auto) Manual diff required Manual diff required WBC Differential Manual diff final Manual diff final Seg Neuts % (Manual) 44 45 Band Neuts % (Manual) 24 H 22 H Lymphocytes % (Manual) 4 L 2 L Monocytes % (Manual) 13 H 21 H Eosinophils % (Manual) 1 2 Metamyelocytes % (Man) 11 H 6 H Myelocytes % (Man) 2 H 2 H Promyelocytes % (Man) 1 H Abs Neuts (Manual) 21.5 H 23.0 H Nucleated RBCs/100 WBC 1 H Differential Comment . . Platelet Estimate Normal Normal Platelet Morphology Enlarged H Normal Ovalocytes 1+ H 03/23/18 16:00 WBC 26.5 H RBC 2.47 L Hgb 7.0 L Hct 22.1 L MCV 89.5 MCH 28.5 MCHC 31.8 L RDW 22.8 H Plt Count 120 L MPV 11.8 H Prelim Diff (Auto) WBC Differential Seg Neuts % (Manual) Band Neuts % (Manual) Lymphocytes % (Manual) Monocytes % (Manual) Eosinophils % (Manual) Metamyelocytes % (Man) Myelocytes % (Man) Promyelocytes % (Man) Abs Neuts (Manual) Nucleated RBCs/100 WBC Differential Comment Platelet Estimate Platelet Morphology Ovalocytes Lab - Chemistry Results 03/21/18 03/22/18 03/22/18 23:51 04:45 05:02 Sodium 140 D Potassium 5.0 Chloride 103 D Carbon Dioxide 28.9 Anion Gap 8 BUN 40 H Creatinine 0.91 Estimated GFR 60 L POC Glucose 131 H 163 H Random Glucose 245 H D Calcium 7.1 L* Prot Corrected Calcium 7.8 L Phosphorus 3.7 Magnesium 2.1 Total Bilirubin 0.4 AST 34 ALT 16 Alkaline Phosphatase 119 H Total Protein 5.7 L Albumin 1.1 L TSH 11.800 H 03/22/18 03/23/18 03/23/18 05:03 00:09 04:00 Sodium 141 Potassium 4.6 Chloride 105 Carbon Dioxide 30.5 Anion Gap 6 BUN 39 H Creatinine 0.91 Estimated GFR 60 L POC Glucose 145 H 136 H Random Glucose 140 H D Calcium 7.3 L* Prot Corrected Calcium 7.9 L Phosphorus 4.5 Magnesium 2.1 Total Bilirubin 0.3 AST 31 ALT 14 Alkaline Phosphatase 122 H Total Protein 5.9 L Albumin 1.1 L TSH 03/23/18 03/23/18 12:34 15:10 Sodium 142 Potassium 4.3 Chloride 105 Carbon Dioxide 31.5 Anion Gap 6 BUN 41 H Creatinine 0.92 Estimated GFR 59 L POC Glucose 123 H Random Glucose 106 Calcium 7.4 L* Prot Corrected Calcium 8.2 L Phosphorus Magnesium Total Bilirubin AST ALT Alkaline Phosphatase Total Protein 5.7 L Albumin TSH Imaging: ITS Impressions Cervical Spine MRI 03/15/18 00:00 CONCLUSION: 1. No abnormal areas of enhancement in the dural space or vertebral bodies. 2. Spinal stenosis due to disc bulging at multiple levels and anterolisthesis at C4-5. There is also multilevel bony neural foraminal stenosis. Lumbar Spine MRI 03/15/18 00:00 CONCLUSION: 1. Enhancing soft tissue extending from the subcutaneous region down to the thecal sac at the L1 and L2 level characteristic of postsurgical findings with a rounded area of fluid with some minimal peripheral enhancement dorsal to the thecal sac flattening the posterior margin at L1 and L2. Since there is some minimal peripheral enhancement, and epidural abscess is a differential possibility. Thoracic Spine MRI 03/15/18 00:00 CONCLUSION: 1. No abnormal areas of enhancement in the vertebral bodies or epidural space in the thoracic region. 2. Posterior osteophytes at all levels in the thoracic spine causing mild impression upon the thecal sac. No evidence of disc protrusions over. 3. Moderate size left pleural effusion. Abdomen/Pelvis CT 03/17/18 00:00 CONCLUSION: 1. Diffuse interstitial infiltrate in the lung bases and anasarca suggesting edema. 2. Minimal thickening of the colon. 3. Minimal left basilar effusion. 4. Small amount of free fluid within the abdomen and pelvis. 5. No free air identified. No findings to indicate a bowel obstruction. Chest CT 03/17/18 13:48 CONCLUSION: 1. Extensive interstitial prominence with some sparing of the right upper lobe suggesting ARDS. 2. Minimal effusion on the left with a tiny effusion on the right. 3. Degenerative changes in the thoracic spine. Soft Tissue Ultrasound 03/19/18 00:00 CONCLUSION: 1. Fluid as above. Abdomen X-Ray 03/23/18 00:00 CONCLUSION: No bowel obstruction or ileus. Chest X-Ray 03/23/18 06:00 CONCLUSION: There is patchy alveolar disease bilaterally characteristic of edema or pneumonia. There has been no significant change when compared to the prior exam. Physical Exam: GENERAL: NAD sedated, on vent on bear hugger SKIN: Warm and dry. No rash HEAD: Atraumatic. Normocephalic. EYES: Pupils equal and round. No scleral icterus. No injection or drainage. ENT: No nasal bleeding or discharge. Mucous membranes pink and moist. NECK: Trachea midline. No JVD. CARDIOVASCULAR: Regular rate and rhythm. RESPIRATORY: No accessory muscle use. b/l rhonchi to auscultation. Breath sounds equal bilaterally. GASTROINTESTINAL: Abdomen soft, no reaction to palpation, + markedly distended. Hepatic and splenic margins not palpable. MUSCULOSKELETAL: Extremities without clubbing, cyanosis, severe tight pitting 3-4 + edema, seems more edematous. No obvious deformities. NEUROLOGICAL: heavily sedated; not following commands PSYCHIATRIC: unable to assess Assessment and Plan - Plan PNA, HCAP /aspiration vs ARDS - NGTD from sputum Lower T / L spine epidural abscess - pt was seen by Dr Monster Taylor who is planning to repeat MR w/wo c when stable enough - dw Dr Jasiel Wiley: small amount of fluid present Sepsis: staph reported by other facility provider Acute VDR 2/2 ARDS ARF C.diff colitis. Perssitent Severe leukocytosis, leukemoid reaction. 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 VAP - increased vent requirements and worsening resp status Critical, unstable from resp standpoint She is more unstable today REC's: cont iv flagyl cont po vancomycin cont iv vanco cont dificid cont Meropenem cont micafungin chk blood clx chk UA,C+S if indicated sputum clx dw RN
[2018-03-24] MEDS: Phenylephrine Inj 80 MG in Sodium Chlor 0.9% Inj 492 ML IV.CONT PRN (00:13)
[2018-03-24 00:37] LABS: Hematocrit 27.9 % (35.0-46.0); Hemoglobin 8.9 gm/dL (11.6-15.3); Mean Corpuscular Hemoglobin 28.6 pg (27.0-34.0); Mean Corpuscular Volume 89.5 fL (80.0-100.0); Platelet Count 135 th/mm3 (150-450); Red Blood Count 3.11 mil/mm3 (4.00-5.30); Red Cell Distribution Width 20.4 % (11.6-17.2); White Blood Count 25.2 th/mm3 (4.0-11.0)
[2018-03-24 00:46] LABS: Activated Partial Thrombo Time 28.9 sec (24.3-30.1); INR 1.1 Ratio; Prothrombin Time 11.4 sec (9.8-11.6)
[2018-03-24] MEDS: Oral Hygiene Kit OROPHARYNG SCH ×4 (00:46→16:13)
[2018-03-24] MEDS: Insulin NovoLOG Aspart Correctional Sugar Inj SQ SCH ×4 (00:46→18:09)
[2018-03-24 01:40] LABS: Eosinophils 1 % (0-4); Lymphocytes 6 % (9-44); Metamyelocytes 3 % (0-1); Monocytes 18 % (0-8); Myelocytes 7 % (0-0)
[2018-03-24 01:41] LABS: Platelet Morphology Normal (Normal)
[2018-03-24 01:42] LABS: Spherocytes Occ; Stomatocytes 1+
[2018-03-24] MEDS: Midazolam 50 MG/50 ML Inj 50 MG/50 ML BAG IV.CONT PRN ×2 (03:11→17:46)
--- NOTE | 2018-03-24 04:34 | XR ---
EXAM DATE: 03/24/2018 6:00 AM EDT AGE/SEX: 77 years / Female INDICATIONS: Respiratory failure. CLINICAL DATA: This is the patient's subsequent encounter. Patient reports that signs and symptoms h ave been present for 1 week and indicates a pain score of Nonresponsive. MEDICAL/SURGICAL HISTORY: . A-Fib. Tricuspid regurgitation. Fusion, lumbar. COMPARISON: . FINDINGS: Endotracheal tube, nasogastric tube and right neck central line are stable in good position. Diffuse left lung infiltrate and patchy perihilar and basilar infiltrate on the right grossly stable. Visuali zed cardiac contours are unchanged. CONCLUSION: No significant change Electronically signed by: Michael Simpson MD 03/24/2018 4:33 AM EDT
[2018-03-24] MEDS: Levothyroxine 125 MCG Tablet PO SCH (05:37)
[2018-03-24] MEDS: Propofol 1000 mg/100 ml Inj 1,000 MG/100 ML BOTTLE IV.CONT PRN (05:41)
[2018-03-24 05:56] LABS: ABG Base Excess 2.4 mmol/L (-2-2); ABG PCO2 62 mmHg (38-42); ABG PO2 76 mmHg (61-120)
[2018-03-24 06:30] LABS: Alanine Aminotransferase 13 U/L (10-53); Albumin 1.6 g/dL (3.4-5.0); Alkaline Phosphatase 111 U/L (45-117); Anion Gap 8 meq/L (5-15); Aspartate Aminotransferase 28 U/L (15-37); Blood Urea Nitrogen 37 mg/dL (7-18); Calcium 8.5 mg/dL (8.5-10.1); Carbon Dioxide 29.5 meq/L (21.0-32.0); Chloride 105 meq/L (98-107); Glomerular Filtration Rate 58 mL/min (>89); Glucose,Random 99 mg/dL (74-106); Potassium 4.4 meq/L (3.5-5.1); Sodium 142 meq/L (136-145); Total Protein 6.2 g/dL (6.4-8.2)
--- NOTE | 2018-03-24 07:00 | P.PNCC ---
Subjective Subjective Remarks/Hospital Course: This 77-year-old woman was transferred from [facility] to [facility] for treatment of respiratory failure with septic shock and peripheral abscesses including recent diagnosis of epidural abscess in the lumbar region. Her respiratory status is quite compromised with diffuse infiltrates throughout both lung welsh and she is ventilator dependent. On initial presentation to the hospital impair she had complaints of back pain radiating to her left knee. Her hemoglobin was 4 source of bleeding was clear was unclear at first and Dr. Vasquez had previously performed upper and lower endoscopy without location of a source. She has had a metastatic series and MRI on March 04 which developed multilevel central canal and foraminal stenoses she has had a transesophageal echo which revealed severe mitral regurgitation her hospital course has been complicated by atrial fibrillation and hemodynamic instability. Cardioversion was unsuccessful. She has continued recent fever course in excess of 103 degrees and has been treated with broad-spectrum antibiotic coverage including meropenem and vancomycin. She is continued to deteriorate and on about March 11 required endotracheal intubation and mechanical ventilation. Recent ICU white blood cell count is 40,000 blood cultures from March 09 revealed Streptococcus species and a subsequent blood culture grew a staph organism according to the report from the referring physician. The woman is required amiodarone therapy and diltiazem with additional cardioversion to sinus rhythm on the chest x-ray continues to worsen. CT of the abdomen reveals fluid collection on the left psoas muscle, possibly abscess. The contralateral psoas muscle has a similar collection. Recent MRI demonstrates old spine hardware L3-S1 and an irregular soft tissue density around the thecal sac at L1-L2 extending to T12-L1 she is required vasopressor support for hypotension and obvious sepsis overnight. The one constant throughout her early hospital course was severe lower back pain radiating down her legs. 03/15: Temperature max 101. Leukocytosis persists to 30,000. Back in normal sinus rhythm now with pulse rate controlled. Her respiratory status is unstable and she still requiring elevated ventilator pressures and elevated oxygen concentration. We will attempt to get an MRI of the entire spine with and without contrast today pending her hemodynamic suitability. At present her pulmonary status makes operative procedure a prohibitive risk. 03/16: T-max 100. Leukocytosis to 30,000 persists. Remains in sinus rhythm. MRI of the spine reviewed. Patient remains clinically critically ill. Azotemia slightly improved. Continue hydration. Start trickle tube feeding with added protein. 03/16: Continued septic course with low-grade fever and white count 33,000. Chest x-ray appearance alone could explain sepsis. Doing need to culture the fluid collections in the back to rule out another possible nidus? 03/17: Worsening respiratory function requiring us to convert to airway pressure release ventilation mode. Way too ill to allow us to transfer and mobilize for psoas muscle fluid aspiration. Elevated white count persists. Renal function slightly improved. Still requiring aggressive fluid resuscitation. White blood cell count 34,000 tomorrow, consistent with colitis. 03/18: Patient remains quite unstable requiring elevated inspiratory fraction of oxygen and markedly elevated mean airway pressures. CAT scan yesterday confirms dense fibrotic pattern left lung consistent with fibroproliferative phase of ARDS. Right lung has a more spotty architectural pattern due to large areas of emphysema. Due to unique antibodies transfusion has been delayed but should proceed today. Elevated white count to 45,000 with a preponderance of immature forms including myelocytes raises concerns for a bone marrow disorder. 03/19: T-max 100.1, pronounced leukocytosis with persistent elevated myelocytes. We appear to have control of the infection despite the lack of clarity involving the various retroperitoneal fluid collections. Hemodynamically she does not act like florid sepsis. CAT scan of the abdomen does not reveal an obvious source of this leukocytosis. CAT scan of the chest reveals a fibroproliferative stage of ARDS but does not necessarily explain the markedly elevated white count. I will ask the hematology service to evaluate. 03/20: I appreciate input from the hematology service. We are treating presumptive C. difficile colitis and antimicrobial coverage for that is adequate. Progress with the improvement of her ARDS is slow and she still requires elevated fractional inspired oxygen concentration and markedly elevated mean airway pressure. Despite progressively lowered tonicity of fluid administered she continues to concentrate sodium. Now at 157 we are forced to resort to simple D5 water. 03/21: Afebrile. Remains on APRV ventilation. Sodium currently 152. Not stable for IR at the present time. Will attempt to wean APRV today with drop and stretch and see if she tolerates. Tube feeds currently at goal. 03/22: Afebrile. FiO2 - 75%. Chest x-ray essentially stable. Status post bone marrow biopsy yesterday. To physical. 500 cc stool past 24 hours. 03/23: Afebrile. FiO2 up to 90%. Chest x-ray stable. Replace central line with right IJ 03/22. PICC line removed yesterday. 600 cc stool past 24 hours. 03/24: Continued deterioration and respiratory function with worsening radiographic findings of consolidation, left worse than right. Now requiring 70 % oxygen and PEEP 16. Generally edematous still. Requiring increased vasopressor support with Khalif-Synephrine. Anemia persists, no obvious source of blood loss. Objective Vital Signs / I&O: Vital Signs 03/23/18 07:42 03/23/18 08:00 03/23/18 11:01 Temperature 98.2 F Pulse Rate 82 77 59 L Respiratory Rate 12 16 15 Blood Pressure 100/48 L Pulse Oximetry 92 L 92 L 93 L 03/23/18 12:00 03/23/18 14:36 03/23/18 16:00 Temperature 98.2 F 93.9 F L Pulse Rate 74 60 Respiratory Rate 20 Blood Pressure 95/44 L 112/49 L Pulse Oximetry 100 95 03/23/18 17:10 03/23/18 17:45 03/23/18 18:24 Temperature 93.9 F L Pulse Rate 59 L 66 Respiratory Rate 24 16 14 Blood Pressure 138/54 L Pulse Oximetry 03/23/18 18:42 03/23/18 20:00 03/23/18 20:07 Temperature 93.9 F L 94.3 F L Pulse Rate 62 67 65 Respiratory Rate 24 24 27 H Blood Pressure 139/53 L 119/51 L Pulse Oximetry 93 L 03/23/18 20:09 03/23/18 20:55 03/23/18 23:34 Temperature Pulse Rate 76 Respiratory Rate 27 H 24 Blood Pressure Pulse Oximetry 93 L 93 L 03/23/18 23:37 03/24/18 00:00 03/24/18 03:32 Temperature 97.9 F Pulse Rate 76 87 Respiratory Rate 24 24 24 Blood Pressure 86/44 L Pulse Oximetry 93 L 90 L 03/24/18 03:36 03/24/18 04:00 Temperature 98.6 F Pulse Rate 87 Respiratory Rate 24 25 H Blood Pressure 111/99 H Pulse Oximetry 97 97 Intake & Output 03/23/18 03/23/18 03/24/18 06:59 18:59 06:59 Intake Total 2205.5 / 2205.5 1050 / 1050 1910 / 1910 Output Total 700 / 700 1825 / 1825 1800 / 1800 Balance 1505.5 / 1505.5 -775 / -775 110 / 110 Weight 87.6 kg 88.7 kg Intake: IV 962.5 / 962.5 950 / 950 1510 / 1510 Versed Inj 50 mg In 50 ml @ 2 50 / 50 MG/HR 2 mls/hr IV.CONT TITRATE PRN Rx#:[id number] Neosynephrine Inj 80 MG In NS 500 / 500 Inj 492 ML @ 40 MCG/MIN 15 mls/ hr IV.CONT TITRATE PRN Rx#: [id number] Diprivan 1000 mg/100 ml Inj 1, 200 / 200 200 / 200 100 / 100 000 mg In 100 ml @ 5 MCG/KG/MIN 2.292 mls/hr IV.CONT TITRATE PRN Rx#:[id number] Flexbumin 25% Inj 100 ML @ 60 100 / 100 mls/hr IV.SIG Q12H LIZETTE Rx#: [id number] Buminate 5% Inj 250 ML @ 250 250 / 250 mls/hr IV.SIG ONCE ONE Rx#: [id number] Calcium Chloride Inj 1 GM In NS 110 / 110 Inj 100 ML @ 110 mls/hr IV.SIG ONCE ONE Rx#:[id number] Merrem Inj 1,000 MG In NS Inj 200 / 200 100 / 100 200 / 200 100 ML @ 200 mls/hr IV.SIG Q8H LIZETTE Rx#:[id number] Vancomycin Inj 1,250 MG In NS 262.5 / 262.5 Inj 250 ML @ 250 mls/hr IV.SIG Q36H LIZETTE Rx#:[id number] fentaNYL 10 mcg/mL Premix Drip 250 / 250 2,500 mcg In 250 ml @ 50 MCG/HR 5 mls/hr IV.SIG TITRATE PRN Rx #:[id number] Flagyl 500 MG Inj 100 ML @ 100 200 / 200 200 / 200 200 / 200 mls/hr IV.SIG Q6H LIZETTE Rx#: [id number] Flolan (30,000 ng/mL) Neb 75 ML 100 / 100 100 / 100 100 / 100 In NS Inj 25 ML @ 5 mls/hr NEB Q8H LIZETTE Rx#:[id number] Tube Feeding 843 / 843 Water Bolus Amount 400 / 400 100 / 100 Intake (Blood Product) Amt 0 / 0 400 / 400 Rbc As-3 Leukoreduced Unit 0 / 0 400 / 400 [id number] Output: Stool 200 / 200 150 / 150 0 / 0 Urine Amount (Catheter) 500 / 500 5 / 1675 1800 / 1800 Indwelling Urethral Catheter 1674 / 167 1800 / 1800 purewick 500 / 500 Gastric Drainage 0 / 0 Orogastric Tube 0 / 0 Other: # Incontinent Voids 1 Date of Last Bowel Movement 03/23/18 03/23/18 Result Diagrams: 03/24/18 00:24 03/24/18 05:22 Objective Remarks: General: Ill-appearing, pale, elderly woman on mechanical ventilation with AC/PC Head: Atraumatic, normal. Oral tracheal intubation. Neck: Stiff consistent with age but otherwise supple. Lungs: Continued bilateral scattered rhonchi anteriorly and posteriorly. Few greenish/yellow thick secretions. Good bilateral air entry Heart: Regular rate and rhythm, S1, S2 no S4. 2/6 systolic murmur, no JVD Abdomen: Moderately distended, bowel sounds active, no guarding. No peritoneal irritation. Extremities: Warm, well-perfused. Generally edematous hands and feet. Neurologic: Propofol drip makes evaluation difficult. Cranial nerves II through XII grossly intact with positive cough and gag frequently flexors withdraws to pain bilateral upper and lower extremities. Assessment and Plan - Assessment and Plan Plan: Neuro/Psych Depression/anxiety Acute metabolic encephalopathy secondary to severe sepsis Currently a propofol drip at 40 mcg/kg/min for sedation while intubated. As needed fentanyl drip ordered. As needed morphine 4 mg IV every 2 hours as needed pain management Goal of RASS -2 Daily sedation vacation when appropriate Bupropion hydrochloride 150 mg daily currently being held. Resume clinically indicated Cardiovascular Severe septic shock History of SVT History of essential hypertension Hyperlipidemia Moderate TR/MR 2D echocardiogram - LVSF 45- 50%. Mild LVH. [id number] mitral valve regurgitation. Diffuse calcification of the aortic valve. There is moderate tricuspid regurgitation. PAP 70.5 mmHg -Phenylephrine drip as needed for supportive arterial blood pressure -Patient is on simvastatin 20 milligrams daily at home for hyperlipidemia. Respiratory Bilateral pneumonia with severe ARDS History of COPD/fibroproliferative changes Ventilator bundle Albuterol/ipratropium aerosols every 4 hours with albuterol aerosols every 2 hours as needed for dyspnea Methylprednisolone succinate 40 mg IV every 12 hours Back on PC/AC ventilation, 70% oxygen. Starting to retain CO2 GI C. difficile colitis Hypoalbuminemia with acute severe potentially malnutrition History of Crohn's disease Gastroesophageal reflux disease History of recent ileus Started on tube feeding with Glucerna 1.5 goal 50 cc an hour per nutrition recommendations. We will hold today with distended abdomen and worsening oxygenation Famotidine for GI prophylaxis. On pantoprazole 40 mg daily at home. Holding docusate sodium/senna 1 tablet twice daily with current C. difficile -History of antral ulcers Renal/FEN/ Hypocalcemia -Olivas to closed bag drainage -Monitor urine output -Accurate I's and O's - free water 100 cc every 6 hours. Downward trend - sodium Hematology Leukocytosis -rule out leukemia Normocytic anemia Thrombocytopenia IgM kappa monoclonal gammopathy unknown significance History of lung cancer diagnosed 2012 -Serial white cell count with flow cytometry - CMML preliminary,Jak2 mutation pending and BCR ABL negative. Repeat -Follow anemia with hemoglobin -Bone marrow biopsy at bedside per hematology -Hematology consult Transfuse 3 PRBCs during this hospitalization. Antibody positive. ID C. difficile Staph/strep bacteremia from outside hospital -Meropenem and vancomycin, adjust per ID consult -> IV and p.o. vancomycin, IV metronidazole, fidaxomicin added. Restarted meropenem 03/22 -Blood organisms cultured at outside hospital are streptococcal and staph species. Sputum and UA 03/14 and 03/17 at this facility negative. Endo: Hypothyroidism Sliding scale insulin with aspart insulin medium protocol with Accu-Cheks to maintain euglycemia every 6 hours Continue levothyroxine but increase to 125 g daily. TSH was 11.1 today MSK/Rheum: Psoas abscess Likely L1/L2 epidural abscess History of rheumatoid arthritis -Neurosurgery evaluation for lumbar fluid collection appreciated. IR to drain when clinically stable Prophylaxis -GI -famotidine -DVT -SCDs/heparin subcu Overall impression: This woman remains critically ill and is deteriorating clinically. Her respiratory and hemodynamic function have declined over the last 24 hours and remain unstable. Critical care time 45 minutes
[2018-03-24] MEDS: Epoprostenol (30,000/mL) Neb 75 ML in Sodium Chlor 0.9% Inj 25 ML NEB SCH ×6 (07:31→23:17)
[2018-03-24] MEDS: Beneprotein Powder Packet G-TUBE SCH ×3 (08:13→17:50)
[2018-03-24] MEDS: Chlorhexidine 0.12% Oral Kit 15 ML UDC OROPHARYNG SCH ×2 (08:13→20:53)
[2018-03-24] MEDS ORDERED: Pharmacy Ordered Lab Info OTHER ONE (08:45)
[2018-03-24] MEDS: Famotidine 20 MG Tablet PO SCH ×2 (08:46→20:53)
[2018-03-24] MEDS: Carboxymethylcellulose 0.5% Opth Drops 15 ML Bottle EACH EYE SCH ×2 (08:46→20:53)
[2018-03-24] MEDS: Vancomycin Inj 1,250 MG in Sodium Chlor 0.9% Inj 250 ML IV.SIG SCH (10:53)
--- NOTE | 2018-03-24 13:38 | P.PNID ---
Subjective Remarks: remains very unstable PEEP 16, FiO2 60% she cont to have high volume diarrhea hypothermic On pressors Antibiotics: meropenem dificid vanco po vanco flagyl iv micafungin Allergies/Adverse Reactions: Allergies Penicillins Allergy (Verified 03/14/18 13:53) Swelling of Lip/Tongue/Throat Sulfa (Sulfonamide Antibiotics) Allergy (Verified 03/14/18 13:53) Diarrhea shellfish Adverse Reaction (Uncoded 03/14/18 13:53) Swelling of Lip/Tongue/Throat Objective Vital Signs 03/23/18 14:36 03/23/18 16:00 03/23/18 17:10 Temperature 93.9 F L Pulse Rate 60 59 L Respiratory Rate 24 Blood Pressure 112/49 L Pulse Oximetry 95 03/23/18 17:45 03/23/18 18:24 03/23/18 18:42 Temperature 93.9 F L 93.9 F L Pulse Rate 66 62 Respiratory Rate 16 14 24 Blood Pressure 138/54 L 139/53 L Pulse Oximetry 03/23/18 20:00 03/23/18 20:07 03/23/18 20:09 Temperature 94.3 F L Pulse Rate 67 65 Respiratory Rate 24 27 H 27 H Blood Pressure 119/51 L Pulse Oximetry 93 L 93 L 03/23/18 20:55 03/23/18 23:34 03/23/18 23:37 Temperature Pulse Rate 76 Respiratory Rate 24 24 Blood Pressure Pulse Oximetry 93 L 93 L 03/24/18 00:00 03/24/18 03:32 03/24/18 03:36 Temperature 97.9 F Pulse Rate 76 87 Respiratory Rate 24 24 24 Blood Pressure 86/44 L Pulse Oximetry 90 L 97 03/24/18 04:00 03/24/18 07:00 03/24/18 08:00 Temperature 98.6 F 98.4 F Pulse Rate 87 85 88 Respiratory Rate 25 H 30 H 30 H Blood Pressure 111/99 H 139/62 Pulse Oximetry 97 98 96 03/24/18 10:13 03/24/18 11:00 03/24/18 12:00 Temperature 98.2 F Pulse Rate 87 85 Respiratory Rate 30 H 36 H 30 H Blood Pressure 114/50 L Pulse Oximetry 98 96 03/24/18 12:57 Temperature Pulse Rate Respiratory Rate 30 H Blood Pressure Pulse Oximetry 99 Intake & Output 03/23/18 03/24/18 03/24/18 18:59 06:59 18:59 Intake Total 1050 / 1050 1910 / 1910 300 / 300 Output Total 1825 / 1825 1800 / 1800 Balance -775 / -775 110 / 110 300 / 300 Weight 88.7 kg Intake: IV 950 / 950 1510 / 1510 300 / 300 Versed Inj 50 mg In 50 ml @ 2 50 / 50 MG/HR 2 mls/hr IV.CONT TITRATE PRN Rx#:[id number] Neosynephrine Inj 80 MG In NS 500 / 500 Inj 492 ML @ 40 MCG/MIN 15 mls/ hr IV.CONT TITRATE PRN Rx#: [id number] Diprivan 1000 mg/100 ml Inj 1, 200 / 200 100 / 100 000 mg In 100 ml @ 5 MCG/KG/MIN 2.292 mls/hr IV.CONT TITRATE PRN Rx#:[id number] Flexbumin 25% Inj 100 ML @ 60 100 / 100 mls/hr IV.SIG Q12H LIZETTE Rx#: [id number] Buminate 5% Inj 250 ML @ 250 250 / 250 mls/hr IV.SIG ONCE ONE Rx#: [id number] Calcium Chloride Inj 1 GM In NS 110 / 110 Inj 100 ML @ 110 mls/hr IV.SIG ONCE ONE Rx#:[id number] Merrem Inj 1,000 MG In NS Inj 100 / 100 200 / 200 100 / 100 100 ML @ 200 mls/hr IV.SIG Q8H LIZETTE Rx#:[id number] fentaNYL 10 mcg/mL Premix Drip 250 / 250 2,500 mcg In 250 ml @ 50 MCG/HR 5 mls/hr IV.SIG TITRATE PRN Rx #:[id number] Flagyl 500 MG Inj 100 ML @ 100 200 / 200 200 / 200 100 / 100 mls/hr IV.SIG Q6H LIZETTE Rx#: [id number] Flolan (30,000 ng/mL) Neb 75 ML 100 / 100 100 / 100 100 / 100 In NS Inj 25 ML @ 5 mls/hr NEB Q8H LIZETTE Rx#:[id number] Water Bolus Amount 100 / 100 Intake (Blood Product) Amt 0 / 0 400 / 400 Rbc As-3 Leukoreduced Unit 0 / 0 400 / 400 [id number] Output: Stool 150 / 150 0 / 0 Urine Amount (Catheter) 1675 / 1675 1800 / 1800 Indwelling Urethral Catheter 167 / 1675 1800 / 1800 Gastric Drainage 0 / 0 Orogastric Tube 0 / 0 Other: Date of Last Bowel Movement 03/23/18 03/23/18 03/23/18 03/23/18 23:00 Blood - Peripheral Aerobic Blood Culture - Preliminary No growth in 1 day 03/23/18 23:00 Blood - Peripheral Anaerobic Blood Culture - Preliminary No growth in 1 day 03/23/18 20:43 Blood - Peripheral Aerobic Blood Culture - Preliminary No growth in 1 day 03/23/18 20:43 Blood - Peripheral Anaerobic Blood Culture - Preliminary No growth in 1 day Lab - Hematology Results 03/23/18 03/23/18 03/23/18 04:00 15:10 16:00 WBC 30.7 H 22.6 H 26.5 H RBC 2.98 L 2.06 L 2.47 L Hgb 8.4 L 5.9 L* D 7.0 L Hct 26.9 L 18.4 L* 22.1 L MCV 90.1 89.3 89.5 MCH 28.3 28.4 28.5 MCHC 31.4 L 31.8 L 31.8 L RDW 22.7 H 21.7 H 22.8 H Plt Count 156 106 L D 120 L MPV 11.9 H 12.3 H 11.8 H Prelim Diff (Auto) Manual diff required WBC Differential Manual diff final Seg Neuts % (Manual) 45 Band Neuts % (Manual) 22 H Lymphocytes % (Manual) 2 L Monocytes % (Manual) 21 H Eosinophils % (Manual) 2 Basophils % (Manual) Metamyelocytes % (Man) 6 H Myelocytes % (Man) 2 H Abs Neuts (Manual) 23.0 H Differential Comment . Platelet Estimate Normal Platelet Morphology Normal Spherocytes Stomatocytes 03/24/18 00:24 WBC 25.2 H RBC 3.11 L Hgb 8.9 L Hct 27.9 L MCV 89.5 MCH 28.6 MCHC 32.0 RDW 20.4 H Plt Count 135 L MPV 12.0 H Prelim Diff (Auto) Manual diff required WBC Differential Manual diff final Seg Neuts % (Manual) 55 Band Neuts % (Manual) 9 H Lymphocytes % (Manual) 6 L Monocytes % (Manual) 18 H Eosinophils % (Manual) 1 Basophils % (Manual) 1 Metamyelocytes % (Man) 3 H Myelocytes % (Man) 7 H Abs Neuts (Manual) 18.6 H Differential Comment . Platelet Estimate Low L Platelet Morphology Normal Spherocytes Occ H Stomatocytes 1+ H Lab - Chemistry Results 03/23/18 03/23/18 03/23/18 00:09 04:00 12:34 Sodium 141 Potassium 4.6 Chloride 105 Carbon Dioxide 30.5 Anion Gap 6 BUN 39 H Creatinine 0.91 Estimated GFR 60 L POC Glucose 136 H 123 H Random Glucose 140 H D Calcium 7.3 L* Prot Corrected Calcium 7.9 L Phosphorus 4.5 Magnesium 2.1 Total Bilirubin 0.3 AST 31 ALT 14 Alkaline Phosphatase 122 H Ammonia Total Protein 5.9 L Albumin 1.1 L 03/23/18 03/24/18 03/24/18 15:10 00:21 00:40 Sodium 142 Potassium 4.3 Chloride 105 Carbon Dioxide 31.5 Anion Gap 6 BUN 41 H Creatinine 0.92 Estimated GFR 59 L POC Glucose 82 Random Glucose 106 Calcium 7.4 L* Prot Corrected Calcium 8.2 L Phosphorus Magnesium Total Bilirubin AST ALT Alkaline Phosphatase Ammonia 29 Total Protein 5.7 L Albumin 03/24/18 03/24/18 05:22 11:59 Sodium 142 Potassium 4.4 Chloride 105 Carbon Dioxide 29.5 Anion Gap 8 BUN 37 H Creatinine 0.93 Estimated GFR 58 L POC Glucose 99 Random Glucose 99 Calcium 8.5 D Prot Corrected Calcium Phosphorus 5.0 H Magnesium 2.0 Total Bilirubin 0.6 AST 28 ALT 13 Alkaline Phosphatase 111 Ammonia Total Protein 6.2 L Albumin 1.6 L Imaging: ITS Impressions Cervical Spine MRI 03/15/18 00:00 CONCLUSION: 1. No abnormal areas of enhancement in the dural space or vertebral bodies. 2. Spinal stenosis due to disc bulging at multiple levels and anterolisthesis at C4-5. There is also multilevel bony neural foraminal stenosis. Lumbar Spine MRI 03/15/18 00:00 CONCLUSION: 1. Enhancing soft tissue extending from the subcutaneous region down to the thecal sac at the L1 and L2 level characteristic of postsurgical findings with a rounded area of fluid with some minimal peripheral enhancement dorsal to the thecal sac flattening the posterior margin at L1 and L2. Since there is some minimal peripheral enhancement, and epidural abscess is a differential possibility. Thoracic Spine MRI 03/15/18 00:00 CONCLUSION: 1. No abnormal areas of enhancement in the vertebral bodies or epidural space in the thoracic region. 2. Posterior osteophytes at all levels in the thoracic spine causing mild impression upon the thecal sac. No evidence of disc protrusions over. 3. Moderate size left pleural effusion. Abdomen/Pelvis CT 03/17/18 00:00 CONCLUSION: 1. Diffuse interstitial infiltrate in the lung bases and anasarca suggesting edema. 2. Minimal thickening of the colon. 3. Minimal left basilar effusion. 4. Small amount of free fluid within the abdomen and pelvis. 5. No free air identified. No findings to indicate a bowel obstruction. Chest CT 03/17/18 13:48 CONCLUSION: 1. Extensive interstitial prominence with some sparing of the right upper lobe suggesting ARDS. 2. Minimal effusion on the left with a tiny effusion on the right. 3. Degenerative changes in the thoracic spine. Soft Tissue Ultrasound 03/19/18 00:00 CONCLUSION: 1. Fluid as above. Abdomen X-Ray 03/23/18 00:00 CONCLUSION: No bowel obstruction or ileus. Chest X-Ray 03/24/18 06:00 CONCLUSION: No significant change Physical Exam: GENERAL: NAD sedated, on vent on bear hugger SKIN: Warm and dry. No rash HEAD: Atraumatic. Normocephalic. EYES: Pupils equal and round. No scleral icterus. No injection or drainage. ENT: No nasal bleeding or discharge. Mucous membranes pink and moist. NECK: Trachea midline. No JVD. CARDIOVASCULAR: Regular rate and rhythm. RESPIRATORY: No accessory muscle use. diffuse b/l rhonchi to auscultation. Breath sounds equal bilaterally. GASTROINTESTINAL: Abdomen soft, no reaction to palpation, remains markedly distended. Hepatic and splenic margins not palpable. MUSCULOSKELETAL: Extremities without clubbing, cyanosis, severe tight pitting 3-4 + edema, seems more edematous. No obvious deformities. marga to touch NEUROLOGICAL: heavily sedated; not following commands PSYCHIATRIC: unable to assess Assessment and Plan - Plan PNA, HCAP /aspiration vs ARDS - NGTD from sputum Lower T / L spine epidural abscess - pt was seen by Dr Monster Taylor who is planning to repeat MR w/wo c when stable enough - jesenia Wiley: small amount of fluid present Sepsis: staph reported by other facility provider Acute VDR 2/2 ARDS ARF C.diff colitis. Perssitent Severe leukocytosis, leukemoid reaction. 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 VAP - increased vent requirements and worsening resp status Critical, unstable and cont to deteriorate She is more unstable today REC's: cont iv flagyl cont po vancomycin cont iv vanco cont dificid cont Meropenem cont micafungin chk blood clx chk UA,C+S if indicated sputum clx dw Dr Lan ba RN
--- NOTE | 2018-03-24 14:01 | P.PNONC ---
Subjective Interval history: Afebrile Patient remains intubated and sedated On pressors No family at bedside Objective Vital Signs/Intake & Output: Vital Signs 03/23/18 14:36 03/23/18 16:00 03/23/18 17:10 Temperature 93.9 F L Pulse Rate 60 59 L Respiratory Rate 24 Blood Pressure 112/49 L Pulse Oximetry 95 03/23/18 17:45 03/23/18 18:24 03/23/18 18:42 Temperature 93.9 F L 93.9 F L Pulse Rate 66 62 Respiratory Rate 16 14 24 Blood Pressure 138/54 L 139/53 L Pulse Oximetry 03/23/18 20:00 03/23/18 20:07 03/23/18 20:09 Temperature 94.3 F L Pulse Rate 67 65 Respiratory Rate 24 27 H 27 H Blood Pressure 119/51 L Pulse Oximetry 93 L 93 L 03/23/18 20:55 03/23/18 23:34 03/23/18 23:37 Temperature Pulse Rate 76 Respiratory Rate 24 24 Blood Pressure Pulse Oximetry 93 L 93 L 03/24/18 00:00 03/24/18 03:32 03/24/18 03:36 Temperature 97.9 F Pulse Rate 76 87 Respiratory Rate 24 24 24 Blood Pressure 86/44 L Pulse Oximetry 90 L 97 03/24/18 04:00 03/24/18 07:00 03/24/18 08:00 Temperature 98.6 F 98.4 F Pulse Rate 87 85 88 Respiratory Rate 25 H 30 H 30 H Blood Pressure 111/99 H 139/62 Pulse Oximetry 97 98 96 03/24/18 10:13 03/24/18 11:00 03/24/18 12:00 Temperature 98.2 F Pulse Rate 87 85 Respiratory Rate 30 H 36 H 30 H Blood Pressure 114/50 L Pulse Oximetry 98 96 03/24/18 12:57 Temperature Pulse Rate Respiratory Rate 30 H Blood Pressure Pulse Oximetry 99 Intake & Output 03/23/18 03/24/18 03/24/18 18:59 06:59 18:59 Intake Total 1050 / 1050 1910 / 1910 662.5 / 662.5 Output Total 1825 / 1825 1800 / 1800 Balance -775 / -775 110 / 110 662.5 / 662.5 Weight 195 lb 8.8 oz Intake: IV 950 / 950 1510 / 1510 662.5 / 662.5 Versed Inj 50 mg In 50 ml @ 2 50 / 50 MG/HR 2 mls/hr IV.CONT TITRATE PRN Rx#:[id number] Neosynephrine Inj 80 MG In NS 500 / 500 Inj 492 ML @ 40 MCG/MIN 15 mls/ hr IV.CONT TITRATE PRN Rx#: [id number] Diprivan 1000 mg/100 ml Inj 1, 200 / 200 100 / 100 000 mg In 100 ml @ 5 MCG/KG/MIN 2.292 mls/hr IV.CONT TITRATE PRN Rx#:[id number] Flexbumin 25% Inj 100 ML @ 60 100 / 100 mls/hr IV.SIG Q12H ENMA Rx#: [id number] Buminate 5% Inj 250 ML @ 250 250 / 250 mls/hr IV.SIG ONCE ONE Rx#: [id number] Calcium Chloride Inj 1 GM In NS 110 / 110 Inj 100 ML @ 110 mls/hr IV.SIG ONCE ONE Rx#:[id number] Merrem Inj 1,000 MG In NS Inj 100 / 100 200 / 200 100 / 100 100 ML @ 200 mls/hr IV.SIG Q8H ENMA Rx#:[id number] Vancomycin Inj 1,250 MG In NS 262.5 / 262.5 Inj 250 ML @ 250 mls/hr IV.SIG Q36H ENMA Rx#:[id number] fentaNYL 10 mcg/mL Premix Drip 250 / 250 2,500 mcg In 250 ml @ 50 MCG/HR 5 mls/hr IV.SIG TITRATE PRN Rx #:[id number] Flagyl 500 MG Inj 100 ML @ 100 200 / 200 200 / 200 100 / 100 mls/hr IV.SIG Q6H ENMA Rx#: [id number] Flolan (30,000 ng/mL) Neb 75 ML 100 / 100 100 / 100 200 / 200 In NS Inj 25 ML @ 5 mls/hr NEB Q8H ENMA Rx#:[id number] Water Bolus Amount 100 / 100 Intake (Blood Product) Amt 0 / 0 400 / 400 Rbc As-3 Leukoreduced Unit 0 / 0 400 / 400 [id number] Output: Stool 150 / 150 0 / 0 Urine Amount (Catheter) 1674 / 1674 1800 / 1800 Indwelling Urethral Catheter 1674 1800 / 1800 Gastric Drainage 0 / 0 Orogastric Tube 0 / 0 Other: Date of Last Bowel Movement 03/23/18 03/23/18 03/23/18 Result Diagrams: 03/24/18 00:24 03/24/18 05:22 Laboratory Results: Laboratory Results - last 24 hr 03/23/18 03/23/18 03/23/18 15:00 15:10 15:10 WBC 22.6 H RBC 2.06 L Hgb 5.9 L* D Hct 18.4 L* MCV 89.3 MCH 28.4 MCHC 31.8 L RDW 21.7 H Plt Count 106 L D MPV 12.3 H Prelim Diff (Auto) WBC Differential Seg Neuts % (Manual) Band Neuts % (Manual) Lymphocytes % (Manual) Monocytes % (Manual) Eosinophils % (Manual) Basophils % (Manual) Metamyelocytes % (Man) Myelocytes % (Man) Abs Neuts (Manual) Differential Comment Platelet Estimate Platelet Morphology Spherocytes Stomatocytes PT INR APTT Puncture Site Art line Patient Temperature 98.6 O2 Saturation 94 ABG pH 7.26 L* ABG pCO2 59 H* ABG pO2 95 ABG HCO3 26 ABG O2 Content 9.9 L ABG Base Excess -0.4 ABG Methemoglobin 1.4 Faizan Test Present Hemoglobin 7.4 L* Carboxyhemoglobin 1.6 O2 Delivery Device Ventilator Vent Setting [id number]/ip24/1.0/+18 Inspired O2 60 Critical Value Yes Sodium 142 Potassium 4.3 Chloride 105 Carbon Dioxide 31.5 Anion Gap 6 BUN 41 H Creatinine 0.92 Estimated GFR 59 L POC Glucose Random Glucose 106 Calcium 7.4 L* Prot Corrected Calcium 8.2 L Phosphorus Magnesium Total Bilirubin AST ALT Alkaline Phosphatase Ammonia Total Protein 5.7 L Albumin Vancomycin Trough Crossmatch Prewarmed Bld Prod Order Comment 03/23/18 03/23/18 03/23/18 16:00 16:34 16:53 WBC 26.5 H RBC 2.47 L Hgb 7.0 L Hct 22.1 L MCV 89.5 MCH 28.5 MCHC 31.8 L RDW 22.8 H Plt Count 120 L MPV 11.8 H Prelim Diff (Auto) WBC Differential Seg Neuts % (Manual) Band Neuts % (Manual) Lymphocytes % (Manual) Monocytes % (Manual) Eosinophils % (Manual) Basophils % (Manual) Metamyelocytes % (Man) Myelocytes % (Man) Abs Neuts (Manual) Differential Comment Platelet Estimate Platelet Morphology Spherocytes Stomatocytes PT INR APTT Puncture Site Art line Patient Temperature 98.6 O2 Saturation 91 ABG pH 7.29 L* ABG pCO2 59 H* ABG pO2 70 ABG HCO3 28 H ABG O2 Content 12.4 ABG Base Excess 1.7 ABG Methemoglobin 1.3 Faizan Test Hemoglobin 9.7 L Carboxyhemoglobin 1.6 O2 Delivery Device Ventilator Vent Setting Inspired O2 50 Critical Value Yes Sodium Potassium Chloride Carbon Dioxide Anion Gap BUN Creatinine Estimated GFR POC Glucose Random Glucose Calcium Prot Corrected Calcium Phosphorus Magnesium Total Bilirubin AST ALT Alkaline Phosphatase Ammonia Total Protein Albumin Vancomycin Trough Crossmatch Prewarmed See Detail Bld Prod Order Comment 03/24/18 03/24/18 03/24/18 00:21 00:24 00:24 WBC 25.2 H RBC 3.11 L Hgb 8.9 L Hct 27.9 L MCV 89.5 MCH 28.6 MCHC 32.0 RDW 20.4 H Plt Count 135 L MPV 12.0 H Prelim Diff (Auto) Manual diff required WBC Differential Manual diff final Seg Neuts % (Manual) 55 Band Neuts % (Manual) 9 H Lymphocytes % (Manual) 6 L Monocytes % (Manual) 18 H Eosinophils % (Manual) 1 Basophils % (Manual) 1 Metamyelocytes % (Man) 3 H Myelocytes % (Man) 7 H Abs Neuts (Manual) 18.6 H Differential Comment . Platelet Estimate Low L Platelet Morphology Normal Spherocytes Occ H Stomatocytes 1+ H PT 11.4 INR 1.1 APTT 28.9 Puncture Site Patient Temperature O2 Saturation ABG pH ABG pCO2 ABG pO2 ABG HCO3 ABG O2 Content ABG Base Excess ABG Methemoglobin Faizan Test Hemoglobin Carboxyhemoglobin O2 Delivery Device Vent Setting Inspired O2 Critical Value Sodium Potassium Chloride Carbon Dioxide Anion Gap BUN Creatinine Estimated GFR POC Glucose 82 Random Glucose Calcium Prot Corrected Calcium Phosphorus Magnesium Total Bilirubin AST ALT Alkaline Phosphatase Ammonia Total Protein Albumin Vancomycin Trough Crossmatch Prewarmed Bld Prod Order Comment 03/24/18 03/24/18 03/24/18 00:40 05:22 05:45 WBC RBC Hgb Hct MCV MCH MCHC RDW Plt Count MPV Prelim Diff (Auto) WBC Differential Seg Neuts % (Manual) Band Neuts % (Manual) Lymphocytes % (Manual) Monocytes % (Manual) Eosinophils % (Manual) Basophils % (Manual) Metamyelocytes % (Man) Myelocytes % (Man) Abs Neuts (Manual) Differential Comment Platelet Estimate Platelet Morphology Spherocytes Stomatocytes PT INR APTT Puncture Site Art line Patient Temperature 98.6 O2 Saturation 91 ABG pH 7.28 L* ABG pCO2 62 H* ABG pO2 76 ABG HCO3 29 H ABG O2 Content 8.7 L ABG Base Excess 2.4 H ABG Methemoglobin 1.5 Faizan Test Hemoglobin 6.7 L* Carboxyhemoglobin 1.7 O2 Delivery Device Ventilator Vent Setting Pc/ac/[id number]/ip26/ Inspired O2 70 Critical Value Yes Sodium 142 Potassium 4.4 Chloride 105 Carbon Dioxide 29.5 Anion Gap 8 BUN 37 H Creatinine 0.93 Estimated GFR 58 L POC Glucose Random Glucose 99 Calcium 8.5 D Prot Corrected Calcium Phosphorus 5.0 H Magnesium 2.0 Total Bilirubin 0.6 AST 28 ALT 13 Alkaline Phosphatase 111 Ammonia 29 Total Protein 6.2 L Albumin 1.6 L Vancomycin Trough Crossmatch Prewarmed Bld Prod Order Comment 03/24/18 03/24/18 08:21 11:59 WBC RBC Hgb Hct MCV MCH MCHC RDW Plt Count MPV Prelim Diff (Auto) WBC Differential Seg Neuts % (Manual) Band Neuts % (Manual) Lymphocytes % (Manual) Monocytes % (Manual) Eosinophils % (Manual) Basophils % (Manual) Metamyelocytes % (Man) Myelocytes % (Man) Abs Neuts (Manual) Differential Comment Platelet Estimate Platelet Morphology Spherocytes Stomatocytes PT INR APTT Puncture Site Patient Temperature O2 Saturation ABG pH ABG pCO2 ABG pO2 ABG HCO3 ABG O2 Content ABG Base Excess ABG Methemoglobin Faizan Test Hemoglobin Carboxyhemoglobin O2 Delivery Device Vent Setting Inspired O2 Critical Value Sodium Potassium Chloride Carbon Dioxide Anion Gap BUN Creatinine Estimated GFR POC Glucose 99 Random Glucose Calcium Prot Corrected Calcium Phosphorus Magnesium Total Bilirubin AST ALT Alkaline Phosphatase Ammonia Total Protein Albumin Vancomycin Trough 15.7 H Crossmatch Prewarmed Bld Prod Order Comment Culture Results: Microbiology 03/23/18 23:00 Aerobic Blood Culture - Preliminary Blood - Peripheral No growth in 1 day Anaerobic Blood Culture - Preliminary No growth in 1 day 03/23/18 20:43 Aerobic Blood Culture - Preliminary Blood - Peripheral No growth in 1 day Anaerobic Blood Culture - Preliminary No growth in 1 day Imaging Studies: Impressions Chest X-Ray 03/24/18 06:00 CONCLUSION: No significant change Medications: Active Medications Generic Name Dose Route Start Last Admin Trade Name Freq PRN Reason Stop Dose Admin Albuterol 1 ampul 03/22/18 08:00 03/24/18 11:05 Duoneb Neb (Enma) NEB 1 ampul Q4HR NEB ENMA Administration Artificial Tears 1 drop 03/21/18 21:00 03/24/18 08:46 Refresh Tears 0.5% Opth Drops EACH EYE 1 drop BID ENMA Administration Bumetanide 1 mg 03/23/18 18:00 03/24/18 08:49 Bumex Inj IV.PUSH 1 mg BID@0900,1800 ENMA Administration Chlorhexidine Gluconate 15 ml 03/14/18 20:00 03/24/18 08:13 Peridex 0.12% Oral Kit OROPHARYNG 15 ml BID@0800,2000 ENMA Administration Famotidine 20 mg 03/21/18 21:00 03/24/18 08:46 Pepcid PO 20 mg BID ENMA Administration Fidaxomicin 200 mg 03/19/18 21:00 03/24/18 08:46 Dificid PO 03/29/18 20:59 200 mg BID ENMA Administration Heparin Sodium (Porcine) 5,000 units 03/14/18 15:00 03/23/18 14:38 Heparin Inj SQ 5,000 units Q8H ENMA Administration Fentanyl 2,500 mcg in 250 mls @ 5 mls/hr 03/14/18 15:00 03/24/18 11:24 Fentanyl 10 Mcg/Ml Premix Drip IV.SIG 150 mcg/hr TITRATE PRN 15 mls/hr Per Protocol Titration Protocol 50 MCG/HR Propofol 1,000 mg in 100 mls @ 2.292 mls/hr 03/14/18 15:00 03/24/18 11:22 Diprivan 1000 Mg/100 Ml Inj IV.CONT 10 mcg/kg/min TITRATE PRN 4.58 mls/hr Per Protocol Titration Protocol 5 MCG/KG/MIN Phenylephrine HCl 80 mg/ 500 mls @ 15 mls/hr 03/14/18 16:00 03/24/18 09:20 Sodium Chloride IV.CONT 60 mcg/min TITRATE PRN 22.5 mls/hr See protocol Titration Protocol 40 MCG/MIN Potassium Chloride 40 meq in 100 mls @ 25 mls/hr 03/14/18 18:12 03/15/18 08: 58 Kcl 40 Meq Premix Inj IV.SIG Infused UNSCH PRN Infusion For Potassium 3.3 - 3.5 mEq/L Metronidazole/Sodium Chloride 100 mls @ 100 mls/hr 03/14/18 22:00 03/24/18 10 :52 Flagyl 500 Mg Inj IV.SIG Infused Q6H ENMA Infusion Vancomycin HCl 1,250 mg/ 262.5 mls @ 250 mls/hr 03/19/18 21:00 03/24/18 13:43 Sodium Chloride IV.SIG Infused Q36H ENMA Infusion Epoprostenol Sodium 75 ml/ 100 mls @ 5 mls/hr 03/22/18 15:00 03/24/18 13:42 Sodium Chloride NEB Not Given Q8H ENMA Meropenem 1,000 mg/ Sodium 100 mls @ 200 mls/hr 03/22/18 17:00 03/24/18 09:16 Chloride IV.SIG Infused Q8H ENMA Infusion Midazolam HCl 50 mg in 50 mls @ 2 mls/hr 03/23/18 13:14 03/24/18 11:23 Versed Inj IV.CONT 5 mg/hr TITRATE PRN 5 mls/hr Per Protocol Titration Protocol 2 MG/HR Insulin Aspart 0 unit 03/21/18 18:00 03/24/18 12:47 Novolog Insulin Correctional Sugar Inj SQ Not Given Q6HR [facility] Protocol Labetalol HCl 10 mg 03/21/18 17:44 03/22/18 22:48 Trandate Inj IV.PUSH 10 mg Q1H PRN Administration Sbp>170, Dbp>90, Hr>65 Levothyroxine Sodium 125 mcg 03/23/18 06:00 03/24/18 05:37 Synthroid PO 125 mcg DAILY@0600 ENMA Administration Miscellaneous Medication 1 each 03/14/18 16:00 03/24/18 11:14 OROPHARYNG 1 each 0000,0400,1200,1600 ENMA Administration Morphine Sulfate 4 mg 03/14/18 14:05 03/22/18 01:19 Morphine Inj IV.PUSH 4 mg Q2H PRN Administration any pain Potassium Bicarb/Potassium Chloride 50 meq 03/14/18 18:12 03/14/18 18:32 K-Lyte Cl Eff PO 50 meq UNSCH PRN Administration For Potassium 3.3 - 3.5 mEq/L Senna/Docusate Sodium 1 tab 03/14/18 21:00 03/21/18 08:52 Mimi-Colace PO Not Given BID ENMA Sodium Chloride 2 ml 03/14/18 21:00 03/24/18 08:46 Ns Flush IV.FLUSH 2 ml BID ENMA Administration Sodium Chloride 0 ml 03/23/18 09:00 03/24/18 08:46 Ns Flush IV.FLUSH 6 ml DAILY ENMA Administration Sterile Water 100 ml 03/22/18 06:33 03/24/18 11:14 Free Water NG/OG 100 ml Q6HR ENMA Administration Vancomycin HCl 500 mg 03/15/18 18:00 03/24/18 12:50 Vancomycin Po PO 500 mg QID ENMA Administration Whey 1 packet 03/15/18 13:00 03/24/18 12:47 Beneprotein Powder G-TUBE Not Given TID ENMA Objective Remarks: GENERAL: Chronically ill-appearing female resting in bed mechanically ventilated and sedated SKIN: Warm and dry. No oozing from lines HEAD: Normocephalic. EYES: No scleral icterus. No injection or drainage. NECK: Supple, trachea midline. Right central line, drsg dry/intact. CARDIOVASCULAR: Regular rate and rhythm. RESPIRATORY: Clear anteriorly. Mechanically ventilated. Ventilated FiO2 85. GASTROINTESTINAL: Abdomen large, distended. Rectal tube draining dark stool. EXTREMITIES: No cyanosis. +anasarca. NEUROLOGICAL: Sedated Assessment/Plan - Plan Ms. Arevalo is a 77 year-old female patient, transferred to [facility] on 03/14/2018 from [facility]. According to the records, she was originally seen with severe back pain, CT scan of the abdomen and pelvis showed an epidural abscess and abdominal abscesses. She was treated with antibiotics. She then developed pneumonia and went into respiratory failure. At which time she was intubated. She is currently being treated for C. difficile colitis. Hematology was consulted for evaluation of leukocytosis with immature cells in the peripheral blood and severe anemia. Plan: 1. Await BCR/ABL and cytogenetics from recent bone marrow biopsy. 2. Continue sepsis management per engine pilot and infectious disease. 3. Supportive care. - Attending Statement The exam, history, and the medical decision-making described in the above note were completed with the assistance of the mid-level provider. I reviewed and agree with the findings presented. I attest that I had a [id number] encounter with the patient on the same day, and personally performed and documented my assessment and findings in the medical record. 77 yoF, intubated and sedated with Cdiff colitis and spinal abscess. Currently on broad spectrum antibiotics. ? MPN with bone marrow pending.
[2018-03-24 14:28] LABS: Bacteria,Urine Few /hpf; Bilirubin,Urine Negative (Negative); Clarity,Urine Turbid (Clear); Color,Urine Yellow (Yellw/Straw); Glucose,Urine (UA) Negative (Negative); Leukocyte Esterase,Urine Large (Negative); Mucus,Urine Few /lpf (Occasional); Nitrite,Urine Negative (Negative); Specific Gravity,Urine 1.009 (1.002-1.035); Squamous Epithelial Cell,Urine 5 /hpf (0-5)
[2018-03-24] MEDS: fentaNYL 10 mcg/mL Premix Drip 2,500 MCG/250 ML BAG IV.SIG PRN (16:14)
[2018-03-24 22:58] LABS: Hematocrit 28.9 % (35.0-46.0); Hemoglobin 9.1 gm/dL (11.6-15.3); Mean Corpuscular HGB Conc 31.4 % (32.0-36.0); Mean Corpuscular Hemoglobin 27.9 pg (27.0-34.0); Mean Platelet Volume 11.3 fL (7.0-11.0); Platelet Count 159 th/mm3 (150-450); Red Blood Count 3.25 mil/mm3 (4.00-5.30); Red Cell Distribution Width 20.2 % (11.6-17.2); White Blood Count 28.9 th/mm3 (4.0-11.0)
[2018-03-24 23:40] LABS: Lymphocytes 3 % (9-44); Metamyelocytes 2 % (0-1); Monocytes 21 % (0-8); Stomatocytes 2+; Tallied Nucleated RBC 1 (0-0)
[2018-03-24 23:41] LABS: Platelet Estimate Normal (Normal); Toxic Granulation 3+
[2018-03-25] MEDS: Midazolam 50 MG/50 ML Inj 50 MG/50 ML BAG IV.CONT PRN ×2 (00:25→05:01)
[2018-03-25] MEDS: Levothyroxine 125 MCG Tablet PO SCH (05:02)
[2018-03-25 05:56] LABS: Baso % (Auto) 0.1 % (0.0-2.0); Eos # (Auto) 0.1 th/mm3 (0.0-0.4); Eos % (Auto) 0.4 % (0.0-4.0); Hematocrit 28.1 % (35.0-46.0); Hemoglobin 8.9 gm/dL (11.6-15.3); Lymph # (Auto) 1.1 th/mm3 (1.0-4.8); Lymph % (Auto) 3.3 % (9.0-44.0); Mean Corpuscular HGB Conc 31.5 % (32.0-36.0); Mean Corpuscular Hemoglobin 28.2 pg (27.0-34.0); Mean Corpuscular Volume 89.4 fL (80.0-100.0); Mean Platelet Volume 11.9 fL (7.0-11.0); Mono % (Auto) 32.9 % (0.0-8.0); Neut # (Auto) 21.2 th/mm3 (1.8-7.7); Neut % (Auto) 63.3 % (16.0-70.0); Platelet Count 197 th/mm3 (150-450); Red Blood Count 3.14 mil/mm3 (4.00-5.30); Red Cell Distribution Width 20.1 % (11.6-17.2); White Blood Count 33.5 th/mm3 (4.0-11.0)
[2018-03-25 06:18] LABS: Calcium 7.9 mg/dL (8.5-10.1); Carbon Dioxide 31.5 meq/L (21.0-32.0); Potassium 4.4 meq/L (3.5-5.1)
[2018-03-25 07:55] LABS: Lymphocytes 2 % (9-44); Metamyelocytes 1 % (0-1); Monocytes 31 % (0-8); Myelocytes 5 % (0-0); Platelet Estimate Normal (Normal)
[2018-03-25 07:57] LABS: Stomatocytes 1+
[2018-03-25] MEDS: Insulin NovoLOG Aspart Correctional Sugar Inj SQ SCH ×3 (07:59→17:38)
[2018-03-25] MEDS: Oral Hygiene Kit OROPHARYNG SCH ×3 (08:00→17:37)
[2018-03-25] MEDS: Epoprostenol (30,000/mL) Neb 75 ML in Sodium Chlor 0.9% Inj 25 ML NEB SCH (08:01)
--- NOTE | 2018-03-25 10:25 | P.PNCC ---
Subjective Subjective Remarks/Hospital Course: This 77-year-old woman was transferred from [facility] to [facility] for treatment of respiratory failure with septic shock and peripheral abscesses including recent diagnosis of epidural abscess in the lumbar region. Her respiratory status is quite compromised with diffuse infiltrates throughout both lung welsh and she is ventilator dependent. On initial presentation to the hospital impair she had complaints of back pain radiating to her left knee. Her hemoglobin was 4 source of bleeding was clear was unclear at first and Dr. Vasquez had previously performed upper and lower endoscopy without location of a source. She has had a metastatic series and MRI on March 04 which developed multilevel central canal and foraminal stenoses she has had a transesophageal echo which revealed severe mitral regurgitation her hospital course has been complicated by atrial fibrillation and hemodynamic instability. Cardioversion was unsuccessful. She has continued recent fever course in excess of 103 degrees and has been treated with broad-spectrum antibiotic coverage including meropenem and vancomycin. She is continued to deteriorate and on about March 11 required endotracheal intubation and mechanical ventilation. Recent ICU white blood cell count is 40,000 blood cultures from March 09 revealed Streptococcus species and a subsequent blood culture grew a staph organism according to the report from the referring physician. The woman is required amiodarone therapy and diltiazem with additional cardioversion to sinus rhythm on the chest x-ray continues to worsen. CT of the abdomen reveals fluid collection on the left psoas muscle, possibly abscess. The contralateral psoas muscle has a similar collection. Recent MRI demonstrates old spine hardware L3-S1 and an irregular soft tissue density around the thecal sac at L1-L2 extending to T12-L1 she is required vasopressor support for hypotension and obvious sepsis overnight. The one constant throughout her early hospital course was severe lower back pain radiating down her legs. 03/15: Temperature max 101. Leukocytosis persists to 30,000. Back in normal sinus rhythm now with pulse rate controlled. Her respiratory status is unstable and she still requiring elevated ventilator pressures and elevated oxygen concentration. We will attempt to get an MRI of the entire spine with and without contrast today pending her hemodynamic suitability. At present her pulmonary status makes operative procedure a prohibitive risk. 03/16: T-max 100. Leukocytosis to 30,000 persists. Remains in sinus rhythm. MRI of the spine reviewed. Patient remains clinically critically ill. Azotemia slightly improved. Continue hydration. Start trickle tube feeding with added protein. 03/16: Continued septic course with low-grade fever and white count 33,000. Chest x-ray appearance alone could explain sepsis. Doing need to culture the fluid collections in the back to rule out another possible nidus? 03/17: Worsening respiratory function requiring us to convert to airway pressure release ventilation mode. Way too ill to allow us to transfer and mobilize for psoas muscle fluid aspiration. Elevated white count persists. Renal function slightly improved. Still requiring aggressive fluid resuscitation. White blood cell count 34,000 tomorrow, consistent with colitis. 03/18: Patient remains quite unstable requiring elevated inspiratory fraction of oxygen and markedly elevated mean airway pressures. CAT scan yesterday confirms dense fibrotic pattern left lung consistent with fibroproliferative phase of ARDS. Right lung has a more spotty architectural pattern due to large areas of emphysema. Due to unique antibodies transfusion has been delayed but should proceed today. Elevated white count to 45,000 with a preponderance of immature forms including myelocytes raises concerns for a bone marrow disorder. 03/19: T-max 100.1, pronounced leukocytosis with persistent elevated myelocytes. We appear to have control of the infection despite the lack of clarity involving the various retroperitoneal fluid collections. Hemodynamically she does not act like florid sepsis. CAT scan of the abdomen does not reveal an obvious source of this leukocytosis. CAT scan of the chest reveals a fibroproliferative stage of ARDS but does not necessarily explain the markedly elevated white count. I will ask the hematology service to evaluate. 03/20: I appreciate input from the hematology service. We are treating presumptive C. difficile colitis and antimicrobial coverage for that is adequate. Progress with the improvement of her ARDS is slow and she still requires elevated fractional inspired oxygen concentration and markedly elevated mean airway pressure. Despite progressively lowered tonicity of fluid administered she continues to concentrate sodium. Now at 157 we are forced to resort to simple D5 water. 03/21: Afebrile. Remains on APRV ventilation. Sodium currently 152. Not stable for IR at the present time. Will attempt to wean APRV today with drop and stretch and see if she tolerates. Tube feeds currently at goal. 03/22: Afebrile. FiO2 - 75%. Chest x-ray essentially stable. Status post bone marrow biopsy yesterday. To physical. 500 cc stool past 24 hours. 03/23: Afebrile. FiO2 up to 90%. Chest x-ray stable. Replace central line with right IJ 03/22. PICC line removed yesterday. 600 cc stool past 24 hours. 03/24: Continued deterioration and respiratory function with worsening radiographic findings of consolidation, left worse than right. Now requiring 70 % oxygen and PEEP 16. Generally edematous still. Requiring increased vasopressor support with Khalif-Synephrine. Anemia persists, no obvious source of blood loss. 03/25: Continued problems with oxygenation, requiring fractional inspiratory concentration above 70% now. Most recent chest x-ray confirms continuation of pronounced ARDS. White blood cell count 33,000 and signs of ongoing sepsis. Objective Vital Signs / I&O: Vital Signs 03/24/18 11:00 03/24/18 12:00 03/24/18 12:57 Temperature 98.2 F Pulse Rate 87 85 Respiratory Rate 36 H 30 H 30 H Blood Pressure 114/50 L Pulse Oximetry 96 99 03/24/18 15:19 03/24/18 16:00 03/24/18 16:01 Temperature 98.2 F Pulse Rate 85 86 Respiratory Rate 30 H 30 H 30 H Blood Pressure 116/53 L Pulse Oximetry 96 96 03/24/18 19:47 03/24/18 19:54 03/24/18 20:00 Temperature 97.9 F Pulse Rate 88 96 H Respiratory Rate 31 H 33 H 30 H Blood Pressure 148/62 H Pulse Oximetry 95 95 03/24/18 23:30 03/24/18 23:31 03/25/18 00:00 Temperature 97.9 F Pulse Rate 107 H 98 H Respiratory Rate 32 H 30 H 30 H Blood Pressure 110/49 L Pulse Oximetry 90 L 93 L 03/25/18 04:00 03/25/18 04:04 03/25/18 04:05 Temperature 98.8 F Pulse Rate 94 H 94 H Respiratory Rate 30 H 33 H 30 H Blood Pressure 109/49 L Pulse Oximetry 92 L 91 L 03/25/18 07:00 03/25/18 07:15 Temperature Pulse Rate 91 H Respiratory Rate 30 H 30 H Blood Pressure Pulse Oximetry 92 L Intake & Output 03/24/18 03/25/18 03/25/18 18:59 06:59 18:59 Intake Total 1312.5 / 1312.5 420 / 420 175 / 175 Output Total 2450 / 2450 1800 / 1800 Balance -1137.5 / -1137.5 -1380 / -1380 175 / 175 Intake: IV 1112.5 / 1112.5 300 / 300 175 / 175 Versed Inj 50 mg In 50 ml @ 2 100 / 100 MG/HR 2 mls/hr IV.CONT TITRATE PRN Rx#:[id number] Merrem Inj 1,000 MG In NS Inj 200 / 200 0 / 0 100 / 100 100 ML @ 200 mls/hr IV.SIG Q8H LIZETTE Rx#:[id number] Vancomycin Inj 1,250 MG In NS 262.5 / 262.5 Inj 250 ML @ 250 mls/hr IV.SIG Q36H LIZETTE Rx#:[id number] fentaNYL 10 mcg/mL Premix Drip 250 / 250 2,500 mcg In 250 ml @ 50 MCG/HR 5 mls/hr IV.SIG TITRATE PRN Rx #:[id number] Flagyl 500 MG Inj 100 ML @ 100 200 / 200 100 / 100 mls/hr IV.SIG Q6H LIZETTE Rx#: [id number] Flolan (30,000 ng/mL) Neb 75 ML 200 / 200 100 / 100 75 / 75 In NS Inj 25 ML @ 5 mls/hr NEB Q8H LIZETTE Rx#:[id number] Water Bolus Amount 200 / 200 120 / 120 Output: Urine 2350 / 2350 Stool 100 / 100 Urine/Stool Mix 0 / 0 Urine Amount (Catheter) 1800 / 1800 Indwelling Urethral Catheter 1800 / 1800 Other: Date of Last Bowel Movement 03/24/18 Result Diagrams: 03/25/18 05:15 03/25/18 05:15 Objective Remarks: General: Ill-appearing, pale, elderly woman on mechanical ventilation with AC/PC Head: Atraumatic, normal. Oral tracheal intubation. Neck: Stiff consistent with age but otherwise supple. Lungs: Continued bilateral scattered rhonchi anteriorly and posteriorly. Few greenish/yellow thick secretions. Good bilateral air entry Heart: Regular rate and rhythm, S1, S2 no S4. 2/6 systolic murmur, no JVD Abdomen: Moderately distended, bowel sounds active, no guarding. No peritoneal irritation. Extremities: Warm, well-perfused. Generally edematous hands and feet. Neurologic: Propofol drip makes evaluation difficult. Cranial nerves II through XII grossly intact with positive cough and gag frequently flexors withdraws to pain bilateral upper and lower extremities. Assessment and Plan - Assessment and Plan Plan: Neuro/Psych Depression/anxiety Acute metabolic encephalopathy secondary to severe sepsis Currently a propofol drip at 40 mcg/kg/min for sedation while intubated. As needed fentanyl drip ordered. As needed morphine 4 mg IV every 2 hours as needed pain management Goal of RASS -2 Daily sedation vacation when appropriate Bupropion hydrochloride 150 mg daily currently being held. Resume clinically indicated Cardiovascular Severe septic shock History of SVT History of essential hypertension Hyperlipidemia Moderate TR/MR 2D echocardiogram - LVSF 45- 50%. Mild LVH. Kxus-ho-quzwlrga mitral valve regurgitation. Diffuse calcification of the aortic valve. There is moderate tricuspid regurgitation. PAP 70.5 mmHg -Phenylephrine drip as needed for supportive arterial blood pressure -Patient is on simvastatin 20 milligrams daily at home for hyperlipidemia. Respiratory Bilateral pneumonia with severe ARDS History of COPD/fibroproliferative changes Ventilator bundle Albuterol/ipratropium aerosols every 4 hours with albuterol aerosols every 2 hours as needed for dyspnea Methylprednisolone succinate 40 mg IV every 12 hours Back on PC/AC ventilation, 70% oxygen. Starting to retain CO2 GI C. difficile colitis Hypoalbuminemia with acute severe potentially malnutrition History of Crohn's disease Gastroesophageal reflux disease History of recent ileus Started on tube feeding with Glucerna 1.5 goal 50 cc an hour per nutrition recommendations. We will hold today with distended abdomen and worsening oxygenation Famotidine for GI prophylaxis. On pantoprazole 40 mg daily at home. Holding docusate sodium/senna 1 tablet twice daily with current C. difficile -History of antral ulcers Renal/FEN/ Hypocalcemia -Olivas to closed bag drainage -Monitor urine output -Accurate I's and O's - free water 100 cc every 6 hours. Downward trend - sodium Hematology Leukocytosis -rule out leukemia Normocytic anemia Thrombocytopenia IgM kappa monoclonal gammopathy unknown significance History of lung cancer diagnosed 2012 -Serial white cell count with flow cytometry - CMML preliminary,Jak2 mutation pending and BCR ABL negative. Repeat -Follow anemia with hemoglobin -Bone marrow biopsy at bedside per hematology -Hematology consult Transfuse 3 PRBCs during this hospitalization. Antibody positive. ID C. difficile Staph/strep bacteremia from outside hospital -Meropenem and vancomycin, adjust per ID consult -> IV and p.o. vancomycin, IV metronidazole, fidaxomicin added. Restarted meropenem 03/22 -Blood organisms cultured at outside hospital are streptococcal and staph species. Sputum and UA 03/14 and 03/17 at this facility negative. Endo: Hypothyroidism Sliding scale insulin with aspart insulin medium protocol with Accu-Cheks to maintain euglycemia every 6 hours Continue levothyroxine but increase to 125 g daily. TSH was 11.1 today MSK/Rheum: Psoas abscess Likely L1/L2 epidural abscess History of rheumatoid arthritis -Neurosurgery evaluation for lumbar fluid collection appreciated. IR to drain when clinically stable Prophylaxis -GI -famotidine -DVT -SCDs/heparin subcu Overall impression: This woman remains critically ill and is deteriorating clinically. Her respiratory and hemodynamic function have declined over the last 48 hours and remain unstable. Continued clinical deterioration overnight Critical care time 42 minutes
[2018-03-25] MEDS: Famotidine 20 MG Tablet PO SCH ×2 (10:32→21:31)
[2018-03-25] MEDS: Chlorhexidine 0.12% Oral Kit 15 ML UDC OROPHARYNG SCH (10:33)
[2018-03-25] MEDS: Beneprotein Powder Packet G-TUBE SCH ×3 (10:34→17:37)
[2018-03-25] MEDS: Carboxymethylcellulose 0.5% Opth Drops 15 ML Bottle EACH EYE SCH (11:08)
--- NOTE | 2018-03-25 12:48 | P.PNONC ---
Subjective Interval history: Afebrile Patient remains critically ill on pressors Per RETURNED CASE INSPECTOR she does not follow commands when given sedation vacation Objective Vital Signs/Intake & Output: Vital Signs 03/24/18 12:57 03/24/18 15:19 03/24/18 16:00 Temperature 98.2 F Pulse Rate 85 86 Respiratory Rate 30 H 30 H 30 H Blood Pressure 116/53 L Pulse Oximetry 99 96 03/24/18 16:01 03/24/18 19:47 03/24/18 19:54 Temperature Pulse Rate 88 Respiratory Rate 30 H 31 H 33 H Blood Pressure Pulse Oximetry 96 95 03/24/18 20:00 03/24/18 23:30 03/24/18 23:31 Temperature 97.9 F Pulse Rate 96 H 107 H Respiratory Rate 30 H 32 H 30 H Blood Pressure 148/62 H Pulse Oximetry 95 90 L 03/25/18 00:00 03/25/18 04:00 03/25/18 04:04 Temperature 97.9 F 98.8 F Pulse Rate 98 H 94 H 94 H Respiratory Rate 30 H 30 H 33 H Blood Pressure 110/49 L 109/49 L Pulse Oximetry 93 L 92 L 03/25/18 04:05 03/25/18 07:00 03/25/18 07:15 Temperature Pulse Rate 91 H Respiratory Rate 30 H 30 H 30 H Blood Pressure Pulse Oximetry 91 L 92 L 03/25/18 10:18 03/25/18 11:00 Temperature Pulse Rate 90 Respiratory Rate 30 H 30 H Blood Pressure Pulse Oximetry 93 L Intake & Output 03/24/18 03/25/18 03/25/18 18:59 06:59 18:59 Intake Total 1312.5 / 1312.5 520 / 520 175 / 175 Output Total 2450 / 2450 1800 / 1800 Balance -1137.5 / -1137.5 -1280 / -1280 175 / 175 Intake: IV 1112.5 / 1112.5 400 / 400 175 / 175 Versed Inj 50 mg In 50 ml @ 2 100 / 100 MG/HR 2 mls/hr IV.CONT TITRATE PRN Rx#:[id number] Merrem Inj 1,000 MG In NS Inj 200 / 200 0 / 0 100 / 100 100 ML @ 200 mls/hr IV.SIG Q8H [facility] Rx#:[id number] Vancomycin Inj 1,250 MG In NS 262.5 / 262.5 Inj 250 ML @ 250 mls/hr IV.SIG Q36H [facility] Rx#:[id number] fentaNYL 10 mcg/mL Premix Drip 250 / 250 2,500 mcg In 250 ml @ 50 MCG/HR 5 mls/hr IV.SIG TITRATE PRN Rx #:[id number] Flagyl 500 MG Inj 100 ML @ 100 200 / 200 200 / 200 mls/hr IV.SIG Q6H [facility] Rx#: [id number] Flolan (30,000 ng/mL) Neb 75 ML 200 / 200 100 / 100 75 / 75 In NS Inj 25 ML @ 5 mls/hr NEB Q8H [facility] Rx#:[id number] Water Bolus Amount 200 / 200 120 / 120 Output: Urine 2350 / 2350 Stool 100 / 100 Urine/Stool Mix 0 / 0 Urine Amount (Catheter) 1800 / 1800 Indwelling Urethral Catheter 1800 / 1800 Other: Date of Last Bowel Movement 03/24/18 03/25/18 Result Diagrams: 03/25/18 05:15 03/25/18 05:15 Laboratory Results: Laboratory Results - last 24 hr 03/24/18 03/24/18 03/24/18 13:52 18:02 22:35 WBC 28.9 H RBC 3.25 L Hgb 9.1 L Hct 28.9 L MCV 89.0 MCH 27.9 MCHC 31.4 L RDW 20.2 H Plt Count 159 MPV 11.3 H Prelim Diff (Auto) Manual diff required Neut % (Auto) Lymph % (Auto) [place] % (Auto) Eos % (Auto) Baso % (Auto) Neut # (Auto) Lymph # (Auto) [place] # (Auto) Eos # (Auto) Baso # (Auto) WBC Differential Manual diff final Seg Neuts % (Manual) 62 Band Neuts % (Manual) 12 H Lymphocytes % (Manual) 3 L Monocytes % (Manual) 21 H Metamyelocytes % (Man) 2 H Myelocytes % (Man) Abs Neuts (Manual) 22.0 H Nucleated RBCs/100 WBC 1 H Differential Comment . Toxic Granulation 3+ H Platelet Estimate Normal Platelet Morphology Enlarged H Basophilic Stippling Stomatocytes 2+ H Sodium Potassium Chloride Carbon Dioxide Anion Gap BUN Creatinine Estimated GFR POC Glucose 86 Random Glucose Calcium Urine Color Yellow Urine Clarity Turbid H Urine pH 5.0 Ur Specific [place] 1.009 Urine Protein 30 H Urine Glucose (UA) Negative Urine Ketones Negative Urine Occult Blood Moderate H Urine Nitrate Negative Urine Bilirubin Negative Urine Urobilinogen Less than 2 Ur Leukocyte Esterase Large H Urine RBC 66 H Urine WBC Urine WBC Clumps Many H Ur Squamous Epith Cells 5 Urine Bacteria Few H Urine Mucus Few H Urine Yeast Many H Micro UA Comment Cath-culture ind Ur Microscopic Review Not Reportable Urine Culture Comments Cath-cult indicated 03/25/18 03/25/18 03/25/18 00:30 05:15 05:15 WBC 33.5 H RBC 3.14 L Hgb 8.9 L Hct 28.1 L MCV 89.4 MCH 28.2 MCHC 31.5 L RDW 20.1 H Plt Count 197 MPV 11.9 H Prelim Diff (Auto) Slide review pending Neut % (Auto) 63.3 Lymph % (Auto) 3.3 L [place] % (Auto) 32.9 H Eos % (Auto) 0.4 Baso % (Auto) 0.1 Neut # (Auto) 21.2 H Lymph # (Auto) 1.1 [place] # (Auto) 11.0 H Eos # (Auto) 0.1 Baso # (Auto) 0.0 WBC Differential Manual diff final Seg Neuts % (Manual) 42 Band Neuts % (Manual) 19 H Lymphocytes % (Manual) 2 L Monocytes % (Manual) 31 H Metamyelocytes % (Man) 1 Myelocytes % (Man) 5 H Abs Neuts (Manual) 22.4 H Nucleated RBCs/100 WBC Differential Comment . Toxic Granulation Platelet Estimate Normal Platelet Morphology Enlarged H Basophilic Stippling Faint H Stomatocytes 1+ H Sodium 145 Potassium 4.4 Chloride 105 Carbon Dioxide 31.5 Anion Gap 9 BUN 36 H Creatinine 0.99 Estimated GFR 54 L POC Glucose 108 Random Glucose 100 Calcium 7.9 L Urine Color Urine Clarity Urine pH Ur Specific [place] Urine Protein Urine Glucose (UA) Urine Ketones Urine Occult Blood Urine Nitrate Urine Bilirubin Urine Urobilinogen Ur Leukocyte Esterase Urine RBC Urine WBC Urine WBC Clumps Ur Squamous Epith Cells Urine Bacteria Urine Mucus Urine Yeast Micro UA Comment Ur Microscopic Review Urine Culture Comments 03/25/18 11:16 WBC RBC Hgb Hct MCV MCH MCHC RDW Plt Count MPV Prelim Diff (Auto) Neut % (Auto) Lymph % (Auto) [place] % (Auto) Eos % (Auto) Baso % (Auto) Neut # (Auto) Lymph # (Auto) [place] # (Auto) Eos # (Auto) Baso # (Auto) WBC Differential Seg Neuts % (Manual) Band Neuts % (Manual) Lymphocytes % (Manual) Monocytes % (Manual) Metamyelocytes % (Man) Myelocytes % (Man) Abs Neuts (Manual) Nucleated RBCs/100 WBC Differential Comment Toxic Granulation Platelet Estimate Platelet Morphology Basophilic Stippling Stomatocytes Sodium Potassium Chloride Carbon Dioxide Anion Gap BUN Creatinine Estimated GFR POC Glucose 99 Random Glucose Calcium Urine Color Urine Clarity Urine pH Ur Specific [place] Urine Protein Urine Glucose (UA) Urine Ketones Urine Occult Blood Urine Nitrate Urine Bilirubin Urine Urobilinogen Ur Leukocyte Esterase Urine RBC Urine WBC Urine WBC Clumps Ur Squamous Epith Cells Urine Bacteria Urine Mucus Urine Yeast Micro UA Comment Ur Microscopic Review Urine Culture Comments Culture Results: Microbiology 03/24/18 13:52 Gram Stain - Final Sputum - Endotracheal Sputum Culture - Preliminary Immature growth - reincubate 03/23/18 23:00 Aerobic Blood Culture - Preliminary Blood - Peripheral No growth in 2 days Anaerobic Blood Culture - Preliminary No growth in 2 days 03/23/18 20:43 Aerobic Blood Culture - Preliminary Blood - Peripheral No growth in 2 days Anaerobic Blood Culture - Preliminary No growth in 2 days Medications: Active Medications Generic Name Dose Route Start Last Admin Trade Name Freq PRN Reason Stop Dose Admin Albuterol 1 ampul 03/22/18 08:00 03/25/18 11:03 Duoneb Neb ([facility]) NEB 1 ampul Q4HR NEB [facility] Administration Artificial Tears 1 drop 03/21/18 21:00 03/25/18 11:08 Refresh Tears 0.5% Opth Drops EACH EYE 1 drop BID [facility] Administration Bumetanide 1 mg 03/23/18 18:00 03/25/18 10:36 Bumex Inj IV.PUSH 1 mg BID@0900,1800 [facility] Administration Chlorhexidine Gluconate 15 ml 03/14/18 20:00 03/25/18 10:33 Peridex 0.12% Oral Kit OROPHARYNG 15 ml BID@0800,2000 [facility] Administration Famotidine 20 mg 03/21/18 21:00 03/25/18 10:32 Pepcid PO 20 mg BID [facility] Administration Fidaxomicin 200 mg 03/19/18 21:00 03/25/18 10:32 Dificid PO 10/11/18 20:59 200 mg BID [facility] Administration Heparin Sodium (Porcine) 5,000 units 03/14/18 15:00 03/23/18 14:38 Heparin Inj SQ 5,000 units Q8H [facility] Administration Fentanyl 2,500 mcg in 250 mls @ 5 mls/hr 03/14/18 15:00 03/24/18 16:14 Fentanyl 10 Mcg/Ml Premix Drip IV.SIG 100 mcg/hr TITRATE PRN 10 mls/hr Per Protocol Administration Protocol 50 MCG/HR Propofol 1,000 mg in 100 mls @ 2.292 mls/hr 03/14/18 15:00 03/24/18 13:00 Diprivan 1000 Mg/100 Ml Inj IV.CONT 0 mcg/kg/min TITRATE PRN 0 mls/hr Per Protocol Titration Protocol 5 MCG/KG/MIN Phenylephrine HCl 80 mg/ 500 mls @ 15 mls/hr 03/14/18 16:00 03/24/18 18:27 Sodium Chloride IV.CONT 40 mcg/min TITRATE PRN 15 mls/hr See protocol Titration Protocol 40 MCG/MIN Potassium Chloride 40 meq in 100 mls @ 25 mls/hr 03/14/18 18:12 03/15/18 08: 58 Kcl 40 Meq Premix Inj IV.SIG Infused UNSCH PRN Infusion For Potassium 3.3 - 3.5 mEq/L Metronidazole/Sodium Chloride 100 mls @ 100 mls/hr 03/14/18 22:00 03/25/18 10 :32 Flagyl 500 Mg Inj IV.SIG 100 mls/hr Q6H [facility] Administration Vancomycin HCl 1,250 mg/ 262.5 mls @ 250 mls/hr 03/19/18 21:00 03/24/18 13:43 Sodium Chloride IV.SIG Infused Q36H [facility] Infusion Meropenem 1,000 mg/ Sodium 100 mls @ 200 mls/hr 03/22/18 17:00 03/25/18 10:33 Chloride IV.SIG 200 mls/hr Q8H [facility] Administration Midazolam HCl 50 mg in 50 mls @ 2 mls/hr 03/23/18 13:14 03/25/18 05:01 Versed Inj IV.CONT 5 mg/hr TITRATE PRN 5 mls/hr Per Protocol Administration Protocol 2 MG/HR Insulin Aspart 0 unit 03/21/18 18:00 03/25/18 11:51 Novolog Insulin Correctional Sugar Inj SQ Not Given Q6HR [facility] Protocol Labetalol HCl 10 mg 03/21/18 17:44 03/22/18 22:48 Trandate Inj IV.PUSH 10 mg Q1H PRN Administration Sbp>170, Dbp>90, Hr>65 Levothyroxine Sodium 125 mcg 03/23/18 06:00 03/25/18 05:02 Synthroid PO 125 mcg DAILY@0600 [facility] Administration Miscellaneous Medication 1 each 03/14/18 16:00 03/25/18 11:52 OROPHARYNG 1 each 0000,0400,1200,1600 [facility] Administration Morphine Sulfate 4 mg 03/14/18 14:05 03/22/18 01:19 Morphine Inj IV.PUSH 4 mg Q2H PRN Administration any pain Potassium Bicarb/Potassium Chloride 50 meq 03/14/18 18:12 03/14/18 18:32 K-Lyte Cl Eff PO 50 meq UNSCH PRN Administration For Potassium 3.3 - 3.5 mEq/L Senna/Docusate Sodium 1 tab 03/14/18 21:00 03/21/18 08:52 Mimi-Colace PO Not Given BID [facility] Sodium Chloride 2 ml 03/14/18 21:00 03/25/18 10:34 Ns Flush IV.FLUSH Not Given BID [facility] Sodium Chloride 0 ml 03/23/18 09:00 03/25/18 10:34 Ns Flush IV.FLUSH Not Given DAILY [facility] Sterile Water 100 ml 03/22/18 06:33 03/25/18 07:59 Free Water NG/OG Not Given Q6HR [facility] Vancomycin HCl 500 mg 03/15/18 18:00 03/25/18 10:32 Vancomycin Po PO 500 mg QID [facility] Administration Whey 1 packet 03/15/18 13:00 03/25/18 10:34 Beneprotein Powder G-TUBE Not Given TID [facility] Objective Remarks: GENERAL: Chronically ill-appearing female resting in bed mechanically ventilated and sedated SKIN: Warm and dry. No oozing from lines HEAD: Normocephalic. EYES: No scleral icterus. No injection or drainage. NECK: Supple, trachea midline. CARDIOVASCULAR: Regular rate and rhythm. RESPIRATORY: Clear but diminished anteriorly. Mechanically ventilated. GASTROINTESTINAL: Abdomen large, distended. Rectal tube draining dark stool. EXTREMITIES: No cyanosis. +anasarca. NEUROLOGICAL: Sedated Assessment/Plan - Plan Ms. Arevalo is a 77 year-old female patient, transferred to [facility] on 03/14/2018 from [facility]. According to the records, she was originally seen with severe back pain, CT scan of the abdomen and pelvis showed an epidural abscess and abdominal abscesses. She was treated with antibiotics. She then developed pneumonia and went into respiratory failure. At which time she was intubated. She is currently being treated for C. difficile colitis. Hematology was consulted for evaluation of leukocytosis with immature cells in the peripheral blood and severe anemia. Plan: 1. BCR/ABL and cytogenetics from recent bone marrow biopsy remains pending. Pt remains critically ill at this point. 2. Continue sepsis management per sample prep technician and infectious disease. 3. Supportive care. - Attending Statement The exam, history, and the medical decision-making described in the above note were completed with the assistance of the mid-level provider. I reviewed and agree with the findings presented. I attest that I had a [id number] encounter with the patient on the same day, and personally performed and documented my assessment and findings in the medical record. 77 yoF with spinal abscess, cdiff colitis on broad spectrum antibiotics with ID team following. Critically ill, intubated and sedated. Overall prognosis is poor.
--- NOTE | 2018-03-25 20:42 | P.PNID ---
Subjective Remarks: delayed entry - pt was seen around 6:30 dw RN remain very unstable PEEP 16, FiO2 80% she cont to have high volume diarrhea, tube feeds off hypothermic remains on pressors Antibiotics: meropenem dificid vanco po vanco flagyl iv micafungin Allergies/Adverse Reactions: Allergies Penicillins Allergy (Verified 03/14/18 13:53) Swelling of Lip/Tongue/Throat Sulfa (Sulfonamide Antibiotics) Allergy (Verified 03/14/18 13:53) Diarrhea shellfish Adverse Reaction (Uncoded 03/14/18 13:53) Swelling of Lip/Tongue/Throat Objective Vital Signs 03/24/18 23:30 03/24/18 23:31 03/25/18 00:00 Temperature 97.9 F Pulse Rate 107 H 98 H Respiratory Rate 32 H 30 H 30 H Blood Pressure 110/49 L Pulse Oximetry 90 L 93 L 03/25/18 04:00 03/25/18 04:04 03/25/18 04:05 Temperature 98.8 F Pulse Rate 94 H 94 H Respiratory Rate 30 H 33 H 30 H Blood Pressure 109/49 L Pulse Oximetry 92 L 91 L 03/25/18 07:00 03/25/18 07:15 03/25/18 08:00 Temperature 97.9 F Pulse Rate 91 H 88 Respiratory Rate 30 H 30 H 30 H Blood Pressure 109/49 L Pulse Oximetry 92 L 92 L 03/25/18 10:18 03/25/18 11:00 03/25/18 12:00 Temperature 97.2 F L Pulse Rate 90 92 H Respiratory Rate 30 H 30 H 30 H Blood Pressure 109/49 L Pulse Oximetry 93 L 92 L 03/25/18 13:22 03/25/18 15:00 03/25/18 16:00 Temperature 99.3 F Pulse Rate 97 H 96 H Respiratory Rate 30 H 30 H 30 H Blood Pressure 105/48 L Pulse Oximetry 91 L 91 L 03/25/18 16:01 03/25/18 19:55 03/25/18 19:56 Temperature Pulse Rate 91 H Respiratory Rate 30 H 30 H 30 H Blood Pressure Pulse Oximetry 91 L 89 L Intake & Output 03/25/18 03/25/18 03/26/18 06:59 18:59 06:59 Intake Total 520 / 520 575 / 575 Output Total 1800 / 1800 375 / 375 Balance -1280 / -1280 200 / 200 Intake: IV 400 / 400 375 / 375 Versed Inj 50 mg In 50 ml @ 2 100 / 100 MG/HR 2 mls/hr IV.CONT TITRATE PRN Rx#:[id number] Merrem Inj 1,000 MG In NS Inj 0 / 0 200 / 200 100 ML @ 200 mls/hr IV.SIG Q8H [facility] Rx#:[id number] Flagyl 500 MG Inj 100 ML @ 100 200 / 200 100 / 100 mls/hr IV.SIG Q6H [facility] Rx#: [id number] Flolan (30,000 ng/mL) Neb 75 ML 100 / 100 75 / 75 In NS Inj 25 ML @ 5 mls/hr NEB Q8H [facility] Rx#:[id number] Water Bolus Amount 120 / 120 200 / 200 Output: Stool 25 / 25 Urine/Stool Mix 0 / 0 Urine Amount (Catheter) 1800 / 1800 350 / 350 Indwelling Urethral Catheter 1800 / 1800 350 / 350 Other: Date of Last Bowel Movement 03/25/18 03/24/18 13:52 Catheterized Urine Urine Culture - Preliminary Yeast species 03/24/18 13:52 Sputum - Endotracheal Gram Stain - Final 03/24/18 13:52 Sputum - Endotracheal Sputum Culture - Preliminary Immature growth - reincubate 03/23/18 23:00 Blood - Peripheral Aerobic Blood Culture - Preliminary No growth in 2 days 03/23/18 23:00 Blood - Peripheral Anaerobic Blood Culture - Preliminary No growth in 2 days 03/23/18 20:43 Blood - Peripheral Aerobic Blood Culture - Preliminary No growth in 2 days 03/23/18 20:43 Blood - Peripheral Anaerobic Blood Culture - Preliminary No growth in 2 days Lab - Hematology Results 03/24/18 03/24/18 03/25/18 00:24 22:35 05:15 WBC 25.2 H 28.9 H 33.5 H RBC 3.11 L 3.25 L 3.14 L Hgb 8.9 L 9.1 L 8.9 L Hct 27.9 L 28.9 L 28.1 L MCV 89.5 89.0 89.4 MCH 28.6 27.9 28.2 MCHC 32.0 31.4 L 31.5 L RDW 20.4 H 20.2 H 20.1 H Plt Count 135 L 159 197 MPV 12.0 H 11.3 H 11.9 H Prelim Diff (Auto) Manual diff required Manual diff required Slide review pending Neut % (Auto) 63.3 Lymph % (Auto) 3.3 L [place] % (Auto) 32.9 H Eos % (Auto) 0.4 Baso % (Auto) 0.1 Neut # (Auto) 21.2 H Lymph # (Auto) 1.1 [place] # (Auto) 11.0 H Eos # (Auto) 0.1 Baso # (Auto) 0.0 WBC Differential Manual diff final Manual diff final Manual diff final Seg Neuts % (Manual) 55 62 42 Band Neuts % (Manual) 9 H 12 H 19 H Lymphocytes % (Manual) 6 L 3 L 2 L Monocytes % (Manual) 18 H 21 H 31 H Eosinophils % (Manual) 1 Basophils % (Manual) 1 Metamyelocytes % (Man) 3 H 2 H 1 Myelocytes % (Man) 7 H 5 H Abs Neuts (Manual) 18.6 H 22.0 H 22.4 H Nucleated RBCs/100 WBC 1 H Differential Comment . . . Toxic Granulation 3+ H Platelet Estimate Low L Normal Normal Platelet Morphology Normal Enlarged H Enlarged H Basophilic Stippling Faint H Spherocytes Occ H Stomatocytes 1+ H 2+ H 1+ H Lab - Chemistry Results 03/24/18 03/24/18 03/24/18 00:21 00:40 05:22 Sodium 142 Potassium 4.4 Chloride 105 Carbon Dioxide 29.5 Anion Gap 8 BUN 37 H Creatinine 0.93 Estimated GFR 58 L POC Glucose 82 Random Glucose 99 Calcium 8.5 D Phosphorus 5.0 H Magnesium 2.0 Total Bilirubin 0.6 AST 28 ALT 13 Alkaline Phosphatase 111 Ammonia 29 Total Protein 6.2 L Albumin 1.6 L 03/24/18 03/24/18 03/25/18 11:59 18:02 00:30 Sodium Potassium Chloride Carbon Dioxide Anion Gap BUN Creatinine Estimated GFR POC Glucose 99 86 108 Random Glucose Calcium Phosphorus Magnesium Total Bilirubin AST ALT Alkaline Phosphatase Ammonia Total Protein Albumin 03/25/18 03/25/18 03/25/18 05:15 11:16 17:13 Sodium 145 Potassium 4.4 Chloride 105 Carbon Dioxide 31.5 Anion Gap 9 BUN 36 H Creatinine 0.99 Estimated GFR 54 L POC Glucose 99 98 Random Glucose 100 Calcium 7.9 L Phosphorus Magnesium Total Bilirubin AST ALT Alkaline Phosphatase Ammonia Total Protein Albumin Imaging: ITS Impressions Cervical Spine MRI 03/15/18 00:00 CONCLUSION: 1. No abnormal areas of enhancement in the dural space or vertebral bodies. 2. Spinal stenosis due to disc bulging at multiple levels and anterolisthesis at C4-5. There is also multilevel bony neural foraminal stenosis. Lumbar Spine MRI 03/15/18 00:00 CONCLUSION: 1. Enhancing soft tissue extending from the subcutaneous region down to the thecal sac at the L1 and L2 level characteristic of postsurgical findings with a rounded area of fluid with some minimal peripheral enhancement dorsal to the thecal sac flattening the posterior margin at L1 and L2. Since there is some minimal peripheral enhancement, and epidural abscess is a differential possibility. Thoracic Spine MRI 03/15/18 00:00 CONCLUSION: 1. No abnormal areas of enhancement in the vertebral bodies or epidural space in the thoracic region. 2. Posterior osteophytes at all levels in the thoracic spine causing mild impression upon the thecal sac. No evidence of disc protrusions over. 3. Moderate size left pleural effusion. Abdomen/Pelvis CT 03/17/18 00:00 CONCLUSION: 1. Diffuse interstitial infiltrate in the lung bases and anasarca suggesting edema. 2. Minimal thickening of the colon. 3. Minimal left basilar effusion. 4. Small amount of free fluid within the abdomen and pelvis. 5. No free air identified. No findings to indicate a bowel obstruction. Chest CT 03/17/18 13:48 CONCLUSION: 1. Extensive interstitial prominence with some sparing of the right upper lobe suggesting ARDS. 2. Minimal effusion on the left with a tiny effusion on the right. 3. Degenerative changes in the thoracic spine. Soft Tissue Ultrasound 03/19/18 00:00 CONCLUSION: 1. Fluid as above. Abdomen X-Ray 03/23/18 00:00 CONCLUSION: No bowel obstruction or ileus. Chest X-Ray 03/24/18 06:00 CONCLUSION: No significant change Physical Exam: GENERAL: NAD sedated, on vent on bear hugger SKIN: Warm and dry. No rash HEAD: Atraumatic. Normocephalic. EYES: Pupils equal and round. No scleral icterus. No injection or drainage. ENT: No nasal bleeding or discharge. Mucous membranes pink and moist. NECK: Trachea midline. No JVD. CARDIOVASCULAR: Regular rate and rhythm. RESPIRATORY: No accessory muscle use. diffuse b/l rhonchi to auscultation. Breath sounds equal bilaterally. GASTROINTESTINAL: Abdomen soft, no reaction to palpation, remains markedly distended. Hepatic and splenic margins not palpable. MUSCULOSKELETAL: Extremities without clubbing, cyanosis, severe tight pitting 3-4 + edema, seems more edematous. No obvious deformities. marga to touch NEUROLOGICAL: Unresponsive, comatous, no gag reflex, spontaneous movements noted PSYCHIATRIC: unable to assess Assessment and Plan - Plan PNA, HCAP /aspiration vs ARDS - NGTD from sputum Lower T / L spine epidural abscess - pt was seen by Dr Monster Taylor who is planning to repeat MR w/wo c when stable enough - dw Dr Jasiel Wiley: small amount of fluid present Sepsis: staph reported by other facility provider Acute VDR 2/2 ARDS ARF, oliguric to anuric C.diff colitis. Perssitent Severe leukocytosis, leukemoid reaction. 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 VAP - increased vent requirements and worsening resp status Critical, unstable and cont to deteriorate She is very unstable today; family plannning withdrawl possibly tomorrow Fungurial REC's: cont iv flagyl cont po vancomycin cont iv vanco cont dificid cont Meropenem cont micafungin add fluconazol chk blood clx chk UA,C+S if indicated sputum clx jesenia RN
[2018-03-25] MEDS: Vancomycin Inj 1,250 MG in Sodium Chlor 0.9% Inj 250 ML IV.SIG SCH (21:00)
[2018-03-25] MEDS: Phenylephrine Inj 80 MG in Sodium Chlor 0.9% Inj 492 ML IV.CONT PRN (21:56)
[2018-03-26] MEDS: Chlorhexidine 0.12% Oral Kit 15 ML UDC OROPHARYNG SCH ×2 (01:30→09:55)
[2018-03-26] MEDS: Carboxymethylcellulose 0.5% Opth Drops 15 ML Bottle EACH EYE SCH ×2 (01:32→09:56)
[2018-03-26] MEDS: Oral Hygiene Kit OROPHARYNG SCH ×4 (01:34→15:56)
[2018-03-26] MEDS: Insulin NovoLOG Aspart Correctional Sugar Inj SQ SCH ×3 (01:34→13:44)
[2018-03-26 03:23] VITALS: RESP 30
[2018-03-26 05:14] LABS: Hematocrit 27.5 % (35.0-46.0); Hemoglobin 8.3 gm/dL (11.6-15.3); Mean Corpuscular Hemoglobin 28.3 pg (27.0-34.0); Mean Corpuscular Volume 93.4 fL (80.0-100.0); Mean Platelet Volume 11.7 fL (7.0-11.0); Platelet Count 208 th/mm3 (150-450); Red Blood Count 2.94 mil/mm3 (4.00-5.30); Red Cell Distribution Width 21.3 % (11.6-17.2); White Blood Count 34.3 th/mm3 (4.0-11.0)
[2018-03-26 05:23] LABS: Mean Corpuscular HGB Conc 30.3 % (32.0-36.0)
[2018-03-26 05:46] LABS: Calcium 7.8 mg/dL (8.5-10.1); Carbon Dioxide 27.8 meq/L (21.0-32.0); Potassium 4.9 meq/L (3.5-5.1)
[2018-03-26] MEDS: Phenylephrine Inj 80 MG in Sodium Chlor 0.9% Inj 492 ML IV.CONT PRN ×2 (06:26→15:38)
[2018-03-26] MEDS: Levothyroxine 125 MCG Tablet PO SCH (07:07)
[2018-03-26 08:01] LABS: Lymphocytes 4 % (9-44); Metamyelocytes 2 % (0-1); Monocytes 36 % (0-8)
[2018-03-26 08:04] LABS: Platelet Estimate Normal (Normal); Stomatocytes 1+
[2018-03-26] MEDS: Beneprotein Powder Packet G-TUBE SCH ×2 (09:55→12:24)
[2018-03-26] MEDS: Famotidine 20 MG Tablet PO SCH (09:55)
--- NOTE | 2018-03-26 11:48 | P.PNCC ---
Subjective Subjective Remarks/Hospital Course: This 77-year-old woman was transferred from [facility] to [facility] for treatment of respiratory failure with septic shock and peripheral abscesses including recent diagnosis of epidural abscess in the lumbar region. Her respiratory status is quite compromised with diffuse infiltrates throughout both lung welsh and she is ventilator dependent. On initial presentation to the hospital impair she had complaints of back pain radiating to her left knee. Her hemoglobin was 4 source of bleeding was clear was unclear at first and Dr. Vasquez had previously performed upper and lower endoscopy without location of a source. She has had a metastatic series and MRI on March 04 which developed multilevel central canal and foraminal stenoses she has had a transesophageal echo which revealed severe mitral regurgitation her hospital course has been complicated by atrial fibrillation and hemodynamic instability. Cardioversion was unsuccessful. She has continued recent fever course in excess of 103 degrees and has been treated with broad-spectrum antibiotic coverage including meropenem and vancomycin. She is continued to deteriorate and on about March 11 required endotracheal intubation and mechanical ventilation. Recent ICU white blood cell count is 40,000 blood cultures from March 09 revealed Streptococcus species and a subsequent blood culture grew a staph organism according to the report from the referring physician. The woman is required amiodarone therapy and diltiazem with additional cardioversion to sinus rhythm on the chest x-ray continues to worsen. CT of the abdomen reveals fluid collection on the left psoas muscle, possibly abscess. The contralateral psoas muscle has a similar collection. Recent MRI demonstrates old spine hardware L3-S1 and an irregular soft tissue density around the thecal sac at L1-L2 extending to T12-L1 she is required vasopressor support for hypotension and obvious sepsis overnight. The one constant throughout her early hospital course was severe lower back pain radiating down her legs. 03/15: Temperature max 101. Leukocytosis persists to 30,000. Back in normal sinus rhythm now with pulse rate controlled. Her respiratory status is unstable and she still requiring elevated ventilator pressures and elevated oxygen concentration. We will attempt to get an MRI of the entire spine with and without contrast today pending her hemodynamic suitability. At present her pulmonary status makes operative procedure a prohibitive risk. 03/16: T-max 100. Leukocytosis to 30,000 persists. Remains in sinus rhythm. MRI of the spine reviewed. Patient remains clinically critically ill. Azotemia slightly improved. Continue hydration. Start trickle tube feeding with added protein. 03/16: Continued septic course with low-grade fever and white count 33,000. Chest x-ray appearance alone could explain sepsis. Doing need to culture the fluid collections in the back to rule out another possible nidus? 03/17: Worsening respiratory function requiring us to convert to airway pressure release ventilation mode. Way too ill to allow us to transfer and mobilize for psoas muscle fluid aspiration. Elevated white count persists. Renal function slightly improved. Still requiring aggressive fluid resuscitation. White blood cell count 34,000 tomorrow, consistent with colitis. 03/18: Patient remains quite unstable requiring elevated inspiratory fraction of oxygen and markedly elevated mean airway pressures. CAT scan yesterday confirms dense fibrotic pattern left lung consistent with fibroproliferative phase of ARDS. Right lung has a more spotty architectural pattern due to large areas of emphysema. Due to unique antibodies transfusion has been delayed but should proceed today. Elevated white count to 45,000 with a preponderance of immature forms including myelocytes raises concerns for a bone marrow disorder. 03/19: T-max 100.1, pronounced leukocytosis with persistent elevated myelocytes. We appear to have control of the infection despite the lack of clarity involving the various retroperitoneal fluid collections. Hemodynamically she does not act like florid sepsis. CAT scan of the abdomen does not reveal an obvious source of this leukocytosis. CAT scan of the chest reveals a fibroproliferative stage of ARDS but does not necessarily explain the markedly elevated white count. I will ask the hematology service to evaluate. 03/20: I appreciate input from the hematology service. We are treating presumptive C. difficile colitis and antimicrobial coverage for that is adequate. Progress with the improvement of her ARDS is slow and she still requires elevated fractional inspired oxygen concentration and markedly elevated mean airway pressure. Despite progressively lowered tonicity of fluid administered she continues to concentrate sodium. Now at 157 we are forced to resort to simple D5 water. 03/21: Afebrile. Remains on APRV ventilation. Sodium currently 152. Not stable for IR at the present time. Will attempt to wean APRV today with drop and stretch and see if she tolerates. Tube feeds currently at goal. 03/22: Afebrile. FiO2 - 75%. Chest x-ray essentially stable. Status post bone marrow biopsy yesterday. To physical. 500 cc stool past 24 hours. 03/23: Afebrile. FiO2 up to 90%. Chest x-ray stable. Replace central line with right IJ 03/22. PICC line removed yesterday. 600 cc stool past 24 hours. 03/24: Continued deterioration and respiratory function with worsening radiographic findings of consolidation, left worse than right. Now requiring 70 % oxygen and PEEP 16. Generally edematous still. Requiring increased vasopressor support with Khalif-Synephrine. Anemia persists, no obvious source of blood loss. 03/25: Continued problems with oxygenation, requiring fractional inspiratory concentration above 70% now. Most recent chest x-ray confirms continuation of pronounced ARDS. White blood cell count 33,000 and signs of ongoing sepsis. 03/26: Continued deterioration and now requiring greater than 90% oxygen to maintain acceptable bloodstream saturation. Still requiring vasopressor support. Leukocytosis continues to worsen. Patient clinically deteriorating further. Family has been encouraged to understand that this woman will not survive this hospitalization. Despite our best efforts at reversing her sepsis and pulmonary failure she continues to deteriorate. Objective Vital Signs / I&O: Vital Signs 03/25/18 12:00 03/25/18 13:22 03/25/18 15:00 Temperature 97.2 F L Pulse Rate 92 H 97 H Respiratory Rate 30 H 30 H 30 H Blood Pressure 109/49 L Pulse Oximetry 92 L 91 L 03/25/18 16:00 03/25/18 16:01 03/25/18 19:55 Temperature 99.3 F Pulse Rate 96 H 91 H Respiratory Rate 30 H 30 H 30 H Blood Pressure 105/48 L Pulse Oximetry 91 L 91 L 03/25/18 19:56 03/25/18 20:00 03/26/18 00:00 Temperature 98.6 F 98.2 F Pulse Rate 92 H 87 Respiratory Rate 30 H 30 H 30 H Blood Pressure 100/46 L 110/51 L Pulse Oximetry 89 L 92 L 91 L 03/26/18 00:33 03/26/18 00:34 03/26/18 03:15 Temperature Pulse Rate 87 87 Respiratory Rate 32 H 30 H 30 H Blood Pressure Pulse Oximetry 92 L 92 L 03/26/18 03:23 03/26/18 04:00 03/26/18 08:53 Temperature 97.9 F Pulse Rate 87 85 Respiratory Rate 30 H 30 H Blood Pressure 108/48 L Pulse Oximetry 94 L 91 L 94 L Intake & Output 1003/26/18 03/26/18 18:59 06:59 18:59 Intake Total 575 / 575 2162.5 / 2162.5 100 / 100 Output Total 375 / 375 150 / 150 Balance 200 / 200 2012.5 / 2011.5 100 / 100 Weight 92.5 kg Intake: IV 375 / 375 1862.5 / 1862.5 100 / 100 Neosynephrine Inj 80 MG In NS 1000 / 1000 Inj 492 ML @ 40 MCG/MIN 15 mls/ hr IV.CONT TITRATE PRN Rx#: [id number] Diflucan 400 mg Premix Bag 200 200 / 200 ML @ 100 mls/hr IV.SIG Q24H LIZETTE Rx#:[id number] Merrem Inj 1,000 MG In NS Inj 200 / 200 200 / 200 100 ML @ 200 mls/hr IV.SIG Q8H LIZETTE Rx#:[id number] Vancomycin Inj 1,250 MG In NS 262.5 / 262.5 Inj 250 ML @ 250 mls/hr IV.SIG Q36H LIZETTE Rx#:[id number] Flagyl 500 MG Inj 100 ML @ 100 100 / 100 200 / 200 100 / 100 mls/hr IV.SIG Q6H LIZETTE Rx#: [id number] Flolan (30,000 ng/mL) Neb 75 ML 75 / 75 In NS Inj 25 ML @ 5 mls/hr NEB Q8H LIZETTE Rx#:[id number] Tube Irrigant 100 / 100 Water Bolus Amount 200 / 200 200 / 200 Output: Stool 25 / 25 0 / 0 Urine/Stool Mix 0 / 0 Urine Amount (Catheter) 350 / 350 150 / 150 Indwelling Urethral Catheter 350 / 350 150 / 150 Gastric Drainage 0 / 0 Orogastric Tube 0 / 0 Other: Date of Last Bowel Movement 03/25/18 03/25/18 # Bowel Movements 1 Result Diagrams: 03/26/18 04:40 03/26/18 04:40 Objective Remarks: General: Ill-appearing, pale, elderly woman on mechanical ventilation with AC/PC Head: Atraumatic, normal. Oral tracheal intubation. Neck: Stiff consistent with age but otherwise supple. Lungs: Continued bilateral scattered rhonchi anteriorly and posteriorly. Few greenish/yellow thick secretions. Good bilateral air entry Heart: Regular rate and rhythm, S1, S2 no S4. 2/6 systolic murmur, no JVD Abdomen: Moderately distended, bowel sounds active, no guarding. No peritoneal irritation. Extremities: Warm, well-perfused. Generally edematous hands and feet. Neurologic: Propofol drip makes evaluation difficult. Cranial nerves II through XII grossly intact with positive cough and gag frequently flexors withdraws to pain bilateral upper and lower extremities. Assessment and Plan - Assessment and Plan Plan: Neuro/Psych Depression/anxiety Acute metabolic encephalopathy secondary to severe sepsis Currently a propofol drip at 40 mcg/kg/min for sedation while intubated. As needed fentanyl drip ordered. As needed morphine 4 mg IV every 2 hours as needed pain management Goal of RASS -2 Daily sedation vacation when appropriate Bupropion hydrochloride 150 mg daily currently being held. Resume clinically indicated Cardiovascular Severe septic shock History of SVT History of essential hypertension Hyperlipidemia Moderate TR/MR 2D echocardiogram - LVSF 45- 50%. Mild LVH. [id number] mitral valve regurgitation. Diffuse calcification of the aortic valve. There is moderate tricuspid regurgitation. PAP 70.5 mmHg -Phenylephrine drip as needed for supportive arterial blood pressure -Patient is on simvastatin 20 milligrams daily at home for hyperlipidemia. Respiratory Bilateral pneumonia with severe ARDS History of COPD/fibroproliferative changes Ventilator bundle Albuterol/ipratropium aerosols every 4 hours with albuterol aerosols every 2 hours as needed for dyspnea Methylprednisolone succinate 40 mg IV every 12 hours Back on PC/AC ventilation, 70% oxygen. Starting to retain CO2 GI C. difficile colitis Hypoalbuminemia with acute severe potentially malnutrition History of Crohn's disease Gastroesophageal reflux disease History of recent ileus Started on tube feeding with Glucerna 1.5 goal 50 cc an hour per nutrition recommendations. We will hold today with distended abdomen and worsening oxygenation Famotidine for GI prophylaxis. On pantoprazole 40 mg daily at home. Holding docusate sodium/senna 1 tablet twice daily with current C. difficile -History of antral ulcers Renal/FEN/ Hypocalcemia -Olivas to closed bag drainage -Monitor urine output -Accurate I's and O's - free water 100 cc every 6 hours. Downward trend - sodium Hematology Leukocytosis -rule out leukemia Normocytic anemia Thrombocytopenia IgM kappa monoclonal gammopathy unknown significance History of lung cancer diagnosed 2012 -Serial white cell count with flow cytometry - CMML preliminary,Jak2 mutation pending and BCR ABL negative. Repeat -Follow anemia with hemoglobin -Bone marrow biopsy at bedside per hematology -Hematology consult Transfuse 3 PRBCs during this hospitalization. Antibody positive. ID C. difficile Staph/strep bacteremia from outside hospital -Meropenem and vancomycin, adjust per ID consult -> IV and p.o. vancomycin, IV metronidazole, fidaxomicin added. Restarted meropenem 03/22 -Blood organisms cultured at outside hospital are streptococcal and staph species. Sputum and UA 03/14 and 03/17 at this facility negative. Endo: Hypothyroidism Sliding scale insulin with aspart insulin medium protocol with Accu-Cheks to maintain euglycemia every 6 hours Continue levothyroxine but increase to 125 g daily. TSH was 11.1 today MSK/Rheum: Psoas abscess Likely L1/L2 epidural abscess History of rheumatoid arthritis -Neurosurgery evaluation for lumbar fluid collection appreciated. IR to drain when clinically stable Prophylaxis -GI -famotidine -DVT -SCDs/heparin subcu Overall impression: This woman remains critically ill and is deteriorating. Her respiratory and hemodynamic function have declined over the last 72 hours and remain unstable. ARDS has proven intractable. She is not had a period of stability long enough for us to attempt to aspirate her back fluid collection. This is proving to be a terminal course and despite good antibiotic coverage she remains clinically septic. The ultimate deciding factor will be her ongoing pulmonary injury. Family has been encouraged to consider DNR status. Critical care time 38 minutes Update 1700 hours. The three daughters have brought an advanced directive that clearly indicates patient would not want prolonged efforts using artificial support. They agree with compassionate extubation at this time and wish for us to assure them that their mother is sedated well and experiences no discomfort or pain.
[2018-03-26] MEDS ORDERED: Morphine Sulfate Inj 8 MG/ML Vial IV.PUSH PRN (11:49)
--- NOTE | 2018-03-26 12:48 | P.PNONC ---
Subjective Interval history: Patient continues to decline clinically. Remains ventilated and sedated. FiO2 90%. Discussed with nurse, daughter is planning to withdraw life support today at 1700. Objective Vital Signs/Intake & Output: Vital Signs 03/25/18 13:22 03/25/18 15:00 03/25/18 16:00 Temperature 99.3 F Pulse Rate 97 H 96 H Respiratory Rate 30 H 30 H 30 H Blood Pressure 105/48 L Pulse Oximetry 91 L 91 L 03/25/18 16:01 03/25/18 19:55 03/25/18 19:56 Temperature Pulse Rate 91 H Respiratory Rate 30 H 30 H 30 H Blood Pressure Pulse Oximetry 91 L 89 L 03/25/18 20:00 03/26/18 00:00 03/26/18 00:33 Temperature 98.6 F 98.2 F Pulse Rate 92 H 87 87 Respiratory Rate 30 H 30 H 32 H Blood Pressure 100/46 L 110/51 L Pulse Oximetry 92 L 91 L 03/26/18 00:34 03/26/18 03:15 03/26/18 03:23 Temperature Pulse Rate 87 Respiratory Rate 30 H 30 H Blood Pressure Pulse Oximetry 92 L 92 L 94 L 03/26/18 04:00 03/26/18 08:00 03/26/18 08:53 Temperature 97.9 F 97.7 F Pulse Rate 87 85 85 Respiratory Rate 30 H 30 H 30 H Blood Pressure 108/48 L 106/47 L Pulse Oximetry 91 L 93 L 94 L 03/26/18 12:00 Temperature 97.5 F L Pulse Rate 82 Respiratory Rate 30 H Blood Pressure 107/46 L Pulse Oximetry 96 Intake & Output 03/25/18 03/26/18 03/26/18 18:59 06:59 18:59 Intake Total 575 / 575 2162.5 / 2162.5 300 / 300 Output Total 375 / 375 150 / 150 Balance 200 / 200 / 300 / 300 Weight 92.5 kg Intake: IV 375 / 375 1862.5 / 186.5 300 / 300 Neosynephrine Inj 80 MG In NS 1000 / 1000 Inj 492 ML @ 40 MCG/MIN 15 mls/ hr IV.CONT TITRATE PRN Rx#: [id number] Diflucan 400 mg Premix Bag 200 200 / 200 ML @ 100 mls/hr IV.SIG Q24H [facility] Rx#:[id number] Merrem Inj 1,000 MG In NS Inj 200 / 200 200 / 200 100 / 100 100 ML @ 200 mls/hr IV.SIG Q8H [facility] Rx#:[id number] Vancomycin Inj 1,250 MG In NS 262.5 / 262.5 Inj 250 ML @ 250 mls/hr IV.SIG Q36H [facility] Rx#:[id number] Flagyl 500 MG Inj 100 ML @ 100 100 / 100 200 / 200 200 / 200 mls/hr IV.SIG Q6H [facility] Rx#: [id number] Flolan (30,000 ng/mL) Neb 75 ML 75 / 75 In NS Inj 25 ML @ 5 mls/hr NEB Q8H [facility] Rx#:[id number] Tube Irrigant 100 / 100 Water Bolus Amount 200 / 200 200 / 200 Output: Stool 25 / 25 0 / 0 Urine/Stool Mix 0 / 0 Urine Amount (Catheter) 350 / 350 150 / 150 Indwelling Urethral Catheter 350 / 350 150 / 150 Gastric Drainage 0 / 0 Orogastric Tube 0 / 0 Other: Date of Last Bowel Movement 03/25/18 03/25/18 03/26/18 # Bowel Movements 1 Result Diagrams: 03/26/18 04:40 03/26/18 04:40 Laboratory Results: Laboratory Results - last 24 hr 03/24/18 03/25/18 03/26/18 13:52 17:13 01:19 WBC RBC Hgb Hct MCV MCH MCHC RDW Plt Count MPV Prelim Diff (Auto) WBC Differential Seg Neuts % (Manual) Band Neuts % (Manual) Lymphocytes % (Manual) Monocytes % (Manual) Metamyelocytes % (Man) Abs Neuts (Manual) Differential Comment Platelet Estimate Platelet Morphology Stomatocytes Sodium Potassium Chloride Carbon Dioxide Anion Gap BUN Creatinine Estimated GFR POC Glucose 98 97 Random Glucose Calcium Urine Color Yellow Urine Clarity Turbid H Urine pH 5.0 Ur Specific Chaplin 1.009 Urine Protein 30 H Urine Glucose (UA) Negative Urine Ketones Negative Urine Occult Blood Moderate H Urine Nitrate Negative Urine Bilirubin Negative Urine Urobilinogen Less than 2 Ur Leukocyte Esterase Large H Urine RBC 66 H Urine WBC Urine WBC Clumps Many H Ur Squamous Epith Cells 5 Urine Bacteria Few H Urine Mucus Few H Urine Yeast Many H Micro UA Comment Cath-culture ind Urine Culture Comments Cath-cult indicated 03/26/18 03/26/18 04:40 04:40 WBC 34.3 H RBC 2.94 L Hgb 8.3 L Hct 27.5 L MCV 93.4 D MCH 28.3 MCHC 30.3 L RDW 21.3 H Plt Count 208 MPV 11.7 H Prelim Diff (Auto) Manual diff required WBC Differential Manual diff final Seg Neuts % (Manual) 50 Band Neuts % (Manual) 8 H Lymphocytes % (Manual) 4 L Monocytes % (Manual) 36 H Metamyelocytes % (Man) 2 H Abs Neuts (Manual) 20.6 H Differential Comment . Platelet Estimate Normal Platelet Morphology Enlarged H Stomatocytes 1+ H Sodium 145 Potassium 4.9 Chloride 107 Carbon Dioxide 27.8 Anion Gap 10 BUN 41 H Creatinine 1.42 H Estimated GFR 36 L POC Glucose Random Glucose 87 Calcium 7.8 L Urine Color Urine Clarity Urine pH Ur Specific Chaplin Urine Protein Urine Glucose (UA) Urine Ketones Urine Occult Blood Urine Nitrate Urine Bilirubin Urine Urobilinogen Ur Leukocyte Esterase Urine RBC Urine WBC Urine WBC Clumps Ur Squamous Epith Cells Urine Bacteria Urine Mucus Urine Yeast Micro UA Comment Urine Culture Comments Culture Results: Microbiology 03/24/18 13:52 Urine Culture - Final Catheterized Urine Debra albicans 03/24/18 13:52 Gram Stain - Final Sputum - Endotracheal Sputum Culture - Final Heavy growth normal respiratory shonda 03/23/18 23:00 Aerobic Blood Culture - Preliminary Blood - Peripheral No growth in 3 days Anaerobic Blood Culture - Preliminary Staphylococcus epidermidis 03/23/18 20:43 Aerobic Blood Culture - Preliminary Blood - Peripheral No growth in 3 days Anaerobic Blood Culture - Preliminary No growth in 3 days Medications: Active Medications Generic Name Dose Route Start Last Admin Trade Name Nahumq PRN Reason Stop Dose Admin Albuterol 2.5 mg 03/21/18 11:54 03/26/18 08:53 Albuterol Neb (Prn) NEB 2.5 mg Q2HR NEB PRN Administration DYSPNEA Artificial Tears 1 drop 03/21/18 21:00 03/26/18 09:56 Refresh Tears 0.5% Opth Drops EACH EYE 1 drop BID [facility] Administration Bumetanide 1 mg 03/23/18 18:00 03/26/18 09:55 Bumex Inj IV.PUSH 1 mg BID@0900,1800 [facility] Administration Chlorhexidine Gluconate 15 ml 03/14/18 20:00 03/26/18 09:55 Peridex 0.12% Oral Kit OROPHARYNG 15 ml BID@0800,2000 [facility] Administration Famotidine 20 mg 03/21/18 21:00 03/26/18 09:55 Pepcid PO 20 mg BID [facility] Administration Fidaxomicin 200 mg 03/19/18 21:00 03/26/18 09:55 Dificid PO 03/29/18 20:59 200 mg BID LI[facility]TE Administration Heparin Sodium (Porcine) 5,000 units 03/14/18 15:00 03/23/18 14:38 Heparin Inj SQ 5,000 units Q8H [facility] Administration Fentanyl 2,500 mcg in 250 mls @ 5 mls/hr 03/14/18 15:00 03/24/18 16:14 Fentanyl 10 Mcg/Ml Premix Drip IV.SIG 100 mcg/hr TITRATE PRN 10 mls/hr Per Protocol Administration Protocol 50 MCG/HR Propofol 1,000 mg in 100 mls @ 2.292 mls/hr 03/14/18 15:00 03/24/18 13:00 Diprivan 1000 Mg/100 Ml Inj IV.CONT 0 mcg/kg/min TITRATE PRN 0 mls/hr Per Protocol Titration Protocol 5 MCG/KG/MIN Phenylephrine HCl 80 mg/ 500 mls @ 15 mls/hr 03/14/18 16:00 03/26/18 06:26 Sodium Chloride IV.CONT 160 mcg/min TITRATE PRN 60 mls/hr See protocol Administration Protocol 40 MCG/MIN Potassium Chloride 40 meq in 100 mls @ 25 mls/hr 03/14/18 18:12 03/15/18 08: 58 Kcl 40 Meq Premix Inj IV.SIG Infused UNSCH PRN Infusion For Potassium 3.3 - 3.5 mEq/L Metronidazole/Sodium Chloride 100 mls @ 100 mls/hr 03/14/18 22:00 03/26/18 12 :24 Flagyl 500 Mg Inj IV.SIG Infused Q6H [facility] Infusion Vancomycin HCl 1,250 mg/ 262.5 mls @ 250 mls/hr 03/19/18 21:00 03/25/18 22:30 Sodium Chloride IV.SIG Infused Q36H [facility] Infusion Meropenem 1,000 mg/ Sodium 100 mls @ 200 mls/hr 03/22/18 17:00 03/26/18 12:24 Chloride IV.SIG Infused Q8H [facility] Infusion Midazolam HCl 50 mg in 50 mls @ 2 mls/hr 03/23/18 13:14 03/25/18 05:01 Versed Inj IV.CONT 5 mg/hr TITRATE PRN 5 mls/hr Per Protocol Administration Protocol 2 MG/HR Fluconazole 200 mls @ 100 mls/hr 03/25/18 21:00 03/26/18 00:00 Diflucan 400 Mg Premix Bag IV.SIG Infused Q24H [facility] Infusion Insulin Aspart 0 unit 03/21/18 18:00 03/26/18 07:11 Novolog Insulin Correctional Sugar Inj SQ Not Given Q6HR [facility] Protocol Labetalol HCl 10 mg 03/21/18 17:44 03/22/18 22:48 Trandate Inj IV.PUSH 10 mg Q1H PRN Administration Sbp>170, Dbp>90, Hr>65 Levothyroxine Sodium 125 mcg 03/23/18 06:00 03/26/18 07:07 Synthroid PO 125 mcg DAILY@0600 [facility] Administration Miscellaneous Medication 1 each 03/14/18 16:00 03/26/18 12:24 OROPHARYNG 1 each 0000,0400,1200,1600 [facility] Administration Potassium Bicarb/Potassium Chloride 50 meq 03/14/18 18:12 03/14/18 18:32 K-Lyte Cl Eff PO 50 meq UNSCH PRN Administration For Potassium 3.3 - 3.5 mEq/L Senna/Docusate Sodium 1 tab 03/14/18 21:00 03/21/18 08:52 Mimi-Colace PO Not Given BID [facility] Sodium Chloride 2 ml 03/14/18 21:00 03/26/18 09:56 Ns Flush IV.FLUSH 2 ml BID [facility] Administration Sodium Chloride 0 ml 03/23/18 09:00 03/26/18 09:56 Ns Flush IV.FLUSH 10 ml DAILY [facility] Administration Sterile Water 100 ml 03/22/18 06:33 03/26/18 12:24 Free Water NG/OG 100 ml Q6HR [facility] Administration Vancomycin HCl 500 mg 03/15/18 18:00 03/26/18 09:55 Vancomycin Po PO 500 mg QID [facility] Administration Whey 1 packet 03/15/18 13:00 03/26/18 12:24 Beneprotein Powder G-TUBE Not Given TID [facility] Objective Remarks: GENERAL: Ill-appearing female patient, ventilated and sedated. SKIN: Pale, warm and dry. HEAD: Normocephalic. EYES: No scleral icterus. No injection or drainage. NECK: Supple, trachea midline. Right central line, drsg dry/intact. CARDIOVASCULAR: Regular rate and rhythm. RESPIRATORY: Breath sounds equal bilaterally, inspiratory/expiratory wheezes throughout. Ventilated FiO2 90. GASTROINTESTINAL: Abdomen large, distended. Rectal tube draining dark stool. EXTREMITIES: No cyanosis. +anasarca. Scab to left 2nd toe. NEUROLOGICAL: +sedated and ventilated. Assessment/Plan - Plan Ms. Arevalo is a 77 year-old female patient, transferred to [place] on 03/14/2018 from [facility]. According to the records, she was originally seen with severe back pain, CT scan of the abdomen and pelvis showed an epidural abscess and abdominal abscesses. She was treated with antibiotics. She then developed pneumonia and went into respiratory failure. At which time she was intubated. She is currently being treated for C. difficile colitis. Hematology was consulted for evaluation of leukocytosis with immature cells in the peripheral blood and severe anemia. Plan: 1. BCR/ABL and cytogenetics from recent bone marrow biopsy remains pending. 2. 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 3. Patient remains critically ill with a very poor prognosis at this time. Per RN, her daughter plans to withdraw life support at 1700 today. - Attending Statement The exam, history, and the medical decision-making described in the above note were completed with the assistance of the mid-level provider. I reviewed and agree with the findings presented. I attest that I had a [id number] encounter with the patient on the same day, and personally performed and documented my assessment and findings in the medical record. Patient remains on the ventilator, sedated and continues to deteriorate Patient has sepsis and unfortunately she is not responding to the maximum support. Case discussed with patient's RN who indicated that daughter will come this evening by 5 PM and will withdraw life support. Prognosis remains very poor.
[2018-03-26] MEDS: Hyoscyamine Inj 0.5 MG/ML Ampul IV.PUSH SCH ×2 (13:45→15:56)
[2018-03-26] MEDS: fentaNYL 10 mcg/mL Premix Drip 2,500 MCG/250 ML BAG IV.SIG PRN (15:57)
[2018-03-26 17:06] VITALS: BP 105/43; PULSE 79; TEMP 96.6; O2SAT 95
--- NOTE | 2018-03-26 18:01 | P.CONPAL ---
Consult Service: Palliative Care Requesting Physician: Ervin Montenegro Reason for Consult: a. To assist with evaluation and management of symptoms including: b. To assist medical decision maker(s) with: better understanding of current medical conditions; weighing benefits/burdens of medical treatment options; making medical treatment decisions. Primary Care Provider: UNKNOWN [facility] - Medical History Medical History: Medical History (Last Reviewed 03/26/18 @ 07:40 by Eve Sen) Anemia Atrial fibrillation Fusion of lumbar spine Metal bone fixation hardware in place Pneumonia Sepsis associated hypotension Tricuspid regurgitation - Family History Family History: Family History (Last Reviewed 03/22/18 @ 09:01 by Malathi Maxwell) Other Family history unobtainable - Tobacco History Smoking Status: Unknown if ever smoked - Alcohol History How Often Do You Have a Drink Containing Alcohol: Unable to Obtain - Immunization History Tetanus Immunization: Unable to Assess Hx Influenza Vaccine This Season: Unable to Assess Medications and Allergies Active Medications: Active Medications Acetaminophen (Tylenol Liq) 650 mg PO Q6H PRN PRN Reason: FEVER Al Hydroxide/Mg Hydroxide (Milk Of Magnesia Liq) 30 ml PO Q12H PRN PRN Reason: Mild Constipation Albuterol (Albuterol Neb (Prn)) 2.5 mg NEB Q2HR NEB PRN PRN Reason: DYSPNEA Last Admin: 03/26/18 08:53 Dose: 2.5 mg Artificial Tears (Refresh Tears 0.5% Opth Drops) 1 drop EACH EYE BID [facility] Last Admin: 03/26/18 09:56 Dose: 1 drop Bisacodyl (Dulcolax Supp) 10 mg RECTAL DAILY PRN PRN Reason: SEVERE CONSITIPATION Bumetanide (Bumex Inj) 1 mg IV.PUSH BID@0900,1800 [facility] Last Admin: 03/26/18 09:55 Dose: 1 mg Chlorhexidine Gluconate (Peridex 0.12% Oral Kit) 15 ml OROPHARYNG BID@0800, 2000 [facility] Last Admin: 03/26/18 09:55 Dose: 15 ml Dextrose (D50w Vial) 50 ml IV.PUSH UNSCH PRN PRN Reason: PER HYPOGLYCEMIA PROTOCOL Famotidine (Pepcid) 10 mg PO BID [facility] Fidaxomicin (Dificid) 200 mg PO BID [facility] Stop: 03/29/18 20:59 Last Admin: 03/26/18 09:55 Dose: 200 mg Glucagon (Glucagon Inj) 1 mg OTHER PRN PRN PRN Reason: for Hypoglycemia Protocol Heparin Sodium (Porcine) (Heparin Inj) 5,000 units SQ Q8H [facility] Last Admin: 03/23/18 14:38 Dose: 5,000 units Hyoscyamine (Levsin Inj) 0.25 mg IV.PUSH Q4H [facility] Last Admin: 03/26/18 15:56 Dose: 0.25 mg Fentanyl (Fentanyl 10 Mcg/Ml Premix Drip) 2,500 mcg in 250 mls @ 5 mls/hr IV.SIG TITRATE PRN; Protocol PRN Reason: Per Protocol Last Admin: 03/26/18 15:57 Dose: 100 mcg/hr, 10 mls/hr Propofol (Diprivan 1000 Mg/100 Ml Inj) 1,000 mg in 100 mls @ 2.292 mls/hr IV.CONT TITRATE PRN; Protocol PRN Reason: Per Protocol Last Titration: 03/24/18 13:00 Dose: 0 mcg/kg/min, 0 mls/hr Phenylephrine HCl 80 mg/ (Sodium Chloride) 500 mls @ 15 mls/hr IV.CONT TITRATE PRN; Protocol PRN Reason: See protocol Last Admin: 03/26/18 15:38 Dose: 160 mcg/min, 60 mls/hr Magnesium Sulfate 4 gm/ Sodium (Chloride) 100 mls @ 50 mls/hr IV.SIG UNSCH PRN PRN Reason: For Magnesium 0.9 - 1.1 mg/dL Potassium Chloride (Kcl 40 Meq Premix Inj) 40 meq in 100 mls @ 25 mls/hr IV.SIG Q4H PRN PRN Reason: For Potassium 2.8 - 3.2 mEq/L Potassium Chloride (Kcl 20 Meq Premix Inj) 20 meq in 100 mls @ 50 mls/hr IV.SIG Q2H PRN PRN Reason: For Potassium 3.3 - 3.5 mEq/L Potassium Chloride (Kcl 40 Meq Premix Inj) 40 meq in 100 mls @ 25 mls/hr IV.SIG UNSCH PRN PRN Reason: For Potassium 3.3 - 3.5 mEq/L Last Infusion: 03/15/18 08:58 Dose: Infused Potassium Chloride (Kcl 20 Meq Premix Inj) 20 meq in 100 mls @ 50 mls/hr IV.SIG Q2H PRN PRN Reason: For Potassium 2.8 - 3.2 mEq/L Potassium Phosphate 30 mmol/ (Sodium Chloride) 260 mls @ 42 mls/hr IV.SIG UNSCH PRN PRN Reason: SEE LABEL COMMENTS Sodium Phosphate 30 mmol/ (Sodium Chloride) 260 mls @ 42 mls/hr IV.SIG UNSCH PRN PRN Reason: For Phosphorus < 2.5 mg/dL Magnesium Sulfate 2 gm/ Sodium (Chloride) 100 mls @ 50 mls/hr IV.SIG UNSCH PRN PRN Reason: For Magnesium 1.2 - 1.6 mg/dL Metronidazole/Sodium Chloride (Flagyl 500 Mg Inj) 100 mls @ 100 mls/hr IV.SIG Q6H [facility] Last Admin: 03/26/18 15:55 Dose: 100 mls/hr Vancomycin HCl 1,250 mg/ (Sodium Chloride) 262.5 mls @ 250 mls/hr IV.SIG Q36H [facility] Last Infusion: 03/25/18 22:30 Dose: Infused Nicardipine HCl 25 mg/ Sodium (Chloride) 250 mls @ 25 mls/hr IV.CONT TITRATE PRN; Protocol PRN Reason: Per Protocol Meropenem 1,000 mg/ Sodium (Chloride) 100 mls @ 200 mls/hr IV.SIG Q8H [facility] Last Infusion: 03/26/18 12:24 Dose: Infused Midazolam HCl (Versed Inj) 50 mg in 50 mls @ 2 mls/hr IV.CONT TITRATE PRN; Protocol PRN Reason: Per Protocol Last Admin: 03/25/18 05:01 Dose: 5 mg/hr, 5 mls/hr Fluconazole (Diflucan 400 Mg Premix Bag) 200 mls @ 100 mls/hr IV.SIG Q24H [facility] Last Infusion: 03/26/18 00:00 Dose: Infused Insulin Aspart (Novolog Insulin Correctional Sugar Inj) 0 unit SQ Q6HR [facility]; Protocol Last Admin: 03/26/18 13:44 Dose: Not Given Labetalol HCl (Trandate Inj) 10 mg IV.PUSH Q1H PRN PRN Reason: Sbp>170, Dbp>90, Hr>65 Last Admin: 03/22/18 22:48 Dose: 10 mg Lactulose (Lactulose Liq) 30 ml PO DAILY PRN PRN Reason: SEVERE CONSITIPATION Levothyroxine Sodium (Synthroid) 125 mcg PO DAILY@0600 [facility] Last Admin: 03/26/18 07:07 Dose: 125 mcg Lorazepam (Ativan Inj) 4 mg IV.PUSH Q15M PRN PRN Reason: Any agitation. Magnesium Oxide (Mag-Ox) 800 mg PO UNSCH PRN PRN Reason: For Magnesium 1.2 - 1.6 mg/dL Miscellaneous (Pill Splitter) 1 each OTHER UNSCH PRN PRN Reason: SEE LABEL COMMENTS Miscellaneous Information ([facility] Ordered Lab Info) 0 each OTHER ONCE ONE Stop: 03/27/18 08:46 Miscellaneous Medication () 1 each OROPHARYNG 0000,0400,1200,1600 [facility] Last Admin: 03/26/18 15:56 Dose: 1 each Morphine Sulfate (Morphine Inj) 8 mg IV.PUSH Q15M PRN PRN Reason: Any pain or discomfort. Nitroglycerin (Nitro-Bid 2% Oint) 2 inch TOPICAL Q6HR PRN PRN Reason: Sbp>170, Dbp>90 Ondansetron HCl (Zofran Inj) 4 mg IV.PUSH Q6H PRN PRN Reason: NAUSEA OR VOMITING Pharmacy Profile Note (Vancomycin Consult Pharmacy) 1 each OTHER UNSCH PRN PRN Reason: Pharmacy to dose Potassium Bicarb/Potassium Chloride (K-Lyte Cl Eff) 50 meq PO UNSCH PRN PRN Reason: For Potassium 3.3 - 3.5 mEq/L Last Admin: 03/14/18 18:32 Dose: 50 meq Potassium Phosphate (K-Phos Original) 2,000 mg PO Q4H PRN PRN Reason: Phosphorus Less Than 2.5 mg/dL Potassium Phosphate (K-Phos Original) 2,000 mg PO UNSCH PRN PRN Reason: SEE LABEL COMMENTS Senna/Docusate Sodium (Mimi-Colace) 1 tab PO BID [facility] Last Admin: 03/21/18 08:52 Dose: Not Given Sennosides (Senokot) 17.2 mg PO Q12H PRN PRN Reason: Moderate Constipation Sodium Chloride (Ns Flush) 2 ml IV.FLUSH BID [facility] Last Admin: 03/26/18 09:56 Dose: 2 ml Sodium Chloride (Ns Flush) 2 ml IV.FLUSH UNSCH PRN PRN Reason: FLUSH AFTER USING IV ACCESS Sodium Chloride (Ns Flush) 0 ml IV.FLUSH DAILY [facility] Last Admin: 03/26/18 09:56 Dose: 10 ml Sterile Water (Free Water) 100 ml NG/OG Q6HR [facility] Last Admin: 03/26/18 12:24 Dose: 100 ml Terbutaline Sulfate (Brethine Inj) 1 mg SQ UNSCH PRN PRN Reason: For Extravasation Vancomycin HCl (Vancomycin Po) 500 mg PO QID [facility] Last Admin: 03/26/18 14:08 Dose: 500 mg Whey (Beneprotein Powder) 1 packet G-TUBE TID [facility] Last Admin: 03/26/18 12:24 Dose: Not Given Allergies Allergy/AdvReac Type Severity Reaction Status Date / Time Penicillins Allergy Swelling Verified 03/14/18 13:53 of Lip/Tongue/Throat Sulfa (Sulfonamide Allergy Diarrhea Verified 03/14/18 13:53 Antibiotics) shellfish AdvReac Swelling Uncoded 03/14/18 13:53 of Lip/Tongue/Throat Home Medications Medication Instructions Recorded Confirmed Type Unable to Obtain Home Meds 03/24/18 03/24/18 History Physical Exam Vital Signs: Vital Signs - 24 hr 03/25/18 19:55 03/25/18 19:56 03/25/18 20:00 Temperature 98.6 F Pulse Rate 91 H 92 H Respiratory Rate 30 H 30 H 30 H Blood Pressure 100/46 L Pulse Oximetry 89 L 92 L 03/26/18 00:00 03/26/18 00:33 03/26/18 00:34 Temperature 98.2 F Pulse Rate 87 87 Respiratory Rate 30 H 32 H 30 H Blood Pressure 110/51 L Pulse Oximetry 91 L 92 L 03/26/18 03:15 03/26/18 03:23 03/26/18 04:00 Temperature 97.9 F Pulse Rate 87 87 Respiratory Rate 30 H 30 H Blood Pressure 108/48 L Pulse Oximetry 92 L 94 L 91 L 03/26/18 08:00 03/26/18 08:53 03/26/18 12:00 Temperature 97.7 F 97.5 F L Pulse Rate 85 85 82 Respiratory Rate 30 H 30 H 30 H Blood Pressure 106/47 L 107/46 L Pulse Oximetry 93 L 94 L 96 03/26/18 16:00 Temperature 96.6 F L Pulse Rate 79 Respiratory Rate 30 H Blood Pressure 105/43 L Pulse Oximetry 95 I&O: Intake & Output 03/24/18 03/25/18 03/26/18 03/27/18 06:59 06:59 06:59 06:59 Intake Total 2960 / 2960 1832.5 / 1832.5 2987.5 / 2987.5 800 / 800 Output Total 3625 / 3625 4250 / 4250 525 / 525 Balance -665 / -665 -2417.5 / -2417.5 2462.5 / 2462.5 800 / 800 Weight 88.7 kg 92.5 kg Physical Exam: CONSTITUTIONAL/GENERAL: This is an adequately nourished patient, in no apparent distress. TUBES/LINES/DRAINS: SKIN: No jaundice, rashes, or lesions. Ecchymoses on upper extremities. No wounds seen anteriorly. Skin temperature appropriate. Not diaphoretic. HEAD: Atraumatic. Normocephalic. EYES: Pupils equal and round and reactive. Extraocular motions intact. No scleral icterus. No injection or drainage. Fundi not examined. ENT: Hearing grossly normal. Nose without bleeding or purulent drainage. Throat without visible erythema, exudates, masses, or lesions. NECK: Trachea midline. Supple, nontender. No palpable thyroid enlargement or nodularity. CARDIOVASCULAR: Regular rate and rhythm without murmurs, gallops, or rubs. No JVD. Peripheral pulses symmetric. RESPIRATORY/CHEST: Symmetric, unlabored respirations. Clear to auscultation. Breath sounds equal bilaterally. No wheezes, rales, or rhonchi. GASTROINTESTINAL: Abdomen soft, non-tender, nondistended. No hepato-splenomegaly , or palpable masses. No guarding. Bowel sounds present. GENITOURINARY: Without palpable bladder distension. Olivas catheter in place. MUSCULOSKELETAL: Extremities without clubbing, cyanosis, or edema. No joint tenderness or effusion noted. No calf tenderness. No mottling or clubbing. LYMPHATICS: No palpable cervical or supraclavicular adenopathy. NEUROLOGICAL: Awake and alert. Motor and sensory grossly within normal limits. Follows commands. Cognitively sharp. Moves all extremities. PSYCHIATRIC: No obvious anxiety/depression. no apparent hallucinations or other psychotic thought process. Diagnostic Tests Laboratory: Laboratory Results - last 72 hr 03/20/18 03/23/18 03/24/18 05:25 16:34 00:21 WBC RBC Hgb Hct MCV MCH MCHC RDW Plt Count MPV Prelim Diff (Auto) Neut % (Auto) Lymph % (Auto) Yates % (Auto) Eos % (Auto) Baso % (Auto) Neut # (Auto) Lymph # (Auto) Yates # (Auto) Eos # (Auto) Baso # (Auto) WBC Differential Seg Neuts % (Manual) Band Neuts % (Manual) Lymphocytes % (Manual) Monocytes % (Manual) Eosinophils % (Manual) Basophils % (Manual) Metamyelocytes % (Man) Myelocytes % (Man) Abs Neuts (Manual) Nucleated RBCs/100 WBC Differential Comment Toxic Granulation Platelet Estimate Platelet Morphology Basophilic Stippling Spherocytes Stomatocytes PT INR APTT Puncture Site Patient Temperature O2 Saturation ABG pH ABG pCO2 ABG pO2 ABG HCO3 ABG O2 Content ABG Base Excess ABG Methemoglobin Hemoglobin Carboxyhemoglobin O2 Delivery Device Vent Setting Inspired O2 Critical Value Sodium Potassium Chloride Carbon Dioxide Anion Gap BUN Creatinine Estimated GFR POC Glucose 82 Random Glucose Calcium Phosphorus Magnesium Total Bilirubin AST ALT Alkaline Phosphatase Ammonia Total Protein Albumin Urine Color Urine Clarity Urine pH Ur Specific Cost Urine Protein Urine Glucose (UA) Urine Ketones Urine Occult Blood Urine Nitrate Urine Bilirubin Urine Urobilinogen Ur Leukocyte Esterase Urine RBC Urine WBC Urine WBC Clumps Ur Squamous Epith Cells Urine Bacteria Urine Mucus Urine Yeast Micro UA Comment Ur Microscopic Review Urine Culture Comments Vancomycin Trough BCR/abl (FISH) Interp Crossmatch Prewarmed See Detail Bld Prod Order Comment 03/24/18 03/24/18 03/24/18 00:24 00:24 00:40 WBC 25.2 H RBC 3.11 L Hgb 8.9 L Hct 27.9 L MCV 89.5 MCH 28.6 MCHC 32.0 RDW 20.4 H Plt Count 135 L MPV 12.0 H Prelim Diff (Auto) Manual diff required Neut % (Auto) Lymph % (Auto) Yates % (Auto) Eos % (Auto) Baso % (Auto) Neut # (Auto) Lymph # (Auto) Yates # (Auto) Eos # (Auto) Baso # (Auto) WBC Differential Manual diff final Seg Neuts % (Manual) 55 Band Neuts % (Manual) 9 H Lymphocytes % (Manual) 6 L Monocytes % (Manual) 18 H Eosinophils % (Manual) 1 Basophils % (Manual) 1 Metamyelocytes % (Man) 3 H Myelocytes % (Man) 7 H Abs Neuts (Manual) 18.6 H Nucleated RBCs/100 WBC Differential Comment . Toxic Granulation Platelet Estimate Low L Platelet Morphology Normal Basophilic Stippling Spherocytes Occ H Stomatocytes 1+ H PT 11.4 INR 1.1 APTT 28.9 Puncture Site Patient Temperature O2 Saturation ABG pH ABG pCO2 ABG pO2 ABG HCO3 ABG O2 Content ABG Base Excess ABG Methemoglobin Hemoglobin Carboxyhemoglobin O2 Delivery Device Vent Setting Inspired O2 Critical Value Sodium Potassium Chloride Carbon Dioxide Anion Gap BUN Creatinine Estimated GFR POC Glucose Random Glucose Calcium Phosphorus Magnesium Total Bilirubin AST ALT Alkaline Phosphatase Ammonia 29 Total Protein Albumin Urine Color Urine Clarity Urine pH Ur Specific Cost Urine Protein Urine Glucose (UA) Urine Ketones Urine Occult Blood Urine Nitrate Urine Bilirubin Urine Urobilinogen Ur Leukocyte Esterase Urine RBC Urine WBC Urine WBC Clumps Ur Squamous Epith Cells Urine Bacteria Urine Mucus Urine Yeast Micro UA Comment Ur Microscopic Review Urine Culture Comments Vancomycin Trough BCR/abl (FISH) Interp Crossmatch Prewarmed Bld Prod Order Comment 03/24/18 03/24/18 03/24/18 05:22 05:45 08:21 WBC RBC Hgb Hct MCV MCH MCHC RDW Plt Count MPV Prelim Diff (Auto) Neut % (Auto) Lymph % (Auto) Yates % (Auto) Eos % (Auto) Baso % (Auto) Neut # (Auto) Lymph # (Auto) Yates # (Auto) Eos # (Auto) Baso # (Auto) WBC Differential Seg Neuts % (Manual) Band Neuts % (Manual) Lymphocytes % (Manual) Monocytes % (Manual) Eosinophils % (Manual) Basophils % (Manual) Metamyelocytes % (Man) Myelocytes % (Man) Abs Neuts (Manual) Nucleated RBCs/100 WBC Differential Comment Toxic Granulation Platelet Estimate Platelet Morphology Basophilic Stippling Spherocytes Stomatocytes PT INR APTT Puncture Site Art line Patient Temperature 98.6 O2 Saturation 91 ABG pH 7.28 L* ABG pCO2 62 H* ABG pO2 76 ABG HCO3 29 H ABG O2 Content 8.7 L ABG Base Excess 2.4 H ABG Methemoglobin 1.5 Hemoglobin 6.7 L* Carboxyhemoglobin 1.7 O2 Delivery Device Ventilator Vent Setting [id number]/ Inspired O2 70 Critical Value Yes Sodium 142 Potassium 4.4 Chloride 105 Carbon Dioxide 29.5 Anion Gap 8 BUN 37 H Creatinine 0.93 Estimated GFR 58 L POC Glucose Random Glucose 99 Calcium 8.5 D Phosphorus 5.0 H Magnesium 2.0 Total Bilirubin 0.6 AST 28 ALT 13 Alkaline Phosphatase 111 Ammonia Total Protein 6.2 L Albumin 1.6 L Urine Color Urine Clarity Urine pH Ur Specific Cost Urine Protein Urine Glucose (UA) Urine Ketones Urine Occult Blood Urine Nitrate Urine Bilirubin Urine Urobilinogen Ur Leukocyte Esterase Urine RBC Urine WBC Urine WBC Clumps Ur Squamous Epith Cells Urine Bacteria Urine Mucus Urine Yeast Micro UA Comment Ur Microscopic Review Urine Culture Comments Vancomycin Trough 15.7 H BCR/abl (FISH) Interp Crossmatch Prewarmed Bld Prod Order Comment 03/24/18 03/24/18 03/24/18 11:59 13:52 18:02 WBC RBC Hgb Hct MCV MCH MCHC RDW Plt Count MPV Prelim Diff (Auto) Neut % (Auto) Lymph % (Auto) Yates % (Auto) Eos % (Auto) Baso % (Auto) Neut # (Auto) Lymph # (Auto) Yates # (Auto) Eos # (Auto) Baso # (Auto) WBC Differential Seg Neuts % (Manual) Band Neuts % (Manual) Lymphocytes % (Manual) Monocytes % (Manual) Eosinophils % (Manual) Basophils % (Manual) Metamyelocytes % (Man) Myelocytes % (Man) Abs Neuts (Manual) Nucleated RBCs/100 WBC Differential Comment Toxic Granulation Platelet Estimate Platelet Morphology Basophilic Stippling Spherocytes Stomatocytes PT INR APTT Puncture Site Patient Temperature O2 Saturation ABG pH ABG pCO2 ABG pO2 ABG HCO3 ABG O2 Content ABG Base Excess ABG Methemoglobin Hemoglobin Carboxyhemoglobin O2 Delivery Device Vent Setting Inspired O2 Critical Value Sodium Potassium Chloride Carbon Dioxide Anion Gap BUN Creatinine Estimated GFR POC Glucose 99 86 Random Glucose Calcium Phosphorus Magnesium Total Bilirubin AST ALT Alkaline Phosphatase Ammonia Total Protein Albumin Urine Color Yellow Urine Clarity Turbid H Urine pH 5.0 Ur Specific Cost 1.009 Urine Protein 30 H Urine Glucose (UA) Negative Urine Ketones Negative Urine Occult Blood Moderate H Urine Nitrate Negative Urine Bilirubin Negative Urine Urobilinogen Less than 2 Ur Leukocyte Esterase Large H Urine RBC 66 H Urine WBC Urine WBC Clumps Many H Ur Squamous Epith Cells 5 Urine Bacteria Few H Urine Mucus Few H Urine Yeast Many H Micro UA Comment Cath-culture ind Ur Microscopic Review Not Reportable Urine Culture Comments Cath-cult indicated Vancomycin Trough BCR/abl (FISH) Interp Crossmatch Prewarmed Bld Prod Order Comment 03/24/18 03/25/18 03/25/18 22:35 00:30 05:15 WBC 28.9 H 33.5 H RBC 3.25 L 3.14 L Hgb 9.1 L 8.9 L Hct 28.9 L 28.1 L MCV 89.0 89.4 MCH 27.9 28.2 MCHC 31.4 L 31.5 L RDW 20.2 H 20.1 H Plt Count 159 197 MPV 11.3 H 11.9 H Prelim Diff (Auto) Manual diff required Slide review pending Neut % (Auto) 63.3 Lymph % (Auto) 3.3 L Yates % (Auto) 32.9 H Eos % (Auto) 0.4 Baso % (Auto) 0.1 Neut # (Auto) 21.2 H Lymph # (Auto) 1.1 Yates # (Auto) 11.0 H Eos # (Auto) 0.1 Baso # (Auto) 0.0 WBC Differential Manual diff final Manual diff final Seg Neuts % (Manual) 62 42 Band Neuts % (Manual) 12 H 19 H Lymphocytes % (Manual) 3 L 2 L Monocytes % (Manual) 21 H 31 H Eosinophils % (Manual) Basophils % (Manual) Metamyelocytes % (Man) 2 H 1 Myelocytes % (Man) 5 H Abs Neuts (Manual) 22.0 H 22.4 H Nucleated RBCs/100 WBC 1 H Differential Comment . . Toxic Granulation 3+ H Platelet Estimate Normal Normal Platelet Morphology Enlarged H Enlarged H Basophilic Stippling Faint H Spherocytes Stomatocytes 2+ H 1+ H PT INR APTT Puncture Site Patient Temperature O2 Saturation ABG pH ABG pCO2 ABG pO2 ABG HCO3 ABG O2 Content ABG Base Excess ABG Methemoglobin Hemoglobin Carboxyhemoglobin O2 Delivery Device Vent Setting Inspired O2 Critical Value Sodium Potassium Chloride Carbon Dioxide Anion Gap BUN Creatinine Estimated GFR POC Glucose 108 Random Glucose Calcium Phosphorus Magnesium Total Bilirubin AST ALT Alkaline Phosphatase Ammonia Total Protein Albumin Urine Color Urine Clarity Urine pH Ur Specific Cost Urine Protein Urine Glucose (UA) Urine Ketones Urine Occult Blood Urine Nitrate Urine Bilirubin Urine Urobilinogen Ur Leukocyte Esterase Urine RBC Urine WBC Urine WBC Clumps Ur Squamous Epith Cells Urine Bacteria Urine Mucus Urine Yeast Micro UA Comment Ur Microscopic Review Urine Culture Comments Vancomycin Trough BCR/abl (FISH) Interp Crossmatch Prewarmed Bld Prod Order Comment 03/25/18 03/25/18 03/25/18 05:15 11:16 17:13 WBC RBC Hgb Hct MCV MCH MCHC RDW Plt Count MPV Prelim Diff (Auto) Neut % (Auto) Lymph % (Auto) Yates % (Auto) Eos % (Auto) Baso % (Auto) Neut # (Auto) Lymph # (Auto) Yates # (Auto) Eos # (Auto) Baso # (Auto) WBC Differential Seg Neuts % (Manual) Band Neuts % (Manual) Lymphocytes % (Manual) Monocytes % (Manual) Eosinophils % (Manual) Basophils % (Manual) Metamyelocytes % (Man) Myelocytes % (Man) Abs Neuts (Manual) Nucleated RBCs/100 WBC Differential Comment Toxic Granulation Platelet Estimate Platelet Morphology Basophilic Stippling Spherocytes Stomatocytes PT INR APTT Puncture Site Patient Temperature O2 Saturation ABG pH ABG pCO2 ABG pO2 ABG HCO3 ABG O2 Content ABG Base Excess ABG Methemoglobin Hemoglobin Carboxyhemoglobin O2 Delivery Device Vent Setting Inspired O2 Critical Value Sodium 145 Potassium 4.4 Chloride 105 Carbon Dioxide 31.5 Anion Gap 9 BUN 36 H Creatinine 0.99 Estimated GFR 54 L POC Glucose 99 98 Random Glucose 100 Calcium 7.9 L Phosphorus Magnesium Total Bilirubin AST ALT Alkaline Phosphatase Ammonia Total Protein Albumin Urine Color Urine Clarity Urine pH Ur Specific Cost Urine Protein Urine Glucose (UA) Urine Ketones Urine Occult Blood Urine Nitrate Urine Bilirubin Urine Urobilinogen Ur Leukocyte Esterase Urine RBC Urine WBC Urine WBC Clumps Ur Squamous Epith Cells Urine Bacteria Urine Mucus Urine Yeast Micro UA Comment Ur Microscopic Review Urine Culture Comments Vancomycin Trough BCR/abl (FISH) Interp Crossmatch Prewarmed Bld Prod Order Comment 03/26/18 03/26/18 03/26/18 01:19 04:40 04:40 WBC 34.3 H RBC 2.94 L Hgb 8.3 L Hct 27.5 L MCV 93.4 D MCH 28.3 MCHC 30.3 L RDW 21.3 H Plt Count 208 MPV 11.7 H Prelim Diff (Auto) Manual diff required Neut % (Auto) Lymph % (Auto) Yates % (Auto) Eos % (Auto) Baso % (Auto) Neut # (Auto) Lymph # (Auto) Yates # (Auto) Eos # (Auto) Baso # (Auto) WBC Differential Manual diff final Seg Neuts % (Manual) 50 Band Neuts % (Manual) 8 H Lymphocytes % (Manual) 4 L Monocytes % (Manual) 36 H Eosinophils % (Manual) Basophils % (Manual) Metamyelocytes % (Man) 2 H Myelocytes % (Man) Abs Neuts (Manual) 20.6 H Nucleated RBCs/100 WBC Differential Comment . Toxic Granulation Platelet Estimate Normal Platelet Morphology Enlarged H Basophilic Stippling Spherocytes Stomatocytes 1+ H PT INR APTT Puncture Site Patient Temperature O2 Saturation ABG pH ABG pCO2 ABG pO2 ABG HCO3 ABG O2 Content ABG Base Excess ABG Methemoglobin Hemoglobin Carboxyhemoglobin O2 Delivery Device Vent Setting Inspired O2 Critical Value Sodium 145 Potassium 4.9 Chloride 107 Carbon Dioxide 27.8 Anion Gap 10 BUN 41 H Creatinine 1.42 H Estimated GFR 36 L POC Glucose 97 Random Glucose 87 Calcium 7.8 L Phosphorus Magnesium Total Bilirubin AST ALT Alkaline Phosphatase Ammonia Total Protein Albumin Urine Color Urine Clarity Urine pH Ur Specific Cost Urine Protein Urine Glucose (UA) Urine Ketones Urine Occult Blood Urine Nitrate Urine Bilirubin Urine Urobilinogen Ur Leukocyte Esterase Urine RBC Urine WBC Urine WBC Clumps Ur Squamous Epith Cells Urine Bacteria Urine Mucus Urine Yeast Micro UA Comment Ur Microscopic Review Urine Culture Comments Vancomycin Trough BCR/abl (FISH) Interp Crossmatch Prewarmed Bld Prod Order Comment Result Diagrams: 03/26/18 04:40 03/26/18 04:40 Microbiology: Microbiology 03/24/18 13:52 Urine Culture - Final Catheterized Urine Debra albicans 03/24/18 13:52 Gram Stain - Final Sputum - Endotracheal Sputum Culture - Final Heavy growth normal respiratory shonda 03/23/18 23:00 Aerobic Blood Culture - Preliminary Blood - Peripheral No growth in 3 days Anaerobic Blood Culture - Preliminary Staphylococcus epidermidis 03/23/18 20:43 Aerobic Blood Culture - Preliminary Blood - Peripheral No growth in 3 days Anaerobic Blood Culture - Preliminary No growth in 3 days Patient/Family Conference Issues Discussed: * Palliative care role, purpose, approach * Additional medical, psychosocial, and spiritual history * Patients general health, functional status, and cognitive changes in the months leading up to the current hospitalization * Patient/family understanding of the current medical problems * Patient/family understanding of prognosis * Patients goals of care as best understood from advance directives and/or conversations and/or values * Current medical treatment options and benefits/burdens of those options * Likely scenarios comparing ongoing aggressive care with a transition to comfort measures only * Questions answered to the best of my ability * Palliative care contact information provided Assessment and Plan Pertinent Non-Medical Issues: Psychosocial: Spiritual: Legal: Ethical issues impacting care: Appreciation Thank you for the opportunity to participate in the care of Tegan Arevalo.
[2018-03-26] MEDS ORDERED: Famotidine 20 MG Tablet PO SCH (21:00)
[2018-03-27] MEDS ORDERED: Pharmacy Ordered Lab Info OTHER ONE (08:45)
--- NOTE | 2018-03-27 09:22 | P.DS ---
Date of admission: 03/14/18 12:24 Primary care physician: UNKNOWN Attending physician on discharge: Ervin Montenegro Brief History from admission: This 77-year-old woman was transferred from [facility] to [facility] for treatment of respiratory failure with septic shock and peripheral abscesses including recent diagnosis of epidural abscess in the lumbar region. Her respiratory status is quite compromised with diffuse infiltrates throughout both lung welsh and she is ventilator dependent. On initial presentation to the hospital impair she had complaints of back pain radiating to her left knee. Her hemoglobin was 4 source of bleeding was clear was unclear at first and Dr. Vasquez had previously performed upper and lower endoscopy without location of a source. She has had a metastatic series and MRI on March 04 which developed multilevel central canal and foraminal stenoses she has had a transesophageal echo which revealed severe mitral regurgitation her hospital course has been complicated by atrial fibrillation and hemodynamic instability. Cardioversion was unsuccessful. She has continued recent fever course in excess of 103 degrees and has been treated with broad-spectrum antibiotic coverage including meropenem and vancomycin. She is continued to deteriorate and on about March 11 required endotracheal intubation and mechanical ventilation. Recent ICU white blood cell count is 40,000 blood cultures from March 09 revealed Streptococcus species and a subsequent blood culture grew a staph organism according to the report from the referring physician. The woman is required amiodarone therapy and diltiazem with additional cardioversion to sinus rhythm on the chest x-ray continues to worsen. CT of the abdomen reveals fluid collection on the left psoas muscle, possibly abscess. The contralateral psoas muscle has a similar collection. Recent MRI demonstrates old spine hardware L3-S1 and an irregular soft tissue density around the thecal sac at L1-L2 extending to T12-L1 she is required vasopressor support for hypotension and obvious sepsis overnight. The one constant throughout her early hospital course was severe lower back pain radiating down her legs. Patient update on day of discharge: Knowing the terminal nature of this patient's disease process and guided by her advanced directive the family has decided to withdraw artificial support today. I agree wholeheartedly with this decision as the patient has no chance for survival from this refractory respiratory failure and overwhelming sepsis. DS: Diagnosis - Discharge Diagnosis (1) Septic shock Status: Acute (2) Acute respiratory distress syndrome (ARDS) Status: Acute (3) Encephalopathy acute Status: Acute (4) Acute hypoxemic respiratory failure Status: Acute (5) Spinal stenosis of thoracolumbar region Status: Acute (6) Colitis due to Clostridium difficile Status: Acute DS: Summary Hospital Course: This 77-year-old woman was transferred from [facility] to [facility] for treatment of respiratory failure with septic shock and peripheral abscesses including recent diagnosis of epidural abscess in the lumbar region. Her respiratory status is quite compromised with diffuse infiltrates throughout both lung welsh and she is ventilator dependent. On initial presentation to the hospital impair she had complaints of back pain radiating to her left knee. Her hemoglobin was 4 source of bleeding was clear was unclear at first and Dr. Vasquez had previously performed upper and lower endoscopy without location of a source. She has had a metastatic series and MRI on March 04 which developed multilevel central canal and foraminal stenoses she has had a transesophageal echo which revealed severe mitral regurgitation her hospital course has been complicated by atrial fibrillation and hemodynamic instability. Cardioversion was unsuccessful. She has continued recent fever course in excess of 103 degrees and has been treated with broad-spectrum antibiotic coverage including meropenem and vancomycin. She is continued to deteriorate and on about March 11 required endotracheal intubation and mechanical ventilation. Recent ICU white blood cell count is 40,000 blood cultures from March 09 revealed Streptococcus species and a subsequent blood culture grew a staph organism according to the report from the referring physician. The woman is required amiodarone therapy and diltiazem with additional cardioversion to sinus rhythm on the chest x-ray continues to worsen. CT of the abdomen reveals fluid collection on the left psoas muscle, possibly abscess. The contralateral psoas muscle has a similar collection. Recent MRI demonstrates old spine hardware L3-S1 and an irregular soft tissue density around the thecal sac at L1-L2 extending to T12-L1 she is required vasopressor support for hypotension and obvious sepsis overnight. The one constant throughout her early hospital course was severe lower back pain radiating down her legs. 03/15: Temperature max 101. Leukocytosis persists to 30,000. Back in normal sinus rhythm now with pulse rate controlled. Her respiratory status is unstable and she still requiring elevated ventilator pressures and elevated oxygen concentration. We will attempt to get an MRI of the entire spine with and without contrast today pending her hemodynamic suitability. At present her pulmonary status makes operative procedure a prohibitive risk. 03/16: T-max 100. Leukocytosis to 30,000 persists. Remains in sinus rhythm. MRI of the spine reviewed. Patient remains clinically critically ill. Azotemia slightly improved. Continue hydration. Start trickle tube feeding with added protein. 03/16: Continued septic course with low-grade fever and white count 33,000. Chest x-ray appearance alone could explain sepsis. Doing need to culture the fluid collections in the back to rule out another possible nidus? 03/17: Worsening respiratory function requiring us to convert to airway pressure release ventilation mode. Way too ill to allow us to transfer and mobilize for psoas muscle fluid aspiration. Elevated white count persists. Renal function slightly improved. Still requiring aggressive fluid resuscitation. White blood cell count 34,000 tomorrow, consistent with colitis. 03/18: Patient remains quite unstable requiring elevated inspiratory fraction of oxygen and markedly elevated mean airway pressures. CAT scan yesterday confirms dense fibrotic pattern left lung consistent with fibroproliferative phase of ARDS. Right lung has a more spotty architectural pattern due to large areas of emphysema. Due to unique antibodies transfusion has been delayed but should proceed today. Elevated white count to 45,000 with a preponderance of immature forms including myelocytes raises concerns for a bone marrow disorder. 03/19: T-max 100.1, pronounced leukocytosis with persistent elevated myelocytes. We appear to have control of the infection despite the lack of clarity involving the various retroperitoneal fluid collections. Hemodynamically she does not act like florid sepsis. CAT scan of the abdomen does not reveal an obvious source of this leukocytosis. CAT scan of the chest reveals a fibroproliferative stage of ARDS but does not necessarily explain the markedly elevated white count. I will ask the hematology service to evaluate. 03/20: I appreciate input from the hematology service. We are treating presumptive C. difficile colitis and antimicrobial coverage for that is adequate. Progress with the improvement of her ARDS is slow and she still requires elevated fractional inspired oxygen concentration and markedly elevated mean airway pressure. Despite progressively lowered tonicity of fluid administered she continues to concentrate sodium. Now at 157 we are forced to resort to simple D5 water. 03/21: Afebrile. Remains on APRV ventilation. Sodium currently 152. Not stable for IR at the present time. Will attempt to wean APRV today with drop and stretch and see if she tolerates. Tube feeds currently at goal. 03/22: Afebrile. FiO2 - 75%. Chest x-ray essentially stable. Status post bone marrow biopsy yesterday. To physical. 500 cc stool past 24 hours. 03/23: Afebrile. FiO2 up to 90%. Chest x-ray stable. Replace central line with right IJ 03/22. PICC line removed yesterday. 600 cc stool past 24 hours. 03/24: Continued deterioration and respiratory function with worsening radiographic findings of consolidation, left worse than right. Now requiring 70 % oxygen and PEEP 16. Generally edematous still. Requiring increased vasopressor support with Khalif-Synephrine. Anemia persists, no obvious source of blood loss. 03/25: Continued problems with oxygenation, requiring fractional inspiratory concentration above 70% now. Most recent chest x-ray confirms continuation of pronounced ARDS. White blood cell count 33,000 and signs of ongoing sepsis. 03/26: Continued deterioration and now requiring greater than 90% oxygen to maintain acceptable bloodstream saturation. Still requiring vasopressor support. Leukocytosis continues to worsen. Patient clinically deteriorating further. Family has been encouraged to understand that this woman will not survive this hospitalization. Despite our best efforts at reversing her sepsis and pulmonary failure she continues to deteriorate. - Time Spent with Patient Total time spent providing and/or coordinating discharge services: Greater than 30 minutes Exam Vital signs: Vital Signs 03/26/18 12:00 03/26/18 16:00 Temperature 97.5 F L 96.6 F L Pulse Rate 82 79 Respiratory Rate 30 H 30 H Blood Pressure 107/46 L 105/43 L Pulse Oximetry 96 95 Intake & Output 03/26/18 03/27/18 03/27/18 18:59 06:59 18:59 Intake Total 1200 / 1200 Output Total 50 / 50 Balance 1150 / 1150 Intake: IV 900 / 900 Neosynephrine Inj 80 MG In NS 500 / 500 Inj 492 ML @ 40 MCG/MIN 15 mls/ hr IV.CONT TITRATE PRN Rx#: [id number] Merrem Inj 1,000 MG In NS Inj 100 / 100 100 ML @ 200 mls/hr IV.SIG Q8H LIZETTE Rx#:[id number] Flagyl 500 MG Inj 100 ML @ 100 300 / 300 mls/hr IV.SIG Q6H LIZETTE Rx#: [id number] Tube Irrigant 300 / 300 Output: Urine Amount (Catheter) Indwelling Urethral Catheter Gastric Drainage Orogastric Tube Other: Date of Last Bowel Movement 03/26/18 Narrative: Physical exam: General: Ill-appearing, elderly woman on mechanical ventilation Head: Atraumatic, normal. Oral tracheal intubation. Neck: Stiff consistent with age but otherwise supple. Lungs: Bilateral sonorous rhonchi with mobile secretions. Good bilateral air entry Heart: Irregular rate and rhythm, 2/6 systolic murmur Abdomen: Moderately distended, bowel sounds few, no guarding Extremities: Warm, well-perfused Neurologic: Heavily sedated on arrival with Ativan. Breathes spontaneously over ventilator rate. Pupils reactive. Results Procedures completed during hospitalization: Intubation and ventilation Labs on day of discharge: Labs from last 24 hours 03/24/18 03/20/18 13:52 05:25 Urine Color Yellow Urine Clarity Turbid H Urine pH 5.0 Ur Specific [place] 1.009 Urine Protein 30 H Urine Glucose (UA) Negative Urine Ketones Negative Urine Occult Blood Moderate H Urine Nitrate Negative Urine Bilirubin Negative Urine Urobilinogen Less than 2 Ur Leukocyte Esterase Large H Urine RBC 66 H Urine WBC Urine WBC Clumps Many H Ur Squamous Epith Cells 5 Urine Bacteria Few H Urine Mucus Few H Urine Yeast Many H Micro UA Comment Cath-culture ind Urine Culture Comments Cath-cult indicated BCR/abl (FISH) Interp Preliminary micro results at discharge 03/23/18 23:00 Aerobic Blood Culture - Preliminary Blood - Peripheral No growth in 3 days 03/23/18 20:43 Aerobic Blood Culture - Preliminary Blood - Peripheral No growth in 3 days Anaerobic Blood Culture - Preliminary No growth in 3 days - Impressions ITS Impressions Cervical Spine MRI 03/15/18 00:00 CONCLUSION: 1. No abnormal areas of enhancement in the dural space or vertebral bodies. 2. Spinal stenosis due to disc bulging at multiple levels and anterolisthesis at C4-5. There is also multilevel bony neural foraminal stenosis. Lumbar Spine MRI 03/15/18 00:00 CONCLUSION: 1. Enhancing soft tissue extending from the subcutaneous region down to the thecal sac at the L1 and L2 level characteristic of postsurgical findings with a rounded area of fluid with some minimal peripheral enhancement dorsal to the thecal sac flattening the posterior margin at L1 and L2. Since there is some minimal peripheral enhancement, and epidural abscess is a differential possibility. Thoracic Spine MRI 03/15/18 00:00 CONCLUSION: 1. No abnormal areas of enhancement in the vertebral bodies or epidural space in the thoracic region. 2. Posterior osteophytes at all levels in the thoracic spine causing mild impression upon the thecal sac. No evidence of disc protrusions over. 3. Moderate size left pleural effusion. Abdomen/Pelvis CT 03/17/18 00:00 CONCLUSION: 1. Diffuse interstitial infiltrate in the lung bases and anasarca suggesting edema. 2. Minimal thickening of the colon. 3. Minimal left basilar effusion. 4. Small amount of free fluid within the abdomen and pelvis. 5. No free air identified. No findings to indicate a bowel obstruction. Chest CT 03/17/18 13:48 CONCLUSION: 1. Extensive interstitial prominence with some sparing of the right upper lobe suggesting ARDS. 2. Minimal effusion on the left with a tiny effusion on the right. 3. Degenerative changes in the thoracic spine. Soft Tissue Ultrasound 03/19/18 00:00 CONCLUSION: 1. Fluid as above. Abdomen X-Ray 03/23/18 00:00 CONCLUSION: No bowel obstruction or ileus. Chest X-Ray 03/24/18 06:00 CONCLUSION: No significant change Discharge Plan - Discharge Disposition Patient Disposition: 20 - Discharge Details Date/Time: 03/26/18 21:36 - Physicians Team Primary Care Provider: UNKNOWN, Attending Provider: Ervin Montenegro Other Providers: Fernando Taylor MD ; Francy Sterling MD ; Sarah Campbell MD ; [facility] ; Mode Morrell MD - Rxs /Orders / Referrals /Forms Prescriptions: Continue Unable to Obtain Home Meds Referrals: UNKNOWN, [Primary Care Provider] - See Instructions
== END 2018-03-26 21:36 | disposition expired ==
LOC: N03 12:24
PROVIDERS: ADMIT Surgery Surgical Critical Care; ATTEND Surgery Surgical Critical Care